=== PATIENT | male | born 1950 | race Caucasian/White ===

== ENCOUNTER 2019-10-24 09:00 | Outpatient (CLI) | payer MEDICARE, OTHER, SELFPAY ==
[2019-10-25 15:44] LABS: COVID-19 RT-PCR Result Negative (Negative)
== END 2019-10-24 09:20 ==
PROVIDERS: Visit Provider Family Medicine
DX: Z11.59 Encounter for screening for other viral diseases (principal)
CPT/HCPCS: U0003

== ENCOUNTER 2019-10-26 15:00 | Outpatient (CLI) | payer MEDICARE, OTHER, SELFPAY ==
--- NOTE | 2019-10-26 | DI.RAD_ITS ---
EXAM: XR CHEST 2V PA LATERAL CLINICAL HISTORY: COUGH, R05, NEGATIVE COVID TEST 10/24/19 TECHNIQUE: 2D digital imaging was performed. COMPARISON: CHEST 2 VIEWS PA,LAT from 01/13/2010 FINDINGS: MEDIASTINUM: Normal. HEART: Normal. PULMONARY VASCULATURE: Normal. LUNGS: Clear. PLEURAL SPACE: No pleural effusion or pneumothorax. BONE:Normal. OTHER FINDINGS:There is elevation of the right hemidiaphragm. IMPRESSION: No acute pulmonary findings. DATA REPOSITORY: RADIATION DOSE DELIVERED:
== END 2019-10-26 15:20 ==
PROVIDERS: PCP Internal Medicine Geriatric Medicine; Visit Provider Internal Medicine Geriatric Medicine
DX: R05 Cough (principal)
CPT/HCPCS: 71046

== ENCOUNTER 2020-02-07 02:11 | Outpatient (CLI) | payer MEDICARE, OTHER, SELFPAY ==
--- NOTE | 2020-02-07 | DI.CT_ITS ---
EXAM: CT CHEST WO CLINICAL HISTORY: COUGH TECHNIQUE: Imaging Protocol: Axial computed tomography images with coronal and sagittal reformatted images were created and reviewed CONTRAST MATERIAL: Noncontrast. COMPARISON: CR XR CHEST 2V PA LATERAL from 10/26/2019 FINDINGS: Tracheobronchial tree: Patent where visualized. Mediastinum and Marleny: No dominant adenopathy or fluid collection. Pulmonary parenchyma: No consolidation or dominant measurable mass. No visible emphysematous or fibro tic changes. Pleura: No effusion or pneumothorax. Heart: The heart is not dilated. Moderate coronary artery calcifications are seen. Aorta: Thoracic aorta non-dilated. Oanz-vz-diahwmuh calcification. Upper abdomen: Enlarged fatty liver. Lymph nodes: Within normal limits. Bones: Degenerative changes and mild scoliosis of the thoracic spine. Soft tissues: Unremarkable. IMPRESSION: No acute abnormality. Atherosclerotic changes and hepatic steatosis are noted.. RADIATION DOSE DELIVERED: Total DLP DATA REPOSITORY: All CT scans at this facility are submitted to the National Radiology Data Registry (NRDR) Dose Index Registry (DIR) with the [employer] ([employer]). RADIATION OPTIMIZATION: All CT scans at this facility use at least one of these dose optimization te chniques: automated exposure control; mA and/or kV adjustment per patient size (includes targeted exa ms where dose is matched to clinical indication); or iterative reconstruction.
--- NOTE | 2020-02-07 | DI.CT_ITS ---
EXAM: CT SINUS WO CLINICAL HISTORY: COUGH, CHRONIC SINUSITIS, J32.9,R05. Evaluate for sinusitis. TECHNIQUE: Imaging Protocol: Axial computed tomography images with coronal and sagittal reformatted images were created and reviewed. COMPARISON: No exams were available for comparison FINDINGS: Frontal sinuses: Normally aerated. Ethmoid air cells: Normally aerated. Maxillary sinuses: Mild mucosal thickening bilaterally. Sphenoid sinus: Normally aerated. Ostiomeatal complexes: Patent. Osseous nasal septum: There is js bullosa of the left middle turbinate. There is mild septal dev iation toward the left. No nasal polyps or nasal mucosal thickening is seen. Visualized regional soft tissues: No acute findings. Orbits: Unremarkable. Bones: Unremarkable. Mastoid Air Cells: Normally aerated. The visualized portions of the brain are grossly normal. The skull is unremarkable. IMPRESSION: Mild mucosal thickening of the maxillary sinuses, left greater than right. RADIATION DOSE DELIVERED: Total DLP DATA REPOSITORY: All CT scans at this facility are submitted to the National Radiology Data Registry (NRDR) Dose Index Registry (DIR) with the [employer] ([employer]). RADIATION OPTIMIZATION: All CT scans at this facility use at least one of these dose optimization te chniques: automated exposure control; mA and/or kV adjustment per patient size (includes targeted exa ms where dose is matched to clinical indication); or iterative reconstruction.
== END 2020-02-07 02:31 ==
PROVIDERS: PCP Internal Medicine Geriatric Medicine; Visit Provider Internal Medicine Geriatric Medicine
DX: J32.0 Chronic maxillary sinusitis (principal); R05 Cough
CPT/HCPCS: 71250; 70486

== ENCOUNTER 2023-01-20 03:01 | Outpatient (CLI) | payer MEDICARE, SELFPAY ==
[2023-01-21 19:52] LABS: Clam IgE 0.18 kU/L (<0.70); Crab IgE <0.10 kU/L (<0.70); Lobster IgE <0.10 kU/L (<0.70); Oyster IgE <0.10 kU/L (<0.70); Scallop IgE <0.10 kU/L (<0.70); Shrimp IgE <0.10 kU/L (<0.70); Wasp Venom IgE <0.10 kU/L (<0.70); White Faced Hornet Venom IgE 0.87 kU/L (<0.70)
[2023-01-25 18:12] LABS: CLASS 0; Venom Bumble Bee IgE <0.10 kU/L (<0.35)
== END 2023-01-20 03:02 | disposition home or self-care (01) ==
PROVIDERS: PCP Internal Medicine Geriatric Medicine; Visit Provider Physician Assistant
DX: Z91.038 Other insect allergy status (principal); Z91.013 Allergy to seafood; J30.89 Other allergic rhinitis
CPT/HCPCS: 36415; 86003

== ENCOUNTER 2024-03-28 19:04 | Inpatient (IN) | payer MEDICARE, SELFPAY ==
[2024-03-28] VITALS (48 sets, daily range): BP systolic 119–182; BP diastolic 58–90; PULSE 79–109; RESP 11–30; TEMP 37; O2SAT 97
--- NOTE | 2024-03-28 19:00 | RT.EKG_ITS ---
APPROVED REPORT Exam: Resting ECG Reason for Exam: chest pain/heaviness Patient Location: E HR:78 bpm ECG Measurements Heart Rate 78 AXIS IA 189 P 65 QRSd 94 QRS 53 QT 382 T 48 QTc 435 Conclusion Sinus rhythm...normal P axis, V-rate 60- 99 sinus rhythm, normal axis, normal intervals, non ischemic
--- NOTE | 2024-03-28 19:00 | DI.RAD_ITS ---
Exam(s) XR PORTABLE CHEST AP EXAM: XR PORTABLE CHEST AP CLINICAL HISTORY: Chest Pain. TECHNIQUE: 2D digital imaging was performed. COMPARISON: CR XR CHEST 2V PA LATERAL from 10/26/2019 FINDINGS: Single AP portable view. Heart size is upper normal. The mediastinum is not widened. No infiltrates nor pleural effusions. Right hemidiaphragm is again noted to be elevated. There is i nterposition of the a P[place]ock flexure of the colon between the liver and the right hemidiaphragm. No obvious free air. IMPRESSION: No acute pulmonary findings on this single AP portable view of the chest. Chronically elevated right hemidiaphragm interposition of colon between the liver and the undersurfac e of the elevated right hemidiaphragm. DATA REPOSITORY: RADIATION DOSE DELIVERED:
--- NOTE | 2024-03-28 19:08 | W.ED.GENAD ---
Discharge Plan Discharge Details Chief Complaint: Chest Pain Primary Care Provider: Asher Zambrano ED Provider: Meghan Chahal Home Meds and New Rx's Prescriptions: No Action meloxicam 15 mg tablet 15 mg PO DAILY rosuvastatin 40 mg tablet 40 mg PO DAILY ezetimibe 10 mg tablet 10 mg PO DAILY Ozempic 2 mg/dose (8 mg/3 mL) pen injector 2 mg SUBCUT .COMPLEX Rx Instructions: 2 mg subcutaneously every 2 weeks; epinephrine 0.3 mg/0.3 mL auto-injector 0.3 ml IM ONCE Rx Instructions: as a single dose; may repeat once HPI General Mode of arrival: EMS. Date/Time Provider Initiated Documentation: 03/28/24 19:07. Limitations to Documentation: no limitations. Information obtained by: patient, EMS, RN notes reviewed and old records reviewed. HPI Narrative: 73-year-old male presents to the ER via EMS with a chief complaint of chest pain which began while riding his tractor, began as midsternal radiating to his left shoulder and arm. Patient was given full dose baby aspirin prior to arrival by EMS 1 sublingual 0.4 mg nitroglycerin and started on a nitroglycerin drip at 30 mics per minute. Patient is also complaining of shortness of breath and vomited once prior to arrival. Upon arrival patient states that his pain is gone but he rates the tightness in his chest 6 out of 10. He is also stating that he is having a hard time breathing. Related Data Home Medications ?Medication ?Instructions ?Recorded ?Confirmed epinephrine 0.3 mg/0.3 mL 0.3 ml IM ONCE 03/28/24 03/28/24 injection, auto-injector ezetimibe 10 mg tablet 10 mg PO DAILY 03/28/24 03/28/24 meloxicam 15 mg tablet 15 mg PO DAILY 03/28/24 03/28/24 rosuvastatin 40 mg tablet 40 mg PO DAILY 03/28/24 03/28/24 semaglutide 2 mg/dose (8 mg/3 mL) 2 mg subcut .COMPLEX 03/28/24 03/28/24 subcutaneous pen injector (Ozempic) Allergies Allergy/AdvReac Type Severity Reaction Status Date / Time bee venom protein (honey bee) Allergy Severe Anaphylaxis Verified 03/28/24 19:19 shellfish derived Allergy Anaphylaxis Verified 03/28/24 19:19 Review of Systems All systems reviewed & are unremarkable except as noted in HPI and below Constitutional Constitutional: Reports as per HPI Cardiovascular Cardiovascular: Reports chest pain, Reports diaphoresis, Reports radiating jaw, neck or arm pain and Reports dyspnea Respiratory Respiratory: Reports dyspnea Gastrointestinal Gastrointestinal: Reports abdominal pain, Reports nausea and Reports vomiting Exam Narrative Exam Narrative: Constitutional: Alert and oriented x3. Appears stated age. Normal body habitus. Head: Normocephalic, no trauma. Eyes: Pupils PERRL, Red reflex noted, EOM's intact. Eyelids symmetrical without lesions, discharge, or swelling. ENT: Bilateral TM's WNL, External ear normal to inspection, no mastoid TTP, swelling, or erythema, Nasal turbinates WNL, no nasal discharge. Normal dentition, Posterior pharynx WNL, no exudate. Chest: Irregular rhythm, 99 102,, Normal S1, S2, distal pulses intact. Resp: Lungs clear to auscultation bilaterally, no wheezes, rales, or rhonchi. Abdomen: Nondistended, tender with palpation with guarding to the upper quadrants. Musculoskeletal: Unable to assess gait moves all 4 extremities without difficulty. Skin: No suspicious rashes or lesions. Capillary refill less than 2 sec. Neurologic: Cranial nerves II-XII intact. Alert and oriented x 3. Motor: No deficits noted. Sensory: Intact bilaterally all 4 extremities. Hematologic/Lymphatic: No ecchymosis, no lymphadenopathy. Medical Decision Making 73-year-old male presents to the ER via EMS with a chief complaint of chest pain which began while riding his tractor, began as midsternal radiating to his left shoulder and arm. Patient was given full dose baby aspirin prior to arrival by EMS 1 sublingual 0.4 mg nitroglycerin and started on a nitroglycerin drip at 30 mics per minute. Patient is also complaining of shortness of breath and vomited once prior to arrival. Upon arrival patient states that his pain is gone but he rates the tightness in his chest 6 out of 10. He is also stating that he is having a hard time breathing. EKG was reviewed by Dr. Hedy Tate ER attending, sinus rhythm, no old EKG available for review. Please see official report. Cardiac workup ordered including CBC CMP troponin chest x-ray D-dimer PT PTT. Instructed staff physical therapy assistant to decrease the nitro drip to 10 mics at this time. Informed by staff physical therapy assistant that patient also notes that yesterday he had an episode of chest pain as well which relieved on its own. Patient has a 17,000 white count, absolute neutrophils 14.02, initial troponin is 6. Patient is complaining of midepigastric pressure and shortness of breath. 0.5 mg lorazepam IV ordered. Will order CT chest abdomen pelvis. Pateint recently had steroid injections which could explain the WBC elevation, Dimer is 742 which is normal for age adjusted. CT chest ordered for R/O PE due to ongoing chest pain and to eval his aorta. 2248: Spoke with Dr. Arizmendi with [facility] who reports a possible perforated ulcer. Surgery paged. 2253: Spoke with Delfina who recommends transfer due to bed capacity, as we do not have beds here at this time, Zosyn and CT abd/pelvis. 2256[place] [facility] [place], will push images. Care is to be handed off to oncoming provider Dr. Meyers pending CT abdomen pelvis, [facility] [place] possible [place], and surgery to see in the a.m. At the time of this annotation patient is hemodynamically stable. Medical Records Medical records reviewed: Yes I reviewed the patient's medical records. Imaging Data Radiologic Study: Imaging: X-Ray Radiologist's impression: Imaging protocol: Radiologic exam of the chest. Views: 1 view. COMPARISON: CT CHEST WO 02/07/2020 9:08 AM FINDINGS: Lungs: Pulmonary vasculature grossly normal. No gross pulmonary infiltrates or edema pattern. Pleural spaces: No pleural effusion. No pneumothorax. Heart/Mediastinum: Heart size normal. No tracheal/mediastinal shift. Vasculature: The aorta demonstrates mild ectasia/tortuosity and moderate calcific atherosclerosis. Diaphragm: Mild chronic elevation of the right hemidiaphragm with incidental subdiaphragmatic interposition of aerated bowel. Bones/joints: No acute osseous abnormalities are identified. Mild-moderate left glenohumeral osteoarthritic change. IMPRESSION: No acute thoracic process. Thank you for allowing us to participate in the care of your patient. Dictated and Authenticated by: Miguel Barnes MD Radiologic Study #2: Imaging: CT Scan Radiologist's impression: IMPRESSION: 1. Moderate intraperitoneal free air in the upper abdomen concerning for bowel perforation. Suspected perforated gastric ulcer in the posterosuperior antro-pyloric distribution. Recommend GI or surgical consult, consider abdomen/pelvic CT with oral and IV contrast. 2. Mild cardiomegaly with left ventricular myocardial hypertrophy concerning for hypertrophic cardiomyopathy. Consider echocardiographic assessment as clinically indicated. Moderate coronary artery calcification. 3. No evidence of pulmonary embolism or aortic dissection. 4. THIS REPORT CONTAINS FINDINGS THAT MAY BE CRITICAL TO PATIENT CARE. The findings were verbally communicated via telephone conference with MEGHAN CHAHAL at 10:49 PM EDT on 03/28/2024. The findings were acknowledged and understood. Lab Data Lab results reviewed: Yes I reviewed the patient's lab results. Labs: Laboratory Tests Range/Units 03/28/24 03/28/24 03/28/24 19:07 20:21 20:32 WBC (4.4-10.8) 10^3/uL 17.08 H RBC (4.36-5.78) 10^6/uL 4.83 Hgb (13.5-17.5) g/dL 14.3 Hct (40.0-50.0) % 42.2 MCV (80-95) fL 87 MCH (27.0-33.0) pg 29.6 MCHC (32.0-36.0) % 33.9 RDW (11.8-14.1) % 13.8 Plt Count (130-400) 10^3/uL 255 MPV (8.0-11.0) fL 9.0 Immature Gran % % 0.5 Neutrophils % % 82.1 Lymphocytes % % 10.2 Monocytes % % 6.9 Eosinophils % % 0.1 Basophils % % 0.2 Nucleated RBC % (0.0-0.3) % 0.0 Absolute Neutrophils (1.2-6.7) 10^3/uL 14.02 H Absolute Lymphocytes (1.2-3.4) 10^3/uL 1.74 Absolute Monocytes (0.1-0.8) 10^3/uL 1.18 H Absolute Eosinophils (0.0-0.7) 10^3/uL 0.02 Absolute Basophils (0.0-0.2) 10^3/uL 0.03 PT (9.1-11.1) sec 11.0 INR (0.9-1.1) 1.1 APTT (23.6-32.8) sec 22.3 L D-Dimer (<500) ng/mlFEU 742 H Sodium (136-145) mmol/L 141 Potassium (3.5-5.1) mmol/L 3.5 Chloride (98-107) mmol/L 105 Carbon Dioxide (21.0-32.0) mmol/L 26.8 Anion Gap (3-11) mmol/L 9.2 BUN (7-18) mg/dL 33 H Creatinine (0.70-1.30) mg/dL 1.1 Est GFR (CKD-EPI 2020) (mL/min/1.73m2) 71.32 Glucose (74-106) mg/dL 87 Calcium (8.5-10.1) mg/dL 9.6 Magnesium (1.8-2.4) mg/dL 2.0 Total Bilirubin (0.2-1.0) mg/dL 0.70 AST (15-37) U/L 23 ALT (16-63) U/L 70 H Alkaline Phosphatase (46-116) U/L 91 Troponin I Cancelled 6 NT-Pro-B Natriuret Pep (<300) pg/mL 26 Total Protein (6.4-8.2) g/dL 6.7 Albumin (3.4-5.0) g/dL 3.7 Quality:[facility] Health Related Social Needs: Health related social needs risk of homeless [facility] Social History Smoking/Tobacco Use Status: Former Tobacco Use Smoking risk assessment performed?: Yes Alcohol Intake: current Alcohol Intake frequency: 0-2 drinks per day Drug use: Never Housing: house Do you feel safe at home: Yes Do you feel safe in your relationship?: Yes Sign Out Sign Out Data: Sign Out Comment: 73-year-old male presented initially with chest pain, now after CT chest with evidence of a perforated gastric ulcer with free air in the peritoneal area. P[place] CT abdomen pelvis, [facility] [place] request and if not possible for transfer, surgery to see in a.m. Dr. Mathis is aware. Zosyn ordered patient n.p.o. Last updated by Meghan Chahal NP at 03/28/24 23:33
[2024-03-28] MEDS: nitroGLYcerin in D5W 50 MG/250 ML BTL IV (19:10)
--- NOTE | 2024-03-28 20:29 | DI.[facility]_ITS ---
Addendum created by Miguel Barnes MD on 03/28/2024 10:50:15 PM EDT: Addendum: Subsequent chest CT angiogram confirms that much of the subdiaphragmatic air density was related to bowel, however there is also a moderate amount of intraperitoneal free air concerning for bowel perforation better demonstrated on CT, please see subsequent chest CT angiogram. This was discussed with the ordering provider with the CT angiogram report. Initial report created on 03/28/2024 8:28:55 PM EDT: PROCEDURE INFORMATION: Exam: XR Chest Exam date and time: 03/28/2024 7:51 PM Age: 73 years old Clinical indication: Other: Chest pain TECHNIQUE: Imaging protocol: Radiologic exam of the chest. Views: 1 view. COMPARISON: CT CHEST WO 02/07/2020 9:08 AM FINDINGS: Lungs: Pulmonary vasculature grossly normal. No gross pulmonary infiltrates or edema pattern. Pleural spaces: No pleural effusion. No pneumothorax. Heart/Mediastinum: Heart size normal. No tracheal/mediastinal shift. Vasculature: The aorta demonstrates mild ectasia/tortuosity and moderate calcific atherosclerosis. Diaphragm: Mild chronic elevation of the right hemidiaphragm with incidental subdiaphragmatic interposition of aerated bowel. Bones/joints: No acute osseous abnormalities are identified. Mild-moderate left glenohumeral osteoarthritic change. IMPRESSION: No acute thoracic process. Dictated and Authenticated by: Miguel Barnes MD. Ordering:GER Christianson MD
[2024-03-28 20:41] LABS: Abs Immature Grans 0.08 10^3/uL (0.0-0.06); Absolute Eosinophil Count 0.02 10^3/uL (0.0-0.7); Absolute Neutrophil Count 14.02 10^3/uL (1.2-6.7); Basophils % 0.2 %; Eosinophils % 0.1 %; HCT 42.2 % (40.0-50.0); HGB 14.3 g/dL (13.5-17.5); Immature Grans % 0.5 %; Lymphocytes % 10.2 %; MCH 29.6 pg (27.0-33.0); MCHC 33.9 % (32.0-36.0); MCV 87 fL (80-95); Monocytes % 6.9 %; Neutrophils % 82.1 %; Platelet Count 255 10^3/uL (130-400); RBC 4.83 10^6/uL (4.36-5.78); RDW 13.8 % (11.8-14.1); WBC 17.08 10^3/uL (4.4-10.8)
[2024-03-28 20:42] LABS: Absolute Basophil Count 0.03 10^3/uL (0.0-0.2); Absolute Lymphocyte Count 1.74 10^3/uL (1.2-3.4); Absolute Monocyte Count 1.18 10^3/uL (0.1-0.8)
[2024-03-28 20:51] LABS: Troponin I 6 ng/L (<or=76)
[2024-03-28 20:56] LABS: INR 1.1 (0.9-1.1); PTT Activated 22.3 sec (23.6-32.8)
[2024-03-28] MEDS: LORazepam 2 MG/ML VIAL 0.5 MG IVP (21:05)
[2024-03-28 21:12] LABS: D-Dimer 742 ng/mlFEU (<500)
[2024-03-28 21:14] LABS: ALT 70 U/L (16-63); AST 23 U/L (15-37); Albumin 3.7 g/dL (3.4-5.0); Alkaline Phosphatase 91 U/L (46-116); Anion Gap 9.2 mmol/L (3-11); BUN 33 mg/dL (7-18); CO2 26.8 mmol/L (21.0-32.0); CREATININE 1.1 mg/dL (0.70-1.30); Calcium 9.6 mg/dL (8.5-10.1); Chloride 105 mmol/L (98-107); Estimated GFR 71.32 (mL/min/1.73m2); Glucose 87 mg/dL (74-106); NT-proBNP 26 pg/mL (<300); Potassium 3.5 mmol/L (3.5-5.1); Sodium 141 mmol/L (136-145); Total Protein 6.7 g/dL (6.4-8.2)
--- OUTSIDE RECORDS SUMMARY | 2024-03-28 21:23 | XMS_ITS ---
Author Organization [facility] Address [address] [place] [address] Phone Care Team Providers Care Managed Services Consultant Name Role Phone Asher Zambrano D.O. Primary Care Provider [phone] Problems Includes: Active, inactive, and resolved Problems All Visits Onset Date Resolved Date Provider Condition S tatus Cervicalgia 02/24/2022 Cole Keating M.D. Activ e Last Documented On 2 1:37PM ; [facility] Peripheral Neuropathy Sensory 02/24/2022 Cole Keating M.D. Active Last Documented On 2 1:38PM ; [facility] Osteoarthritis Localized Primary Knee Right 02/24/2022 Cole Keating M.D. Active Last Documented On 2 1:45PM ; [facility] Nonorganic Sleep Apnea Obstructive 02/24/2022 G jatinder Keating M.D. Active Last Documented On 2 1:45PM ; [facility] Essential Hypertension Benign 04/08/2009 Cole Keating M.D. Active Last Documented On 2 1:45PM ; [facility] Note: DESC: Benign essential hypertensio n Plan of Treatment Education and Decision Aids were provided during visit for: Dietary counseling pertainin g to a specific condition Follow up with PCP Last Documented On 2 1:32PM ; [facility] Assessments Includes: Assessments for all patient encounters Findings Encounter Date Benign essential hypertension New Patien t - 15 Mins with Cole Keating M.D. 02/24/2022 Last Documented On 2 1:56PM ; [facility] Cervicalgia New Patient - 15 Mins with Cole Keating M.D. 02/24/2022 Last Documented On 2 1:56PM ; [facility] Localized primary osteoarthr itis of right knee New Patient - 15 Mins with Cole Keating M.D. 02/24/2022 Last Documented On 2 1:56PM ; [facility] Obstructive sleep apnea New Patient - 15 Mins wi th Cole Keating M.D. 02/24/2022 Last Documented On 2 1:56PM ; [facility] Peripheral sensory neuropathy New Patien t - 15 Mins with Cole Keating M.D. 02/24/2022 Last Documented On 2 1:56PM ; [facility] Instructions Includes: Instructions for all patient encounters Education and Decision Aids were provided during visit for: Dietary counseling pertainin g to a specific condition Follow up with PCP Last Documented On 2 1:32PM ; [facility] Medical Equipment - Implanted Devices Includes: Current and historical Devices No Medical Equipment Recorded Medications Includes: Current and historical Medications Current Medications (continue as prescribed) Clopidogrel Bisulfate 75 MG Oral Tablet 2022 P rovider: Julia Smith MD Diagnosis: 1 by mouth every morning Last Documented On 2 11:36AM By Julia Smith M.D. ; [facility] Mobic 7.5 MG Oral Tablet 02/24/2022 Provider: Chris Keating M.D. Diagnosis: tabs 1 po daily with food prn. Stop if stomach p ain Last Documented On 2 1:55PM By Cole Keating M.D. ; [facility] Diovan 160 MG OR TABS 01/21/2012 Provider: Diagnosis: Last Documented On 2 11:53AM By Amee Anthony ; [facility] [manual] Tricor 20 mg MISC 01/21/2012 Provider: Diagnosis: Last Documented On 2 11:53AM By Amee Anthony ; [facility] Vytorin 10-10 MG OR TABS 01/21/2012 Provider: Diagnosis: Last Documented On 2 11:53AM By Amee Anthony ; [facility] Past Medications on file Clopidogrel Bisulfate 75 MG Oral Tablet 2022 - 2022 Provider: Julia Smith MD Diagnosis: 1 by mouth every morning Last Documented On 2 11:36AM By Julia Smith M.D. ; [facility] Hydrocortisone 2.5% RE CREA 01/21/2012 - 02/20/2012 Pr ovider: Rylie Bishop M.D. Diagnosis: apply to affected areas on t he forehead twice daily for 2-4 weeks Last Documented On 2 12:18PM By Rylie Copeland M.D. ; [facility] Triamcinolone Acetonide 0.1% EX CREA 01/21/2012 - 02/20/2012 Provider: Rylie Bishop M.D. Diagnosis: apply twice daily to affecte d areas for 2-4 weeks on elbows and knees Last Documented On 2 12:19PM By Rylie Copeland M.D. ; [facility] Medications Administered Includes: Administered Medications in patient's chart No Administered Medications Recorded Results Includes: Results from 03/28/2023 through 03/28/2024 No Results Recorded For Specified Dates Social History Description Last Updated No tobacco use 2022 Last Documented On 2 10:32AM ; [facility] Tobacco non-user 02/24/2022 Last Documented On 2 1:56PM ; [facility] Not a current smoker 01/21/2012 Last Documented On 2 2:29PM ; [facility] 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 Last Documented On 2 2:29PM ; [facility] Alcohol once a day 01/21/2012 Last Documented On 2 2:29PM ; [facility] Not using drugs (recreational) 2 Last Documented On 2 2:29PM ; [facility] Smoking Status Unknown Procedures and Surgical History Includes: Procedures from 03/28/2023 through 03/28/2024 Procedures Code Diagnosis Performing Provider Service Location Service Date TANGENTIAL BIOPSY SKIN LESION, SINGLE 10347 Neoplasm of uncertain behavior of skin Rylie Bishop M.D. [facility] 10/26/2023 - 10/26/2023 Last Documented On 4 10:39AM ; [facility] DESTRUCTION BENIGN OR PREMALG LES 2-14 (Distinct Procedural Service) 44335 Actinic keratosis Rylie Bishop M.D. [facility] 10/26/2023 - 10/26/2023 Last Documented On 4 10:39AM ; [facility] DESTRUCTION PREMALIG LESION FIRST LESION (Multiple Procedures, Distinct Procedural Service) 36767 Actinic keratosis Rylie Bishop M.D. [facility] 10/26/2023 - 10/26/2023 Last Documented On 4 10:39AM ; [facility] REPAIR COMPLEX SCALP ARMS LEGS 2.6 TO 7.5 CM (Multiple Procedures) 47001 Squamous cell carcinoma of skin of scalp and neck Jeremy Vaughan MD [facility] 06/29/2023 - 06/29/2023 Last Documented On 3 10:22AM ; [facility] MOHS SURGERY STAGE 1 HEAD NECK HANDS FEET [id number] Squamous cell carcinoma of skin of scalp and neck Jeremy Vaughan MD [facility] 06/29/2023 - 06/29/2023 Last Documented On 3 10:22AM ; [facility] TANGENTIAL BIOPSY SKIN LESION, EACH ADDL (Distinct Procedural Service) 59768 Neoplasm of uncertain behavior of skin Rylie Bishop M.D. [facility] 05/27/2023 - 05/27/2023 Last Documented On 3 9:49AM ; [facility] TANGENTIAL BIOPSY SKIN LESION, SINGLE 42187 Neoplasm of uncertain behavior of skin Rylie Bishop M.D. [facility] 05/27/2023 - 05/27/2023 Last Documented On 3 9:49AM ; [facility] DESTRUCTION BENIGN OR PREMALG LES 2-14 (Distinct Procedural Service) 19270 Actinic keratosis Rylie Bishop M.D. [facility] 03/29/2023 - 03/29/2023 Last Documented On 3 9:09AM ; [facility] DESTRUCTION PREMALIG LESION FIRST LESION 84177 Actinic keratosis Rylie Bishop M.D. [facility] 03/29/2023 - 03/29/2023 Last Documented On 3 9:09AM ; [facility] Surgical History Last Updated No history of surgery in the last 6 ghassan hs 01/21/2012 Last Documented On 2 2:29PM ; [facility] Medical History Includes: Medical History in patient's chart Description Last Updated No history of simplex purpura (bleeds ea sily) 01/21/2012 Last Documented On 2 2:29PM ; [facility] Dental history - had dental anesthesia ( Novacaine) 01/21/2012 Last Documented On 2 2:29PM ; [facility] Exposure to a lot of bright sunlight --> patient's skin tans and joyce 01/21/2012 Last Documented On 2 2:29PM ; [facility] No history of skin cancer 01/21/2012 Last Documented On 2 2:29PM ; [facility] No history of skin disorder 01/21/2012 Last Documented On 2 2:29PM ; [facility] History of hyperlipidemia (high choleste rol) 01/21/2012 Last Documented On 2 2:29PM ; [facility] History of hypertension 01/21/2012 Last Documented On 2 2:29PM ; [facility] Physical Exam Physical Exam not supported for this document type No Physical Exam Recorded Allergies Includes: Active, inactive, and resolved Allergies No Known Allergies Encounters Includes: Encounters from 03/28/2023 through 03/28/2024 Encounter Provider Location Date Check-In Time Check-Out Time Diagnosis Estab Patient - 10 Mins [facility] 03/21/20 24 11:13AM 12:32PM Estab Patient - 10 Mins R[facility]ie [facility]re [facility] 12/10/19 24 11:34AM 12:13PM Estab Patient - 10 Mins Rylie Schneidere [place] [facility] 10/26/19 24 8:57AM 10:28AM Surgery Appt Jeremy Vaughan MD Dermatology [facility] [address] 06/29/20 23 9:21AM 11:18AM Estab Patient - 10 Mins Rylie Schneidere Rylie.[facility] 05/27/20 23 9:55AM 10:21AM Estab Patient - 10 Mins Rylie Bishop M.[facility] 03/29/20 23 8:53AM 9:30AM Clinical Notes Includes: Signed Clinical Notes starting from 08/14/2022 * Progress note Date Encounter Last Documented by 06/29/2023 Surgery Appt Last documented on 06/29/2023; 1:06 PM, Jeremy Vaughan MD; [facility] Active Problems & Conditions - Cervicalgia - Essential Hypertension Benign - DESC: Benign essential hypertension - Nonorganic Sleep Apnea Obstructive - Osteoarthritis Localized Primary Knee Right - Peripheral Neuropathy Sensory Current Medication - [manual] Tricor 20 mg Miscellaneous (not specified) 0 days, 0 refills - Clopidogrel Bisulfate 75 MG Oral Tablet 1 by mouth every morning, 90 days, 3 refills - Diovan 160 MG Tablet 0 days, 0 refills - Mobic 7.5 MG Oral Tablet tabs 1 po daily with food prn. Stop if stomach pain, 30 days, 2 refills - Vytorin 10-10 MG Tablet 0 days, 0 refills Past Medical/Surgical History Reported: Medical: Dental history - had dental anesthesia (Novacaine). Environmental Exposure: Exposure to a lot of bright sunlight --> patient's skin tans and joyce. Diagnoses: Systemic hypertension. Hyperlipidemia (high cholesterol). No diagnosis of skin disorder No diagnosis of simplex purpura (bleeds easily). No diagnosis of skin cancer Social History Tobacco use: No tobacco use and not a current smoker. Tobacco non-user. Alcohol: Alcohol once a day. Drug Use: Not using drugs (recreational). 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 Allergies - No Known Allergies Family History No diagnosis of skin cancer
--- OUTSIDE RECORDS SUMMARY | 2024-03-28 21:23 | XMS_ITS ---
Care Plan - [facility] Created on: March 29, 2024 Nirmal Puri : 1950 Sex: Male Author Organization [facility] Address [address] [place] [address] Phone Care Team Providers Care Computer Aided Design Drafter Name Role Phone Asher Zambrano D.O. Primary Care Provider [phone]
--- OUTSIDE RECORDS SUMMARY | 2024-03-28 21:23 | XMS_ITS | Clinical Summary ---
Author Organization [facility] Address [address] [place] [address] Phone Care Team Providers Care Associate [employer] Name Role Phone Asher Zambrano D.O. Primary Care Provider [phone] Problems Includes: Problems addressed during this encounter and other active Problems All Visits Onset Date Resolved Date Provider Condition S tatus Cervicalgia 02/24/2022 Cole Keating M.D. Activ e Last Documented On 2 1:37PM ; [facility] Peripheral Neuropathy Sensory 02/24/2022 Cole Keating M.D. Active Last Documented On 2 1:38PM ; [facility] Osteoarthritis Localized Primary Knee Right 02/24/2022 Cole Keating M.D. Active Last Documented On 2 1:45PM ; [facility] Nonorganic Sleep Apnea Obstructive 02/24/2022 G jatinder Keating M.D. Active Last Documented On 2 1:45PM ; [facility] Essential Hypertension Benign 04/08/2009 Cole Keating M.D. Active Last Documented On 2 1:45PM ; [facility] Note: DESC: Benign essential hypertensio n Plan of Treatment No Plan of Treatment Recorded Assessments Includes: Assessments from this encounter No Assessments Recorded Medical Equipment - Implanted Devices Includes: Current Devices No Medical Equipment Recorded Medications Includes: Medications discussed during this encounter and other current Medications Current Medications (continue as prescribed) Clopidogrel Bisulfate 75 MG Oral Tablet 2022 Es bergeron: Julia Smith MD Diagnosis: 1 by mouth every morning Last Documented On 2 11:36AM By Julia Smith M.D. ; [facility] Mobic 7.5 MG Oral Tablet 02/24/2022 Provider: Chris Keating M.D. Diagnosis: tabs 1 po daily with food prn. Stop if stomach p ain Last Documented On 2 1:55PM By Cole Keating M.D. ; [facility] Diovan 160 MG OR TABS 01/21/2012 Provider: Diagnosis: Last Documented On 2 11:53AM By Amee Anthony ; [facility] [manual] Tricor 20 mg MISC 01/21/2012 Provider: Diagnosis: Last Documented On 2 11:53AM By Amee Anthony ; [facility] Vytorin 10-10 MG OR TABS 01/21/2012 Provider: Diagnosis: Last Documented On 2 11:53AM By Amee Anthony ; [facility] Medications Administered Includes: Administered Medications from this encounter No Administered Medications Recorded Results Includes: Results discussed during this encounter No Results Recorded For Specified Dates Social History No Social History Recorded - Smoking Status Unknown Medical History Includes: Medical History addressed during this encounter No Medical History Recorded Physical Exam Includes: Physical Exam from this encounter No Physical Exam Recorded Allergies Includes: Active Allergies No Known Allergies Encounters Encounter Provider Location Date Check-In Time Check-Out Time Diagnosis Estab Patient - 10 Mins Rylie Bishop M.D. Dermatology [facility] 05/01/20 24 9:00AM 11:59PM Clinical Notes Includes: Clinical Notes from this encounter No Clinical Notes Recorded
--- OUTSIDE RECORDS SUMMARY | 2024-03-28 21:23 | XMS_ITS | Clinical Summary ---
Author Organization [facility] Address [address] [place] [address] Phone Care Team Providers Care Hide Inspector Name Role Phone Asher Zambrano D.O. Primary Care Provider [phone] Problems Includes: Problems addressed during this encounter and other active Problems All Visits Onset Date Resolved Date Provider Condition S tatus Cervicalgia 02/24/2022 Cole Keating M.D. Activ e Last Documented On 2 1:37PM ; [facility] Peripheral Neuropathy Sensory 02/24/2022 Cole Keating M.D. Active Last Documented On 2 1:38PM ; [facility] Osteoarthritis Localized Primary Knee Right 02/24/2022 Cole Keating M.D. Active Last Documented On 2 1:45PM ; [facility] Nonorganic Sleep Apnea Obstructive 02/24/2022 G jatinder Keating M.D. Active Last Documented On 2 1:45PM ; [facility] Essential Hypertension Benign 04/08/2009 Cole Keating M.D. Active Last Documented On 2 1:45PM ; [facility] Note: DESC: Benign essential [...] 2 11:36AM By Julia Smith M.D. ; [facility] Mobic 7.5 MG Oral Tablet 02/24/2022 Provider: Chris Keating M.D. Diagnosis: tabs 1 po daily with food prn. Stop if stomach p ain Last Documented On 2 1:55PM By Cole Keating M.D. ; [facility] Diovan 160 MG OR TABS 01/21/2012 Provider: Diagnosis: Last Documented On 2 11:53AM By Amee Anthony ; [facility] [manual] Tricor 20 mg MISC 01/21/2012 Provider: Diagnosis: Last Documented On 2 11:53AM By Amee Anthony ; [facility] Vytorin 10-10 MG OR TABS 01/21/2012 Provider: Diagnosis: Last Documented On 2 11:53AM By Amee Anthony ; [facility] Medications Administered Includes: Administered [...] Mins Rylie Bishop M.D. Dermatology [facility] 03/21/20 24 11:13AM 12:32PM Clinical Notes Includes: Clinical Notes from this encounter No Clinical Notes Recorded
--- OUTSIDE RECORDS SUMMARY | 2024-03-28 21:24 | XMS_ITS | Encounter Summary ---
Author Organization [facility] Address [address] [place] [address] Care Team Providers Care Chief Digital Media Officer Name Role Phone Alejo aZmbranoel Maurice KNUTSON Primary Care Provider Prior Encounters Date Type Department Care Team Description 11/12/2022 6:18 AM EDT - 11/12/2022 9:30 AM EDT Hospital Encounter [facility] - [facility] - [facility] [place] [address] Wilfrido Shine MD Discharge Disposition: Home 11/12/2022 11:00 AM EDT - 11/12/2022 11:30 AM EDT Surgery [facility] [place] [address] Wilfrido Shine MD Midline C6 7 cervical interlaminat epidural steroid inj [44601 (CPT??)] 11/12/2022 9:31 AM EDT - 11/12/2022 11:58 PM EDT Hospital Encounter [facility] Endoscopy [address] [facility] [place] [address] Wilfrido Shine MD Discharge Disposition: Home 07/20/2022 8:42 AM EST - 07/21/2022 1:43 PM EST [facility] [place] [address] Brandyn Ospina MD Discharge Disposition: Home 07/20/2022 10:15 AM EST - 07/20/2022 1:10 PM EST Surgery [facility] Operating Room [address] [place] [address] Brandyn Ospina MD Right Carotid Endarterectomy [[id number] (CPT??)] 07/17/2022 1:00 PM EST - 07/17/2022 11:59 PM EST Hospital Encounter [facility] Cardiology [address] [place] [address] Brandyn Ospina MD Encounter for screening for other viral diseases Discharge Disposition: Home 06/25/2022 12:41 PM EST - 06/25/2022 11:59 PM EST Hospital Encounter [facility] Cardiology [address] [place] [address] Brandyn Ospina MD Occlusion and stenosis of bilateral carotid arteries Discharge Disposition: Home 06/08/2022 11:00 AM EST - 06/08/2022 11:59 PM EST Hospital Encounter [place] [address] [facility] - Radiology [address] [place] [id number] Asher Zambrano DO Occlusion and stenosis of unspecified carotid artery Discharge Disposition: Home 06/08/2022 9:39 AM EST - 06/08/2022 10:59 AM EST Hospital Encounter [place] [address] [facility] - Radiology [address] [place] [id number] Julia Smith MD Spinal stenosis, lumbar region without neurogenic claudication; Spinal stenosis, thoracic region Discharge Disposition: Home 06/08/2022 9:39 AM EST - 06/08/2022 10:59 AM EST Hospital Encounter [place] [address] [facility] - Radiology [address] [place] [id number] Julia Smith MD Spinal stenosis, lumbar region without neurogenic claudication; Spinal stenosis, thoracic region Discharge Disposition: Home 05/18/2022 9:06 AM EST - 05/18/2022 1:52 PM EST Hospital Encounter [place] [address] [facility] - Radiology [address] [place] [id number] Julia Smith MD Aural vertigo, unspecified ear; Dissection of carotid artery (CMS/HCC); Cerebral aneurysm, nonruptured Discharge Disposition: Home 05/18/2022 9:02 AM EST - 05/18/2022 9:05 AM EST Hospital Encounter [place] [address] [facility] - Radiology [address] [place] [address] Julia Smith MD Aural vertigo, unspecified ear; Dissection of carotid artery (CMS/HCC); Cerebral aneurysm, nonruptured Discharge Disposition: Home 05/18/2022 9:02 AM EST - 05/18/2022 9:05 AM EST [facility] [address] [facility] [address] [place] [id number] Jluia Smith MD Aural vertigo, unspecified ear; Dissection of carotid artery (CMS/HCC); Cerebral aneurysm, nonruptured Discharge Disposition: Home 05/18/2022 1:53 PM EST - 05/18/2022 11:59 PM EST Hospital Encounter [facility] Sleep Study [address] [place] [address] Asher Zambrano DO JAGJIT (obstructive sleep apnea) Discharge Disposition: Home 05/04/2018 1:50 PM EDT - 05/04/2018 11:59 PM EDT Hospital Encounter [facility] - Radiology - MR [address] [place] [address] Asher Zambrano DO Benign paroxysmal vertigo of both ears Discharge Disposition: Home 05/28/2017 8:05 AM EST Hospital Encounter [facility] Historical Outpatient Gian Castro MD 04/14/2017 7:01 AM EDT Hospital Encounter [facility] Historical Outpatient Dante Hall MD 03/23/2017 5:53 PM EDT Hospital Encounter [facility] Historical Outpatient Dante Hall MD 08/07/2015 12:36 PM EST Hospital Encounter [facility] Historical Ouptatient Data Datne Hall MD 01/28/2015 9:43 AM EDT Hospital Encounter [facility] Historical Outpatient Asher Zambrano, DO 01/30/2014 7:09 PM EDT Hospital Encounter [facility] Historical Outpatient Asher Zambrano, DO 05/18/2013 9:27 AM EST Hospital Encounter [facility] Historical Outpatient Asher Zambrano, DO 05/18/2013 7:57 PM EST Hospital Encounter [facility] Historical Outpatient Asher Zambrano, DO 04/21/2013 6:09 AM EDT Hospital Encounter [facility] Historical Outpatient Efrain Balderas MD 04/20/2013 7:00 PM EDT Hospital Encounter [facility] Historical Outpatient Asher Zambrano, DO 04/18/2013 9:01 AM EDT Hospital Encounter [facility] Historical Outpatient Asher Zambrano, DO 04/12/2013 7:47 AM EDT Hospital Encounter [facility] Historical Ouptatient Data Asher Zambrano, DO 04/06/2013 11:24 AM EDT Hospital Encounter [facility] Historical Outpatient Asher Zambrano, DO 05/17/2012 11:32 AM EST Hospital Encounter [facility] Historical Outpatient Asher Zambrano, DO 05/16/2012 4:39 PM EST Hospital Encounter [facility] Historical Outpatient Asher Zambrano, DO 12/24/2011 3:16 PM EDT Hospital Encounter [facility] Historical Outpatient Asher Zambrano, DO 09/01/2011 9:21 AM EST Hospital Encounter [facility] Historical Outpatient Dante Hall MD 02/11/2011 10:49 AM EDT Hospital Encounter [facility] Historical Outpatient Asher Zambrano, DO 10/23/2010 9:11 AM EDT Hospital Encounter [facility] Historical Outpatient Dante Hall MD 05/01/2010 9:06 AM EDT Hospital Encounter [facility] Historical Outpatient Donavon Kelly MD 10/08/2009 7:31 AM EDT Hospital Encounter [facility] Historical Outpatient Miguel Gómez MD 10/08/2009 7:37 AM EDT Hospital Encounter [facility] Historical Outpatient Miguel Gómez MD 06/18/2009 7:49 AM EST Hospital Encounter [facility] Historical Ouptatient Data Asher Zambrano, DO 04/02/2009 7:50 AM EDT Hospital Encounter [facility] Historical Outpatient Asher Zambrano, DO 09/22/2007 11:26 AM EDT Hospital Encounter [facility] Historical Outpatient Asher Zambrano, DO 04/01/2007 12:31 PM EDT Hospital Encounter [facility] Historical Outpatient Asher Zambrano, DO 03/08/2007 7:04 AM EDT Hospital Encounter [facility] Historical Outpatient Asher Zambrano, DO 09/30/2006 5:16 PM EDT Hospital Encounter [facility] Historical Outpatient Celestine Franco MD 10/26/2005 4:00 PM EDT Hospital Encounter [facility] Historical Outpatient Celestine Franco MD 03/26/2005 7:20 AM EDT Hospital Encounter [facility] Historical Outpatient Asher Zambrano, DO 07/09/2004 12:27 PM EST Hospital Encounter [facility] Historical Outpatient Asher Zambrano, DO 01/23/2003 Hospital Encounter [facility] Historical Outpatient Asher Zambrano, DO 12/28/2002 1:23 AM EDT - 12/28/2002 5:03 PM EDT Hospital Encounter [facility] Historical Inpatient Asher Zambrano Maurice, DO Discharge Disposition: Home 09/22/2002 12:43 PM EST Hospital Encounter [facility] Historical Outpatient Asher Zambrano, DO 11/22/2001 6:18 AM EDT Hospital Encounter [facility] Historical Ouptatient Data Celestine Martin MD 11/18/2001 12:42 PM EDT Hospital Encounter [facility] Historical Ouptatient Data Celestine Martin MD 04/24/2001 11:04 AM EDT Hospital Encounter [facility] Historical ED Guilherme Souza MD Discharge Disposition: Home 04/29/2000 9:48 AM EDT Hospital Encounter [facility] Historical Outpatient Dago Nowak MD 04/24/1999 7:59 AM EDT Hospital Encounter [facility] Historical Outpatient Karl Peña MD 12/16/1998 8:16 AM EDT Hospital Encounter [facility] Historical Outpatient Karl Peña MD 06/03/1998 7:56 AM EST Hospital Encounter [facility] Historical Outpatient Karl Peña MD 12/25/1997 7:53 AM EDT Hospital Encounter [facility] Historical Outpatient Karl Peña MD 05/25/1997 7:34 AM EST Hospital Encounter [facility] Historical Outpatient Karl Peña MD 11/08/1996 7:40 AM EDT Hospital Encounter [facility] Historical Outpatient Karl Peña MD 08/23/1996 7:49 AM EST Hospital Encounter [facility] Historical Outpatient Karl Peña MD 08/09/1996 7:49 AM EST Hospital Encounter [facility] Historical Outpatient Karl Peña MD 05/10/1996 7:45 AM EST Hospital Encounter [facility] Historical Outpatient 02/09/1996 9:39 AM EDT Hospital Encounter [facility] Historical Outpatient Karl Peña MD 12/17/1995 9:00 AM EDT Hospital Encounter [facility] Historical Outpatient 12/13/1995 4:00 PM EDT Hospital Encounter [facility] Historical Outpatient Karl Peña MD Last Filed Vital Signs Vital Sign Reading Time Taken Comments Blood Pressure 159/75 11/12/2022 11:30 AM EDT Pulse 77 11/12/2022 11:30 AM EDT Temperature 36.1 ??C (97 ??F) 11/12/2022 11:21 AM EDT Respiratory Rate 16 11/12/2022 11:30 AM EDT Oxygen Saturation 99% 11/12/2022 11:30 AM EDT Inhaled Oxygen Concentration - - Weight 83 kg (183 lb) 11/12/2022 10:15 AM EDT Height 177.8 cm (5' 10) 11/12/2022 10:15 AM EDT Body Mass Index 26.26 11/12/2022 10:15 AM EDT Plan of Treatment Not on file Procedures Procedure Name Priority Date/Time Associated Diagnosis Comments COMPREHENSIVE METABOLIC PANEL Routine 04/01/2023 12:00 PM EDT Encounter for other specified special examinations CBC AND DIFF Routine 04/01/2023 12:00 PM EDT Encounter for other specified special examinations HEMOGLOBIN A1C Routine 02/25/2023 10:31 PM EDT Obesity, unspecified Hyperlipidemia, unspecified Essential (primary) hypertension TSH 3RD GENERATION Routine 02/25/2023 10 :31 PM EDT Obesity, unspecified Hyperlipidemia, unspecified Essential (primary) hypertension APOLIPOPROTEIN B Routine 02/25/2023 10:3 1 PM EDT Obesity, unspecified Hyperlipidemia, unspecified Essential (primary) hypertension CBC AND DIFF Routine 02/25/2023 10:31 PM EDT Obesity, unspecified Hyperlipidemia, unspecified Essential (primary) hypertension COMPREHENSIVE METABOLIC PANEL Routine 02/25/2023 10:31 PM EDT Obesity, unspecified Hyperlipidemia, unspecified Essential (primary) hypertension FL FLUOROSCOPY TECHNICAL ASSISTANCE Routine 11/12/2022 11:22 AM EDT AL NJX DX/THER SBST INTRLMNR CRV/THRC W/IMG GDN 11/12/2022 10:59 AM EDT Cervical spinal stenosis Spondylolisthesis of cervical region APOLIPOPROTEIN B Routine 11/11/2022 3:24 PM EDT Hyperlipidemia, unspecified Essential (primary) hypertension LIPID PROFILE Routine 11/11/2022 3:24 PM EDT Hyperlipidemia, unspecified Essential (primary) hypertension HEMOGLOBIN A1C Routine 11/11/2022 3:24 PM EDT Hyperlipidemia, unspecified Essential (primary) hypertension TSH 3RD GENERATION Routine 11/11/2022 3: 24 PM EDT Hyperlipidemia, unspecified Essential (primary) hypertension CBC AND DIFF Routine 11/11/2022 3:24 PM EDT Hyperlipidemia, unspecified Essential (primary) hypertension COMPREHENSIVE METABOLIC PANEL Routine 11/11/2022 3:24 PM EDT Hyperlipidemia, unspecified Essential (primary) hypertension BASIC METABOLIC PANEL Routine 07/21/2022 4:06 AM EST CBC Routine 07/21/2022 4:06 AM EST POCT GLUCOSE (BEAKER RESULTS) Routine 07/20/2022 5:34 PM EST AL AN ELECTIVE ENDOTRACHEAL AIRWAY Routine 07/20/2022 11:01 AM EST AL THROMBOENDARTECTMY NECK,NECK INCIS 07/20/2022 10:36 AM EST Carotid stenosis, bilateral PROTIME-INR STAT 07/17/2022 1:05 PM EST Encounter for screening for other viral diseases Occlusion and stenosis of bilateral carotid arteries Encounter for other preprocedural examination COMPREHENSIVE METABOLIC PANEL STAT 07/17/2022 1:05 PM EST Encounter for screening for other viral diseases Occlusion and stenosis of bilateral carotid arteries Encounter for other preprocedural examination CBC STAT 07/17/2022 1:05 PM EST Encounter for screening for other viral diseases Occlusion and stenosis of bilateral carotid arteries Encounter for other preprocedural examination SARS-COV-2 (COVID 19) Routine 07/17/2022 1:05 PM EST Encounter for screening for other viral diseases INACTIVE SARS-COV-2 (COVID 19), PCR Routine 07/17/2022 1:05 PM EST Encounter for screening for other viral diseases ECG 12-LEAD Routine 07/17/2022 Encounter for screening for other viral diseases US CAROTID BILATERAL Routine 06/25/2022 1:07 PM EST Occlusion and stenosis of bilateral carotid arteries CT ANGIOGRAPHY HEAD/NECK W WO IV CONTRAST Routine 06/08/2022 11:27 AM EST Occlusion and stenosis of unspecified carotid artery MRI CERVICAL SPINE WO CONTRAST Routine 06/08/2022 10:47 AM EST Spinal stenosis, lumbar region without neurogenic claudication Spinal stenosis, thoracic region MRI THORACIC SPINE WO CONTRAST Routine 06/08/2022 10:47 AM EST Spinal stenosis, lumbar region without neurogenic claudication Spinal stenosis, thoracic region HOME SLEEP APNEA TEST Routine 05/21/2022 9:04 PM EST JAGJIT (obstructive sleep apnea) MRI ANGIOGRAM NECK WO CONTRAST Routine 05/18/2022 10:21 AM EST Aural vertigo, unspecified ear Dissection of carotid artery (CMS/HCC) Cerebral aneurysm, nonruptured MRI BRAIN WO CONTRAST Routine 05/18/2022 10:01 AM EST Aural vertigo, unspecified ear Dissection of carotid artery (CMS/HCC) Cerebral aneurysm, nonruptured MRI ANGIOGRAM HEAD WO CONTRAST Routine 05/18/2022 9:54 AM EST Aural vertigo, unspecified ear Dissection of carotid artery (CMS/HCC) Cerebral aneurysm, nonruptured EXTUB URINE CUP Routine 04/30/2022 3:57 PM EDT Encounter for screening for malignant neoplasm of prostate Hyperlipidemia, unspecified Proteinuria, unspecified C-REACTIVE PROTEIN, HIGHLY SENSITIVE Routine 04/30/2022 3:57 PM EDT Encounter for screening for malignant neoplasm of prostate Hyperlipidemia, unspecified Proteinuria, unspecified MICROALBUMIN/CREATININE URINE RANDOM Routine 04/30/2022 3:57 PM EDT Encounter for screening for malignant neoplasm of prostate Hyperlipidemia, unspecified Proteinuria, unspecified URIC ACID Routine 04/30/2022 3:57 PM EDT Encounter for screening for malignant neoplasm of prostate Hyperlipidemia, unspecified Proteinuria, unspecified LIPOPROTEIN (A) Routine 04/30/2022 3:57 PM EDT Encounter for screening for malignant neoplasm of prostate Hyperlipidemia, unspecified Proteinuria, unspecified APOLIPOPROTEIN B Routine 04/30/2022 3:57 PM EDT Encounter for screening for malignant neoplasm of prostate Hyperlipidemia, unspecified Proteinuria, unspecified PSA TOTAL Routine 04/30/2022 3:57 PM EDT Encounter for screening for malignant neoplasm of prostate Hyperlipidemia, unspecified Proteinuria, unspecified EXTUB GOLD Routine 02/23/2022 9:34 PM EDT Benign prostatic hyperplasia without lower urinary tract symptoms Other abnormal glucose Hyperlipidemia, unspecified Lyme disease, unspecified Other cervical disc degeneration, unspecified cervical region Rheumatism, unspecified URIC ACID Routine 02/23/2022 9:34 PM EDT Benign prostatic hyperplasia without lower urinary tract symptoms Other abnormal glucose Hyperlipidemia, unspecified Lyme disease, unspecified Other cervical disc degeneration, unspecified cervical region Rheumatism, unspecified RHEUMATOID FACTOR Routine 02/23/2022 9:3 4 PM EDT Benign prostatic hyperplasia without lower urinary tract symptoms Other abnormal glucose Hyperlipidemia, unspecified Lyme disease, unspecified Other cervical disc degeneration, unspecified cervical region Rheumatism, unspecified KYLAH TITER Routine 02/23/2022 9:34 PM EDT Benign prostatic hyperplasia without lower urinary tract symptoms Other abnormal glucose Hyperlipidemia, unspecified Lyme disease, unspecified Other cervical disc degeneration, unspecified cervical region Rheumatism, unspecified KYLAH SCREEN (AUTOMATED) Routine 9:34 PM EDT Benign prostatic hyperplasia without lower urinary tract symptoms Other abnormal glucose Hyperlipidemia, unspecified Lyme disease, unspecified Other cervical disc degeneration, unspecified cervical region Rheumatism, unspecified SEDIMENTATION RATE Routine 02/23/2022 9: 34 PM EDT Benign prostatic hyperplasia without lower urinary tract symptoms Other abnormal glucose Hyperlipidemia, unspecified Lyme disease, unspecified Other cervical disc degeneration, unspecified cervical region Rheumatism, unspecified CK, TOTAL (NO REFLEX) Routine 02/23/2022 9:34 PM EDT Benign prostatic hyperplasia without lower urinary tract symptoms Other abnormal glucose Hyperlipidemia, unspecified Lyme disease, unspecified Other cervical disc degeneration, unspecified cervical region Rheumatism, unspecified LIPID PROFILE Routine 02/23/2022 9:34 PM EDT Benign prostatic hyperplasia without lower urinary tract symptoms Other abnormal glucose Hyperlipidemia, unspecified Lyme disease, unspecified Other cervical disc degeneration, unspecified cervical region Rheumatism, unspecified CBC AND DIFF Routine 02/23/2022 9:34 PM EDT Benign prostatic hyperplasia without lower urinary tract symptoms Other abnormal glucose Hyperlipidemia, unspecified Lyme disease, unspecified Other cervical disc degeneration, unspecified cervical region Rheumatism, unspecified TSH 3RD GENERATION Routine 02/23/2022 9: 34 PM EDT Benign prostatic hyperplasia without lower urinary tract symptoms Other abnormal glucose Hyperlipidemia, unspecified Lyme disease, unspecified Other cervical disc degeneration, unspecified cervical region Rheumatism, unspecified COMPREHENSIVE METABOLIC PANEL Routine 02/23/2022 9:34 PM EDT Benign prostatic hyperplasia without lower urinary tract symptoms Other abnormal glucose Hyperlipidemia, unspecified Lyme disease, unspecified Other cervical disc degeneration, unspecified cervical region Rheumatism, unspecified HEMOGLOBIN A1C Routine 02/23/2022 9:34 PM EDT Benign prostatic hyperplasia without lower urinary tract symptoms Other abnormal glucose Hyperlipidemia, unspecified Lyme disease, unspecified Other cervical disc degeneration, unspecified cervical region Rheumatism, unspecified PSA TOTAL Routine 02/23/2022 9:34 PM EDT Benign prostatic hyperplasia without lower urinary tract symptoms Other abnormal glucose Hyperlipidemia, unspecified Lyme disease, unspecified Other cervical disc degeneration, unspecified cervical region Rheumatism, unspecified EXTUB GOLD Routine 09/10/2021 7:13 PM EST Cramp and spasm Hyperlipidemia, unspecified Unspecified abdominal pain TSH 3RD GENERATION Routine 09/10/2021 7: 13 PM EST Cramp and spasm Hyperlipidemia, unspecified Unspecified abdominal pain CEA Routine 09/10/2021 7:13 PM EST Cramp and spasm Hyperlipidemia, unspecified Unspecified abdominal pain LIPID PROFILE Routine 09/10/2021 7:13 PM EST Cramp and spasm Hyperlipidemia, unspecified Unspecified abdominal pain COMPREHENSIVE METABOLIC PANEL Routine 09/10/2021 7:13 PM EST Cramp and spasm Hyperlipidemia, unspecified Unspecified abdominal pain CK, TOTAL (NO REFLEX) Routine 09/10/2021 7:13 PM EST Cramp and spasm Hyperlipidemia, unspecified Unspecified abdominal pain MAGNESIUM Routine 09/10/2021 7:13 PM EST Cramp and spasm Hyperlipidemia, unspecified Unspecified abdominal pain IRON AND TIBC Routine 09/10/2021 7:13 PM EST Cramp and spasm Hyperlipidemia, unspecified Unspecified abdominal pain CBC AND DIFF Routine 09/10/2021 7:13 PM EST Cramp and spasm Hyperlipidemia, unspecified Unspecified abdominal pain URINE CULTURE Routine 10/04/2020 2:37 PM EDT Benign prostatic hyperplasia without lower urinary tract symptoms EXTUB GOLD Routine 11/28/2019 5:40 PM EDT Essential (primary) hypertension Other abnormal glucose Cough Hyperlipidemia, unspecified Contact with and (suspected) exposure to unspecified communicable disease VITAMIN D 25 HYDROXY Routine 11/28/2019 5:40 PM EDT Essential (primary) hypertension Other abnormal glucose Cough Hyperlipidemia, unspecified Contact with and (suspected) exposure to unspecified communicable disease INACTIVE COVID-19 SARS-COV-2 ANTIBODY (IGG) Routine 11/28/2019 5:40 PM EDT Essential (primary) hypertension Other abnormal glucose Cough Hyperlipidemia, unspecified Contact with and (suspected) exposure to unspecified communicable disease LIPID PROFILE Routine 11/28/2019 5:40 PM EDT Essential (primary) hypertension Other abnormal glucose Cough Hyperlipidemia, unspecified Contact with and (suspected) exposure to unspecified communicable disease CCP IGG/IGA ANTIBODY Routine 11/28/2019 5:40 PM EDT Essential (primary) hypertension Other abnormal glucose Cough Hyperlipidemia, unspecified Contact with and (suspected) exposure to unspecified communicable disease RHEUMATOID FACTOR Routine 11/28/2019 5:4 0 PM EDT Essential (primary) hypertension Other abnormal glucose Cough Hyperlipidemia, unspecified Contact with and (suspected) exposure to unspecified communicable disease KYLAH SCREEN (AUTOMATED) Routine 0 5:40 PM EDT Essential (primary) hypertension Other abnormal glucose Cough Hyperlipidemia, unspecified Contact with and (suspected) exposure to unspecified communicable disease C-REACTIVE PROTEIN Routine 11/28/2019 5: 40 PM EDT Essential (primary) hypertension Other abnormal glucose Cough Hyperlipidemia, unspecified Contact with and (suspected) exposure to unspecified communicable disease HEMOGLOBIN A1C Routine 11/28/2019 5:40 PM EDT Essential (primary) hypertension Other abnormal glucose Cough Hyperlipidemia, unspecified Contact with and (suspected) exposure to unspecified communicable disease CBC AND DIFF Routine 11/28/2019 5:40 PM EDT Essential (primary) hypertension Other abnormal glucose Cough Hyperlipidemia, unspecified Contact with and (suspected) exposure to unspecified communicable disease TSH 3RD GENERATION Routine 11/28/2019 5: 40 PM EDT Essential (primary) hypertension Other abnormal glucose Cough Hyperlipidemia, unspecified Contact with and (suspected) exposure to unspecified communicable disease COMPREHENSIVE METABOLIC PANEL Routine 11/28/2019 5:40 PM EDT Essential (primary) hypertension Other abnormal glucose Cough Hyperlipidemia, unspecified Contact with and (suspected) exposure to unspecified communicable disease UPPER RESPIRATORY CULTURE Routine 2018 3:03 PM EST Acute maxillary sinusitis, unspecified DIFF COUNT Routine 06/12/2019 8:00 PM EST Essential (primary) hypertension CBC Routine 06/12/2019 8:00 PM EST Essential (primary) hypertension C-REACTIVE PROTEIN Routine 06/12/2019 8: 00 PM EST Essential (primary) hypertension CBC AND DIFF Routine 06/12/2019 8:00 PM EST Essential (primary) hypertension COMPREHENSIVE METABOLIC PANEL Routine 06/12/2019 8:00 PM EST Essential (primary) hypertension MRI BRAIN W WO CONTRAST Routine 05/04/20 18 2:39 PM EDT Benign paroxysmal vertigo of both ears EXTUB GOLD Routine 05/02/2018 5:36 PM EDT Other abnormal glucose Enlarged prostate without lower urinary tract symptoms (luts) DIFF COUNT Routine 05/02/2018 5:36 PM EDT Other abnormal glucose Enlarged prostate without lower urinary tract symptoms (luts) CBC Routine 05/02/2018 5:36 PM EDT Other abnormal glucose Enlarged prostate without lower urinary tract symptoms (luts) PSA TOTAL Routine 05/02/2018 5:36 PM EDT Other abnormal glucose Enlarged prostate without lower urinary tract symptoms (luts) TSH 3RD GENERATION Routine 05/02/2018 5: 36 PM EDT Other abnormal glucose Enlarged prostate without lower urinary tract symptoms (luts) C-REACTIVE PROTEIN, HIGHLY SENSITIVE Routine 05/02/2018 5:36 PM EDT Other abnormal glucose Enlarged prostate without lower urinary tract symptoms (luts) LIPID PROFILE Routine 05/02/2018 5:36 PM EDT Other abnormal glucose Enlarged prostate without lower urinary tract symptoms (luts) CBC AND DIFF Routine 05/02/2018 5:36 PM EDT Other abnormal glucose Enlarged prostate without lower urinary tract symptoms (luts) COMPREHENSIVE METABOLIC PANEL Routine 05/02/2018 5:36 PM EDT Other abnormal glucose Enlarged prostate without lower urinary tract symptoms (luts) HEMOGLOBIN A1C Routine 05/02/2018 5:36 PM EDT Other abnormal glucose Enlarged prostate without lower urinary tract symptoms (luts) XRAY SCAN DOCUMENT 05/28/2017 12 :00 AM EST US PELVIS LIMITED TRANSABDOMINAL ONLY Routine 05/28/2017 XRAY SCAN DOCUMENT 04/14/2017 12 :[address] ABDOMEN PELVIS WO IV CONTRAST Routine 04/14/2017 HISTORICAL LAB RESULT - CHEMISTRY Routine 03/23/2017 6:06 PM EDT LABORATORY 03/23/2017 12:00 AM EDT XRAY SCAN DOCUMENT 08/07/2015 12 :00 AM EST US KIDNEYS / BLADDER Routine 08/07/2015 XR SHOULDER 2+ VW RIGHT Routine 01/28/2015 XR SPINE THORACIC 3 VW Routine 01/28/2015 XR SHOULDER 2+ VW LEFT Routine 01/28/2015 XR SCAPULA LEFT Routine 01/28/2015 MRI BRAIN W WO CONTRAST Routine 04/21/2013 XR CHEST 2 VW Routine 04/12/2013 CYTOLOGY SCAN DOCUMENT 3 12:00 AM EDT Results * (ABNORMAL) CBC and Differential (04/01/2023 12:00 PM EDT) Only the most recent of6 resultswithin the time period is included. WBC 4.93 3.80 - 10.50 K/uL 04/01/2023 10:12 PM EDT [facility] RBC 5.07 4.50 - 5.80 M/uL 04/01/2023 10:12 PM EDT [facility] Hemoglobin 14.2 13.7 - 17.5 g/dL 04/01/2023 10:12 PM [facility] Hematocrit 43.7 40.1 - 51.0 % 04/01/2023 10:12 PM [facility] MCV 86.2 83.0 - 98.0 fL 04/01/2023 10:12 PM [facility] MCH 28.0 28.0 - 33.2 pg 04/01/2023 10:12 PM [facility] MCHC 32.5 32.2 - 36.5 g/dL 04/01/2023 10:12 PM [facility] RDW 15.7(H) 11.6 - 14.4 % 04/01/2023 10:12 PM [facility] Platelets 189 150 - 350 K/uL 04/01/2023 10:12 PM [facility] MPV 9.8 9.4 - 12.4 fL 04/01/2023 10:12 PM [facility] Differential Type Auto 023 10:12 PM [facility] nRBC 0.0 <=0.0 % 04/01/2023 10:12 PM [facility] Immature Granulocytes 0.2 % 04/01/2023 10:12 PM [facility] Neutrophils 55.2 % 04/01/2023 10:12 PM [facility] Lymphocytes 30.4 % 04/01/2023 10:12 PM [facility] Monocytes 11.4 % 04/01/2023 10:12 PM [facility] Eosinophils 1.6 % 04/01/2023 10:12 PM [facility] Basophils 1.2 % 04/01/2023 10:12 PM [facility] Immature Granulocytes, Absolute 0.01 0.00 - 0.08 K/uL 04/01/2023 10:12 PM [facility] Neutrophils, Absolute 2.72 1.70 - 7.00 K/uL 04/01/2023 10:12 PM [facility] Lymphocytes, Absolute 1.50 1.20 - 3.50 K/uL 04/01/2023 10:12 PM EDT [facility] Monocytes, Absolute 0.56 0.30 - 1.00 K/uL 04/01/2023 10:12 PM EDT [facility] Eosinophils, Absolute 0.08 0.04 - 0.54 K/uL 04/01/2023 10:12 PM EDT [facility] Basophils, Absolute 0.06 0.01 - 0.10 K/uL 04/01/2023 10:12 PM EDT [facility] Blood Venous blood specimen / Unknown 04/01/2023 12:00 PM EDT 04/01/2023 9:11 PM EDT us Asher Zambrano DO LAB BLOOD ORDERABLES Final Result [facility] [address] [place] [address] [id number] * (ABNORMAL) Comprehensive metabolic panel (04/01/2023 12:00 PM EDT) Only the most recent of9 resultswithin the time period is included. Sodium 139 136 - 145 mEQ/L 04/01/2023 10:57 PM T [facility] Potassium 3.7 3.5 - 5.1 mEQ/L 04/01/2023 10:57 PM T [facility] Chloride 103 98 - 107 mEQ/L 04/01/2023 10:57 PM T [facility] CO2 28 21 - 31 mEQ/L 04/01/2023 10:57 PM T [facility] BUN 17 7 - 25 mg/dL 04/01/2023 10:57 PM T [facility] Creatinine 0.8 0.7 - 1.3 mg/dL 04/01/2023 10:57 PM T [facility] Glucose 76 70 - 99 mg/dL 04/01/2023 10:57 PM T [facility] Calcium 9.6 8.6 - 10.3 mg/dL 04/01/2023 10:57 PM EDT [facility] AST (SGOT) 29 13 - 39 IU/L 04/01/2023 10:57 PM EDT [facility] ALT (SGPT) 53(H) 7 - 52 IU/L 04/01/2023 10:57 PM EDT [facility] Alkaline Phosphatase 61 34 - 125 IU/L 04/01/2023 10:57 PM EDT [facility] Total Protein 6.7 6.0 - 8.2 g/dL 04/01/2023 10:57 PM EDT [facility] Albumin 4.5 3.5 - 5.7 g/dL 04/01/2023 10:57 PM EDT [facility] Bilirubin, Total 0.9 0.3 - 1.2 mg/dL 04/01/2023 10:57 PM EDT [facility] eGFR >60.0 >=60.0 mL/min/1.7 3m*2 04/01/2023 10:57 PM EDT [facility] Anion Gap 8 3 - 15 mEQ/L 04/01/2023 10:57 PM T [facility] Blood Venous blood specimen / Unknown 04/01/2023 12:00 PM EDT 04/01/2023 9:11 PM EDT us Asher Zambrano DO LAB BLOOD ORDERABLES Final Result [facility] [address] [place] [address] [id number] * Apolipoprotein B (02/25/2023 10:31 PM EDT) Only the most recent of3 resultswithin the time period is included. Apolipoprotein B 44 <90 mg/dL 03/03/20 7:[address] [facility] Comment: Reference Range: <90 Risk Category: Optimal ?? < 90 Moderate ?90 - 119 High ?> or = 120 Cardiovascular event risk category cut points (optimal, moderate, high) are based on National Lipid Association recommendations-Lyon TA et al. J Clin Lipid. 2015;9:129-169 and Eamon AMEZCUA et al. Endocr Pract. 2017;23(Suppl 2):1-87. Blood Venous blood specimen / Unknown 02/25/2023 10:31 PM EDT 02/25/2023 10:31 PM EDT Narrative [facility] - 03/03/2023 7:55 PM EDT Performing Organization Information: ?Site ID: [id number] ?Name: [facility] [facility] ?Address: [address] [place] [address] ?Director: Kenton Daly M.D.,PhD Asher Zambrano DO LAB BLOOD ORDERABLES Final Result Performing Organization Address [facility]/ZIP Co de Phone Number [facility] [address] [place] [address] [address] [facility] [address] * TSH (02/25/2023 10:31 PM EDT) Only the most recent of6 resultswithin the time period is included. TSH 0.99 0.34 - 5.60 mIU/L 02/26/2023 12:34 AM EDT [facility] Blood Venous blood specimen / Unknown 02/25/2023 10:31 PM EDT 02/25/2023 10:31 PM EDT Asher Zambrano DO LAB BLOOD ORDERABLES Final Result [facility] [address] [place] [id number] * Hemoglobin A1c (02/25/2023 10:31 PM EDT) Only the most recent of5 resultswithin the time period is included. Hemoglobin A1C 5.2 <5.7 % 02/26/2023 10:21 AM EDT [facility] [address] Glucose 103 mg/dL 02/26/2023 10:21 AM EDT [facility] Comment:Estimate of average glucose concentration continuously over 24 hours for previous 2 to 3 months(Per ADA Recommendation). Blood Venous blood specimen / Unknown 02/25/2023 10:31 PM EDT 02/25/2023 10:31 PM EDT Asher Zambrano DO LAB BLOOD ORDERABLES Final Result [facility] [address] [place] [id number] * MA FLUOROSCOPY TECHNICAL ASSISTANCE (11/12/2022 11:22 AM EDT) Anatomical Region Laterality Modality Body Radio Fluoroscop y 11/12/2022 1:51 PM EDT Impressions 11/12/2022 1:52 PM EDT IMPRESSION: ??Technical assistance was provided for fluoroscopy. ??Total fluoroscopy time 1.40 minutes. ??Dose 9.03 mGy. Narrative 11/12/2022 1:52 PM EDT CLINICAL HISTORY: ??Technical assistance was provided for fluoroscopy. COMMENT: ??Technical assistance was provided for fluoroscopy. ?? Total fluoroscopy time 1.40 minutes. ??Dose 9.03 mGy. Procedure Note Seaming Machine Operator, System - 11/12/2022 CLINICAL HISTORY: Technical assistance was provided for fluoroscopy. COMMENT: Technical assistance was provided for fluoroscopy. Totalfluoroscopy time 1.40 minutes. Dose 9.03 mGy. -- IMPRESSION: Technical assistance was provided for fluoroscopy. Total fluoroscopy time 1.40 minutes. Dose 9.03 mGy. Wilfrido Shine MD IMG FLUOROSCOPY PROCEDURES Final Result * (ABNORMAL) Lipid Panel (11/11/2022 3:24 PM EDT) Only the most recent of5 resultswithin the time period is included. Triglycerides 74 30 - 149 mg/dL 11/12/2022 1:50 AM EDT [facility] Cholesterol 88 <=200 mg/dL 11/12/2022 1:50 AM EDT [facility] HDL 44(L) >=45 mg/dL 11/12/2022 1:50 AM EDT [facility] Comment: 2001 NCEP GUIDELINES <40 mg/dL Low >=60 mg/dL High LDL Calculated 29 <=100 mg/dL 11/12/2022 1:50 AM EDT [facility] Comment: ATP III GUIDELINES Optimal: <100 mg/dL Near/Above Optimal: 100-129 mg/dL Borderline High: 130-159 mg/dL High: 160-189 mg/dL Very High: >190 mg/dL Non-HDL, Calculated 44 mg/dL 11/12/2022 1:50 AM EDT [facility] RISK 2.0 <=5.0 11/12/2022 1:50 AM EDT [facility] Comment: RISK MALE ([place] [employer]UDY DATA) 1/2 Average 3.4 Average 5.0 2X Average 9.6 3X Average 24.0 Blood Venous blood specimen / Unknown 11/11/2022 3:24 PM EDT 11/11/2022 9:24 PM EDT us Asher Zambrano DO LAB BLOOD ORDERABLES Final Result [facility] [address] [place] [id number] * (ABNORMAL) CBC (07/21/2022 4:06 AM EST) Only the most recent of4 resultswithin the time period is included. WBC 7.89 3.80 - 10.50 K/uL 07/21/2022 4:30 AM [facility] RBC 3.84(L) 4.50 - 5.80 M/uL 07/21/2022 4:30 AM [facility] Hemoglobin 11.0(L) 13.7 - 17.5 g/dL 07/21/2022 4:30 AM [facility] Hematocrit 33.7(L) 40.1 - 51.0 % 07/21/2022 4:30 AM [facility] MCV 87.8 83.0 - 98.0 fL 07/21/2022 4:30 AM [facility] MCH 28.6 28.0 - 33.2 pg 07/21/2022 4:30 AM [facility] MCHC 32.6 32.2 - 36.5 g/dL 07/21/2022 4:30 AM [facility] RDW 14.8(H) 11.6 - 14.4 % 07/21/2022 4:30 AM [facility] Platelets 224 150 - 350 K/uL 07/21/2022 4:30 AM [facility] MPV 8.8(L) 9.4 - 12.4 fL 07/21/2022 4:30 AM [facility] Blood Venous blood specimen / Unknown Venipuncture / Unknown 07/21/2022 4:06 AM EST 07/21/2022 4:25 AM EST us Barbara Richards LAB BLOOD ORDERABLES Fin al Result [facility] [address] [place], [place] [address], [place] * (ABNORMAL) Basic metabolic panel (07/21/2022 4:06 AM EST) Sodium 139 136 - 144 mEQ/L 07/21/2022 4:57 AM [facility] Potassium 4.0 3.6 - 5.1 mEQ/L 07/21/2022 4:57 AM [facility] Chloride 106 98 - 109 mEQ/L 07/21/2022 4:57 AM [facility] CO2 23 22 - 32 mEQ/L 07/21/2022 4:57 AM [facility] BUN 25(H) 8 - 20 mg/dL 07/21/2022 4:57 AM [facility] Creatinine 0.9 0.8 - 1.3 mg/dL 07/21/2022 4:57 AM [facility] Glucose 93 70 - 99 mg/dL 07/21/2022 4:57 AM [facility] Calcium 8.4(L) 8.9 - 10.3 mg/dL 07/21/2022 4:57 AM EST [facility] eGFR >60.0 >=60.0 mL/min/1.73 m*2 07/21/2022 4:57 AM EST [facility] Anion Gap 10 3 - 15 mEQ/L 07/21/2022 4:57 AM EST [facility] Blood Venous blood specimen / Unknown Venipuncture / Unknown 07/21/2022 4:06 AM EST 07/21/2022 4:25 AM EST Barbara Richards LAB BLOOD ORDERABLES Fin al Result [facility] [address] [place] [address], [place] * (ABNORMAL) POCT Glucose (07/20/2022 5:34 PM EST) POCT Bedside Glucose 107(H) 70 - 99 mg/dL 07/20/2022 5:35 PM EST [facility] Comment:BRAND ENGINEER: EMILY ALCANTAR (PCT) POC Test POC 07/20/2022 5:35 PM EST [facility] Blood (Blood, Whole (POC)) 07/20/2022 5:34 PM EST 07/20/2022 5:35 PM EST Brandyn Ospina MD LAB POCT ORDERABLES - DEVICE Final Result [facility] [address] [place] [address], [place] * AL AN ELECTIVE ENDOTRACHEAL AIRWAY (07/20/2022 11:01 AM EST) Narrative Jeremy Weaver CRNA - 07/20/2022 11:01 AM EST Jeremy Weaver CRNA ? 07/20/2022 11:03 AM Airway Urgency: elective Start Time: 07/20/2022 10:44 AM Airway not difficult General Information and Staff Patient location during procedure: [place] Anesthesiologist: Erin Longoria MD Resident/BEHAVIORAL HEALTH CARE MANAGER: Jeremy Weaver CRNA Performed: resident/BEHAVIORAL HEALTH CARE MANAGER Indications and Patient Condition Indications for airway management: anesthesia Sedation level: deep Preoxygenated: yes Patient position: sniffing Mask difficulty assessment: 1 - vent by mask Final Airway Details Final airway type: endotracheal airway Successful airway: ETT Successful intubation technique: direct laryngoscopy Facilitating devices/methods: intubating stylet Endotracheal tube insertion site: oral Blade: Jovan Blade size: #4 ETT size (mm): 8.0 Cormack-Lehane Classification: grade IIa - partial view of glottis Placement verified by: chest auscultation and capnometry Measured from: lips ETT to lips (cm): 24 Number of attempts at approach: 1 Number of other approaches attempted: 0 Atraumatic airway insertion Additional Comments LTA Erin Longoria MD ANESTHESIA ORDERABLES F inal Result * SARS-CoV-2 (COVID-19), PCR (07/17/2022 1:05 PM EST) Pathologist [facility] SARS-CoV-2 (COVID-19) Negative Negative 07/17/2022 10:35 PM [facility] Nasopharyngeal Swab Nasopharyngeal structure / Unknown Non-blood Collection / Unknown 07/17/2022 1:05 PM EST 07/17/2022 1:45 PM EST [facility] - 07/17/2022 10:35 PM EST SARS-CoV-2 nucleic acid amplification diagnostic test approved under EUA. us Brandyn Ospina MD LAB MICROBIOLOGY - GENERAL OR DERABLES Final Result [facility] [address] [place] [address] [id number] * Protime-INR (07/17/2022 1:05 PM EST) PT 13.5 12.2 - 14.5 sec 07/17/2022 1:27 PM EST [facility] INR 1.0 07/17/2022 1:27 PM EST [facility] Comment:INR has no defined s ignificance when PT is within Reference Range. Blood Venous blood specimen / Unknown Venipuncture / Unknown 07/17/2022 1:05 PM EST 07/17/2022 1:16 PM EST Brandyn Ospina MD LAB BLOOD ORDERABLES Final Re sult Performing Organization Address [facility] Co de Phone Number [facility] [address] [place] [address], [place] * ECG 12 [facility] PER[facility]MED & IN CV IMAGING DEPARTMENTS (07/17/2022) Ventricular rate 75 MUSE Atrial rate 75 MUSE AL Interval 220 MUSE QRS duration 92 MUSE QT Interval 382 MUSE QTC Calculation(Baze tt) 426 MUSE P [place] 24 MUSE R [place] 27 MUSE T Wave [place] 62 MUSE 07/17/2022 Narrative MUSE - 07/17/2022 Sinus rhythm with 1st degree A-V block Confirmed by Raymundo Dodd ([id number]) on 07/18/2022 9:36:54 AM Brandyn Ospina MD ECG ORDERABLES Final Result Performing Organization Address [facility] Co de Phone Number MUSE * Ultrasound carotid bilateral (06/25/2022 1:07 PM EST) Right CCA prox sys 53.79 cm/s Right CCA prox nava 14.83 cm/s Right cca dist sys 73.27 cm/s Right CCA dist nava 16.33 cm/s Right ICA prox sys 382.79 cm/s Right ICA prox nava 94.85 cm/s Right ICA mid sys 66.61 cm/s Right ICA mid nava 27.59 cm/s Right ICA dist sys 64.85 cm/s Right ICA dist nava 23.46 cm/s Right eca sys 133.84 cm/s Right vertebral sys 41.79 cm/s Right ICA/CCA sys 5.22 Left CCA prox sys 97.93 cm/s Left CCA prox nava 27.87 cm/s Left CCA dist sys 88.59 cm/s Left CCA dist nava 20.08 cm/s Left ICA prox sys 213.11 cm/s Left ICA prox nava 54.65 cm/s Left ICA mid sys 138.73 cm/s Left ICA mid nava 35.25 cm/s Left ICA dist sys 109.62 cm/s Left ICA dist nava 41.72 cm/s Left ICA/CCA sys 2.41 LEFT COMMON CAROTID ARTERY MID S 96.38 cm/s LEFT COMMON CAROTID ARTERY MID D 27.87 cm/s RIGHT COMMON CAROTID ARTERY MID S 74.77 cm/s RIGHT COMMON CAROTID ARTERY MID D 19.33 cm/s Lt ECA prox EDV 15.85 cm/s Lt ECA prox PSV 125.79 cm/s Lt Vertebral prox EDV 22.31 cm/s Lt Vertebral prox PSV 64.35 cm/s Rt ECA prox EDV 13.6 cm/s Rt Vertebral prox EDV 11.25 cm/s Anatomical Region Laterality Modality Bilateral Ultrasound Narrative 06/25/2022 1:51 PM EST Spectral Doppler, color flow, B-mode analysis complete RIGHT By flow velocity criteria there is a greater than 70% stenosis in the proximal right internal carotid artery Antegrade vertebral artery flow LEFT By flow velocity criteria there is a 50 to 69% stenosis in the proximal internal carotid artery Antegrade vertebral artery flow Consider referral to vascular surgery for high-grade right carotid artery stenosis Right Carotid The right proximal vertebral artery demonstrates antegrade flow. Left Carotid The left proximal vertebral artery demonstrates antegrade flow. us Brandyn Ospina MD CV VASCULAR PROCEDURES Final Result * CT ANGIOGRAPHY HEAD/NECK WITH AND WITHOUT IV CONTRAST (06/08/2022 11:27 AM EST) Anatomical Region Laterality Modality Head, Neck Computed Tomogra phy 06/08/2022 4:13 PM EST Impressions 06/09/2022 9:24 AM EST IMPRESSION: 1. ??No evidence of hemorrhage, mass or new infarct. 2. ??70% right carotid bulb stenosis. 3. ??No intracranial aneurysm or stenosis. Narrative 06/09/2022 9:24 AM EST CLINICAL HISTORY: Carotid occlusion PRIOR STUDY: MRA head dated 05/18/2022 Technique: Noncontrast Head CT was performed. Thin section CT angiography of the head and neck was performed from the aortic arch to the vertex was performed using a multislice CT scanner, following the infusion of 100 cc Omnipaque 350 intravenous contrast material. ??MIP and 3D volume rendered reformats were obtained using a [email or web address] workstation. CAROTID IMAGING CRITERIA: ??Measurement of carotid stenosis is based on parameters that correlate the residual internal carotid lumen diameter with NASCET-based stenosis levels. CT DOSE: ??One or more dose reduction techniques (e.g. automated exposure control, adjustment of the mA and/or kV according to patient size, use of iterative reconstruction technique) utilized for this examination. COMMENT: Head CT: There is no intraparenchymal hemorrhage, mass effect, midline shift or extra-axial fluid collection. ??The ventricles, sulci and basilar cisterns appear appropriate for age. ??The dupont-white matter differentiation is maintained. ??The posterior fossa is unremarkable. ??The mastoid air cells and middle ear is are well-aerated. ??There is trace maxillary and ethmoid mucosal thickening. ??No air-fluid levels. Neck CTA:There is a normal branching pattern of the great vessels. ??There is mild narrowing of the origin of the left vertebral artery. ??There is atherosclerotic plaque involving the bilateral carotid bulbs. ??The right carotid bulb narrows down to 1.2 mm compared to the distal cervical segment that measures 4 mm giving a 70% stenosis. The nasopharynx, oropharynx, hypopharynx and larynx appear normal. ??The thyroid, submandibular and parotid glands are normal. ??There are bilateral cervical lymph nodes noted that are not enlarged by size criteria. ??The lung apices are clear. There is cervical spine degenerative changes. Head CTA: No intracranial aneurysm or stenosis noted. ??There is origin of the right posterior cerebral artery. Procedure Note Celestine Woodard MD - 06/09/2022 CLINICAL HISTORY: Carotid occlusion PRIOR STUDY: MRA head dated 05/18/2022 Technique: Noncontrast Head CT was performed. Thin section CT angiographyof the head and neck was performed from the aortic arch to the vertex wasperformed using a multislice CT scanner, following the infusion of 100 cc [id number] intravenous contrast material. MIP and 3D volume rendered reformatswere obtained using a [employer] workstation. CAROTID IMAGING CRITERIA: Measurement of carotid stenosis is based on parameters that correlate the residual internal carotid lumen diameterwith NASCET-based stenosis levels. CT DOSE: One or more dose reduction techniques (e.g. automated exposure control, adjustment of the mA and/or kV according to patient size, useof iterative reconstruction technique) utilized for this examination. COMMENT: Head CT: There is no intraparenchymal hemorrhage, mass effect, midlineshift or extra-axial fluid collection. The ventricles, sulci and basilar cisternsappear appropriate for age. The dupont-white matter differentiation is maintained.The posterior fossa is unremarkable. The mastoid air cells and middle ear isare well-aerated. There is trace maxillary and ethmoid mucosal thickening.No air-fluid levels. Neck CTA:There is a normal branching pattern of the great vessels. Thereis mild narrowing of the origin of the left vertebral artery. There is atherosclerotic plaque involving the bilateral carotid bulbs. The rightcarotid bulb narrows down to 1.2 mm compared to the distal cervical segment that measures 4 mm giving a 70% stenosis. The nasopharynx, oropharynx, hypopharynx and larynx appear normal. Thethyroid, submandibular and parotid glands are normal. There are bilateral cervicallymph nodes noted that are not enlarged by size criteria. The lung apices areclear. There is cervical spine degenerative changes. Head CTA: No intracranial aneurysm or stenosis noted. There is fetalorigin of the right posterior cerebral artery. -- IMPRESSION: 1. No evidence of hemorrhage, mass or new infarct. 2. 70% right carotid bulb stenosis. 3. No intracranial aneurysm or stenosis. us Asher Zambrano DO IMG CT PROCEDURES Final Res ult * MRI CERVICAL SPINE WITHOUT CONTRAST (06/08/2022 10:47 AM EST) Anatomical Region Laterality Modality Spine, C-spine Magnetic Resonan ce 06/08/2022 4:08 PM EST Impressions 06/08/2022 4:12 PM EST IMPRESSION: Multilevel spondylosis as described above in detail. ??No severe central canal narrowing. Narrative 06/08/2022 4:12 PM EST CLINICAL HISTORY: M48.061: Spinal stenosis, lumbar region without neurogenic claudication M48.04: Spinal stenosis, thoracic region ?? , pain PRIOR STUDY: None TECHNIQUE: Noncontrast MR cervical spine COMMENT: ??There is straightening the normal cervical lordosis. ??The vertebral bodies are maintained in height. ??There are mixed endplate changes noted at C3-C4. ??There is grade 1 retrolisthesis of C3 on C4. ??There is disc desiccation and narrowing noted throughout. Unless otherwise noted there is no significant disc herniation, central or foraminal narrowing. C2-C3 shows facet hypertrophy contributing to severe right and moderate left foraminal narrowing. C3-C4 shows a disc osteophyte complex contacting and mildly deforming the ventral spinal cord, uncovertebral and facet hypertrophy contributing to severe bilateral foraminal narrowing and moderate central canal narrowing. C4-C5 shows mild facet hypertrophy. C5-C6 shows a disc osteophyte complex, uncovertebral and facet hypertrophy contributing to severe right foraminal narrowing. ??There is mild central canal narrowing. C6-C7 shows a disc osteophyte complex, uncovertebral and facet hypertrophy contributing to moderate to severe bilateral foraminal narrowing and mild central canal narrowing. C7-T1 shows facet hypertrophy. Thoracic: There is a normal thoracic kyphosis. ??The vertebral bodies are maintained in height, signal and alignment. ??There is mild disc desiccation. Unless otherwise noted there is no significant disc herniation, central or foraminal narrowing. T8-T9 shows a tiny right central protrusion. Procedure Note Celestine Woodard MD - 06/08/2022 CLINICAL HISTORY: M48.061: Spinal stenosis, lumbar region withoutneurogenic claudication M48.04: Spinal stenosis, thoracic region , pain PRIOR STUDY: None TECHNIQUE: Noncontrast MR cervical spine COMMENT: There is straightening the normal cervical lordosis. Thevertebral bodies are maintained in height. There are mixed endplate changes notedat C3-C4. There is grade 1 retrolisthesis of C3 on C4. There is discdesiccation and narrowing noted throughout. Unless otherwise noted there is no significant disc herniation, centralor foraminal narrowing. C2-C3 shows facet hypertrophy contributing to severe right and moderateleft foraminal narrowing. C3-C4 shows a disc osteophyte complex contacting and mildly deformingthe ventral spinal cord, uncovertebral and facet hypertrophy contributing tosevere bilateral foraminal narrowing and moderate central canal narrowing. C4-C5 shows mild facet hypertrophy. C5-C6 shows a disc osteophyte complex, uncovertebral and facethypertrophy contributing to severe right foraminal narrowing. There is mild centralcanal narrowing. C6-C7 shows a disc osteophyte complex, uncovertebral and facethypertrophy contributing to moderate to severe bilateral foraminal narrowing andmild central canal narrowing. C7-T1 shows facet hypertrophy. Thoracic: There is a normal thoracic kyphosis. The vertebral bodies are maintained in height, signal and alignment. There is mild discdesiccation. Unless otherwise noted there is no significant disc herniation, centralor foraminal narrowing. T8-T9 shows a tiny right central protrusion. -- IMPRESSION: Multilevel spondylosis as described above in detail. Nosevere central canal narrowing. us Julia Smith MD IMG MRI PROCEDURES Final Resu lt * MRI THORACIC SPINE WITHOUT CONTRAST (06/08/2022 10:47 AM EST) Anatomical Region Laterality Modality Spine, T-spine Magnetic Resonan ce 06/08/2022 4:08 PM EST Impressions 06/08/2022 4:12 PM EST IMPRESSION: Multilevel spondylosis as described above in detail. ??No severe central canal narrowing. Narrative 06/08/2022 4:12 PM EST CLINICAL HISTORY: M48.061: Spinal stenosis, lumbar region without neurogenic claudication M48.04: Spinal stenosis, thoracic region ?? , pain PRIOR STUDY: None TECHNIQUE: Noncontrast MR cervical spine COMMENT: ??There is straightening the normal cervical lordosis. ??The vertebral bodies are maintained in height. ??There are mixed endplate changes noted at C3-C4. ??There is grade 1 retrolisthesis of C3 on C4. ??There is disc desiccation and narrowing noted throughout. Unless otherwise noted there is no significant disc herniation, central or foraminal narrowing. C2-C3 shows facet hypertrophy contributing to severe right and moderate left foraminal narrowing. C3-C4 shows a disc osteophyte complex contacting and mildly deforming the ventral spinal cord, uncovertebral and facet hypertrophy contributing to severe bilateral foraminal narrowing and moderate central canal narrowing. C4-C5 shows mild facet hypertrophy. C5-C6 shows a disc osteophyte complex, uncovertebral and facet hypertrophy contributing to severe right foraminal narrowing. ??There is mild central canal narrowing. C6-C7 shows a disc osteophyte complex, uncovertebral and facet hypertrophy contributing to moderate to severe bilateral foraminal narrowing and mild central canal narrowing. C7-T1 shows facet hypertrophy. Thoracic: There is a normal thoracic kyphosis. ??The vertebral bodies are maintained in height, signal and alignment. ??There is mild disc desiccation. Unless otherwise noted there is no significant disc herniation, central or foraminal narrowing. T8-T9 shows a tiny right central protrusion. Procedure Note Celestine Woodard MD - 06/08/2022 CLINICAL HISTORY: M48.061: Spinal stenosis, lumbar region withoutneurogenic claudication M48.04: Spinal stenosis, thoracic region , pain PRIOR STUDY: None TECHNIQUE: Noncontrast MR cervical spine COMMENT: There is straightening the normal cervical lordosis. Thevertebral bodies are maintained in height. There are mixed endplate changes notedat C3-C4. There is grade 1 retrolisthesis of C3 on C4. There is discdesiccation and narrowing noted throughout. Unless otherwise noted there is no significant disc herniation, centralor foraminal narrowing. C2-C3 shows facet hypertrophy contributing to severe right and moderateleft foraminal narrowing. C3-C4 shows a disc osteophyte complex contacting and mildly deformingthe ventral spinal cord, uncovertebral and facet hypertrophy contributing tosevere bilateral foraminal narrowing and moderate central canal narrowing. C4-C5 shows mild facet hypertrophy. C5-C6 shows a disc osteophyte complex, uncovertebral and facethypertrophy contributing to severe right foraminal narrowing. There is mild centralcanal narrowing. C6-C7 shows a disc osteophyte complex, uncovertebral and facethypertrophy contributing to moderate to severe bilateral foraminal narrowing andmild central canal narrowing. C7-T1 shows facet hypertrophy. Thoracic: There is a normal thoracic kyphosis. The vertebral bodies are maintained in height, signal and alignment. There is mild discdesiccation. Unless otherwise noted there is no significant disc herniation, centralor foraminal narrowing. T8-T9 shows a tiny right central protrusion. -- IMPRESSION: Multilevel spondylosis as described above in detail. Nosevere central canal narrowing. us Julia Smith MD IMG MRI PROCEDURES Final Resu lt * HOME SLEEP APNEA TEST (05/21/2022 9:04 PM EST) Narrative OTHER - 06/01/2022 2:01 PM EST Table formatting from the original result was not included. Images from the original result were not included. [facility] All fully accredited by [employer] Home Sleep Apnea Test ? Patient: Nirmal Puri : 1950 Gender: Male Age: 71 y.o. Height: 1.778 m (5' 10) Date of Study: 05/21/2022 Weight: 106 kg (233 lb) ??BMI: Body mass index is 33.43 kg/m??. Referring Provider: Asher Zambrano, DO [address] [facility] [address] Medical History: Asthma Obesity Obstructive Sleep Apnea Sleep-related symptoms: Fragmented sleep??, Snoring??, Witnessed Apnea?? Respiratory Parameters: The study showed severe obstructive sleep apnea with an AHI of 30. Comments: Home sleep apnea testing may underestimate the degree of sleep apnea and does not detect other non respiratory sleep disorders. Diagnosis: Diagnosis: Obstructive Sleep Apnea Syndrome - G47.33 Recommendations: Treatment options for JAGJIT include positive airway pressure, weight loss, positional therapy, oral appliances, and surgical procedures. Clinical correlation is advised. Avoidance of driving or operating heavy machinery while sleepy. Avoidance of alcohol, sedatives, and sleeping in the supine position. The patient was a Direct Referral for a sleep study and should follow-up with the ordering provider to discuss test results and treatment options in the meantime. Thank you for your referral. Electronically signed by Susan Castorena MD 06/01/2022 Montage: The patient underwent a diagnostic digital Home Sleep Apnea test with this is a limited channel study applied by the patient. ??Recording of simultaneous, respiratory effort, respiratory flow, snoring, body position, and pulse oximetry. The data was adequate for interpretation, and scoring and data interpretation followed the latest recommended standards put forth by the [employer]. The rule used for scoring hypopneas is 1B. The peak signal excursions of the hypopnea sensor drops by >= 30% of pre-event baseline for a duration of >= 10 seconds, and there is >=4% oxygen desaturation from pre-event baseline. us Asher Richards Daljitvitaly DO SLEEP CENTER ORDERABLES Fin al Result OTHER * MRI ANGIOGRAM NECK WITHOUT CONTRAST (05/18/2022 10:21 AM EST) Anatomical Region Laterality Modality Head and Neck Magnetic Resonan ce 05/18/2022 10:2 7 AM EST Impressions 05/18/2022 10:50 AM EST IMPRESSION: Unremarkable MRI of the brain. ??Unremarkable MRA of the head. ??MRA of the neck suggests atherosclerotic disease and greater than 50% narrowing of the right proximal internal carotid artery, greater than 70% narrowing of the left internal carotid artery. ??If there is continued clinical concern, CTA may be helpful to better assess. ??No evidence for vessel dissection. COMMENT: Technique: ??The brain was scanned in multiple planes with a variety of pulse sequences without contrast. Comparison: ??Brain MRI dated 05/04/2018. Findings: Single subcortical white matter T2 hyperintensity in the left gil radiata. ??Sulci, ventricles and basal cisterns are within normal limits for patient's stated age. No mass-effect, intracranial hemorrhage, acute segmental infarct or extra-axial fluid collection is seen. Cerebellar tonsils are normal in position. ??Expected signal voids are seen in the intracranial vessels at the skull base. The orbits and sella are unremarkable. ?? The paranasal sinuses are clear. ??The mastoid air cells are clear. MR angiography head and neck without contrast Technique: An MRA of the [place] was performed utilizing a 3D bvou-gr-uvoeaw technique. ??MRA of the neck was also performed utilizing 2-D and 3-D ewcx-dl-itkjad technique. ??Axial T1 fat sat images of the neck also obtained for dissection protocol. No prior studies are available for comparison. Findings: MR angiography of the head demonstrates normal anterior and posterior circulation. ?? origin right [employer]. ??No medium or large size aneurysms are seen in the [place]. ??Please note that MRA may be insensitive in the detection of aneurysms smaller than 4 mm. MRA of the neck demonstrates patency of the common carotid arteries, internal carotid arteries and vertebral arteries bilaterally. ??There is suggestion of moderate greater than 50% stenosis of the origin of the right internal carotid artery, moderate to severe greater than 70% stenosis of the left proximal internal carotid artery. ??Left vertebral artery is dominant. ??No evidence for vessel dissection, cutoff, hemodynamically significant stenoses by NASCET criteria. ??No intramural hematoma or dissection flap to suggest vessel dissection. Narrative 05/18/2022 10:50 AM EST STUDY: ??MRI of the Brain without contrast CLINICAL HISTORY: Headache and neck pain. ??Vertigo. ??Concern for carotid dissection and aneurysm. Procedure Note Nataly Stout MD - 05/18/2022 STUDY: MRI of the Brain without contrast CLINICAL HISTORY: Headache and neck pain. Vertigo. Concern for carotid dissection and aneurysm. -- IMPRESSION: Unremarkable MRI of the brain. Unremarkable MRA of the head.MRA of the neck suggests atherosclerotic disease and greater than 50%narrowing of the right proximal internal carotid artery, greater than 70% narrowing ofthe left internal carotid artery. If there is continued clinical concern, CTAmay be helpful to better assess. No evidence for vessel dissection. COMMENT: Technique: The brain was scanned in multiple planes with a variety ofpulse sequences without contrast. Comparison: Brain MRI dated 05/04/2018. Findings: Single subcortical white matter T2 hyperintensity in the leftcorona radiata. Sulci, ventricles and basal cisterns are within normal limitsfor patient's stated age. No mass-effect, intracranial hemorrhage, acutesegmental infarct or extra-axial fluid collection is seen. Cerebellar tonsils arenormal in position. Expected signal voids are seen in the intracranial vesselsat the skull base. The orbits and sella are unremarkable. The paranasal sinuses are clear.The mastoid air cells are clear. MR angiography head and neck without contrast Technique: An MRA of the [place] was performed utilizing a 3D xkux-zm-nqtkra technique. MRA of the neck was also performed utilizing2-D and 3-D wyra-si-nyluac technique. Axial T1 fat sat images of the neck alsoobtained for dissection protocol. No prior studies are available for comparison. Findings: MR angiography of the head demonstrates normal anterior andposterior circulation. origin right [employer]. No medium or large size aneurysmsare seen in the [place]. Please note that MRA may be insensitive inthe detection of aneurysms smaller than 4 mm. MRA of the neck demonstrates patency of the common carotid arteries,internal carotid arteries and vertebral arteries bilaterally. There is suggestionof moderate greater than 50% stenosis of the origin of the right internalcarotid artery, moderate to severe greater than 70% stenosis of the leftproximal internal carotid artery. Left vertebral artery is dominant. No evidencefor vessel dissection, cutoff, hemodynamically significant stenoses byNASCET criteria. No intramural hematoma or dissection flap to suggest vessel dissection. us Julia Smith MD IMG MRI PROCEDURES Final Resu lt * MRI BRAIN WITHOUT CONTRAST (05/18/2022 10:01 AM EST) Anatomical Region Laterality Modality Head and Neck Magnetic Resonan ce 05/18/2022 10:2 7 AM EST Impressions 05/18/2022 10:50 AM EST IMPRESSION: Unremarkable MRI of the brain. ??Unremarkable MRA of the head. ??MRA of the neck suggests atherosclerotic disease and greater than 50% narrowing of the right proximal internal carotid artery, greater than 70% narrowing of the left internal carotid artery. ??If there is continued clinical concern, CTA may be helpful to better assess. ??No evidence for vessel dissection. COMMENT: Technique: ??The brain was scanned in multiple planes with a variety of pulse sequences without contrast. Comparison: ??Brain MRI dated 05/04/2018. Findings: Single subcortical white matter T2 hyperintensity in the left gil radiata. ??Sulci, ventricles and basal cisterns are within normal limits for patient's stated age. No mass-effect, intracranial hemorrhage, acute segmental infarct or extra-axial fluid collection is seen. Cerebellar tonsils are normal in position. ??Expected signal voids are seen in the intracranial vessels at the skull base. The orbits and sella are unremarkable. ?? The paranasal sinuses are clear. ??The mastoid air cells are clear. MR angiography head and neck without contrast Technique: An MRA of the [place] was performed utilizing a 3D rnuc-ul-yqkbfc technique. ??MRA of the neck was also performed utilizing 2-D and 3-D akhi-yx-jbcpsu technique. ??Axial T1 fat sat images of the neck also obtained for dissection protocol. No prior studies are available for comparison. Findings: MR angiography of the head demonstrates normal anterior and posterior circulation. ?? origin right [employer]. ??No medium or large size aneurysms are seen in the [place]. ??Please note that MRA may be insensitive in the detection of aneurysms smaller than 4 mm. MRA of the neck demonstrates patency of the common carotid arteries, internal carotid arteries and vertebral arteries bilaterally. ??There is suggestion of moderate greater than 50% stenosis of the origin of the right internal carotid artery, moderate to severe greater than 70% stenosis of the left proximal internal carotid artery. ??Left vertebral artery is dominant. ??No evidence for vessel dissection, cutoff, hemodynamically significant stenoses by NASCET criteria. ??No intramural hematoma or dissection flap to suggest vessel dissection. Narrative 05/18/2022 10:50 AM EST STUDY: ??MRI of the Brain without contrast CLINICAL HISTORY: Headache and neck pain. ??Vertigo. ??Concern for carotid dissection and aneurysm. Procedure Note Nataly Stout MD - 05/18/2022 STUDY: MRI of the Brain without contrast CLINICAL HISTORY: Headache and neck pain. Vertigo. Concern for carotid dissection and aneurysm. -- IMPRESSION: Unremarkable MRI of the brain. Unremarkable MRA of the head.MRA of the neck suggests atherosclerotic disease and greater than 50%narrowing of the right proximal internal carotid artery, greater than 70% narrowing ofthe left internal carotid artery. If there is continued clinical concern, CTAmay be helpful to better assess. No evidence for vessel dissection. COMMENT: Technique: The brain was scanned in multiple planes with a variety ofpulse sequences without contrast. Comparison: Brain MRI dated 05/04/2018. Findings: Single subcortical white matter T2 hyperintensity in the leftcorona radiata. Sulci, ventricles and basal cisterns are within normal limitsfor patient's stated age. No mass-effect, intracranial hemorrhage, acutesegmental infarct or extra-axial fluid collection is seen. Cerebellar tonsils arenormal in position. Expected signal voids are seen in the intracranial vesselsat the skull base. The orbits and sella are unremarkable. The paranasal sinuses are clear.The mastoid air cells are clear. MR angiography head and neck without contrast Technique: An MRA of the [place] was performed utilizing a 3D rqgw-to-xfwzbi technique. MRA of the neck was also performed utilizing2-D and 3-D brqa-yf-sdvkeh technique. Axial T1 fat sat images of the neck alsoobtained for dissection protocol. No prior studies are available for comparison. Findings: MR angiography of the head demonstrates normal anterior andposterior circulation. origin right [employer]. No medium or large size aneurysmsare seen in the [place]. Please note that MRA may be insensitive inthe detection of aneurysms smaller than 4 mm. MRA of the neck demonstrates patency of the common carotid arteries,internal carotid arteries and vertebral arteries bilaterally. There is suggestionof moderate greater than 50% stenosis of the origin of the right internalcarotid artery, moderate to severe greater than 70% stenosis of the leftproximal internal carotid artery. Left vertebral artery is dominant. No evidencefor vessel dissection, cutoff, hemodynamically significant stenoses byNASCET criteria. No intramural hematoma or dissection flap to suggest vessel dissection. us Julia Smith MD IMG MRI PROCEDURES Final Resu lt * MRI ANGIOGRAM HEAD WITHOUT CONTRAST (05/18/2022 9:54 AM EST) Anatomical Region Laterality Modality Head and Neck Magnetic Resonan ce 05/18/2022 10:2 7 AM EST Impressions 05/18/2022 10:50 AM EST IMPRESSION: Unremarkable MRI of the brain. ??Unremarkable MRA of the head. ??MRA of the neck suggests atherosclerotic disease and greater than 50% narrowing of the right proximal internal carotid artery, greater than 70% narrowing of the left internal carotid artery. ??If there is continued clinical concern, CTA may be helpful to better assess. ??No evidence for vessel dissection. COMMENT: Technique: ??The brain was scanned in multiple planes with a variety of pulse sequences without contrast. Comparison: ??Brain MRI dated 05/04/2018. Findings: Single subcortical white matter T2 hyperintensity in the left gil radiata. ??Sulci, ventricles and basal cisterns are within normal limits for patient's stated age. No mass-effect, intracranial hemorrhage, acute segmental infarct or extra-axial fluid collection is seen. Cerebellar tonsils are normal in position. ??Expected signal voids are seen in the intracranial vessels at the skull base. The orbits and sella are unremarkable. ?? The paranasal sinuses are clear. ??The mastoid air cells are clear. MR angiography head and neck without contrast Technique: An MRA of the [place] was performed utilizing a 3D xqqx-an-cqcupk technique. ??MRA of the neck was also performed utilizing 2-D and 3-D bwxe-zt-wdvcpi technique. ??Axial T1 fat sat images of the neck also obtained for dissection protocol. No prior studies are available for comparison. Findings: MR angiography of the head demonstrates normal anterior and posterior circulation. ?? origin right [employer]. ??No medium or large size aneurysms are seen in the [place]. ??Please note that MRA may be insensitive in the detection of aneurysms smaller than 4 mm. MRA of the neck demonstrates patency of the common carotid arteries, internal carotid arteries and vertebral arteries bilaterally. ??There is suggestion of moderate greater than 50% stenosis of the origin of the right internal carotid artery, moderate to severe greater than 70% stenosis of the left proximal internal carotid artery. ??Left vertebral artery is dominant. ??No evidence for vessel dissection, cutoff, hemodynamically significant stenoses by NASCET criteria. ??No intramural hematoma or dissection flap to suggest vessel dissection. Narrative 05/18/2022 10:50 AM EST STUDY: ??MRI of the Brain without contrast CLINICAL HISTORY: Headache and neck pain. ??Vertigo. ??Concern for carotid dissection and aneurysm. Procedure Note Nataly Stout MD - 05/18/2022 STUDY: MRI of the Brain without contrast CLINICAL HISTORY: Headache and neck pain. Vertigo. Concern for carotid dissection and aneurysm. -- IMPRESSION: Unremarkable MRI of the brain. Unremarkable MRA of the head.MRA of the neck suggests atherosclerotic disease and greater than 50%narrowing of the right proximal internal carotid artery, greater than 70% narrowing ofthe left internal carotid artery. If there is continued clinical concern, CTAmay be helpful to better assess. No evidence for vessel dissection. COMMENT: Technique: The brain was scanned in multiple planes with a variety ofpulse sequences without contrast. Comparison: Brain MRI dated 05/04/2018. Findings: Single subcortical white matter T2 hyperintensity in the leftcorona radiata. Sulci, ventricles and basal cisterns are within normal limitsfor patient's stated age. No mass-effect, intracranial hemorrhage, acutesegmental infarct or extra-axial fluid collection is seen. Cerebellar tonsils arenormal in position. Expected signal voids are seen in the intracranial vesselsat the skull base. The orbits and sella are unremarkable. The paranasal sinuses are clear.The mastoid air cells are clear. MR angiography head and neck without contrast Technique: An MRA of the [place] was performed utilizing a 3D mygf-ap-dsfryt technique. MRA of the neck was also performed utilizing2-D and 3-D mkqv-bg-yrcjad technique. Axial T1 fat sat images of the neck alsoobtained for dissection protocol. No prior studies are available for comparison. Findings: MR angiography of the head demonstrates normal anterior andposterior circulation. origin right [employer]. No medium or large size aneurysmsare seen in the [place]. Please note that MRA may be insensitive inthe detection of aneurysms smaller than 4 mm. MRA of the neck demonstrates patency of the common carotid arteries,internal carotid arteries and vertebral arteries bilaterally. There is suggestionof moderate greater than 50% stenosis of the origin of the right internalcarotid artery, moderate to severe greater than 70% stenosis of the leftproximal internal carotid artery. Left vertebral artery is dominant. No evidencefor vessel dissection, cutoff, hemodynamically significant stenoses byNASCET criteria. No intramural hematoma or dissection flap to suggest vessel dissection. Julia Smith MD IMG MRI PROCEDURES Final Resu lt * Extra Tube Urine Cup (04/30/2022 3:57 PM EDT) Urine Urine specimen obtained by clean catch procedure / Unknown 04/30/2022 3:57 PM EDT 04/30/2022 9:58 PM EDT Asher Zambrano DO LAB URINE ORDERABLES Final Result [facility] [address] [place] [id number] * Microalbumin / creatinine urine ratio (04/30/2022 3:57 PM EDT) Pathologist [facility] Microalbumin, Ur 6.0 <20.0 mg/L 05/01/2022 12:21 AM EDT [facility] Creatinine, Urine 88.7 mg/dL 05/01/2022 12:21 AM EDT [facility] Microalb/Creat Ratio 6.8 <30.0 ug/mg 05/01/2022 12:21 AM EDT [facility] Urine Urine specimen obtained by clean catch procedure / Unknown 04/30/2022 3:57 PM EDT 04/30/2022 9:58 PM EDT Asher Zambrano DO LAB URINE ORDERABLES Final Result [facility] [address] [facility] [address] [place] [address] * Lipoprotein A (LPA) (04/30/2022 3:57 PM EDT) [facility] Lipoprotein (a) <10 <75 nmol/L 5:[address] [facility]JONG CONNELLY Comment: Assay was repeated and verified. ? Risk Category ??Optimal ?< 75 nmol/L ??Moderate ?? 75 - 125 nmol/L ??High ?> 125 nmol/L Cardiovascular event risk category cut points (optimal, moderate, high) are based on Edna Arcos JACC 2017;69:692-711. ? Blood Venous blood specimen / Unknown 04/30/2022 3:57 PM EDT 04/30/2022 9:57 PM EDT Narrative [facility] - 05/07/2022 5:56 AM EDT Performing Organization Information: ?Site ID: AMD ?Name: [facility]/Suzette HEADLEY ?Address: [address] [place] [address] [address] [place] ?Director: Kenton Daly M.D.,PhD [facility] LAB BLOOD ORDERABLES Final Result [facility] [address] [place] [id number] [facility] [address] [place], [place] * High sensitivity CRP (04/30/2022 3:57 PM EDT) Only the most recent of2 resultswithin the time period is included. CRP, High Sensitivity 0.48 <=7.48 mg/L 04/30/2022 10:37 PM EDT [facility] Comment: Low risk: <1.0 mg/L Average Risk: 1.0 to 3.0 mg/L High risk: >3.0 mg/L (Bessy Schuster, et al, Circulation [id number] Blood Venous blood specimen / Unknown 04/30/2022 3:57 PM EDT 04/30/2022 9:57 PM EDT [facility] BLOOD ORDERABLES Final Result Performing Organization Address City/[facility]/ZIP Co de Phone Number [facility] [address] [facility] [address] [place] [id number] * Uric acid (04/30/2022 3:57 PM EDT) Only the most recent of2 resultswithin the time period is included. Uric Acid 8.1 4.8 - 8.2 mg/dL 04/30/2022 10:37 PM EDT [facility] Blood Venous blood specimen / Unknown 04/30/2022 3:57 PM EDT 04/30/2022 9:57 PM EDT [facility] BLOOD ORDERABLES Final Result [facility] [address] [place] [address] * PSA (04/30/2022 3:57 PM EDT) Only the most recent of3 resultswithin the time period is included. PSA 1.84 <=3.99 ng/mL 04/30/2022 11:06 PM EDT [facility] Comment:Guilherme Jose Hybr itech method. Serum levels of PSA should not be interpreted as absolute evidence for the presence of malignancy. The PSA value should be used in conjunction with other pertinent clinical diagnostic procedures. Blood Venous blood specimen / Unknown 04/30/2022 3:57 PM EDT 04/30/2022 9:57 PM EDT Asher Zambrano LAB BLOOD ORDERABLES Final Result Performing Organization Address City/[facility]/ZIP Co de Phone Number [facility] [address] [facility] [address] [place] [address] * CK, Total (02/23/2022 9:34 PM EDT) Only the most recent of2 resultswithin the time period is included. Total CK 118 16 - 300 U/L 02/23/2022 11:23 PM EDT [facility] Blood Venous blood specimen / Unknown 02/23/2022 9:34 PM EDT 02/23/2022 9:34 PM EDT us Asher Zambrano LAB BLOOD ORDERABLES Final Result [facility] [address] [facility] [place] [address] * Extra Tube Gold (02/23/2022 9:34 PM EDT) Only the most recent of4 resultswithin the time period is included. Blood Venous blood specimen / Unknown 02/23/2022 9:34 PM EDT 02/23/2022 9:34 PM EDT Asher Zambrano LAB BLOOD ORDERABLES Final Result [facility] [address] [place] [address] * KYLAH Titer (02/23/2022 9:34 PM EDT) KYLAH Titer 1 Negative Negative 02/24/2022 1:49 PM EDT [facility] Comment:Negative at screenin g titer of 1:40 KYLAH Pattern 1 Not Applicable 022 1:49 PM EDT [facility] Blood Venous blood specimen / Unknown 02/23/2022 9:34 PM EDT 02/23/2022 9:34 PM EDT us Asher Zambrano DO LAB BLOOD ORDERABLES Final Result [facility] [address] [facility] [address] [place] [address] * Sedimentation rate (02/23/2022 9:34 PM EDT) Sed Rate 6 0 - 20 mm/hr 02/23/2022 10:47 PM EDT [facility] Blood Venous blood specimen / Unknown 02/23/2022 9:34 PM EDT 02/23/2022 9:34 PM EDT us Asher Zambrano DO LAB BLOOD ORDERABLES Final Result [facility] [address] [place] [address] * Rheumatoid factor (02/23/2022 9:34 PM EDT) Only the most recent of2 resultswithin the time period is included. Rheumatoid Factor <=7.0 <15.0 IU/mL 02/24/2022 12:08 PM EDT [facility] Blood Venous blood specimen / Unknown 02/23/2022 9:34 PM EDT 02/23/2022 9:34 PM EDT us Asher BocanegraGigturn DO LAB BLOOD ORDERABLES Final Result [facility] [address] [place] [address] * KYLAH Screen (Automated) (02/23/2022 9:34 PM EDT) Only the most recent of2 resultswithin the time period is included. KYLAH Screen (Automated) Negative Negative 02/25/2022 2:24 PM EDT [facility] Blood Venous blood specimen / Unknown 02/23/2022 9:34 PM EDT 02/23/2022 9:34 PM EDT Asher Zambrano LAB BLOOD ORDERABLES Final Result [facility] [address] * (ABNORMAL) Iron and TIBC (09/10/2021 7:13 PM EST) Iron 98 35 - 150 ug/dL 09/10/2021 10:07 PM [facility] TIBC 504(H) 270 - 460 ug/dL 09/10/2021 10:07 PM [facility] UIBC 406(H) 180 - 360 ug/dL 09/10/2021 10:07 PM [facility] Iron Saturation 19 15 - 45 % 10:07 PM [facility] Blood Venous blood specimen / Unknown 09/10/2021 7:13 PM EST 09/10/2021 7:44 PM EST Asher Zambrano DO LAB BLOOD ORDERABLES Final Result [facility] [address] [place] [address] * Magnesium (09/10/2021 7:13 PM EST) Magnesium 2.0 1.8 - 2.5 mg/dL 09/10/2021 10:04 PM [facility] Blood Venous blood specimen / Unknown 09/10/2021 7:13 PM EST 09/10/2021 7:44 PM EST Asher Zambrano LAB BLOOD ORDERABLES Final Result Performing Organization Address [facility] Co de Phone Number [facility] [address] [facility] [address]. [place] [id number] * CEA (09/10/2021 7:13 PM EST) Pathologist [facility] CEA 1.4 ng/mL 09/10/2021 10:00 PM EST [facility] Comment: ADULT REFERENCE RANGE Non-smokers: <3.0 ng/mL Smokers: <5.0 ng/mL Serum CEA levels, regardless of value, should not be interpreted as absolute evidence of the presence or absence of disease. The CEA value should be used in conjunction with information available from the clinical evaluation and other diagnostic procedures. Blood Venous blood specimen / Unknown 09/10/2021 7:13 PM EST 09/10/2021 7:44 PM EST Asher Zambrano LAB BLOOD ORDERABLES Final Result Performing Organization Address [facility] Co de Phone Number [facility] [address] [place] [address]. [place] [address] * Urine culture (10/04/2020 2:37 PM EDT) [facility] Urine Culture <10,000 cfu/mL 10/06/2020 10:23 AM EDT [facility] Urine Urine specimen obtained by clean catch procedure / Unknown 10/04/2020 2:37 PM EDT 10/04/2020 9:20 PM EDT Celestine Franco MD LAB MICROBIOLOGY - GENERAL ORD ERABLES Final Result Performing Organization Address City/[facility] Co de Phone Number [facility] [address] [facility] [address] [place] [address] * Covid-19 SARS CoV-2 Antibody (IgG) (11/28/2019 5:40 PM EDT) SARS CoV-2 IgG Negative Negative 11/29/2019 8:21 AM EDT [facility] Blood Venous blood specimen / Unknown 11/28/2019 5:40 PM EDT 11/28/2019 5:40 PM EDT Asher Zambrano DO LAB BLOOD ORDERABLES Final Result Performing Organization Address [facility] Co de Phone Number [facility] [address] [facility] [address] [place] [address] * CCP IgG/IgA Antibodies (11/28/2019 5:40 PM EDT) Pathologist [facility] Cyclic Citrullin Peptide Ab <8 <20 Units 12/05/2019 12:41 PM EDT [facility] Comment: Interpretation: <20 Units ?Negative 20-39 Units ?Weak Positive 40-59 Units ?Moderate to Strong Positive >=60 Units ? Strong Positive Blood Venous blood specimen / Unknown 11/28/2019 5:40 PM EDT 11/28/2019 5:40 PM EDT Asher Zambrano DO LAB BLOOD ORDERABLES Final Result Performing Organization Address [facility] de Phone Number [facility] [address] [facility] [address] [place] [address] * (ABNORMAL) Vitamin D 25 hydroxy (11/28/2019 5:40 PM EDT) Vit D, 25-Hydroxy 20(L) 30 - 100 ng/mL 11/29/2019 10:40 AM EDT [facility] Comment: INTERPRETATION VITAMIN D STATUS ?? 25 OH VITAMIN D ??Deficiency ?<20 ng/mL ??Insufficiency ? 20-29 ng/mL ??Sufficiency ?30-100 ng/mL ??Toxicity ? >100 ng/mL This test measures a total of both 25 OH D2 and 25 OH D3. Blood Venous blood specimen / Unknown 11/28/2019 5:40 PM EDT 11/28/2019 5:41 PM EDT Asher Zambrano DO LAB BLOOD ORDERABLES Final Result Performing Organization Address [facility] Co de Phone Number [facility] [address] [facility] [address] [place] [address] * (ABNORMAL) C-reactive protein (11/28/2019 5:40 PM EDT) Only the most recent of2 resultswithin the time period is included. CRP 18.17(H) <=7.48 mg/L 11/28/2019 6:29 PM EDT [facility] Blood Venous blood specimen / Unknown 11/28/2019 5:40 PM EDT 11/28/2019 5:40 PM EDT Asher Zambrano DO LAB BLOOD ORDERABLES Final Result Performing Organization Address [facility] Co de Phone Number [facility] [address] [facility] [address] [place] [phone] * (ABNORMAL) Upper respiratory culture (06/16/2019 3:03 PM EST) Pathologist [facility] Culture Positive Culture(A) 06/17/2019 8:26 PM [facility] Culture 3+ Haemophilus influenzae AUTOMATED ELOISE SUSCEPTIBILITY 06/17/2019 8:26 PM [facility] Comment:Beta-Lactamase Negat valente Culture Normal Madiha Also Recovered 06/17/2019 8:26 PM [facility] Throat Swab Throat swab / Unknown 06/16/2019 3:03 PM EST 06/16/2019 11:48 PM EST Efrain Balderas MD LAB MICROBIOLOGY - GENERAL OR DERABLES Final Result Performing Organization Address [facility] Co de Phone Number [facility] [address] [facility] [address] [place] [address] * Diff Count (06/12/2019 8:00 PM EST) Only the most recent of2 resultswithin the time period is included. Differential Type Auto 019 8:37 PM [facility] nRBC 0.0 <=0.0 % 06/12/2019 8:37 PM [facility] Immature Granulocytes 0.2 % 06/12/2019 8:37 PM [facility] Neutrophils 43.8 % 06/12/2019 8:37 PM [facility] Lymphocytes 42.2 % 06/12/2019 8:37 PM [facility] Monocytes 10.4 % 06/12/2019 8:37 PM [facility] Eosinophils 1.9 % 06/12/2019 8:37 PM [facility] Basophils 1.5 % 06/12/2019 8:37 PM [facility] Immature Granulocytes, Absolute 0.01 0.00 - 0.08 K/uL 06/12/2019 8:37 PM [facility] Neutrophils, Absolute 2.11 1.70 - 7.00 K/uL 06/12/2019 8:37 PM [facility] Lymphocytes, Absolute 2.03 1.20 - 3.50 K/uL 06/12/2019 8:37 PM [facility] Monocytes, Absolute 0.50 0.30 - 1.00 K/uL 06/12/2019 8:37 PM [facility] Eosinophils, Absolute 0.09 0.04 - 0.54 K/uL 06/12/2019 8:37 PM [facility] Basophils, Absolute 0.07 0.01 - 0.10 K/uL 06/12/2019 8:37 PM [facility] Blood Venous blood specimen / Unknown 06/12/2019 8:00 PM EST 06/12/2019 8:01 PM EST us Ashre Zambrano DO LAB BLOOD ORDERABLES Final Result [facility] [address] [place] [address] * MRI BRAIN WITH AND WITHOUT CONTRAST (05/04/2018 2:39 PM EDT) Only the most recent of2 resultswithin the time period is included. Anatomical Region Laterality Modality Head and Neck Magnetic Resonan ce 05/04/2018 3:28 PM EDT Impressions 05/04/2018 4:39 PM EDT IMPRESSION: Unremarkable MRI of the brain and internal auditory canals. COMMENT: Temporal bones: Cerebellopontine angle cisterns: Normal. Internal auditory canals: Symmetric. Seventh/eighth nerve complexes: Normal. Inner ears: Normal in configuration and signal. Middle ear cavities and mastoid air cells: Clear bilaterally. Visualized brain: Parenchyma: Normal MR appearance without abnormal enhancement. Ventricles, cisterns, and sulci: Normal in size and configuration. Sella and cerebellar tonsils: Normal in appearance. Vascular flow voids: Intact at the skull base. Visualized paranasal sinuses: ??Maxillary sinus mucosal thickening. Narrative 05/04/2018 4:39 PM EDT STUDY: MRI examination of the brain and internal auditory canals performed without and with IV contrast. 10 cc of Gadavist IV contrast were given. CLINICAL HISTORY: Bilateral benign paroxysmal positional vertigo for two weeks COMPARISON: 04/21/2013. Procedure Note Luz Hebert MD - 05/04/2018 STUDY: MRI examination of the brain and internal auditory canalsperformed without and with IV contrast. 10 cc of Gadavist IV contrast were given. CLINICAL HISTORY: Bilateral benign paroxysmal positional vertigo for twoweeks COMPARISON: 04/21/2013. -- IMPRESSION: Unremarkable MRI of the brain and internal auditory canals. COMMENT: Temporal bones: Cerebellopontine angle cisterns: Normal. Internal auditory canals: Symmetric. Seventh/eighth nerve complexes: Normal. Inner ears: Normal in configuration and signal. Middle ear cavities and mastoid air cells: Clear bilaterally. Visualized brain: Parenchyma: Normal MR appearance without abnormal enhancement. Ventricles, cisterns, and sulci: Normal in size and configuration. Sella and cerebellar tonsils: Normal in appearance. Vascular flow voids: Intact at the skull base. Visualized paranasal sinuses: Maxillary sinus mucosal thickening. us Asher Zambrano DO IMG MRI PROCEDURES Final Re sult * XRAY SCAN DOCUMENT (05/28/2017 12:00 AM EST) Only the most recent of3 resultswithin the time period is included. Anatomical Region Laterality Modality Spine, L-spine Other Narrative 05/28/2017 12:00 AM EST Ordered by an unspecified provider. us Provider Scan MD KANG SCANNED ORDERS Final Result * ULTRASOUND PELVIS LIMITED TRANSABDOMINAL ONLY (05/28/2017) Anatomical Region Laterality Modality Pelvis Ultrasound 05/28/2017 Narrative 05/28/2017 12:00 AM EST ULTRASOUND - May 28 2017 ??8:42AM ??- ??US PELVIS LIMITED OR FOLLOW UP CLINICAL HISTORY: Left lower quadrant pain. ??Evaluate for hernia. IMPRESSION: The excess fat seen in the left inguinal canal on the recent CT either representing lipomatous hypertrophy of the left spermatic cord or small fat-containing hernia is unable to be demonstrated on this study. No hernia could be demonstrated in this region at rest or with Valsalva. COMMENT: Comparison: CT dated 04/14/2017.. Limited pelvic ultrasound dedicated to the left lower abdominal wall was performed in the inguinal region. ??The excess fat seen on the CT in the left inguinal canal is not visualized on today's study. ??No hernia was demonstrated at rest or with Valsalva. Transcribed by: n/a :May 28 2017 ??9:39A Dictated by: CELESTINE MALDONADO M.D.:May 28 2017 ??9:28A Dictation signed by:CELESTINE MALDONADO M.D.:May 28 2017 ??9:42A CPT Code: 41481 Procedure Note Provider, MD Ghislaine - 07/29/2017 ULTRASOUND - May 28 2017 8:42AM - US PELVIS LIMITED OR FOLLOW UP CLINICAL HISTORY: Left lower quadrant pain. Evaluate for hernia. IMPRESSION: The excess fat seen in the left inguinal canal on the recent CT either representing lipomatous hypertrophy of the left spermatic cord or small fat-containing hernia is unable to be demonstrated on this study. No hernia could be demonstrated in this region at rest or with Valsalva. COMMENT: Comparison: CT dated 04/14/2017.. Limited pelvic ultrasound dedicated to the left lower abdominal wall was performed in the inguinal region. The excess fat seen on the CT in the left inguinal canal is not visualized on today's study. No hernia was demonstrated at rest or with Valsalva. Transcribed by: n/a :May 28 2017 9:39A Dictated by: CELESTINE MALDONADO M.D.:May 28 2017 9:28A Dictation signed by:CELESTINE MALDONADO M.D.:May 28 2017 9:42A CPT Code: 60376 us Gian Castro MD IMG US PROCEDURES Final Resul t * CT ABDOMEN PELVIS WITHOUT IV CONTRAST (04/14/2017) Anatomical Region Laterality Modality Body Computed Tomogra phy 04/14/2017 Narrative 04/14/2017 12:00 AM EDT CAT SCAN - Apr ??2016 ??8:27AM ??- ??CT ABD AND PELVIS W/O CONTRAST CLINICAL HISTORY: 66-year-old male with lower quadrant pain and left inguinal hernia. PROCEDURE: ??CT of the abdomen and pelvis without intravenous contrast dated 04/14/2017 8:27 AM COMMENT: TECHNIQUE: CT of the abdomen and pelvis was performed using oral contrast material. ??Intravenous contrast was not used as per request. Axial, sagittal and coronal images were produced and reviewed. CT DOSE: ??One or more dose reduction techniques (e.g., Automated exposure control, adjustment of the mA and/or kV according to the patient size, use of iterative reconstruction technique) utilized for this examination. PRIOR STUDIES: None. FINDINGS: Images of the lower chest demonstrate severe coronary artery calcifications. Evaluation of the visceral organs is limited intravenous contrast. ??There is diffuse low-density of the liver consistent with fatty infiltration. No focal liver lesions are seen. No radiopaque gallstones are seen. ??The pancreas is normal in appearance. No splenic abnormalities are seen. No adrenal abnormalities are seen. ?? The kidneys are normal in appearance bilaterally. ??No renal stones are seen. ??No hydronephrosis is evident. No abdominal aortic aneurysm is seen. No retroperitoneal lymphadenopathy is seen. There is colonic diverticulosis without evidence of diverticulitis. Patient is status post appendectomy. ??No bowel obstruction. ??No free intraperitoneal air. No ascites is evident. Images of the pelvis demonstrate the prostate and seminal vesicles to be normal in appearance. No filling defects are seen in the urinary bladder. No pelvic lymphadenopathy is seen. ??There is a small fat-containing indirect inguinal hernia. ??There is no significant right inguinal hernia. Evaluation of the osseous structures demonstrates degenerative disc disease at L2-L3. IMPRESSION: 1. ??Small fat-containing indirect left inguinal hernia. 2. ??Colonic diverticulosis. 3. ??Hepatic steatosis. Transcribed by: n/a :Apr?2016 ??9:10A Dictated by: SHELLY MCKENZIE MD:Apr?2016 ??9:10A Dictation signed by:SHELLY MCKENZIE MD:Apr?2016 ??9:19A CPT Code: 58884 Procedure Note Provider, MD Ghislaine - 07/29/2017 CAT SCAN - Apr 14 2017 8:27AM - CT ABD AND PELVIS W/O CONTRAST CLINICAL HISTORY: 66-year-old male with lower quadrant pain and left inguinal hernia. PROCEDURE: CT of the abdomen and pelvis without intravenous contrast dated 04/14/2017 8:27 AM COMMENT: TECHNIQUE: CT of the abdomen and pelvis was performed using oralcontrast material. Intravenous contrast was not used as per request. Axial, sagittal and coronal images were produced and reviewed. CT DOSE: One or more dose reduction techniques (e.g., Automatedexposure control, adjustment of the mA and/or kV according to the patient size, use of iterative reconstruction technique) utilized for thisexamination. PRIOR STUDIES: None. FINDINGS: Images of the lower chest demonstrate severe coronary artery calcifications. Evaluation of the visceral organs is limited intravenous contrast.There is diffuse low-density of the liver consistent with fatty infiltration. No focal liver lesions are seen. No radiopaque gallstones are seen. The pancreas is normal in appearance. No splenic abnormalities are seen. No adrenal abnormalities are seen. The kidneys are normal inappearance bilaterally. No renal stones are seen. No hydronephrosis is evident. No abdominal aortic aneurysm is seen. No retroperitoneal lymphadenopathy is seen. There is colonic diverticulosis without evidence of diverticulitis. Patient is status post appendectomy. No bowel obstruction. No free intraperitoneal air. No ascites is evident. Images of the pelvis demonstrate the prostate and seminal vesicles to be normal in appearance. No filling defects are seen in the urinarybladder. No pelvic lymphadenopathy is seen. There is a small fat-containing indirect inguinal hernia. There is no significant right inguinalhernia. Evaluation of the osseous structures demonstrates degenerative disc disease at L2-L3. IMPRESSION: 1. Small fat-containing indirect left inguinal hernia. 2. Colonic diverticulosis. 3. Hepatic steatosis. Transcribed by: n/a :Apr 14 2017 9:10A Dictated by: SHELLY MCKENZIE MD:Apr 14 2017 9:10A Dictation signed by:SHELLY MCKENZIE MD:Apr 14 2017 9:19A CPT Code: 35814 Dante Hall MD IMG CT PROCEDURES Final Result * HISTORICAL LAB RESULT - CHEMISTRY (03/23/2017 6:06 PM EDT) PSA 0.85 <4.00 NG/ML [facility] Comment:[email or web address] Hybr itech method. Serum levels of PSA should not be interpreted as absolute evidence for the presence of malignancy. The PSA value should be used in conjunction with other pertinent clinical diagnostic procedures. 03/23/2017 6:06 PM EDT Dante Hall MD LAB BLOOD ORDERABLES Final Resul t [facility] * LABORATORY (03/23/2017 12:00 AM EDT) Narrative 03/23/2017 12:00 AM EDT Ordered by an unspecified provider. us Provider Scan [facility] SCANNED ORDERS Final Result * ULTRASOUND KIDNEYS / BLADDER (08/07/2015) Anatomical Region Laterality Modality Body Ultrasound 08/07/2015 Narrative 08/07/2015 12:00 AM EST ULTRASOUND - ??Aug 07 2015 ??13:34 ?? - ??US RETROPERITONEAL COMPLETE CLINICAL HISTORY: N 40.1, M 52.8, R 35.0 COMMENT: Technique: Ultrasound of the kidneys and urinary bladder was performed. Comparison: Correlation is made with the prior abdominal ultrasound performed 05/17/2012 The right kidney measures 12.8 x 5.3 x 5.6 cm and the left kidney measures 12.6 x 6.1 x 5.6 cm. The kidneys are unremarkable in echogenicity. There is no hydronephrosis, perinephric collection, gross solid renal mass lesion or evidence of a shadowing renal calculus. Incidental note is made of increased hepatic echogenicity which can be seen with fibrous or fatty infiltration. The urinary bladder is distended to a volume of 389 cc and is without focal or diffuse wall thickening, mass or calculus. Both ureteral jets are visualized The post void residual is 147 cc. The prostate gland is poorly visualized. IMPRESSION: 1. Top normal to mildly prominent renal size. No hydronephrosis, gross solid mass lesion or evidence of a shadowing renal calculus. 2. Significant post void residual of 147 cc. 3. Poor visualization of the prostate gland. 4. Incidental note of increased hepatic echogenicity which can be seen with fibrous or fatty infiltration. Transcribed by: ?n/a : Aug 07 2015 ??1:41P Dictated by: ?ZEKE MOYA : ?? Aug 07 2015 ??1:41P Dictation signed by: ?ZEKE MOYA : ?? Aug 07 2015 ??1:44P CPT Code: 70356 Procedure Note Provider, MD Ghislaine - 07/29/2017 ULTRASOUND - Aug 07 2015 13:34 - US RETROPERITONEAL COMPLETE CLINICAL HISTORY: N 40.1, M 52.8, R 35.0 COMMENT: Technique: Ultrasound of the kidneys and urinary bladder was performed. Comparison: Correlation is made with the prior abdominal ultrasound performed 05/17/2012 The right kidney measures 12.8 x 5.3 x 5.6 cm and the left kidney measures 12.6 x 6.1 x 5.6 cm. The kidneys are unremarkable in echogenicity. There is no hydronephrosis, perinephric collection, gross solid renal mass lesion or evidence of a shadowing renal calculus. Incidental note is made of increased hepatic echogenicity which can be seen with fibrous or fatty infiltration. The urinary bladder is distended to a volume of 389 cc and is without focal or diffuse wall thickening, mass or calculus. Both ureteral jets are visualized The post void residual is 147 cc. The prostate gland is poorly visualized. IMPRESSION: 1. Top normal to mildly prominent renal size. No hydronephrosis, gross solid mass lesion or evidence of a shadowing renal calculus. 2. Significant post void residual of 147 cc. 3. Poor visualization of the prostate gland. 4. Incidental note of increased hepatic echogenicity which can be seen with fibrous or fatty infiltration. Transcribed by: n/a : Aug 07 2015 1:41P Dictated by: ZEKE MOYA : Aug 07 2015 1:41P Dictation signed by: ZEKE MOYA : Aug 07 2015 1:44P CPT Code: 92637 us Dante Hall MD IM US PROCEDURES Final Result * X-RAY SHOULDER RIGHT 2+ VIEWS (01/28/2015) Anatomical Region Laterality Modality Upper Extremities, Shoulder Right Radi ographic Imaging 01/28/2015 Narrative 01/28/2015 12:00 AM EDT DIAGNOSTIC RADIOLOGY - Jan 28 2015 10:31AM ??- R SHOULDER COMPLETE CLINICAL HISTORY: Pain. COMMENT: 4 views of the right shoulder demonstrate the visualized bones and soft tissues to be intact without fracture. There is degenerative change predominately about the acromioclavicular joint. No abnormal soft tissue calcifications are seen. IMPRESSION: There is degenerative change predominately about the acromioclavicular joint. Transcribed by: ?n/a : Jan 28 2015 11:56A Dictated by: ?JAVIER JETT MD: ?? Jan 28 2015 11:56A Dictation signed by: ?JAVIER JETT MD: ?? Jan 28 2015 11:56A CPT Code: 80112 Procedure Note Provider, MD Ghislaine - 07/29/2017 DIAGNOSTIC RADIOLOGY - Jan 28 2015 10:31AM - R SHOULDER COMPLETE CLINICAL HISTORY: Pain. COMMENT: 4 views of the right shoulder demonstrate the visualized bones and soft tissues to be intact without fracture. There is degenerative change predominately about the acromioclavicular joint. No abnormal soft tissue calcifications are seen. IMPRESSION: There is degenerative change predominately about the acromioclavicular joint. Transcribed by: n/a : Jan 28 2015 11:56A Dictated by: JAVIER JETT MD: Jan 28 2015 11:56A Dictation signed by: JAVIER JETT MD: Jan 28 2015 11:56A CPT Code: 07544 Asher Zambrano DO IMG XR PROCEDURES Final Res ult * X-RAY SHOULDER LEFT 2+ VIEWS (01/28/2015) Anatomical Region Laterality Modality Upper Extremities, Shoulder Left Radi ographic Imaging 01/28/2015 Narrative 01/28/2015 12:00 AM EDT DIAGNOSTIC RADIOLOGY - Jan 28 2015 10:31AM ??- L SHOULDER COMPLETE CLINICAL HISTORY: Pain. COMMENT: 4 views of the left shoulder demonstrate the visualized bones and soft tissues to be intact without fracture. There is degenerative change predominately about the acromioclavicular joint. No abnormal soft tissue calcifications are seen. IMPRESSION: There is degenerative change predominately about the acromioclavicular joint. Transcribed by: ?n/a : Jan 28 2015 11:56A Dictated by: ?JAVIER JETT MD: ?? Jan 28 2015 11:56A Dictation signed by: ?JAVIER JETT MD: ?? Jan 28 2015 11:57A CPT Code: 67823 Procedure Note Provider, MD Ghislaine - 07/29/2017 DIAGNOSTIC RADIOLOGY - Jan 28 2015 10:31AM - L SHOULDER COMPLETE CLINICAL HISTORY: Pain. COMMENT: 4 views of the left shoulder demonstrate the visualized bones and soft tissues to be intact without fracture. There is degenerative change predominately about the acromioclavicular joint. No abnormal soft tissue calcifications are seen. IMPRESSION: There is degenerative change predominately about the acromioclavicular joint. Transcribed by: n/a : Jan 28 2015 11:56A Dictated by: JAVIER JETT MD: Jan 28 2015 11:56A Dictation signed by: JAVIER JETT MD: Jan 28 2015 11:57A CPT Code: 35321 Asher Zambrano DO IMG XR PROCEDURES Final Res ult * X-RAY SCAPULA LEFT (01/28/2015) Anatomical Region Laterality Modality Body, Scapula Left Radiographic Marylin ging 01/28/2015 Narrative 01/28/2015 12:00 AM EDT DIAGNOSTIC RADIOLOGY - Jan 28 2015 10:31AM ??- L SCAPULA CLINICAL HISTORY: ?? discomfort COMMENT: Examination , three views, of the left scapula demonstrates the visualized bones and soft tissues to be normal in appearance. No fracture or bone destruction is seen. Again seen degenerative change of the AC joint. IMPRESSION: Again seen degenerative change of the AC joint. Transcribed by: ?n/a : Jan 28 2015 11:57A Dictated by: ?JAVIER JETT MD: ?? Jan 28 2015 11:57A Dictation signed by: ?JAVIER JETT MD: ?? Jan 28 2015 11:58A CPT Code: 41183 Procedure Note Provider, MD Ghislaine - 07/29/2017 DIAGNOSTIC RADIOLOGY - Jan 28 2015 10:31AM - L SCAPULA CLINICAL HISTORY: discomfort COMMENT: Examination , three views, of the left scapula demonstrates the visualized bones and soft tissues to be normal in appearance. Nofracture or bone destruction is seen. Again seen degenerative change of the AC joint. IMPRESSION: Again seen degenerative change of the AC joint. Transcribed by: n/a : Jan 28 2015 11:57A Dictated by: JAVIER JETT MD: Jan 28 2015 11:57A Dictation signed by: JAVIER JETT MD: Jan 28 2015 11:58A CPT Code: 09255 us Asher Maurice Bocanegravitaly DO IMG XR PROCEDURES Final Res ult * X-RAY THORACIC SPINE 3 VIEWS (01/28/2015) Anatomical Region Laterality Modality Spine, T-spine Radiographic Marylin ging 01/28/2015 Narrative 01/28/2015 12:00 AM EDT DIAGNOSTIC RADIOLOGY - Jan 28 2015 10:31AM ??- ??THORACIC SPINE CLINICAL HISTORY: Pain. COMMENT: AP, lateral, and swimmers view of the thoracic spine demonstrate the vertebral bodies be well aligned. No fracture is seen. There is mild diffuse degenerative change. There is no evidence for bone destruction. IMPRESSION: Mild degenerative change. Transcribed by: ?n/a : Jan 28 2015 11:55A Dictated by: ?JAVIER JETT MD: ?? Jan 28 2015 11:55A Dictation signed by: ?JAVIER JETT MD: ?? Jan 28 2015 11:55A CPT Code: 06328 Procedure Note Provider, Ghislaine, MD - 07/29/2017 DIAGNOSTIC RADIOLOGY - Jan 28 2015 10:31AM - THORACIC SPINE CLINICAL HISTORY: Pain. COMMENT: AP, lateral, and swimmers view of the thoracic spinedemonstrate the vertebral bodies be well aligned. No fracture is seen. There is mild diffuse degenerative change. There is no evidence for bone destruction. IMPRESSION: Mild degenerative change. Transcribed by: n/a : Jan 28 2015 11:55A Dictated by: JAVIER JETT MD: Jan 28 2015 11:55A Dictation signed by: JAVIER JETT MD: Jan 28 2015 11:55A CPT Code: 23330 us Asher Zambrano DO IMG XR PROCEDURES Final Res ult * X-RAY CHEST 2 VIEWS (04/12/2013) Anatomical Region Laterality Modality Body Radiographic Marylin ging 04/12/2013 Narrative 04/12/2013 12:00 AM EDT DIAGNOSTIC RADIOLOGY - Oct ??2 2013 ??7:53AM ??- ??CHEST TWO VIEWS PA AND LATERAL CLINICAL HISTORY: Shortness of breath. COMMENT: Frontal and lateral views of the chest were obtained with no prior study for comparison. The heart size is normal. ??The hilar and mediastinal contours are normal. The lungs are clear without consolidation, effusion or pneumothorax. The regional skeletal structures are unremarkable. IMPRESSION: No acute disease in the chest. Transcribed by: ?n/a: Apr ??2 2012 ??8:13A Dictated by: ?CELESTINE DIXON MD: ?? Oct ??2 2012 ??8:13A Dictation signed by: ?CELESTINE DIXON MD: ?? Oct ??2 2012 ??8:14A CPT Code: 48615 Procedure Note Provider, MD Ghislaine - 07/29/2017 DIAGNOSTIC RADIOLOGY - Apr 12 2013 7:53AM - CHEST TWO VIEWS PA AND LATERAL CLINICAL HISTORY: Shortness of breath. COMMENT: Frontal and lateral views of the chest were obtained with no prior study for comparison. The heart size is normal. The hilar and mediastinal contours are normal. The lungs are clear without consolidation, effusion or pneumothorax. The regional skeletalstructures are unremarkable. IMPRESSION: No acute disease in the chest. Transcribed by: n/a: Apr 12 2013 8:13A Dictated by: CELESTINE DIXON MD: Apr 12 20138:13A Dictation signed by: CELESTINE DIXON MD: Apr 12 2013 8:14A CPT Code: 74970 us Asher Zambrano DO IMG XR PROCEDURES Final Res ult * CYTOLOGY SCAN DOCUMENT (04/06/2013 12:00 AM EDT) Narrative 04/06/2013 12:00 AM EDT Ordered by an unspecified provider. 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 05/18/2022 Cerebral aneurysm, nonruptured 05/18/2022 JAGJIT (obstructive sleep apnea) Obstructive sleep apnea (adult) (pediatric) 05/18/2022 Occlusion and stenosis of unspecified carotid artery 06/08/2022 Spinal stenosis, lumbar region without neurogenic claudication 06/08/2022 Spinal stenosis, thoracic region 06/08/2022 Spinal stenosis, lumbar region without neurogenic claudication 06/08/2022 Spinal stenosis, thoracic region 06/08/2022 Occlusion and stenosis of bilateral carotid arteries 06/25/2022 Encounter for screening for other viral diseases 07/17/2022 Carotid stenosis, bilateral Occlusion and stenosis of carotid artery without mention of cerebral infarction 07/20/2022 Cervical spinal stenosis Spinal stenosis in cervical region 11/12/2022 Spondylolisthesis of cervical region 11/12/2022 Carotid stenosis, asymptomatic, right 07/20/2022 Cervical spinal stenosis Spinal stenosis in cervical region 11/12/2022
--- OUTSIDE RECORDS SUMMARY | 2024-03-28 21:24 | XMS_ITS | Encounter Summary ---
Author Organization [facility] Address [address] [facility] [place] [address] Care Team Providers Care Mental Health Therapist Name Role Phone Asher Zambrano DO Primary Care Provider [phone]- [phone] Reason for Visit * Auth/Cert (Routine) Specialty Diagnoses / Procedures Referred By Contac t Referred To Contact Diagnoses Carotid stenosis, bilateral Carotid stenosis, bilateral [I65.23] Procedures [place] THROMBOENDARTECTMY NECK,NECK INCIS Right Carotid Endarterectomy Brandyn Ospina MD [address] [place] [address] [address] [place] [address] Phone: tel: fax: Referral ID Status Reason Start Date Expiration Date Visits Re quested Visits Authorized [id number] 1 1 Encounter Details Date Type Department Care Team (Late st Contact Info) Description 07/20/2022 10:15 AM EST - 07/20/2022 1:10 PM EST Surgery [facility] [place] [address] Brandyn Ospina MD [address] [place] [address] [address] [place] [id number] Right Carotid Endarterectomy [55529 (CPT??)] Surgery Details Date/Time Status Location OR Service Patient Class Case Class Case Type Trauma Case? 07/20/2022 10:15 AM Posted BM OR PAV OR 07 Vascular Surgery Admit Panel 1 Procedure LRB Anes Op Region Wound Class Comments Right Carotid Endarterectomy Right General C lean Surgeon Surgeon Role Service Panel Brandyn Ospina MD Primary Vascular 1 documented in this encounter Social History Tobacco Use Types Packs/Day Years Used Date Smoking Tobacco: Former Cigarettes Q uit: 1989 Smokeless Tobacco: Never Alcohol Use Standard Drinks/Week Comments Yes 0 (1 standard drink = 0.6 oz pur e alcohol) 3 drinks/week Sex and Gender Information Value Date Recorded Sex Assigned at Male 11/12/2022 10:35 AM EDT Legal Sex Male 11:11 AM EST Gender Identity Male 11/12/2022 10:35 AM EDT Sexual Orientation Not on file COVID-19 Exposure Response Date Recorded In the last 10 days, have yo u been in contact with someone who was confirmed or suspected to have Coronavirus/COVID-19? No / Unsure 07/20/2022 8:41 AM EST documented as of this encounter Last Filed Vital Signs Vital Sign Reading Time Taken Comments Blood Pressure 96/52 07/20/2022 1:00 PM EST Pulse 85 07/20/2022 1:00 PM EST Temperature 35.9 ??C (96.7 ??F) 07/20/2022 12:[address] Respiratory Rate 19 07/20/2022 1:00 PM EST Oxygen Saturation 97% 07/20/2022 1:00 PM EST Inhaled Oxygen Concentration - - Weight 88.5 kg (195 lb) 07/20/2022 9:18 AM EST Height 177.8 cm (5' 10) 07/20/2022 9:18 AM EST Body Mass Index 27.98 07/20/2022 9:18 AM EST documented in this encounter Discharge Summaries * Nelida Casarez PA C - 07/21/2022 9:28 AM EST Inpatient Discharge Summary BRIEF OVERVIEW Admitting Provider: Brandyn Ospina MD Discharge Provider: Brandyn Ospina MD Primary Care Physician at Discharge: Asher Zambrano DO [phone] Admission Date: 07/20/2022 Discharge Date: 07/21/2022 Primary Discharge Diagnosis Carotid stenosis, asymptomatic, right Secondary Discharge Diagnosis Discharge Disposition Code Status at Discharge: Full Code Discharge Medications Medication List START taking these medications acetaminophen 325 mg tablet Commonly known as: TYLENOL Take 3 tablets (975 mg total) by mouth every 6 (six) hours as needed for moderate pain or mild painfor up to 5 days. Dose: 975 mg CONTINUE taking these medications aspirin 81 mg enteric coated tablet Take 81 mg by mouth daily. Dose: 81 mg EPINEPHrine 0.15 mg/0.3 mL injection syringe Commonly known as: EPIPEN-JR Inject 1 Syringe into the thigh once. Dose: 1 Syringe ezetimibe 10 mg tablet Commonly known as: ZETIA Take 10 mg by mouth daily. Dose: 10 mg ezetimibe-simvastatin 10-40 mg per tablet Commonly known as: VYTORIN Take 1 tablet by mouth nightly. Pt states this med was changed to ezetimibe 10 mg Dose: 1 tablet icosapent ethyL 1 gram capsule Commonly known as: VASCEPA 2 g 2 (two) times a day. Dose: 2 g meloxicam 15 mg tablet Commonly known as: MOBIC Take 15 mg by mouth daily. Dose: 15 mg OZEMPIC 2 mg. wednesday Dose: 2 mg Generic drug: semaglutide rosuvastatin 40 mg tablet Commonly known as: CRESTOR Take 40 mg by mouth daily. Dose: 40 mg STOP taking these medications valsartan 80 mg tablet 80 mg, hydrochlorothiazide 12.5 mg tablet 12.5 mg Active Issues Requiring Follow-up Outpatient Follow-Up Encounter Information This patient does not currently have any appointments scheduled. Test Results Pending at Discharge Unresulted Labs (From admission, onward) None DETAILS OF HOSPITAL STAY Presenting Problem/History of Present Illness Carotid stenosis, bilateral [I65.23] Carotid stenosis, asymptomatic, right [I65.21] Operative Procedures Performed Procedure(s): Right Carotid Endarterectomy Hospital Course The patient was taken to the OR on 07/20/2022 for R CEA by Dr Ospina for carotid stenosis. Please seethe dictated op note for further details. He tolerated the procedure well and was transferred to the PACU postoperatively for a short time. He was then transferred to the and the diet was advancedin a stepwise fashion which he tolerated. He was on scd for dvt ppx during their hospitalization. He was voiding independently. Incisions were c/d/i without any erythema or drainage. At the time of discharge, the patient was tolerating a diet and ambulating without difficulty. He was considered stable for discharge. Wound care instructions and restrictions were reviewed with patient and the verbalized understanding. The patient should f/u in the office in approximately 1-2 weeks or sooner with any questions, concerns or signs of infection. Hold valsartan for 48 hours. Discharge Disposition Disposition: Destination: Cosigned by Brandyn Ospina MD at 07/30/2022 1:27 PM EST documented in this encounter Discharge Instructions * Discharge Instructions* Nelida Casarez PA C - 07/20/2022 9:41 AM EST You have had a Carotid Endarterectomy by Dr. Ospina at the [facility]. It is not unusual to experience discomfort for the next 5 - 7 days. To control your discomfort the following is recommended: Extra Strength Tylenol, 1 -2 every 4 hours as needed for mild to moderate pain RESTART VALSARTAN ON 07/23/2022. You may resume all of your normal medications. Please follow the following activity guidelines: You may have small white strips covering your incision. Leave these in place. Keep the incision clean and dry. Keep your head elevated on two pillows as much as possible for the next 1-3 days to decrease swelling. You may shower at any time. Bathing or swimming is allowed after one week. Activity otherwise is as tolerated. Please call the office [phone] for a follow-up appointment with Dr. Ospina in 1 week. If problems arise after discharge, including but not limited to fever, vomiting or increasing redness and/or discharge from the incision, call Dr. Ospina???s office immediately. * Attachments The following attachments cannot be sent through Care Everywhere. * Acetaminophen Capsules or Tablets (Palauan) documented in this encounter Medications at Time of Discharge aspirin 81 mg enteric coated tablet Take 81 mg by mouth daily. EPINEPHrine (EPIPEN-JR) 0.15 mg/0.3 mL injection syringe Inject 1 Syringe into the thigh once. ezetimibe (ZETIA) 10 mg tablet Take 10 mg by mouth daily. icosapent ethyL (VASCEPA) 1 gram capsule 2 g 2 (two) times a day. 03/31/2022 meloxicam (MOBIC) 15 mg tablet Take 15 mg by mouth daily. OZEMPIC 2 mg. wednesday05/20/2022 rosuvastatin (CRESTOR) 40 mg tablet Take 40 mg by mouth daily. 05/21/2022 acetaminophen (TYLENOL) 325 mg tablet Take 3 tablets (975 mg total) by mouth every 6 (six) hours as needed for moderate pain or mild pain for up to 5 days. 07/21/2022 3 ezetimibe-simvas tatin (VYTORIN) 10-40 mg per tablet Take 1 tablet by mouth nightly. Pt states this med was changed to ezetimibe 10 mg 3 documented as of this encounter Progress Notes * Yasmine Casey MD - 07/21/2022 5:35 AM EST Images from the original note were not included. General Surgery Daily Progress Note Subjective POD#1 R CEA, SBPs in 90s throughout the day rising to low 100s ovenright, asymptomatic Objective Vital signs in last 24 hours: Temp: [35.9 ??C (96.7 ??F)-36.7 ??C (98 ??F)] 36.6 ??C (97.8 ??F) Heart Rate: [74-95] 74 Resp: [14-20] 16 BP: (85-149)/(41-63) 109/52 Intake/Output Summary (Last 24 hours) at 07/21/2022 0535 Last data filed at 07/21/2022 0357 Gross per 24 hour Intake 2140 ml Output 1025 ml Net 1115 ml Intake/Output this shift: I/O this shift: In: 640 [P.O.:240; I.V.:400] Out: 1000 [Urine:1000] Physical Exam General appearance: Alert and orientated x3, non distressed Head: normocephalic, without obvious abnormality, atraumatic Neck: no adenopathy and supple, symmetrical, trachea midline, R neck incision with demabond Lungs: Normal respiratory effort Heart: Regular rate and rhythm Abdomen: Soft, non tender, non distended Extremities: extremities normal, warm and well-perfused; no cyanosis, clubbing, or edema Neurologic: Grossly normal Labs CBC Results 07/17/22 02/23/22 09/10/21 1305 2134 1913 WBC 5.89 5.64 7.11 RBC 4.56 4.79 5.20 HGB 13.0 14.6 15.5 HCT 39.2 42.9 48.5 MCV 86.0 89.6 93.3 MCH 28.5 30.5 29.8 MCHC 33.2 34.0 32.0 PLT 271 265 285 CMP Results 07/17/22 02/23/22 09/10/21 1305 2134 1913 NA 138 136 139 K 4.5 4.1 5.0 Cl 103 99 99 CO2 30 25 26 Glucose 107 213 108 BUN 24 17 18 Creatinine 1.0 0.7 1.0 Calcium 9.6 9.5 10.2 Anion Gap 5 12 14 AST 28 30 37 ALT 40 31 51 Albumin 4.3 4.3 4.5 EGFR >60.0 >60.0 >60.0 Assessment/Plan 72M with R carotid stenosis sp R CEA - dc fluids - ancef x24hrs - diet as tolerated - home meds - likely dc today Yasmine Casey MD Cosigned by Brandyn Ospina MD at 07/30/2022 1:27 PM EST documented in this encounter H&P Notes * Brandyn Ospina MD - 07/20/2022 10:03 AM EST Vascular Surgery H&P Admitting Diagnosis: Carotid stenosis, bilateral [I65.23] Carotid stenosis, asymptomatic, right [I65.21] HPI This is an update H&P done solely for the purposes of documentation of the day of planned surgery. There are no changes from my formal and comprehensive H&P scanned in from the office. Patient is a 72 y.o. male who presents with high-grade right carotid stenosis. Medical History: Past Medical History: Diagnosis Date ??? Arthritis ??? Carotid stenosis ??? COVID-19 vaccine series completed plus 3 boosters ??? Hypertension ??? Lipid disorder ??? SARS-CoV-2 positive 12/2021 ??? 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 APPENDECTOMY ??? COLONOSCOPY ??? KNEE ARTHROSCOPY ??? TONSILLECTOMY Social History: Social History Socioeconomic History ??? Marital status: Tobacco Use ??? Smoking status: Former Types: Cigarettes Quit date: 1989 Years since quittin.0 ??? Smokeless tobacco: Never Vaping Use ??? Vaping Use: Never used Substance and Sexual Activity ??? Alcohol use: Yes Comment: 3 drinks/week ??? Drug use: Never Family History: No family history on file. Allergies: Bee venom protein (honey bee), Shellfish derived, and Neosporin (hyt-cvu-dqthi) [lobokfqr-muucdasitpl-[id number]] Medication List ASK your doctor about these medications aspirin 81 mg enteric coated tablet Take 81 mg by mouth daily. Dose: 81 mg EPINEPHrine 0.15 mg/0.3 mL injection syringe Commonly known as: EPIPEN-JR Inject 1 Syringe into the thigh once. Dose: 1 Syringe ezetimibe 10 mg tablet Commonly known as: ZETIA Take 10 mg by mouth daily. Dose: 10 mg ezetimibe-simvastatin 10-40 mg per tablet Commonly known as: VYTORIN Take 1 tablet by mouth nightly. Pt states this med was changed to ezetimibe 10 mg Dose: 1 tablet icosapent ethyL 1 gram capsule Commonly known as: VASCEPA 2 g 2 (two) times a day. Dose: 2 g meloxicam 15 mg tablet Commonly known as: MOBIC Take 15 mg by mouth daily. Dose: 15 mg OZEMPIC 2 mg. wednesday Dose: 2 mg Generic drug: semaglutide rosuvastatin 40 mg tablet Commonly known as: CRESTOR Take 40 mg by mouth daily. Dose: 40 mg valsartan 80 mg tablet 80 mg, hydrochlorothiazide 12.5 mg tablet 12.5 mg Take by mouth daily. Objective Vital Signs for the last 24 hours: Temp: [36.3 ??C (97.4 ??F)] 36.3 ??C (97.4 ??F) Heart Rate: [86] 86 Resp: [16] 16 BP: (149)/(63) 149/63 Physical Exam Vitals: Visit Vitals BP (!) 149/63 Pulse 86 Temp 36.3 ??C (97.4 ??F) (Temporal) Resp 16 Ht 1.778 m (5' 10) Wt 88.5 kg (195 lb) SpO2 99% BMI 27.98 kg/m?? General Appearance: Well developed, well nourished, in no acute distress. Skin: Dry and warm, no jaundice and mucous membranes were normal. Head: Appearance: Posture of the head was normal. Neck: Appearance: Of the neck was normal. Trachea: Showed no abnormalities. Cardiovascular: Jugular Venous Distention: JVD no increased. Heart Rate and Rhythm is normal. Abdomen: Visual inspection of the abdomen was not distended. Extremities: Both lower legs showed no localized swelling. No swelling of the ankles, and mobility was not limited. Feet are warm,pink,normal capillary refill. Normal hair and nail growth. Neurological: No confusion was observed. Oriented to time,place and person. No disorientation was observed. Normal speech. Psychiatric: Mood was euthymic and affect was Normal. Labs Reviewed Imaging Multiple imaging studies reviewed VTE Assessment: Low to intermediate risk for this procedure Assessment/Plan High-grade right carotid stenosis, here today for elective right carotid endarterectomy. Code Status: Full code documented in this encounter Nursing Notes * Mira Craig RN - 07/21/2022 9:59 AM EST Patient with complaints of needing to move lips due to strange feeling of upper lip. No swelling of lip evident. [place] notified and aware. Neuro check otherwise normal. Patient denies pain. Will continue to monitor. * Phuc Garcia RN - 07/20/2022 11:19 PM EST B/P: 98/45 manual, HR: 80, B/P; auto: 91/55 L, 93/51 R, pt awake, alert, oriented. Spoke with Dr. Casey, aware of B/P . Will come be by to see pt. * Phuc Garcia RN - 07/20/2022 10:15 PM EST Patient to floor from PACU in Bed. Awake, alert, B/P: 94/50, HR: 89. Subsequently pt C/O headache, B/P: 85/46, 90/46. Awake, anxious, Surgery PAMahendra, to floor to assess patient, to floor to assess patient. Reclined HOB, B/P: 105/57. Patient remained concious, alert.IVF:> 100mlL/HR. Tylenol given H/A improved. Patient awake, alert, . Oriented. B/P: 96/54, Will monitor. documented in this encounter OR Notes * OR Surgeon - Brandyn Ospina MD - 07/20/2022 10:05 AM EST Pre-Procedure patient identification: I am the primary operating surgeon/proceduralist and I have identified the patient and confirmed laterality is right on 07/20/22 at 10:05 AM Brandyn Ospina MD documented in this encounter Miscellaneous Notes * Plan of Care - Sheree Julien RN - 07/21/2022 12:38 PM EST Spoke with pt who confirmed demographics, PCP and pref pharm. He lives with his , dtr and her family in a [address], [address], [place] on the 1st fl, 2nd fl with walk in shower. He is ind at baseline, amb w/o dme. When dc'd his will drive him home. Dispo: home Trans: * Patient Care Conference - Sheree Julien RN - 07/21/2022 10:29 AM EST Care Progression Rounds Note Date: 07/21/2022 Time: 10:29 AM Patient Name: Nirmal Puri Date of : 1950 Sex: Male Room/Bed: 4416 Admitting Diagnosis: Carotid stenosis, bilateral [I65.23] Carotid stenosis, asymptomatic, right [I65.21] Admit Date/Time: 07/20/2022 8:42 AM Primary Diagnosis: Carotid stenosis, asymptomatic, right Principal Problem: Carotid stenosis, asymptomatic, right GMLOS: pending Anticipated Discharge Date: 07/21/2022 AM-PAC: Mobility Score: Discharge Planning: Anticipated Discharge Disposition: home without assistance or services Barriers to Discharge: None Comments: Participants: advanced practice provider, comp field case manager, physical therapy, dietitian/nutrition services, nursing * Perioperative Nursing Note - Magnolia Jett RN - 07/20/2022 1:24 PM EST secretary to the vice president pager [phone] aware of patients blood pressure and 8/10 headache. * Perioperative Nursing Note - Magnolia Jett RN - 07/20/2022 1:02 PM EST Anesthesia Antanavicus at bedside and aware of patients lower blood pressure. Pt awake/alert, following commands, denies lightheadedness or dizziness. * Op Note - Brandyn Ospina MD - 07/20/2022 10:56 AM EST Immediate Operative Note Patient: Nirmal Puri [[id number]] Surgery Date: 07/20/2022 Pre-Op Diagnosis Codes: * Carotid stenosis, bilateral [I65.23], high grade right carotid stenosis Post-op Diagnosis * Carotid stenosis, bilateral [I65.23], high-grade right carotid stenosis Procedure(s): Right carotid endarterectomy, patch angioplasty Surgeon(s) and Role: * Brandyn Ospina MD - Primary Supervisor [employer]: Ambreen Junior RN; Nichol Garcia RN Scrub Person: Alyssa Montanez; Silvia Delvalle RN; Muriel Orozco RNFA Primer Assembler: Yasmine Casey MD Findings: High grade approximately 75% calcified right carotid bifurcation stenosis. Operative indications: 72-year-old with advancing right carotid stenosis now to the high-grade category. After counseling the patient, family and consulting physicians it was decided proceed with prophylactic right carotid endarterectomy. Procedure: Patient brought the operating, after adequate endotracheal anesthesia was induced and antibiotics administered his entire right neck was prepped and draped in sterile fashion using ChloraPrep. A collar line incision was made, platysmal flaps were created, the sternocleidomastoid and internaljugular vein reflected laterally until the common carotid was identified. Is dissected up to the bifurcation with the internal and external control distally. Care was taken to observe and avoid injury to the hypoglossal nerve, ansa cervicalis and vagus nerves. After adequate exposure control systemic heparin was administered. The vascular system was clamped, with the internal clamp first. An arteriotomy was carried from thecommon carotid up to the diseased segment of the proximal ICA and up to the mid internal beyond thelevel of disease. A Adolfo shunt was served in standard fashion. Endarterectomy in the distal medialplane was performed. It was feathered distally so no intimal flaps remain. The external carotid wasendarterectomized using invagination technique. Loupe magnification and vigorous heparin irrigationwas used to verify an appropriate endpoint and lack of debris on the luminal surface. After completion a pericardial patch was brought to the field incised into elliptical fashion and sewn into place using running 6-0 Prolene. Prior to closure the shunt was removed. Backbleeding was brisk from both internal and external carotid. Forward bleeding was demonstrated brisk as well and air was evacuated. Lastly stitches placed, tied down and flow reestablished to the carotid circulationinitially by the external carotid followed by the internal carotid Emesis verified. Heparin was reversed. Normal Doppler interrogation of all segments of the internal, external and common carotid was identified. After verification hemostasis the wound was irrigated and closed with layers of 3-0 Vicryl followed by subcuticular stitching with 4-0 Monocryl and Dermabond and a sterile dressing applied Sponge, needle and instrument counts were correct. Patient tolerated procedure well, extubated taken recovery area in satisfactory condition and moving all 4 extremities well. Anesthesia Type: General Estimated Blood Loss: Negligible Specimens: None Wound Classification: Clean Complications: None Disposition: PACU Brandyn Ospina MD 07/20/2022 12:22 PM documented in this encounter Plan of Treatment Not on file documented as of this encounter Procedures Procedure Name Priority Date/Time Associated Diagnosis Comments CBC Routine 07/21/2022 4:06 AM EST BASIC METABOLIC PANEL Routine 07/21/2022 4:06 AM EST POCT GLUCOSE (BEAKER RESULTS) Routine 07/20/2022 5:34 PM EST [place] THROMBOENDARTECTMY NECK,NECK INCIS 07/20/2022 10:36 AM EST Carotid stenosis, bilateral documented in this encounter Results * (ABNORMAL) Basic metabolic panel (07/21/2022 4:06 AM EST) Sodium 139 136 - 144 mEQ/L 07/21/2022 4:57 AM EST [facility] Potassium 4.0 3.6 - 5.1 mEQ/L 07/21/2022 4:57 AM EST [facility] Chloride 106 98 - 109 mEQ/L 07/21/2022 4:57 AM [facility] CO2 23 22 - 32 mEQ/L 07/21/2022 4:57 AM [facility] BUN 25(H) 8 - 20 mg/dL 07/21/2022 4:57 AM [facility] Creatinine 0.9 0.8 - 1.3 mg/dL 07/21/2022 4:57 AM [facility] Glucose 93 70 - 99 mg/dL 07/21/2022 4:57 AM [facility] Calcium 8.4(L) 8.9 - 10.3 mg/dL 07/21/2022 4:57 AM [facility] eGFR >60.0 >=60.0 mL/min/1.73 m*2 07/21/2022 4:57 AM [facility] Anion Gap 10 3 - 15 mEQ/L 07/21/2022 4:57 AM [facility] Blood Venous blood specimen / Unknown Venipuncture / Unknown 07/21/2022 4:06 AM EST 07/21/2022 4:25 AM EST us Barbara Richards LAB BLOOD ORDERABLES Fin al Result [facility] [address] [place] [address], [place] * (ABNORMAL) CBC (07/21/2022 4:06 AM EST) WBC 7.89 3.80 - 10.50 K/uL 07/21/2022 4:30 AM [facility] RBC 3.84(L) 4.50 - 5.80 M/uL 07/21/2022 4:30 AM [facility] Hemoglobin 11.0(L) 13.7 - 17.5 g/dL 07/21/2022 4:30 AM [facility] Hematocrit 33.7(L) 40.1 - 51.0 % 07/21/2022 4:30 AM [facility] MCV 87.8 83.0 - 98.0 fL 07/21/2022 4:30 AM [facility] MCH 28.6 28.0 - 33.2 pg 07/21/2022 4:30 AM [facility] MCHC 32.6 32.2 - 36.5 g/dL 07/21/2022 4:30 AM EST [facility] RDW 14.8(H) 11.6 - 14.4 % 07/21/2022 4:30 AM EST [facility] Platelets 224 150 - 350 K/uL 07/21/2022 4:30 AM EST [facility] MPV 8.8(L) 9.4 - 12.4 fL 07/21/2022 4:30 AM EST [facility] Blood Venous blood specimen / Unknown Venipuncture / Unknown 07/21/2022 4:06 AM EST 07/21/2022 4:25 AM EST Barbara Richards LAB BLOOD ORDERABLES Fin al Result Performing Organization Address City/[facility]/ZIP Co de Phone Number [facility] [address] [place] [address], [place] * (ABNORMAL) POCT Glucose (07/20/2022 5:34 PM EST) POCT Bedside Glucose 107(H) 70 - 99 mg/dL 07/20/2022 5:35 PM EST [facility] Comment:NETWORK ADMIN: EMILY ALCANTAR (PCT) POC Test POC 07/20/2022 5:35 PM EST [facility] Blood (Blood, Whole (POC)) 07/20/2022 5:34 PM EST 07/20/2022 5:35 PM EST Brandyn Ospina MD LAB POCT ORDERABLES - DEVICE Final Result [facility] [address] [place] [address], [place] documented in this encounter Visit Diagnoses Diagnosis Carotid stenosis, asymptomatic, right- Primary Carotid stenosis, bilateral Occlusion and stenosis of carotid artery without mention of cerebral infarction documented in this encounter Admitting Diagnoses Diagnosis Carotid stenosis, asymptomatic, right documented in this encounter Administered Medications Inactive Administered Medications - up to 3 most recent administrations Medication Order MAR Action Action Date Dose Rate Site acetaminophen (TYLENOL) tablet 975 mg 975 mg, oral, Every 6 hours, First dose on Wed07/20/22 at 1215, Max acetaminophen 4000 mg/day Given 07/21/2022 12:17 PM EST 975 mg Given 07/21/2022 6:20 AM EST 975 mg Given 07/21/2022 12:12 AM EST 975 mg aspirin enteric coated tablet 81 mg 81 mg, oral, Daily, First dose on Wed07/21/22 at 0900, Do not crush, chew, or hammond Given 07/21/2022 9:39 AM EST 81 mg benzocaine-menthol (CEPACOL) lozenge 1 lozenge 1 lozenge, Mouth/Throat, Every 2 hour PRN, sore throat, Starting on Wed07/20/22 at 2201 Given 07/21/2022 12:13 AM EST 1 lozenge Given 07/20/2022 10:08 PM EST 1 lozenge dextrose 40 % oral gel 15-30 g of dextrose 15-30 g of dextrose, oral, As needed, low blood sugar, Blood Glucose less than or equal to 70, Starting on Wed07/20/22 at 1209, * If unable to chew but able to take PO * Hypoglycemia (Adult) Blood Glucose 51 mg/dL - 70 mg/dL -- Administer 15 grams of simple carbohydrates (1 tube of glucose gel) Blood Glucose less than or equal to 50 mg/dL -- Administer 30 grams of simple carbohydrates (2 tubes of glucose gel) Repeat POC blood glucose 15 minutes after treatment. ?? Fifteen (15) minutes after any hypoglycemia treatments, repeat blood glucose with the unit meter. If the repeat blood glucose level is above 70mg/dL, repeat the blood glucose level in one hour if the patient has not had a meal. If the patient has eaten, follow the standard protocol to perform POC testing as ordered. ?? If the repeat blood glucose level is less than 70mg/dL, repeat the hypoglycemia treatment. Perform blood glucose again in 15 minutes after retreating. Repeat treatment for a third time as needed and notify physician immediately. ?? Notify the physician of the clinical situation and document all interventions. dextrose 50 % in water (D50) injection 12.5 g 12.5 g (25 mL), intravenous, As needed, low blood sugar, Blood Glucose less than or equal to 70, Starting on Wed07/20/22 at 1209, * If NPO or unable to swallow and has IV access * Repeat POC blood glucose 15 minutes after treatment. ?? Fifteen (15) minutes after any hypoglycemia treatments, repeat blood glucose with the unit meter. If the repeat blood glucose level is above 70mg/dL, repeat the blood glucose level in one hour if the patient has not had a meal. If the patient has eaten, follow the standard protocol to perform POC testing as ordered. ?? If the repeat blood glucose level is less than 70mg/dL, repeat the hypoglycemia treatment. Perform blood glucose again in 15 minutes after retreating. Repeat treatment for a third time as needed and notify physician immediately. ?? Notify the physician of the clinical situation and document all interventions. ezetimibe (ZETIA) tablet 10 mg 10 mg, oral, Nightly, First dose on Wed07/20/22 at 2200 Given 07/20/2022 10:03 PM EST 10 mg glucagon (GLUCAGEN) injection 1 mg 1 mg, intramuscular, As needed, low blood sugar, Blood Glucose less than or equal to 70, Starting on Wed07/20/22 at 1209, * If NPO or unable to swallow and does not have IV access * Repeat POC blood glucose 15 minutes after treatment. ?? Fifteen (15) minutes after any hypoglycemia treatments, repeat blood glucose with the unit meter. If the repeat blood glucose level is above 70mg/dL, repeat the blood glucose level in one hour if the patient has not had a meal. If the patient has eaten, follow the standard protocol to perform POC testing as ordered. ?? If the repeat blood glucose level is less than 70mg/dL, repeat the hypoglycemia treatment. Perform blood glucose again in 15 minutes after retreating. Repeat treatment for a third time as needed and notify physician immediately. ?? Notify the physician of the clinical situation and document all interventions. glucose chewable tablet 16-32 g of dextrose 16-32 g of dextrose, oral, As needed, low blood sugar, Blood Glucose less than or equal to 70, Starting on Wed07/20/22 at 1209, * If able to take PO * Hypoglycemia (Adult) Blood Glucose 51 mg/dL - 70 mg/dL -- Administer 16 grams of dextrose (4 tablets) Blood Glucose less than or equal to 50 mg/dL -- Administer 32 grams glucose (8 tablets) Repeat POC blood glucose 15 minutes after treatment. ?? Fifteen (15) minutes after any hypoglycemia treatments, repeat blood glucose with the unit meter. If the repeat blood glucose level is above 70mg/dL, repeat the blood glucose level in one hour if the patient has not had a meal. If the patient has eaten, follow the standard protocol to perform POC testing as ordered. ?? If the repeat blood glucose level is less than 70mg/dL, repeat the hypoglycemia treatment. Perform blood glucose again in 15 minutes after retreating. Repeat treatment for a third time as needed and notify physician immediately. ?? Notify the physician of the clinical situation and document all interventions. melatonin ODT 3 mg 3 mg, oral, Nightly, First dose on Wed07/21/22 at 0100 Given 07/21/2022 12:12 AM EST 3 mg oxyCODONE (ROXICODONE) immediate release tablet 5 mg 5 mg, oral, Every 4 hours PRN, pain, or anticipated pain (i.e. during dressing changes, PT/OT/ambulation, ADL's, turning, suctioning)., Starting on Wed07/20/22 at 1210, Start with 5 mg - reassess in 45-60 min, if pain persists after INITIAL dose may give additional 5 mg within 90 minutes of INITIAL dose. Subsequent dose timing based off of INITIAL dose. Hold if POSS is 3 or 4. documented in this encounter Active and Recently Administered Medications Times are shown in EST. Scheduled Medication Order 07/19/2022 07/20/2022 07/21/2022 acetaminophen (TYLENOL) tablet 975 mg 975 mg, oral, Every 6 hours, First dose on Wed07/20/22 at 1215, Max acetaminophen 4000 mg/day 1540 (SEP Hold - Provider: [facility] - Reason: Unreviewed Transfer Orders)1632 (MAR Unhold - Provider: ALISON Nino)1755 (Given - Provider: Phuc Garcia RN) 0012 (Given - Provider: Donta Garber RN)0620 (Given - Provider: Donta Garber RN)1200 (Due)1217 (Given - Provider: Mira Craig RN) aspirin enteric coated tablet 81 mg 81 mg, oral, Daily, First dose on Wed07/21/22 at 0900, Do not crush, chew, or hammond 1540 (SEP Hold - Provider: [facility] - Reason: Unreviewed Transfer Orders)1632 (SEP Unhold - Provider: ALISON Nino) 0939 (Given - Provider: Mira Craig RN) ceFAZolin (ANCEF) 1 g/50 mL D5W (COMPLETED) 1 g, intravenous, at 100 mL/hr, Administer over 30 Minutes, Every 8 hours interval, First dose on Wed07/20/22 at 1800, For 2 doses, Indications: prevention of perioperative infection 1540 (SEP Hold - Provider: [facility] - Reason: Unreviewed Transfer Orders)1632 (SEP Unhold - Provider: ALISON Nino)1828 (New Bag - Provider: Phuc Garcia RN)1911 (Stopped - Provider: Phcu Garcia RN) 0204 (New Bag - Provider: Donta Garber RN)0234 (Stopped - Provider: Donta Garber RN) ceFAZolin (ANCEF) 2 g/100 mL NSS (COMPLETED) 2 g, intravenous, at 200 mL/hr, Administer over 30 Minutes, Pre-op, Starting on Wed07/20/22 at 0912, For 1 dose, Pre-op, Indications: prevention of perioperative infection 1048 (Given - Provider: Jeremy Weaver CRNA) ezetimibe (ZETIA) tablet 10 mg 10 mg, oral, Nightly, First dose on Wed07/20/22 at 2200 1540 (SEP Hold - Provider: [facility] - Reason: Unreviewed Transfer Orders)1632 (SEP Unhold - Provider: ALISON Nino)2203 (Given - Provider: Phuc Garcia RN) melatonin ODT 3 mg 3 mg, oral, Nightly, First dose on Wed07/21/22 at 0100 0012 (Given - Provid er: Donta Garber RN) remifentaniL (ULTIVA) 2 mg in sodium chloride 0.9 % 100 mL (0.02 mg/mL) infusion (COMPLETED) 0.1 mcg/kg/min ? 88.5 kg (26.55 mL/hr, rounded to 26.6 mL/hr), intravenous, Once, On Wed07/20/22 at 1015, For 1 dose, Intra-op, FOR ANESTHESIA USE, Select indication for use: Other (specify), Explanatory Comment: carotid 1052 (New Bag - Provider: Jeremy Weaver CRNA)1158 (Rate/Dose Change - Provider: Jeremy Weaver CRNA)1205 (Stopped - Provider: Jeremy Weaver CRNA) rosuvastatin (CRESTOR) tablet 40 mg 40 mg, oral, Nightly, First dose on Wed07/21/22 at 2200 1540 (SEP Hold - Provider: [facility] - Reason: Unreviewed Transfer Orders)1632 (SEP Unhold - Provider: ALISON Nino) sodium chloride 0.9 % bolus 500 mL (COMPLETED) 500 mL, intravenous, at 250 mL/hr, Administer over 2 Hours, Once, On Wed07/20/22 at 1315, For 1 dose, PACU (only) 1315 (New Bag - Provider: Magnolia Jett RN)1515 (Due: Stopped - Provider: Magnolia Jett RN) Continuous Medication Order 07/19/2022 07/20/2022 07/21/2022 sodium chloride 0.9 % infusion (CANCELED) intravenous, at 100 mL/hr, Continuous, Starting on Wed07/20/22 at 0915, For 7 days 0920 (New Bag - Provider: Basia Crowley RN)1036 (Continued from Preop - Provider: Jeremy Weaver CRNA)1059 (Paused - Provider: Jeremy Weaver CRNA - Comment: Switch to gravity)1100 (Restarted - Provider: Jeremy Weaver CRNA)1212 (Anesthesia Volume Adjustment - Provider: Jeremy Weaver CRNA)1912 (Rate/Dose Change - Provider: Phuc Garcia RN)2207 (New Bag - Provider: Phuc Garcia RN) PRN Medication Order 07/19/2022 07/20/2022 07/21/2022 benzocaine-menthol (CEPACOL) lozenge 1 lozenge 1 lozenge, Mouth/Throat, Every 2 hour PRN, sore throat, Starting on Wed07/20/22 at 2201 2208 (Given - Provider: Phuc Garcia RN) 0013 (Given - Provider: Donta Garber, JUAN R) dextrose 40 % oral gel 15-30 g of dextrose(Linked Group 1) 15-30 g of dextrose, oral, As needed, low blood sugar, Blood Glucose less than or equal to 70, Starting on Wed07/20/22 at 1209, * If unable to chew but able to take PO * Hypoglycemia (Adult) Blood Glucose 51 mg/dL - 70 mg/dL -- Administer 15 grams of simple carbohydrates (1 tube of glucose gel) Blood Glucose less than or equal to 50 mg/dL -- Administer 30 grams of simple carbohydrates (2 tubes of glucose gel) Repeat POC blood glucose 15 minutes after treatment. ?? Fifteen (15) minutes after any hypoglycemia treatments, repeat blood glucose with the unit meter. If the repeat blood glucose level is above 70mg/dL, repeat the blood glucose level in one hour if the patient has not had a meal. If the patient has eaten, follow the standard protocol to perform POC testing as ordered. ?? If the repeat blood glucose level is less than 70mg/dL, repeat the hypoglycemia treatment. Perform blood glucose again in 15 minutes after retreating. Repeat treatment for a third time as needed and notify physician immediately. ?? Notify the physician of the clinical situation and document all interventions. 1540 (SEP Hold - Provider: [facility] - Reason: Unreviewed Transfer Orders)1632 (SEP Unhold - Provider: ALISON Nino) dextrose 50 % in water (D50) injection 12.5 g(Linked Group 1) 12.5 g (25 mL), intravenous, As needed, low blood sugar, Blood Glucose less than or equal to 70, Starting on Wed07/20/22 at 1209, * If NPO or unable to swallow and has IV access * Repeat POC blood glucose 15 minutes after treatment. ?? Fifteen (15) minutes after any hypoglycemia treatments, repeat blood glucose with the unit meter. If the repeat blood glucose level is above 70mg/dL, repeat the blood glucose level in one hour if the patient has not had a meal. If the patient has eaten, follow the standard protocol to perform POC testing as ordered. ?? If the repeat blood glucose level is less than 70mg/dL, repeat the hypoglycemia treatment. Perform blood glucose again in 15 minutes after retreating. Repeat treatment for a third time as needed and notify physician immediately. ?? Notify the physician of the clinical situation and document all interventions. 1540 (SEP Hold - Provider: [facility] - Reason: Unreviewed Transfer Orders)1632 (SEP Unhold - Provider: ALISON Nino) fentaNYL citrate (PF) injection 50 mcg (COMPLETED) 50 mcg, intravenous, Every 5 min PRN, pain, Starting on Wed07/20/22 at 1229, For 2 doses, PACU (only), If pain not relieved and patient not sedated ([place] Opioid Induced Sedation Scale (POSS) less than 3), while respiratory rate is > 8, may repeat every 5 minutes to max of 100 mcg. 1344 (Given - Provider: Tamar Barney RN)1439 (Given - Provider: Tamar Barney RN) glucagon (GLUCAGEN) injection 1 mg(Linked Group 1) 1 mg, intramuscular, As needed, low blood sugar, Blood Glucose less than or equal to 70, Starting on Wed07/20/22 at 1209, * If NPO or unable to swallow and does not have IV access * Repeat POC blood glucose 15 minutes after treatment. ?? Fifteen (15) minutes after any hypoglycemia treatments, repeat blood glucose with the unit meter. If the repeat blood glucose level is above 70mg/dL, repeat the blood glucose level in one hour if the patient has not had a meal. If the patient has eaten, follow the standard protocol to perform POC testing as ordered. ?? If the repeat blood glucose level is less than 70mg/dL, repeat the hypoglycemia treatment. Perform blood glucose again in 15 minutes after retreating. Repeat treatment for a third time as needed and notify physician immediately. ?? Notify the physician of the clinical situation and document all interventions. 1540 (SEP Hold - Provider: [facility] - Reason: Unreviewed Transfer Orders)1632 (SEP Unhold - Provider: ALISON Nino) glucose chewable tablet 16-32 g of dextrose(Linked Group 1) 16-32 g of dextrose, oral, As needed, low blood sugar, Blood Glucose less than or equal to 70, Starting on Wed07/20/22 at 1209, * If able to take PO * Hypoglycemia (Adult) Blood Glucose 51 mg/dL - 70 mg/dL -- Administer 16 grams of dextrose (4 tablets) Blood Glucose less than or equal to 50 mg/dL -- Administer 32 grams glucose (8 tablets) Repeat POC blood glucose 15 minutes after treatment. ?? Fifteen (15) minutes after any hypoglycemia treatments, repeat blood glucose with the unit meter. If the repeat blood glucose level is above 70mg/dL, repeat the blood glucose level in one hour if the patient has not had a meal. If the patient has eaten, follow the standard protocol to perform POC testing as ordered. ?? If the repeat blood glucose level is less than 70mg/dL, repeat the hypoglycemia treatment. Perform blood glucose again in 15 minutes after retreating. Repeat treatment for a third time as needed and notify physician immediately. ?? Notify the physician of the clinical situation and document all interventions. 1540 ([facility] Hold - Provider: Z[facility] Inpatient - Reason: Unreviewed Transfer Orders)1632 ([facility] Unhold - Provider: ALISON Nino) oxyCODONE (ROXICODONE) immediate release tablet 5 mg 5 mg, oral, Every 4 hours PRN, pain, or anticipated pain (i.e. during dressing changes, PT/OT/ambulation, ADL's, turning, suctioning)., Starting on Wed07/20/22 at 1210, Start with 5 mg - reassess in 45-60 min, if pain persists after INITIAL dose may give additional 5 mg within 90 minutes of INITIAL dose. Subsequent dose timing based off of INITIAL dose. Hold if POSS is 3 or 4. 1540 ([facility] Hold - Provider: [facility] - Reason: Unreviewed Transfer Orders)1632 ([facility] Unhold - Provider: ALISON Nino) Linked Groups Order Group 1: glucose chewable tablet 16-32 g of dextroseJump to med 16-32 g of dextrose, oral, As needed, low blood sugar, Blood Glucose less than or equal to 70, Starting on Wed07/20/22 at 1209, * If able to take PO * Hypoglycemia (Adult) Blood Glucose 51 mg/dL - 70 mg/dL -- Administer 16 grams of dextrose (4 tablets) Blood Glucose less than or equal to 50 mg/dL -- Administer 32 grams glucose (8 tablets) Repeat POC blood glucose 15 minutes after treatment. ?? Fifteen (15) minutes after any hypoglycemia treatments, repeat blood glucose with the unit meter. If the repeat blood glucose level is above 70mg/dL, repeat the blood glucose level in one hour if the patient has not had a meal. If the patient has eaten, follow the standard protocol to perform POC testing as ordered. ?? If the repeat blood glucose level is less than 70mg/dL, repeat the hypoglycemia treatment. Perform blood glucose again in 15 minutes after retreating. Repeat treatment for a third time as needed and notify physician immediately. ?? Notify the physician of the clinical situation and document all interventions. Or dextrose 40 % oral gel 15-30 g of dextroseJump to med 15-30 g of dextrose, oral, As needed, low blood sugar, Blood Glucose less than or equal to 70, Starting on Wed07/20/22 at 1209, * If unable to chew but able to take PO * Hypoglycemia (Adult) Blood Glucose 51 mg/dL - 70 mg/dL -- Administer 15 grams of simple carbohydrates (1 tube of glucose gel) Blood Glucose less than or equal to 50 mg/dL -- Administer 30 grams of simple carbohydrates (2 tubes of glucose gel) Repeat POC blood glucose 15 minutes after treatment. ?? Fifteen (15) minutes after any hypoglycemia treatments, repeat blood glucose with the unit meter. If the repeat blood glucose level is above 70mg/dL, repeat the blood glucose level in one hour if the patient has not had a meal. If the patient has eaten, follow the standard protocol to perform POC testing as ordered. ?? If the repeat blood glucose level is less than 70mg/dL, repeat the hypoglycemia treatment. Perform blood glucose again in 15 minutes after retreating. Repeat treatment for a third time as needed and notify physician immediately. ?? Notify the physician of the clinical situation and document all interventions. Or glucagon (GLUCAGEN) injection 1 mgJump to med 1 mg, intramuscular, As needed, low blood sugar, Blood Glucose less than or equal to 70, Starting on Wed07/20/22 at 1209, * If NPO or unable to swallow and does not have IV access * Repeat POC blood glucose 15 minutes after treatment. ?? Fifteen (15) minutes after any hypoglycemia treatments, repeat blood glucose with the unit meter. If the repeat blood glucose level is above 70mg/dL, repeat the blood glucose level in one hour if the patient has not had a meal. If the patient has eaten, follow the standard protocol to perform POC testing as ordered. ?? If the repeat blood glucose level is less than 70mg/dL, repeat the hypoglycemia treatment. Perform blood glucose again in 15 minutes after retreating. Repeat treatment for a third time as needed and notify physician immediately. ?? Notify the physician of the clinical situation and document all interventions. Or dextrose 50 % in water (D50) injection 12.5 gJump to med 12.5 g (25 mL), intravenous, As needed, low blood sugar, Blood Glucose less than or equal to 70, Starting on Wed07/20/22 at 1209, * If NPO or unable to swallow and has IV access * Repeat POC blood glucose 15 minutes after treatment. ?? Fifteen (15) minutes after any hypoglycemia treatments, repeat blood glucose with the unit meter. If the repeat blood glucose level is above 70mg/dL, repeat the blood glucose level in one hour if the patient has not had a meal. If the patient has eaten, follow the standard protocol to perform POC testing as ordered. ?? If the repeat blood glucose level is less than 70mg/dL, repeat the hypoglycemia treatment. Perform blood glucose again in 15 minutes after retreating. Repeat treatment for a third time as needed and notify physician immediately. ?? Notify the physician of the clinical situation and document all interventions. documented in this encounter Care Teams Mental Health Therapist Relationship Specialty Start Date End Date Asher Zambrano DO [address], [facility] [address] [place] [id number] PCP - General 07/10/17 documented as of this encounter
--- OUTSIDE RECORDS SUMMARY | 2024-03-28 21:24 | XMS_ITS | Encounter Summary ---
Author Organization [facility] Address [address] [place] [address] Care Team Providers Care Price Clerk Name Role Phone Asher Zambrano DO Primary Care Provider +- [phone] Reason for Visit * Auth/Cert (Routine) Specialty Diagnoses / Procedures Referred By Contac t Referred To Contact Diagnoses Carotid stenosis, bilateral Carotid stenosis, bilateral [I65.23] Procedures GA THROMBOENDARTECTMY NECK,NECK INCIS Right Carotid Endarterectomy Brandyn Ospina MD [address] [facility] [address] [place] [address] Phone: tel: fax: Referral ID Status Reason Start Date Expiration Date Visits Re quested Visits Authorized [id number] 1 1 Encounter Details Date Type Department Care Team (Late st Contact Info) Description 07/20/2022 8:42 AM EST - 07/21/2022 1:43 PM [facility] Hospital Encounter [facility] 4PAV [address] [place] [address] Brandyn Ospina MD [address] [place] [address] [address] [place] [address] Discharge Disposition: Home Social History Tobacco Use Types Packs/Day Years [...] Recorded In the last 10 days, have sahil u been in contact with someone who was confirmed or suspected to have Coronavirus/COVID-19? No / Unsure 07/20/2022 8:41 AM EST documented as of this encounter Last Filed Vital Signs Vital Sign Reading Time Taken Comments Blood Pressure 105/57 07/21/2022 11:22 AM EST Pulse 71 07/21/2022 11:22 AM EST Temperature 36.5 ??C (97.7 ??F) 07/21/2022 11:[address] Respiratory Rate 18 07/21/2022 11:22 AM EST Oxygen Saturation 97% 07/21/2022 11:22 AM EST Inhaled Oxygen Concentration - - Weight [...] Care Physician at Discharge: Asher Zambrano DO [phone] Admission Date: 07/20/2022 Discharge Date: 07/21/2022 Primary [...] Carotid Endarterectomy by Dr. Ospina at the [facility]. It is not unusual to experience discomfort [...] is as tolerated. Please call the office [phone] for a follow-up appointment with Dr. Ospina in 1 week. If problems arise after discharge, including but not limited to fever, vomiting or increasing redness and/or discharge from the incision, call Dr. Ospina???s office immediately. * Attachments The following attachments cannot be sent through Care Everywhere. * Acetaminophen Capsules or Tablets (Angolan) documented in this encounter Medications at Time [...] protein (honey bee), Shellfish derived, and Neosporin (uym-aux-tpudc) [enbulpar-hjgaahqmxzp-qwvubvxiw] Medication List ASK your doctor about these [...] be by to see pt. * Phuc Gacria RN - 07/20/2022 10:15 PM EST Patient to floor from PACU in Bed. Awake, alert, B/P: 94/50, HR: 89. Subsequently pt C/O headache, B/P: 85/46, 90/46. Awake, anxious, Surgery Mahendra ROSAS, to floor to assess patient, to floor [...] in a [address] home, 2 [place], [place] on the 1st fl, 2nd fl with [...] Discharge: None Comments: Participants: advanced practice provider, case management social worker, physical therapy, dietitian/nutrition services, nursing * Perioperative Nursing Note - Magnolia Jett RN - 07/20/2022 1:24 PM EST medical resident pager [phone] aware of patients blood pressure and 8/10 headache. * Perioperative Nursing Note - Magnolia Jett RN - 07/20/2022 1:02 PM EST Anesthesia Antanavicus at bedside and aware of patients lower blood pressure. Pt awake/alert, following commands, denies lightheadedness or dizziness. * Op Note - Brandyn Ospina MD - 07/20/2022 10:56 AM EST Immediate Operative Note Patient: Nirmal Puri [[id number]] Surgery Date: 07/20/2022 Pre-Op Diagnosis Codes: * Carotid stenosis, bilateral [I65.23], high grade right carotid stenosis Post-op Diagnosis * Carotid stenosis, bilateral [I65.23], high-grade right carotid stenosis Procedure(s): Right carotid endarterectomy, patch angioplasty Surgeon(s) and Role: * Brandyn Ospina MD - Primary Perinatal Instructor: Ambreen Junior, JUAN R; Nichol Garcia RN Scrub Person: Alyssa Montanez; Silvia Delvalle RN; Muriel Orozco, INSTALLER [employer] FLOORING Director Of Institutional Research: Yasmine Casey MD Findings: High grade approximately [...] Routine 07/21/2022 4:06 AM EST POCT GLUCOSE (FEDERICAAKER RESULTS) Routine 07/20/2022 5:34 PM EST GA THROMBOENDARTECTMY NECK,NECK INCIS 07/20/2022 10:36 AM EST Carotid stenosis, bilateral documented in this encounter Results * (ABNORMAL) Basic metabolic panel (07/21/2022 4:06 AM EST) Sodium 139 136 - 144 mEQ/L 07/21/2022 4:57 AM [facility] Potassium 4.0 3.6 - 5.1 mEQ/L 07/21/2022 4:57 AM [facility] Chloride 106 98 - 109 mEQ/L 07/21/2022 4:57 AM [facility] CO2 23 22 - 32 mEQ/L 07/21/2022 4:57 AM [facility] BUN 25(H) 8 - 20 mg/dL 07/21/2022 4:57 AM [facility] Creatinine 0.9 0.8 - 1.3 mg/dL 07/21/2022 4:57 AM [facility] Glucose 93 70 - 99 mg/dL 07/21/2022 4:57 AM [facility] Calcium 8.4(L) 8.9 - 10.3 mg/dL 07/21/2022 4:57 AM [facility] eGFR >60.0 >=60.0 mL/min/1.73 m*2 07/21/2022 4:57 AM [facility] Anion Gap 10 3 - 15 mEQ/L 07/21/2022 4:57 AM [facility] Blood Venous blood specimen / Unknown Venipuncture / Unknown 07/21/2022 4:06 AM EST 07/21/2022 4:25 AM EST us Barbara Richards LAB BLOOD ORDERABLES Fin al Result [facility] [address] [place], [place] [address], [place] * (ABNORMAL) CBC (07/21/2022 4:06 AM EST) WBC 7.89 3.80 - 10.50 K/uL 07/21/2022 4:30 AM [facility] RBC 3.84(L) 4.50 - 5.80 M/uL 07/21/2022 4:30 AM [facility] Hemoglobin 11.0(L) 13.7 - 17.5 g/dL 07/21/2022 4:30 AM [facility] Hematocrit 33.7(L) 40.1 - 51.0 % 07/21/2022 4:30 AM [facility] MCV 87.8 83.0 - 98.0 fL 07/21/2022 4:30 AM [facility] MCH 28.6 28.0 - 33.2 pg 07/21/2022 4:30 AM [facility] MCHC 32.6 32.2 - 36.5 g/dL 07/21/2022 4:30 AM [facility] RDW 14.8(H) 11.6 - 14.4 % 07/21/2022 4:30 AM [facility] Platelets 224 150 - 350 K/uL 07/21/2022 4:30 AM [facility] MPV 8.8(L) 9.4 - 12.4 fL 07/21/2022 4:30 AM EST [facility] Blood Venous blood specimen / Unknown Venipuncture / Unknown 07/21/2022 4:06 AM EST 07/21/2022 4:25 AM EST Barbara Richards LAB BLOOD ORDERABLES Fin al Result [facility] [address] [place] [address], [place] * (ABNORMAL) POCT Glucose (07/20/2022 5:34 PM EST) POCT Bedside Glucose 107(H) 70 - 99 mg/dL 07/20/2022 5:35 PM EST [facility] Comment:NETWORK INTERNSHIP: EMILY ALCANTAR (PCT) POC Test POC 07/20/2022 5:35 PM EST [facility] Blood (Blood, Whole (POC)) 07/20/2022 5:34 PM EST 07/20/2022 5:35 PM EST Brandyn Ospina MD LAB POCT ORDERABLES - DEVICE Final Result [facility] [address] [place] [address], [place] documented in this encounter Visit Diagnoses Diagnosis Carotid stenosis, asymptomatic, right- Primary documented in this encounter Admitting Diagnoses Diagnosis [...] Given 07/20/2022 10:08 PM EST 1 lozenge ceFAZolin (ANCEF) 1 g/50 mL D5W 1 g, intravenous, at 100 mL/hr, Administer over 30 Minutes, Every 8 hours interval, First dose on Wed07/20/22 at 1800, For 2 doses, Indications: prevention of perioperative infectionIndications:prevention of perioperative infection New Bag 07/21/2022 2:04 AM EST 1 g 100 mL/ hr New Bag 07/20/2022 6:28 PM EST 1 g 100 mL/hr dextrose 40 % oral gel 15-30 g [...] Given 07/20/2022 10:03 PM EST 10 mg fentaNYL citrate (PF) injection 50 mcg 50 mcg, intravenous, Every 5 min PRN, pain, Starting on Wed07/20/22 at 1229, For 2 doses, PACU (only), If pain not relieved and patient not sedated (Pasero Opioid Induced Sedation Scale (POSS) less than 3), while respiratory rate is > 8, may repeat every 5 minutes to max of 100 mcg. Given 07/20/2022 2:39 PM EST 25 mcg Given 07/20/2022 1:44 PM EST 25 mcg glucagon (GLUCAGEN) injection 1 mg 1 mg, [...] Hold if POSS is 3 or 4. sodium chloride 0.9 % bolus 500 mL 500 mL, intravenous, at 250 mL/hr, Administer over 2 Hours, Once, On Wed07/20/22 at 1315, For 1 dose, PACU (only) New Bag 07/20/2022 1:15 PM EST 500 mL 250 mL/hr sodium chloride 0.9 % infusion intravenous, at 100 mL/hr, Continuous, Starting on Wed07/20/22 at 0915, For 7 days New Bag 07/20/2022 10:07 PM EST 100 mL/hr Rate/Dose Change 07/20/2022 7:12 PM EST 100 mL/ hr Restarted 07/20/2022 11:00 AM EST documented in this encounter Active and Recently Administered Medications Times are shown in EST. Scheduled Medication Order 07/19/2022 07/20/2022 07/21/2022 acetaminophen (TYLENOL) tablet 975 mg 975 mg, oral, Every 6 hours, First dose on Wed07/20/22 at 1215, Max acetaminophen 4000 mg/day 1540 (SEP Hold - Provider: Admin Agnes Inpatient - Reason: Unreviewed Transfer Orders)1632 (MAR [...] or hammond 1540 (SEP Hold - Provider: Zuly Alarcon Inpatient - Reason: Unreviewed Transfer Orders)1632 (SEP Unhold - Provider: [place] Nino) 0939 (Given - Provider: Mira Craig RN) ceFAZolin (ANCEF) 1 g/50 mL D5W (COMPLETED) 1 g, intravenous, at 100 mL/hr, Administer over 30 Minutes, Every 8 hours interval, First dose on Wed07/20/22 at 1800, For 2 doses, Indications: prevention of perioperative infection 1540 (SEP Hold - Provider: Admin Agnes Inpatient - Reason: Unreviewed Transfer Orders)1632 (SEP Unhold - Provider: [place] Nino)1828 (New Bag - Provider: Phuc Garcia RN)1911 (Stopped - Provider: Phuc Garcia RN) 0204 (New Bag - Provider: [...] 2200 1540 (SEP Hold - Provider: Admin [place] Inpatient - Reason: Unreviewed Transfer Orders)1632 (SEP [...] 2200 1540 (SEP Hold - Provider: Admin [place] Inpatient - Reason: Unreviewed Transfer Orders)1632 (SEP [...] Garcia RN) 0013 (Given - Provider: Donta Garber RN) dextrose 40 % oral gel 15-30 g [...] clinical situation and document all interventions. 1540 ([facility] Hold - Provider: Admin Agnes Inpatient - Reason: Unreviewed Transfer Orders)1632 ([facility] Unhold - Provider: [place] Nino) dextrose 50 [...] clinical situation and document all interventions. 1540 ([facility] Hold - Provider: Zuly Alarcon Inpatient - Reason: Unreviewed Transfer Orders)1632 ([facility] Unhold - Provider: [place] Nino) fentaNYL citrate [...] clinical situation and document all interventions. 1540 ([facility] Hold - Provider: Admin [place] Inpatient - Reason: Unreviewed Transfer Orders)1632 ([facility] Unhold - Provider: [place] Nino) glucose chewable [...] clinical situation and document all interventions. 1540 ([facility] Hold - Provider: Admin [place] Inpatient - Reason: Unreviewed Transfer Orders)1632 ([facility] Unhold - Provider: [place] Nino) oxyCODONE [...] if POSS is 3 or 4. 1540 ([facility] Hold - Provider: Admin [place] Inpatient - Reason: Unreviewed Transfer Orders)1632 ([facility] Unhold - Provider: [place] Nino) Linked Groups [...] interventions. documented in this encounter Care Teams Price Clerk Relationship Specialty Start Date End Date Asher Zambrano DO [address] [facility], [facility] [address] [place] [address] PCP - General 07/10/17 documented as of this encounter
--- OUTSIDE RECORDS SUMMARY | 2024-03-28 21:24 | XMS_ITS | Clinical Summary ---
Author Organization [facility] Address [address] [place] [address] Phone Care Team Providers Care Plate Cleaner Name Role Phone Asher Zambrano D.O. Primary Care Provider [phone] Problems Includes: Problems addressed during this encounter and other active Problems All Visits Onset Date Resolved Date Provider Condition S tatus Cervicalgia 02/24/2022 Cole Keating M.D. Activ e Last Documented On 2 1:37PM ; [facility] Peripheral Neuropathy Sensory 02/24/2022 Cole Keating M.D. Active Last Documented On 2 1:38PM ; [facility] Osteoarthritis Localized Primary Knee Right 02/24/2022 Cole Keating M.D. Active Last Documented On 2 1:45PM ; [facility] Nonorganic Sleep Apnea Obstructive 02/24/2022 G jatinder Keating M.D. Active Last Documented On 2 1:45PM ; [facility] Essential Hypertension Benign 04/08/2009 Cole Keating M.D. Active Last Documented On 2 1:45PM ; [facility] Note: DESC: Benign essential [...] 2 11:36AM By Julia Smith M.D. ; [facility] Mobic 7.5 MG Oral Tablet 02/24/2022 Provider: Chris Keating M.D. Diagnosis: tabs 1 po daily with food prn. Stop if stomach p ain Last Documented On 2 1:55PM By Cole Keating M.D. ; [facility] Diovan 160 MG OR TABS 01/21/2012 Provider: Diagnosis: Last Documented On 2 11:53AM By Amee Anthony ; [facility] [manual] Tricor 20 mg MISC 01/21/2012 Provider: Diagnosis: Last Documented On 2 11:53AM By Amee Anthony ; [facility] Vytorin 10-10 MG OR TABS 01/21/2012 Provider: Diagnosis: Last Documented On 2 11:53AM By Amee Anthony ; [facility] Medications Administered Includes: Administered [...] Mins Rylie Bishop M.D. Dermatology [facility] [id number] 12/10/19 24 11:34AM 12:13PM Clinical Notes Includes: Clinical Notes from this encounter No Clinical Notes Recorded
--- OUTSIDE RECORDS SUMMARY | 2024-03-28 21:24 | XMS_ITS | Encounter Summary ---
Author Organization [facility] Address [address] [place] [address] Care Team Providers Care Home Economics Teacher Name Role Phone Asher Zambrano DO Primary Care Provider [phone]- [phone] Reason for Visit * Auth/Cert (Routine) Specialty Diagnoses / Procedures Referred By Contac t Referred To Contact Diagnoses Cervical spinal stenosis Spondylolisthesis of cervical region cervical spinal stenosis m48.02 cervical spondylolisthesis m43.12 Procedures OK NJX DX/THER SBST INTRLMNR CRV/THRC W/IMG GDN CHG FLUOR NEEDLE/CATH SPINE/PARASPINAL DX/THER ADDON Midline C6 7 cervical interlaminat epidural steroid inj Deon Shine MD [address] [place] [address] [place] [address] Phone: tel: fax: Referral ID Status Reason Start Date Expiration Date Visits Re quested Visits Authorized [id number] 1 1 Encounter Details Date Type Department Care Team (Late st Contact Info) Description 11/12/2022 9:31 AM EDT - 11/12/2022 11:58 PM EDT Hospital Encounter [facility] [address] [facility] [place] [address] Deon Shine MD [address] [place] [address] [place] [id number] Discharge Disposition: Home Social History Tobacco Use [...] suspected to have Coronavirus/COVID-19? No / Unsure 11/12/2022 10:03 AM EDT documented as of this encounter Last Filed [...] Mass Index 26.26 11/12/2022 10:15 AM EDT documented in this encounter Discharge Instructions * Discharge Instructions* Deon Shine MD - 11/12/2022 11:25 AM EDT DEON SHINE MD PhD Specializing in Pain Management & Disorders of the Spine [address], Medical Office [facility] [phone] Post-Procedure Instructions After your procedure: Rest today. You may drive and return to work tomorrow. Regular activities, including exercise, can resume after 1-2 days You may remove the bandage tomorrow. Please wait 24 hours before taking a shower or bath When you should get pain relief: If you had a procedure to decrease your pain, you can expect relief between 0 - 14 days after the procedure. Amount of pain relief is different for everyone. An increase in your usual pain is common. This may last a few days. What you can do to help your pain: Use an ice pack for the first 24 hours. Use a heating pad for the next few days if needed 3-4 times per day. Take over the counter pain relievers like Ibuprofen (Motrin), Tylenol or Aspirin if you can tolerate them When to seek medical attention: Call the office for: Drainage or redness at the injection site. Severe increase in pain. (Mild to moderate increase in pain is normal). Weakness or numbness. Fever above 100.5 degrees. Loss of bowel or bladder control. What to do if you have a medical emergency: Call 911 or go to the nearest Emergency Room Follow-up Instructions: [facility]. Patient Signature Date/Time Staff Signature Date/Time documented in this encounter Medications at Time [...] Take 40 mg by mouth daily. 05/21/2022 ezetimibe-simvas tatin (VYTORIN) 10-40 mg per tablet Take 1 tablet by mouth nightly. Pt states this med was changed to ezetimibe 10 mg documented as of this encounter H&P Notes * Deon Shine MD - 11/12/2022 10:24 AM EDT H & P hardcopy at bedside. Updated. No changes. To be scanned. documented in this encounter OR Notes * OR Surgeon - Deon Shine MD - 11/12/2022 10:24 AM EDT Pre-Procedure patient identification: I am the primary operating surgeon/proceduralist and I have reviewed the applicable pathology reports and radiology studies for this procedure. I have identified the patient on 11/12/22 at 10:24 AM Deon Shine MD documented in this encounter Miscellaneous Notes * Op Note - Deon Shine MD - 11/12/2022 11:06 AM EDT [facility] OPERATIVE REPORT Date of Procedure: 11/12/22 : 1950 Patient Name: Nirmal Puri Pre-op Diagnosis: Cervical Spinal Stenosis Cervical Radiculopathy Post-op Diagnosis: Same Procedure: Midline C6-7 Cervical Interlaminar Epidural Injection with Selective Epidurogram and Fluoroscopic Guidance Surgeon: Deon Shine MD Anesthesia: Local Interval History: for treatment of chronic intractable neck pain not responsive to conservative therapy. Pre-op pain score is 6. Details of Procedure: The entire procedure was performed by me. The anrdthesilologst would not provide sedation because patient had taken ozempic. The patient was brought into the procedure room and placed in the prone position. The patient???s back was prepped and draped in the usual sterile fashion. All skin injectionsites were anesthetized with 1% Lidocaine using a 27 g needle. The procedure needle was a 18 gauge,3.5 inch Touhy needle. The cervical spine was visualized, utilizing Fluoroscopy in the AP and lateral views, to identify the appropriate interlaminar space. An oblique, paramedian approach was taken. A target point was chosen over the superior aspect of the inferior lamina. The procedure needle was directed towards the chosen target point until the needle was in contact with lamina. The needle was then directed superiorly into the ligamentum flavum. Epidural space was identified using a continuous loss of resistance technique using normal saline. There was a onesimo loss of resistance. Final needle position was negative for heme or CSF aspiration. All injections were done under real time imaging through extension set. EPIDUROGRAM: 3-5 cc of Isovue 300 was injected slowly through the needle with real time imaging. There was some anterior spread of dye which was atypical in appearance. I was not confident that the needle was epidural and therefore I with estella the needle without further injection. There was no intrathecal or intravascular spread. Patient denied any paresthesias or increased neck pain. THERAPEUTIC INJECTION: Steroid solution was not injected because of atypical dye spread. Needle was removed intact. At the conclusion of the procedure, the patient was taken to the recovery room in stable condition. I explained to patient this out come and he appeared to understand. Plan is to repeat attempt at the C7/T1 level in 2 weeks. The patient was comfortable in the recovery room without increased neck orarm pain. EBL: None SPECIMENS: none Deon Shine MD documented in this encounter Plan of Treatment Not on file documented as of this encounter Procedures Procedure Name Priority Date/Time Associated Diagnosis Comments FL FLUOROSCOPY TECHNICAL ASSISTANCE Routine 11/12/2022 11:22 AM EDT OK NJX DX/THER SBST INTRLMNR CRV/THRC W/IMG GDN 11/12/2022 10:59 AM EDT Cervical spinal stenosis Spondylolisthesis of cervical region documented in this encounter Results * FL FLUOROSCOPY TECHNICAL ASSISTANCE (11/12/2022 11:22 AM EDT) [...] 1.40 minutes. ??Dose 9.03 mGy. Procedure Note [employer] Process Technician, System - 11/12/2022 CLINICAL HISTORY: Technical assistance was provided for fluoroscopy. COMMENT: Technical assistance was provided for fluoroscopy. Totalfluoroscopy time 1.40 minutes. Dose 9.03 mGy. -- IMPRESSION: Technical assistance was provided for fluoroscopy. Total fluoroscopy time 1.40 minutes. Dose 9.03 mGy. Deon Shine MD IMG FLUOROSCOPY PROCEDURES Final Result documented in this encounter Visit Diagnoses Diagnosis Cervical spinal stenosis- Primary Spinal stenosis in cervical region documented in this encounter Admitting Diagnoses Diagnosis Cervical spinal stenosis Spinal stenosis in cervical region documented in this encounter Administered Medications Inactive Administered Medications - up to 3 most recent administrations Medication Order MAR Action Action Date Dose Rate Site sodium chloride 0.9 % infusion intravenous, at 40 mL/hr, Continuous, Starting on Yeny 11/12/22 at 1130, For 7 days, Pre-op New Bag 11/12/2022 10:44 AM EDT 40 mL/hr documented in this encounter Active and Recently Administered Medications Times are shown in EDT. Continuous Medication Order 11/10/2022 11/11/2022 11/12/2022 sodium chloride 0.9 % infusion intravenous, at 40 mL/hr, Continuous, Starting on Yeny 11/12/22 at 1130, For 7 days, Pre-op 1044 (New Bag - Prov ider: Tamar Hansen RN) PRN Medication Order 11/10/2022 11/11/2022 11/12/2022 iohexoL (OMNIPAQUE 240) 240 mg iodine/mL solution (CANCELED) Once via One Step medication administration, Starting on Yeny 11/12/22 at 1105, Intra-op 1105 (Given - Provid er: Deon Shine MD) lidocaine (XYLOCAINE) 10 mg/mL (1 %) injection (CANCELED) Once via One Step medication administration, Starting on Yeny 11/12/22 at 1105, Intra-op 1105 (Given - Provid er: Deon Shine MD) sodium chloride flush (CANCELED) Once via One Step medication administration, Starting on Yeny 11/12/22 at 1105, Intra-op 1105 (Given - Provid er: Deon Shine MD) documented in this encounter Care Teams Home Economics Teacher Relationship Specialty Start Date End Date Asher Zambrano DO [address], [facility] [address] [place] [address] PCP - General 07/10/17 documented as of this encounter
--- OUTSIDE RECORDS SUMMARY | 2024-03-28 21:24 | XMS_ITS | Encounter Summary ---
Author Organization [facility] Address [address] [place] [address] Care Team Providers Care Corporate Strategy Intern Name Role Phone Asher Zambrano DO Primary Care Provider +- [phone] Reason for Visit * Auth/Cert (Routine) Specialty Diagnoses / Procedures Referred By Contac t Referred To Contact Diagnoses Carotid stenosis, bilateral Carotid stenosis, bilateral [I65.23] Procedures MT THROMBOENDARTECTMY NECK,NECK INCIS Right Carotid Endarterectomy Brandyn Ospina MD [address] [place] [address] [address] [place] [address] Phone: tel: fax: Referral ID Status Reason Start Date Expiration Date Visits Re quested Visits Authorized [id number] 1 1 Encounter Details Date Type Department Care Team (Late st Contact Info) Description 07/17/2022 1:00 PM EST - 07/17/2022 11:59 PM [facility] Hospital Encounter [facility] Cardiology [address] [place] [address] Brandyn Ospina MD [address] [place] [address] [address] [place] [address] Encounter for screening for other viral diseases Discharge Disposition: Home Social History Tobacco Use [...] suspected to have Coronavirus/COVID-19? No / Unsure 07/16/2022 3:46 PM EST documented as of this encounter Medications at Time of Discharge aspirin 81 mg enteric coated tablet Take 81 mg by mouth daily. EPINEPHrine (EPIPEN-JR) 0.15 mg/0.3 mL injection syringe Inject 1 Syringe into the thigh once. ezetimibe (ZETIA) 10 mg tablet Take 10 mg by mouth daily. icosapent ethyL (VASCEPA) 1 gram capsule 2 g 2 (two) times a day. 2 meloxicam (MOBIC) 15 mg tablet Take 15 mg by mouth daily. OZEMPIC 2 mg. wednesday 2 rosuvastatin (CRESTOR) 40 mg tablet Take 40 mg by mouth daily. 2 acetaminophen (TYLENOL) 325 mg tablet Take 3 tablets (975 mg total) by mouth every 6 (six) hours as needed for moderate pain or mild pain for up to 5 days. 3 07/26/19 23 ezetimibe-simvastatin (VYTORIN) 10-40 mg per tablet Take 1 tablet by mouth nightly. Pt states this med was changed to ezetimibe 10 mg 11/14/19 23 valsartan 80 mg tablet 80 mg, hydrochlorothiazide 12.5 mg tablet 12.5 mg Take by mouth daily. 07/21/19 23 documented as of this encounter Plan of Treatment Not on file documented as of this encounter Procedures Procedure Name Priority Date/Time Associated Diagnosis Comments ECG 12-LEAD Routine 07/17/2022 Encounter for screening for other viral diseases documented in this encounter Results * ECG 12 LEAD-HOSPITAL PERFORMED & IN CV IMAGING DEPARTMENTS (07/17/2022) Ventricular rate 75 MUSE Atrial rate 75 MUSE MT Interval 220 MUSE QRS duration 92 MUSE QT Interval 382 MUSE QTC Calculation(Baze tt) 426 MUSE P Brothers 24 MUSE R Brothers 27 MUSE T Wave Brothers 62 MUSE 07/17/2022 Narrative MUSE - 07/17/2022 Sinus rhythm with 1st degree A-V block Confirmed by Raymundo Dodd ([id number]) on 07/18/2022 9:36:54 AM us Brandyn Ospina MD ECG ORDERABLES Final Result MUSE documented in this encounter Visit Diagnoses Diagnosis Encounter for screening for other viral diseases documented in this encounter Care Teams Corporate Strategy Intern Relationship Specialty Start Date End Date Asher Zambrano DO [address] [facility] [address] [place] [address] PCP - General 07/10/17 documented as of this encounter
--- OUTSIDE RECORDS SUMMARY | 2024-03-28 21:24 | XMS_ITS | Clinical Summary ---
Author Organization [facility] Address [address] [place] [address] Phone Care Team Providers Care Lockstitch Collar Setter Name Role Phone Asher Zambrano D.O. Primary Care Provider [phone] Problems Includes: Problems addressed during this encounter and other active Problems All Visits Onset Date Resolved Date Provider Condition S tatus Cervicalgia 02/24/2022 Cole Keating M.D. Activ e Last Documented On 2 1:37PM ; [facility] Peripheral Neuropathy Sensory 02/24/2022 Cole Keating M.D. Active Last Documented On 2 1:38PM ; [facility] Osteoarthritis Localized Primary Knee Right 02/24/2022 Cole Keating M.D. Active Last Documented On 2 1:45PM ; [facility] Nonorganic Sleep Apnea Obstructive 02/24/2022 G jatinder Keating M.D. Active Last Documented On 2 1:45PM ; [facility] Essential Hypertension Benign 04/08/2009 Cole Keating M.D. Active Last Documented On 2 1:45PM ; [facility] Note: DESC: Benign essential hypertensio n Plan of Treatment No Plan of Treatment Recorded Assessments Includes: Assessments from this encounter No Assessments Recorded Medical Equipment - Implanted Devices Includes: Current Devices No Medical Equipment Recorded Medications Includes: Medications discussed during this encounter and other current Medications Current Medications (continue as prescribed) Clopidogrel Bisulfate 75 MG Oral Tablet 2022 P roemder: Julia Smith MD Diagnosis: 1 by mouth every morning Last Documented On 2 11:36AM By uJlia Smith M.D. ; [facility] Mobic 7.5 MG Oral Tablet 02/24/2022 Provider: Chris Keating M.D. Diagnosis: tabs 1 po daily with food prn. Stop if stomach p ain Last Documented On 2 1:55PM By Cole Keating M.D. ; [facility] Diovan 160 MG OR TABS 01/21/2012 Provider: Diagnosis: Last Documented On 2 11:53AM By Amee Anthony ; [facility] [manual] Tricor 20 mg MISC 01/21/2012 Provider: Diagnosis: Last Documented On 2 11:53AM By Amee Anthony ; [facility] Vytorin 10-10 MG OR TABS 01/21/2012 Provider: Diagnosis: Last Documented On 2 11:53AM By Amee Anthony ; [facility] Medications Administered Includes: Administered Medications from this encounter No Administered Medications Recorded Results Includes: Results discussed during this encounter No Results Recorded For Specified Dates Social History No Social History Recorded - Smoking Status Unknown Procedures and Surgical History Includes: Procedures from this encounter Procedures Code Diagnosis Performing Provider Service Location Service Date TANGENTIAL BIOPSY SKIN LESION, SINGLE 34149 Neoplasm of uncertain behavior of skin [facility] 10/26/2023 - 10/26/2023 Last Documented On 4 10:39AM ; [facility] DESTRUCTION PREMALIG LESION FIRST LESION (Multiple Procedures, Distinct Procedural Service) 33001 Actinic keratosis [facility] 10/26/2023 - 10/26/2023 Last Documented On 4 10:39AM ; [facility] DESTRUCTION BENIGN OR PREMALG LES 2-14 (Distinct Procedural Service) 97258 Actinic keratosis [facility] 10/26/2023 - 10/26/2023 Last Documented On 4 10:39AM ; [facility] Medical History Includes: Medical History addressed during this encounter No Medical History Recorded Physical Exam Includes: Physical Exam from this encounter No Physical Exam Recorded Allergies Includes: Active Allergies No Known Allergies Encounters Encounter Provider Location Date Check-In Time Check-Out Time Diagnosis Estab Patient - 10 Mins Rylie Bishop M.D. Dermatology [facility] 259 10/26/19 24 8:57AM 10:28AM Clinical Notes Includes: Clinical Notes from this encounter No Clinical Notes Recorded
--- OUTSIDE RECORDS SUMMARY | 2024-03-28 21:24 | XMS_ITS | Encounter Summary ---
Author Organization [facility] Address [address] [place] [address] Care Team Providers Care Membership Secretary Name Role Phone Asher Zambrano DO Primary Care Provider [phone] Reason for Referral * MRI/CAT/PET Scan (Routine) - Closed Specialty Diagnoses / Procedures Referred By Chelle villaseñor Referred To Contact Radiology Diagnoses Occlusion and stenosis of unspecified carotid artery Procedures CT ANGIOGRAPHY HEAD/NECK WITH AND WITHOUT IV CONTRAST Asher Zambrano DO [address] [place] [address] Phone: tel: fax: Referral ID Status Reason Start Date Expiration Date Visits Re quested Visits Authorized [id number] Closed 05/20/2022 05/20/2023 1 1 Reason for Visit * MRI/CAT/PET Scan (Routine) - Closed Specialty Diagnoses / Procedures Referred By Chelle villaseñor Referred To Contact Radiology Diagnoses Occlusion and stenosis of unspecified carotid artery Procedures CT ANGIOGRAPHY HEAD/NECK WITH AND WITHOUT IV CONTRAST Ashre Zambrano DO [address] [place] [address] Phone: tel: fax: Referral ID Status Reason Start Date Expiration Date Visits Re quested Visits Authorized [id number] Closed 05/20/2022 05/20/2023 1 1 Encounter Details Date Type Department Care Team (Late st Contact Info) Description 06/08/2022 11:00 AM EST - 06/08/2022 11:59 PM EST [facility] [address] [address] [facility] [place] [address] Asher Zambrano, DO [address], [facility] [address] [place] [address] Occlusion and stenosis of unspecified carotid artery Discharge Disposition: Home Social History Tobacco Use Types Packs/Day Years Used Date Smoking Tobacco: Never Assessed Sex and Gender Information Value Date Recorded Sex Assigned at Male 11/12/2022 10:35 AM EDT Legal Sex Male 11:11 AM EST Gender Identity Male 11/12/2022 10:35 AM EDT Sexual Orientation Not on file COVID-19 Exposure Response Date Recorded In the last 10 days, have yo u been in contact with someone who was confirmed or suspected to have Coronavirus/COVID-19? No / Unsure 05/20/2022 4:48 PM EST documented as of this encounter Medications at Time of Discharge EPINEPHrine (EPIPEN-JR) 0.15 mg/0.3 mL injection syringe Inject 1 Syringe into the thigh once. icosapent ethyL (VASCEPA) 1 gram capsule 2 g 2 (two) times a day. 2 OZEMPIC 2 mg. wednesday 2 rosuvastatin (CRESTOR) 40 mg tablet Take 40 mg by mouth daily. 2 ezetimibe-simvastatin (VYTORIN) 10-40 mg per tablet Take 1 tablet by mouth nightly. Pt states this med was changed to ezetimibe 10 mg 11/14/19 23 valsartan 80 mg tablet 80 mg, hydrochlorothiazide 12.5 mg tablet 12.5 mg Take by mouth daily. 07/21/19 23 valsartan-hydrochlorothi azide (DIOVAN-HCT) 160-25 mg per tablet Take 1 tablet by mouth daily. 07/16/19 23 documented as of this encounter Plan of Treatment Not on file documented as of this encounter Procedures Procedure Name Priority Date/Time Associated Diagnosis Comments CT ANGIOGRAPHY HEAD/NECK W WO IV CONTRAST Routine 06/08/2022 11:27 AM EST Occlusion and stenosis of unspecified carotid artery documented in this encounter Results * CT ANGIOGRAPHY HEAD/NECK WITH AND WITHOUT [...] volume rendered reformats were obtained using a [employer] workstation. CAROTID IMAGING CRITERIA: ??Measurement of carotid [...] the right posterior cerebral artery. Procedure Note Bjorn Woodard MD - 06/09/2022 CLINICAL HISTORY: Carotid occlusion PRIOR STUDY: MRA head dated 05/18/2022 Technique: Noncontrast Head CT was performed. Thin section CT angiographyof the head and neck was performed from the aortic arch to the vertex wasperformed using a multislice CT scanner, following the infusion of 100 cc [id number] intravenous contrast material. MIP and 3D volume rendered reformatswere obtained using a [employer] workstation. CAROTID IMAGING CRITERIA: Measurement of carotid [...] stenosis. 3. No intracranial aneurysm or stenosis. Asher Zambrano DO IMG CT PROCEDURES Final Res ult documented in this encounter Visit Diagnoses Diagnosis Occlusion and stenosis of unspecified carotid artery documented in this encounter Administered Medications Inactive Administered Medications - up to 3 most recent administrations Medication Order MAR Action Action Date Dose Rate Site iohexoL (OMNIPAQUE 350) 350 mg iodine/mL solution 100 mL 100 mL, intravenous, Once, On 06/08/22 at 1215, For 1 dose Given 06/08/2022 11:27 AM EST 100 mL documented in this encounter Care Teams Membership Secretary Relationship Specialty Start Date End Date Asher Zambrano DO [address], [facility] [address] [place] [address] PCP - General 07/10/17 documented as of this encounter
--- OUTSIDE RECORDS SUMMARY | 2024-03-28 21:24 | XMS_ITS | Encounter Summary ---
Author Organization [facility] Address [address] [place] [address] Care Team Providers Care Sand Cutting Machine Operator Name Role Phone Asher Zambrano DO Primary Care Provider +- [phone] Reason for Visit * Auth/Cert (Routine) Specialty Diagnoses / Procedures Referred By Contac t Referred To Contact Diagnoses Cervical spinal stenosis Spondylolisthesis of cervical region cervical spinal stenosis m48.02 cervical spondylolisthesis m43.12 Procedures [place] NJX DX/THER SBST INTRLMNR CRV/THRC W/IMG GDN CHG FLUOR NEEDLE/CATH SPINE/PARASPINAL DX/THER ADDON Midline C6 7 cervical interlaminat epidural steroid inj Deon Shine MD [address] [place] [address] Phone: tel: fax: Referral ID Status Reason Start Date Expiration Date Visits Re quested Visits Authorized [id number] 1 1 Encounter Details Date Type Department Care Team (Late st Contact Info) Description 11/12/2022 11:00 AM EDT - 11/12/2022 11:30 AM EDT Surgery [facility] Endoscopy [address] [facility] [place] [address] Deon Shine MD [address] [place] [address] Midline C6 7 cervical interlaminat epidural steroid inj [90034 (CPT??)] Surgery Details Date/Time Status Location OR Service Patient Class Case Class Case Type Trauma Case? 11/12/2022 11:00 AM Posted [facility] 2 (B) Pain Management Outpatient Panel 1 Procedure [facility] Anes Op Region Wound Class Comments Midline C6 7 cervical interl aminat epidural steroid inj N/A Local Neck Clean Surgeon Surgeon Role Service Panel Deon Shine MD Primary Pain Management 1 documented in this encounter Social History [...] of the Spine [address], Medical Office [facility] [phone] Post-Procedure Instructions After your procedure: Rest today. [...] Room Follow-up Instructions: Call the office to shcedule a follow-up visit as necessary. Patient Signature [...] Shine MD - 11/12/2022 11:06 AM EDT Main [facility] OPERATIVE REPORT Date of Procedure: 11/12/22 : [...] TECHNICAL ASSISTANCE Routine 11/12/2022 11:22 AM EDT [place] NJX DX/THER SBST INTRLMNR CRV/THRC W/IMG GDN [...] 1.40 minutes. ??Dose 9.03 mGy. Procedure Note Gift Basket Packer, System - 11/12/2022 CLINICAL HISTORY: Technical assistance [...] stenosis- Primary Spinal stenosis in cervical region Cervical spinal stenosis Spinal stenosis in cervical region Spondylolisthesis of cervical region documented in this encounter Admitting Diagnoses Diagnosis Cervical spinal stenosis Spinal stenosis in cervical region documented in this encounter Administered Medications Inactive Administered Medications - up to 3 most recent administrations Medication Order MAR Action Action Date Dose Rate Site iohexoL (OMNIPAQUE 240) 240 mg iodine/mL solution Once via One Step medication administration, Starting on Yeny 11/12/22 at 1105, Intra-op Given 11/12/2022 11:05 AM EDT 0.5 mL lidocaine (XYLOCAINE) 10 mg/mL (1 %) injection Once via One Step medication administration, Starting on Yeny 11/12/22 at 1105, Intra-op Given 11/12/2022 11:05 AM EDT 6 mL sodium chloride 0.9 % infusion intravenous, at 40 mL/hr, Continuous, Starting on Yeny 11/12/22 at 1130, For 7 days, Pre-op New Bag 11/12/2022 10:44 AM EDT 40 mL/hr sodium chloride flush Once via One Step medication administration, Starting on Yeny 11/12/22 at 1105, Intra-op Given 11/12/2022 11:05 AM EDT 10 mL documented in this encounter Active and Recently [...] MD) documented in this encounter Care Teams Sand Cutting Machine Operator Relationship Specialty Start Date End Date Asher Zambrano DO [address], [facility] [address] [place] [address] PCP - General 07/10/17 documented as of this encounter
--- OUTSIDE RECORDS SUMMARY | 2024-03-28 21:24 | XMS_ITS | Encounter Summary ---
Author Organization [facility] Address [address] [place] [address] Care Team Providers Care Tow Mate Name Role Phone Asher Zambrano DO Primary Care Provider [phone] Reason for Visit * Auth/Cert (Routine) Specialty Diagnoses / Procedures Referred By Contac t Referred To Contact Diagnoses Cervical spinal stenosis Spondylolisthesis of cervical region cervical spinal stenosis m48.02 cervical spondylolisthesis m43.12 Procedures [place] NJX DX/THER SBST INTRLMNR CRV/THRC W/IMG GDN CHG FLUOR NEEDLE/CATH SPINE/PARASPINAL DX/THER ADDON Midline C6 7 cervical interlaminat epidural steroid inj Wilfrido Shine MD [address] [place] [address] [place] [address] Phone: tel: fax: Referral ID Status Reason Start Date Expiration Date Visits Re quested Visits Authorized [id number] 1 1 Encounter Details Date Type Department Care Team (Late st Contact Info) Description 11/12/2022 6:18 AM EDT - 11/12/2022 9:30 AM EDT Hospital Encounter [facility] - Radiology - Diagnostic [address] [facility] [place] [address] Wilfrido Shine MD [address] [place] [address] [place] [address] Discharge Disposition: Home Social History Tobacco Use [...] to have Coronavirus/COVID-19? No / Unsure 11/12/2022 9:29 AM EDT documented as of this encounter Medications at [...] mg 3 documented as of this encounter Plan of Treatment Not on file documented as of this encounter Procedures Procedure Name Priority Date/Time Associated Diagnosis Comments FL FLUOROSCOPY TECHNICAL ASSISTANCE Routine 11/12/2022 11:22 AM EDT documented in this encounter Results * FL [...] 1.40 minutes. ??Dose 9.03 mGy. Procedure Note Cut And Cover Line Worker, System - 11/12/2022 CLINICAL HISTORY: Technical assistance was provided for fluoroscopy. COMMENT: Technical assistance was provided for fluoroscopy. Totalfluoroscopy time 1.40 minutes. Dose 9.03 mGy. -- IMPRESSION: Technical assistance was provided for fluoroscopy. Total fluoroscopy time 1.40 minutes. Dose 9.03 mGy. Wilfrido Shine MD IMG FLUOROSCOPY PROCEDURES Final Result documented in this encounter Visit Diagnoses Not on filedocumented in this encounter Care Teams Tow Mate Relationship Specialty Start Date End Date Asher Zambrano DO [address], [address] [address] [place] [address] PCP - General 07/10/17 documented as of this encounter
--- OUTSIDE RECORDS SUMMARY | 2024-03-28 21:24 | XMS_ITS | Clinical Summary ---
Author Organization [facility] Address [address] [place] [address] Phone Care Team Providers Care Purchaser Name Role Phone Asher Zambrano D.O. Primary Care Provider [phone] Problems Includes: Problems addressed during this encounter and other active Problems All Visits Onset Date Resolved Date Provider Condition S tatus Cervicalgia 02/24/2022 Cole Keating M.D. Activ e Last Documented On 2 1:37PM ; [facility] Peripheral Neuropathy Sensory 02/24/2022 Cole Keating M.D. Active Last Documented On 2 1:38PM ; [facility] Osteoarthritis Localized Primary Knee Right 02/24/2022 Cole Keating M.D. Active Last Documented On 2 1:45PM ; [facility] Nonorganic Sleep Apnea Obstructive 02/24/2022 G jatinder Keating M.D. Active Last Documented On 2 1:45PM ; [facility] Essential Hypertension Benign 04/08/2009 Cole Keating M.D. Active Last Documented On 2 1:45PM ; [facility] Note: DESC: Benign essential hypertensio n Plan of Treatment No Plan of Treatment Recorded Assessments Includes: Assessments from this encounter No Assessments Recorded Medical Equipment - Implanted Devices Includes: Current Devices No Medical Equipment Recorded Medications Includes: Medications discussed during this encounter and other current Medications Current Medications (continue as prescribed) Clopidogrel Bisulfate 75 MG Oral Tablet 2022 P malenader: Julia Smith MD Diagnosis: 1 by mouth every morning Last Documented On 2 11:36AM By Julia Smith M.D. ; [facility] Mobic 7.5 MG Oral Tablet 02/24/2022 Provider: Chris Keating M.D. Diagnosis: tabs 1 po daily with food prn. Stop if stomach p ain Last Documented On 2 1:55PM By Cole Keating M.D. ; [facility] Diovan 160 MG OR TABS 01/21/2012 Provider: Diagnosis: Last Documented On 2 11:53AM By Amee Anthony ; [facility] [manual] Tricor 20 mg MISC 01/21/2012 Provider: Diagnosis: Last Documented On 2 11:53AM By Amee Anthony ; [facility] Vytorin 10-10 MG OR TABS 01/21/2012 Provider: Diagnosis: Last Documented On 2 11:53AM By Amee Anthony ; [facility] Past Medications on file Hydrocortisone 2.5% RE CREA 01/21/2012 - 02/20/2012 Pr ovider: Rylie Bishop M.D. Diagnosis: apply to affected areas on t he forehead twice daily for 2-4 weeks Last Documented On 2 12:18PM By Rylie Copeland M.D. ; [facility] Triamcinolone Acetonide 0.1% EX CREA 01/21/2012 - 02/20/2012 Provider: Rylie Bishop M.D. Diagnosis: apply twice daily to affecte d areas for 2-4 weeks on elbows and knees Last Documented On 2 12:19PM By Rylie Copeland M.D. ; [facility] Medications Administered Includes: Administered Medications from this encounter No Administered Medications Recorded Results Includes: Results discussed during this encounter No Results Recorded For Specified Dates Social History Description Last Updated No tobacco use 2022 Last Documented On 3 1:05PM ; [facility] Tobacco non-user 02/24/2022 Last Documented On 3 1:05PM ; [facility] Not a current smoker 01/21/2012 Last Documented On 3 1:05PM ; [facility] 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 Last Documented On 3 1:05PM ; [facility] Alcohol once a day 01/21/2012 Last Documented On 3 1:05PM ; [facility] Not using drugs (recreational) 2 Last Documented On 3 1:05PM ; [facility] Smoking Status Unknown Procedures and Surgical History Includes: Procedures from this encounter Procedures Code Diagnosis Performing Provider Service Location Service Date MOHS SURGERY STAGE 1 HEAD NECK HANDS FEET [id number] Squamous cell carcinoma of skin of scalp and neck Jeremy Vaughan MD [facility] 06/29/2023 - 06/29/2023 Last Documented On 3 10:22AM ; [facility] REPAIR COMPLEX SCALP ARMS LEGS 2.6 TO 7.5 CM (Multiple Procedures) [id number] Squamous cell carcinoma of skin of scalp and neck Jeremy Vaughan MD [facility] 06/29/2023 - 06/29/2023 Last Documented On 3 10:22AM ; [facility] Medical History Includes: Medical History addressed during this encounter Description Last Updated No history of simplex purpura (bleeds ea sily) 01/21/2012 Last Documented On 3 1:05PM ; [facility] Dental history - had dental anesthesia ( Novacaine) 01/21/2012 Last Documented On 3 1:05PM ; [facility] Exposure to a lot of bright sunlight --> patient's skin tans and joyce 01/21/2012 Last Documented On 3 1:05PM ; [facility] No history of skin cancer 01/21/2012 Last Documented On 3 1:05PM ; [facility] No history of skin disorder 01/21/2012 Last Documented On 3 1:05PM ; [facility] History of hyperlipidemia (high choleste rol) 01/21/2012 Last Documented On 3 1:05PM ; [facility] History of hypertension 01/21/2012 Last Documented On 3 1:05PM ; [facility] Physical Exam Includes: Physical Exam from this encounter No Physical Exam Recorded Allergies Includes: Active Allergies No Known Allergies Encounters Encounter Provider Location Date Check-In Time Check-Out Time Diagnosis Surgery Appt Jeremy Vaughan MD Dermatology [id number] 06/29/20 23 9:21AM 11:18AM Clinical Notes Includes: Clinical Notes from this encounter * Progress note Date Encounter Last Documented by 06/29/2023 Surgery Appt Last documented on 06/29/2023; 1:06 PM, Jeremy Vaughan MD; [facility] Active Problems & Conditions [...]
--- OUTSIDE RECORDS SUMMARY | 2024-03-28 21:24 | XMS_ITS | CCD ---
Author Organization [facility] Address [address] [place], [place] [address] Care Team Providers Care Tile Classifier Name Role Phone Asher Zambrano Primary Care Provider [phone] Allergies Active Allergy Reactions Criticality Noted Date Comments Bee Venom Protein (Honey Bee) 06/01/2022 HIVES Yewzivii-Jawvyqymvrz-Vmxiu yxnb Rash Low 07/16/2022 Shellfish Derived 06/01/2022 HIVES & THROAT TIGHTENING NO ER TREATMENT Medications rosuvastatin (CRESTOR) 40 mg tablet Take 40 mg by mouth daily. 05/21/2022 Active icosapent ethyL (VASCEPA) 1 gram capsule 2 g 2 (two) times a day. 03/31/2022 Active EPINEPHrine (EPIPEN-JR) 0.15 mg/0.3 mL injection syringe Inject 1 Syringe into the thigh once. Active OZEMPIC 2 mg. wednesday05/20/2022 Active aspirin 81 mg enteric coated tablet Take 81 mg by mouth daily. Active meloxicam (MOBIC) 15 mg tablet Take 15 mg by mouth daily. Active ezetimibe (ZETIA) 10 mg tablet Take 10 mg by mouth daily. Active Active Problems Problem Noted Date Diagnosed Date Cervical spinal stenosis 11/12/2022 Carotid stenosis, asymptomatic, right 07/20/2022 Social History Tobacco Use Types Packs/Day Years Used Date Smoking Tobacco: Former Cigarettes Q uit: 1989 Smokeless Tobacco: Never Tobacco Cessation:Counseling Given: Not Answered Alcohol Use Standard Drinks/Week Yes 0 (1 standard drink = 0.6 oz pure alcohol) Sex and Gender Information Value Date Recorded Sex Assigned at Male 11/12/2022 10:35 AM EDT Legal Sex Male 11:11 AM EST Gender Identity Male 11/12/2022 10:35 AM EDT Sexual Orientation Not on file Last Filed Vital Signs Vital Sign Reading [...] EDT Plan of Treatment Not on file Medical Devices Implanted Type Area Cloud Software Engineer Device Identifier Shelf Expiration Date Model / Serial / Lot Patch Percardium - [id number] Implanted:Qty: 1 on 07/20/2022 by Brandyn Ospina MD at [facility] Vascular graft Right: Carotid LEMAITRE VASCULAR 02/06/2028 [id number] / / [id number] Care Teams Tile Classifier Relationship Specialty Start Date End Date Asher Zambrano DO [address], [facility] [address] [place] [address] PCP - General 07/10/17
--- OUTSIDE RECORDS SUMMARY | 2024-03-28 21:24 | XMS_ITS ---
Author Organization [facility] Address [address] [place] [address] Care Team Providers Care Charge Accounts Audit Clerk Name Role Phone Unavailable Unavailable Unavailable Surgery Details Not on file Complications Check Surgery Details section. Procedure Estimated Blood Loss Check Surgery Details section. Procedure Findings Check Surgery Details section. Procedure Specimens Taken Check Surgery Details section.
--- OUTSIDE RECORDS SUMMARY | 2024-03-28 21:24 | XMS_ITS | Encounter Summary ---
Author Organization [facility] Address [address] [place] [address] Care Team Providers Care Auto Mechanics Instructor Name Role Phone Asher Zambrano DO Primary Care Provider [phone] Reason for Referral * (Routine) - Closed Specialty Diagnoses / Procedures Referred By Chelle t Referred To Contact Diagnoses Occlusion and stenosis of bilateral carotid arteries Procedures Ultrasound carotid bilateral Brandyn Ospina MD Phone: tel: fax: Referral ID Status Reason Start Date Expiration Date Visits Re quested Visits Authorized [id number] Closed 06/24/2022 06/24/2023 1 1 Reason for Visit * (Routine) - Closed Specialty Diagnoses / Procedures Referred By Chelle t Referred To Contact Diagnoses Occlusion and stenosis of bilateral carotid arteries Procedures Ultrasound carotid bilateral Brandyn Ospina MD Phone: tel: fax: Referral ID Status Reason Start Date Expiration Date Visits Re quested Visits Authorized [id number] Closed 06/24/2022 06/24/2023 1 1 Encounter Details Date Type Department Care Team (Late st Contact Info) Description 06/25/2022 12:41 PM EST - 06/25/2022 11:59 PM EST Hospital Encounter [place] [facility] Cardiology [address] [place] [address] Brandyn Ospina MD [address] [place] [address] [place] [address] (work) Occlusion and stenosis of bilateral carotid arteries Discharge Disposition: Home Social History Tobacco Use Types Packs/Day Years Used Date Smoking Tobacco: Never Assessed Sex and Gender Information Value Date Recorded Sex Assigned at Male 11/12/2022 10:35 AM EDT Legal Sex Male 11:11 AM EST Gender Identity Male 11/12/2022 10:35 AM EDT Sexual Orientation Not on file documented as of this encounter Medications at [...] Procedure Name Priority Date/Time Associated Diagnosis Comments US CAROTID BILATERAL Routine 06/25/2022 1:07 PM EST Occlusion and stenosis of bilateral carotid arteries documented in this encounter Results * Ultrasound carotid bilateral (06/25/2022 1:07 PM [...] left proximal vertebral artery demonstrates antegrade flow. Brandyn Ospina MD CV VASCULAR PROCEDURES Final Result documented in this encounter Visit Diagnoses Diagnosis Occlusion and stenosis of bilateral carotid arteries documented in this encounter Care Teams Auto Mechanics Instructor Relationship Specialty Start Date End Date Asher Zambrano DO [address] [place] [address] PCP - General 07/10/17 documented as of this encounter
--- OUTSIDE RECORDS SUMMARY | 2024-03-28 21:24 | XMS_ITS | Clinical Summary ---
Author Organization [facility] Address [address] [place] [address] Care Team Providers Care Equities Trader Name Role Phone Asher Zambrano DO Primary Care Provider [phone] Allergies Active Allergy Reactions Criticality Noted Date Comments Bee Venom Protein (Honey Bee) 06/01/2022 HIVES Vvwbsmjm-Yhochwqcycs-Nxfee yxnb Rash Low 07/16/2022 Shellfish Derived 06/01/2022 [...] Given: Not Answered Alcohol Use Standard Drinks/Week Comments Yes 0 [...] 11/12/2022 10:15 AM EDT Plan of Treatment Health Maintenance Due Date Last Done Comments CT Colonography 1951 Cologuard (FIT-DNA) 1950 Colon Cancer Screening Annual FOBT 1950 Colon Cancer Screening Flexible Sigmoidoscopy 1950 Colon Cancer Screening: Annual FIT 1950 Colonoscopy 1950 Colorectal Cancer Screening 1951 Depression Screening 1963 Hepatitis C Screening 1969 RSV(60+ yo [shared decision] or 32-36 wks ) (1 - 1-dose 60+ series) 2011 Falls Risk Screening 2016 Influenza Vaccine (#1) 2024 , 05/02/2018, 03/23/2017, Additional history exists COVID-19 Vaccine ( - season) 2024 DTaP, Tdap, and Td Vaccines (2 - Td or Tdap) 04/25/2027 04/25/2017 Pneumococcal (65 years and older) Completed 05/04/2018, 04/25/2017 Zoster Vaccine Completed 04/25/2019, 08/0 12/2018, 05/16/2012 HIB Vaccines Aged Out No longer eligi ble based on patient's age to complete this topic HPV Vaccines Aged Out No longer eligi ble based on patient's age to complete this topic Hepatitis B Vaccines Aged Out No long er eligible based on patient's age to complete this topic IPV Vaccines Aged Out No longer eligi ble based on patient's age to complete this topic Meningococcal ACWY Aged Out No longer eligible based on patient's age to complete this topic RSV <20 months Aged Out No longer rebel gible based on patient's age to complete this topic Medical Devices Implanted Type Area Oracle Fusion Middleware Architect Device Identifier Shelf Expiration Date Model / Serial / Lot Patch Percardium - [id number] Implanted:Qty: 1 on 07/20/2022 by Brandyn Ospina MD at [facility] Vascular graft Right: Carotid LEMAITRE VASCULAR 02/06/2028 E0.8P8 / / [id number] Advance Directives * Full Code (Latest Code Status on File) Date Activated Date Inactivated Comments 11/12/2022 11:38 AM 11/13/2022 4:03 AM * Full Code Date Activated Date Inactivated Comments 07/20/2022 12:11 PM 07/21/2022 3:43 PM Care Teams Equities Trader Relationship Specialty Start Date End Date Asher Zambrano DO [address], [facility] [address] [place] [address] PCP - General 07/10/17
--- OUTSIDE RECORDS SUMMARY | 2024-03-28 21:24 | XMS_ITS | Referral Summary ---
Author Organization [facility] Address [address] [place] [address] Care Team Providers Care Drawing Kiln Supervisor Name Role Phone Asher Zambrano DO Primary Care Provider [phone] Allergies Active Allergy Reactions Criticality Noted Date Comments Bee Venom Protein (Honey Bee) 06/01/2022 HIVES Azafytpp-Tehfaaesvfo-Kjkkd yxnb Rash Low 07/16/2022 Shellfish Derived 06/01/2022 [...] on file Medical Devices Implanted Type Area Copper Plate Printer Device Identifier Shelf Expiration Date Model / Serial / Lot Patch Percardium - [id number] Implanted:Qty: 1 on 07/20/2022 by Brandyn Ospina MD at [facility] Vascular graft Right: Carotid LEMAITRE VASCULAR 02/06/2028 E0.8P8 / / [id number] Advance Directives * Full Code (Latest Code Status on File) Date Activated Date Inactivated Comments 11/12/2022 11:38 AM 11/13/2022 4:03 AM * Full Code Date Activated Date Inactivated Comments 07/20/2022 12:11 PM 07/21/2022 3:43 PM Care Teams Drawing Kiln Supervisor Relationship Specialty Start Date End Date Asher Zambrano DO [address], [place] [address] [place] [address] PCP - General 07/10/17
--- OUTSIDE RECORDS SUMMARY | 2024-03-28 21:25 | XMS_ITS | Encounter Summary ---
Author Organization [facility] Address [address] [place] [address] Care Team Providers Care Rehabilitation Therapy Technician Name Role Phone Unavailable Primary Care Provider Unavailabl e Encounter Details Date Type Department Care Team (Late st Contact Info) Description 02/11/2011 10:49 AM EDT Hospital Encounter [facility] Historical Outpatient Asher Zambrano, DO [address], [place] [address] [place] [address] Social History Tobacco Use Types Packs/Day Years Used Date Smoking Tobacco: Never Assessed Sex and Gender Information Value Date Recorded Sex Assigned at Male 11/12/2022 10:35 AM EDT Legal Sex Male 11:11 AM EST Gender Identity Male 11/12/2022 10:35 AM EDT Sexual Orientation Not on file documented as of this encounter Plan of Treatment Not on file documented as of this encounter Visit Diagnoses Not on filedocumented in this encounter
--- OUTSIDE RECORDS SUMMARY | 2024-03-28 21:25 | XMS_ITS | Encounter Summary ---
Author Organization [facility] Address [address] [place] [address] Care Team Providers Care Powder Worker Tnt Name Role Phone Unavailable Primary Care Provider Unavailabl e Encounter Details Date Type Department Care Team (Late st Contact Info) Description 04/12/2013 7:47 AM EDT Hospital Encounter [facility] Historical Ouptatient Data Asher Zambrano, DO [address], [place] [address] [place] [address] Social History Tobacco Use Types Packs/Day Years [...] Procedure Name Priority Date/Time Associated Diagnosis Comments XR CHEST 2 VW Routine 04/12/2013 documented in this encounter Results * X-RAY CHEST 2 VIEWS (04/12/2013) Anatomical Region Laterality Modality Body Radiographic Marylin ging 04/12/2013 Narrative 04/12/2013 12:00 AM EDT DIAGNOSTIC RADIOLOGY - Oct ??2 2012 ??7:53AM ??- ??CHEST TWO VIEWS PA AND [...] by: ?CELESTINE DIXON MD: ?? Oct ??2 2013 ??8:13A Dictation signed by: ?CELESTINE DIXON MD: ?? Oct ??2 2012 ??8:14A CPT Code: 95875 Procedure Note Provider, Ghislaine, - 07/29/2017 DIAGNOSTIC RADIOLOGY - Apr 12 [...] MD: Apr 12 2013 8:14A CPT Code: 61055 us Asher Zambrano DO IMG XR PROCEDURES Final Res ult documented in this encounter Visit Diagnoses Not on filedocumented in this encounter
--- OUTSIDE RECORDS SUMMARY | 2024-03-28 21:25 | XMS_ITS | Encounter Summary ---
Author Organization [facility] Address [address] [place] [address] Care Team Providers Care Scientific Director Name Role Phone Unavailable Primary Care Provider Unavailabl e Encounter Details Date Type Department Care Team (Late st Contact Info) Description 04/24/2001 11:04 AM EDT Hospital Encounter [facility] Historical ED Guilherme Souza MD [address] [facility] [address] Discharge Disposition: Home Social History Tobacco Use [...]
--- OUTSIDE RECORDS SUMMARY | 2024-03-28 21:25 | XMS_ITS | Encounter Summary ---
Author Organization [facility] Address [address] [place] [address] Care Team Providers Care V Belt Finisher Name Role Phone Unavailable Primary Care Provider Unavailabl e Encounter Details Date Type Department Care Team (Late st Contact Info) Description 12/17/1995 9:00 AM EDT Hospital Encounter [facility] Historical Outpatient Social History Tobacco Use Types Packs/Day Years [...]
--- OUTSIDE RECORDS SUMMARY | 2024-03-28 21:25 | XMS_ITS | Encounter Summary ---
Author Organization [facility] Address [address] [place] [address] Care Team Providers Care Pharmaceutical Sales Representative Name Role Phone Unavailable Primary Care Provider Unavailabl e Encounter Details Date Type Department Care Team (Late st Contact Info) Description 09/22/2007 11:26 AM EDT Hospital Encounter [facility] Historical Outpatient Asher Zambrano, DO [address], [place] [address] [place] [address] Social History Tobacco Use Types Packs/Day Years [...]
--- OUTSIDE RECORDS SUMMARY | 2024-03-28 21:25 | XMS_ITS | Encounter Summary ---
Author Organization [facility] Address [address] [place] [address] Care Team Providers Care Melter Clerk Name Role Phone Unavailable Primary Care Provider Unavailabl e Encounter Details Date Type Department Care Team (Late st Contact Info) Description 04/20/2013 7:00 PM EDT Hospital Encounter [facility] Historical Outpatient Asher Zambarno, DO [address], [place] [address] [place] [address] Social History Tobacco Use Types Packs/Day Years [...]
--- OUTSIDE RECORDS SUMMARY | 2024-03-28 21:25 | XMS_ITS | Encounter Summary ---
Author Organization [facility] Address [address] [place] [address] Care Team Providers Care Tube Winder Hand Name Role Phone Unavailable Primary Care Provider Unavailabl e Encounter Details Date Type Department Care Team (Late st Contact Info) Description 03/23/2017 5:53 PM EDT Hospital Encounter [facility] Historical Outpatient Dante Hall MD [address] [facility] [address] [place] [address] Social History Tobacco Use Types Packs/Day Years [...] Procedure Name Priority Date/Time Associated Diagnosis Comments HISTORICAL LAB RESULT - CHEMISTRY Routine 03/23/2017 6:06 PM EDT LABORATORY 03/23/2017 12:00 AM EDT documented in this encounter Results * HISTORICAL LAB RESULT - CHEMISTRY (03/23/2017 6:06 PM EDT) PSA 0.85 <4.00 NG/ML [facility] HISTORICAL CONVERSION Comment:Guilherme Jose Hybr itech method. Serum levels of PSA should not be interpreted as absolute evidence for the presence of malignancy. The PSA value should be used in conjunction with other pertinent clinical diagnostic procedures. 03/23/2017 6:06 PM EDT us Dante Hall MD LAB BLOOD ORDERABLES Final Resul t [facility] HISTORICAL CONVERSION * LABORATORY (03/23/2017 12:00 AM EDT) Narrative 03/23/2017 12:00 AM EDT Ordered by an unspecified provider. us Provider Scan [facility] SCANNED ORDERS Final Result documented in this encounter Visit Diagnoses Not on filedocumented in this encounter
--- OUTSIDE RECORDS SUMMARY | 2024-03-28 21:25 | XMS_ITS | Encounter Summary ---
Author Organization [facility] Address [address] [place] [address] Care Team Providers Care Door Manager Name Role Phone Unavailable Primary Care Provider Unavailabl e Encounter Details Date Type Department Care Team (Late st Contact Info) Description 10/08/2009 7:31 AM EDT Hospital Encounter [facility] Historical Outpatient Miguel Gómez MD [address] [facility] [address] [place] [address] Social History Tobacco Use Types Packs/Day Years [...]
--- OUTSIDE RECORDS SUMMARY | 2024-03-28 21:25 | XMS_ITS | Encounter Summary ---
Author Organization [facility] Address [address] [place] [address] Care Team Providers Care Wire Rope Sling Maker Name Role Phone Asher Zambrano Primary Care Provider Encounter Details Date Type Department Care Team (Late st Contact Info) Description 10/24/2019 Lab Requisition [facility] Pathology & Laboratory Medicine - [facility] [address] [place] [address] Bjorn Streeter MD [address] [place], [place] [id number] Encounter for other general examination Social History Tobacco Use Types Packs/Day Years Used Date Smoking Tobacco: Former Cigarettes 1 10 0 07/12/1974 - 07/12/1984 Smokeless Tobacco: Never Alcohol Use Standard Drinks/Week Comments Yes 2 (1 standard drink = 0.6 oz pur e alcohol) Sex and Gender Information Value Date Recorded Sex Assigned at Not on file Gender Identity Not on file Sexual Orientation Not on file documented as of this encounter Plan of Treatment Not on file documented as of this encounter Procedures Procedure Name Priority Date/Time Associated Diagnosis Comments COVID-19 TESTING Today 10/24/2019 9:23 EDT Encounter for other general examination documented in this encounter Results * COVID-19 TESTING (10/24/2019 9:23 EDT) COVID-19 Result Negative 0 11:33 EDT [facility] Comment:Assayed at [place], [place] Swab ENTIRE NASOPHARYNX / Unknown Not Given / Unknown 10/24/2019 9:23 EDT 10/24/2019 15:22 EDT Bjorn Streeter MD MICROBIOLOGY - GENER AL ORDERABLES [facility] [place], [place] documented in this encounter Visit Diagnoses Diagnosis Encounter for other general examination documented in this encounter Care Teams Wire Rope Sling Maker Relationship Specialty Start Date End Date Asher Zambrano DO PCP - General 12/08/16 documented as of this encounter
--- OUTSIDE RECORDS SUMMARY | 2024-03-28 21:25 | XMS_ITS | Encounter Summary ---
Author Organization [facility] Address [address] [place] [address] Care Team Providers Care Post Acute Care Registered Nurse Name Role Phone Unavailable Primary Care Provider Unavailabl e Encounter Details Date Type Department Care Team (Late st Contact Info) Description 06/18/2009 7:49 AM EST Hospital Encounter [facility] Historical Ouptatient Data Asher Zambrano, DO [address], [place] [address] [place] [address] Social History Tobacco Use Types Packs/Day Years [...]
--- OUTSIDE RECORDS SUMMARY | 2024-03-28 21:25 | XMS_ITS | Encounter Summary ---
Author Organization [facility] Address [address] [place] [address] Care Team Providers Care Junior Qa Analyst Name Role Phone Unavailable Primary Care Provider Unavailabl e Encounter Details Date Type Department Care Team (Late st Contact Info) Description 01/30/2014 7:09 PM EDT Hospital Encounter [facility] Historical Outpatient Asher Zambrano, DO [address], [place] [address] [place] [address] Social History Tobacco Use Types Packs/Day Years [...]
--- OUTSIDE RECORDS SUMMARY | 2024-03-28 21:25 | XMS_ITS | Encounter Summary ---
Author Organization [facility] Address [address] [place] [address] Care Team Providers Care Glove Parts Inspector Name Role Phone Unavailable Primary Care Provider Unavailabl e Encounter Details Date Type Department Care Team (Late st Contact Info) Description 03/26/2005 7:20 AM EDT Hospital Encounter [facility] Historical Outpatient Asher Zambrano, DO [address], [place] [address] [place] [address] Social History Tobacco Use Types Packs/Day Years [...]
--- OUTSIDE RECORDS SUMMARY | 2024-03-28 21:25 | XMS_ITS | Encounter Summary ---
Author Organization [facility] Address [address] [place] [address] Care Team Providers Care Equipment Operation Instructor Name Role Phone Unavailable Primary Care Provider Unavailabl e Encounter Details Date Type Department Care Team (Late st Contact Info) Description 09/22/2002 12:43 PM EST Hospital Encounter [facility] Historical Outpatient Asher Zambrano, DO [address], [place] [address] [place] [address] Social History Tobacco Use Types Packs/Day Years [...]
--- OUTSIDE RECORDS SUMMARY | 2024-03-28 21:25 | XMS_ITS | Encounter Summary ---
Author Organization [facility] Address [address] [place] [address] Care Team Providers Care Chinese Herbalist Name Role Phone Unavailable Primary Care Provider Unavailabl e Encounter Details Date Type Department Care Team (Late st Contact Info) Description 04/24/1999 7:59 AM EDT Hospital Encounter [facility] Historical Outpatient Karl Peña MD [address] [place] [address] [place] [address] Social History Tobacco Use Types Packs/Day Years [...]
--- OUTSIDE RECORDS SUMMARY | 2024-03-28 21:25 | XMS_ITS | Encounter Summary ---
Author Organization [facility] Address [address] [place] [address] Care Team Providers Care Facilities Supervisor Name Role Phone Unavailable Primary Care Provider Unavailabl e Encounter Details Date Type Department Care Team (Late st Contact Info) Description 08/09/1996 7:49 AM EST Hospital Encounter [facility] Historical Outpatient Karl Peña MD [address] [place] [address] [place] [address] Social History Tobacco Use Types Packs/Day Years [...]
--- OUTSIDE RECORDS SUMMARY | 2024-03-28 21:25 | XMS_ITS | Encounter Summary ---
Author Organization [facility] Address [address] [place] [address] Care Team Providers Care Route Carrier Name Role Phone Unavailable Primary Care Provider Unavailabl e Encounter Details Date Type Department Care Team (Late st Contact Info) Description 04/06/2013 11:24 AM EDT Hospital Encounter [facility] Historical Outpatient Asher Zambrano, DO [address], [place] [address] [place] [address] Social History Tobacco Use Types Packs/Day Years [...] Procedure Name Priority Date/Time Associated Diagnosis Comments CYTOLOGY SCAN DOCUMENT 04/06/2013 12:00 AM EDT documented in this encounter Results * CYTOLOGY SCAN DOCUMENT (04/06/2013 12:00 AM EDT) Narrative 04/06/2013 12:00 AM EDT Ordered by an unspecified provider. us Provider Scan MD KANG SCANNED ORDERS Final Result documented in this encounter Visit Diagnoses Not on filedocumented in this encounter
--- OUTSIDE RECORDS SUMMARY | 2024-03-28 21:25 | XMS_ITS | Encounter Summary ---
Author Organization [facility] Address [address] [place] [address] Care Team Providers Care Grand Jury Deputy Sheriff Name Role Phone Unavailable Primary Care Provider Unavailabl e Encounter Details Date Type Department Care Team (Late st Contact Info) Description 11/08/1996 7:40 AM EDT Hospital Encounter [facility] Historical Outpatient Karl Peña MD [address] [place] [address] [place] [address] Social History Tobacco Use Types Packs/Day Years [...]
--- OUTSIDE RECORDS SUMMARY | 2024-03-28 21:25 | XMS_ITS | Encounter Summary ---
Author Organization [facility] Address [address] [place] [address] Care Team Providers Care Bodybuilder Name Role Phone Unavailable Primary Care Provider Unavailabl e Encounter Details Date Type Department Care Team (Late st Contact Info) Description 10/23/2010 9:11 AM EDT Hospital Encounter [facility] Historical Outpatient HallDante MD [address], [place] [address] Social History Tobacco Use Types Packs/Day Years [...]
--- OUTSIDE RECORDS SUMMARY | 2024-03-28 21:25 | XMS_ITS | Encounter Summary ---
Author Organization [facility] Address [address] [place] [address] Care Team Providers Care Rubber Curer Name Role Phone Unavailable Primary Care Provider Unavailabl e Encounter Details Date Type Department Care Team (Late st Contact Info) Description 04/29/2000 9:48 AM EDT Hospital Encounter [facility] Historical Outpatient Dago Nowak MD [address] [place] [address] [place] [address] Social History Tobacco Use Types Packs/Day Years [...]
--- OUTSIDE RECORDS SUMMARY | 2024-03-28 21:25 | XMS_ITS | Encounter Summary ---
Author Organization [facility] Address [address] [place] [address] Care Team Providers Care Social Worker Delinquency Prevention Name Role Phone Unavailable Primary Care Provider Unavailabl e Encounter Details Date Type Department Care Team (Late st Contact Info) Description 11/18/2001 12:42 PM EDT Hospital Encounter [facility] Historical Ouptatient Data Bjorn Martin MD [address] [place], [place] [id number] Social History Tobacco Use Types Packs/Day Years [...]
--- OUTSIDE RECORDS SUMMARY | 2024-03-28 21:25 | XMS_ITS | Encounter Summary ---
Author Organization [facility] Address [address] [place] [address] Care Team Providers Care Glaze Mixer Name Role Phone Unavailable Primary Care Provider Unavailabl e Encounter Details Date Type Department Care Team (Late st Contact Info) Description 10/26/2005 4:00 PM EDT Hospital Encounter [facility] Historical Outpatient Bjorn Franco MD [address] [place] [address] [place] [address] Social History Tobacco Use Types Packs/Day Years [...]
--- OUTSIDE RECORDS SUMMARY | 2024-03-28 21:25 | XMS_ITS | Encounter Summary ---
Author Organization [facility] Address [address] [place] [address] Care Team Providers Care Aws Consultant Name Role Phone Unavailable Primary Care Provider Unavailabl e Encounter Details Date Type Department Care Team (Late st Contact Info) Description 01/28/2015 9:43 AM EDT Hospital Encounter [facility] Historical Outpatient Asher Zambrano, DO [address], [place] [address] [place] [address] Social History Tobacco Use Types Packs/Day Years [...] Name Priority Date/Time Associated Diagnosis Comments XR SHOULDER 2+ VW RIGHT Routine 01/28/2015 XR SHOULDER 2+ VW LEFT Routine 01/28/2015 XR SCAPULA LEFT Routine 01/28/2015 XR SPINE THORACIC 3 VW Routine 01/28/2015 documented in this encounter Results * X-RAY SHOULDER RIGHT 2+ VIEWS (01/28/2015) [...] ?? Jan 28 2015 11:56A CPT Code: 07279 Procedure Note Provider, MD Ghislaine - 07/29/2017 [...] MD: Jan 28 2015 11:56A CPT Code: 17155 Asher Zambrano DO IMG XR PROCEDURES Final [...] ?? Jan 28 2015 11:55A CPT Code: 64437 Procedure Note Provider, MD Ghislaine - 07/29/2017 [...] MD: Jan 28 2015 11:55A CPT Code: 01876 us Asher Zambrano DO IMG XR PROCEDURES [...] ?? Jan 28 2015 11:57A CPT Code: 23253 Procedure Note Provider, MD Ghislaine - 07/29/2017 [...] MD: Jan 28 2015 11:57A CPT Code: 44593 us Asher Zambrano DO IMG XR PROCEDURES [...] ?? Jan 28 2015 11:58A CPT Code: 59991 Procedure Note Provider, MD Ghislaine - 07/29/2017 [...] MD: Jan 28 2015 11:58A CPT Code: 35307 us Asher Zambrano DO IMG XR PROCEDURES Final Res ult documented in this encounter Visit Diagnoses Not on filedocumented in this encounter
--- OUTSIDE RECORDS SUMMARY | 2024-03-28 21:25 | XMS_ITS | Encounter Summary ---
Author Organization [facility] Address [address] [place] [address] Care Team Providers Care Commercial Counsel Name Role Phone Unavailable Primary Care Provider Unavailabl e Encounter Details Date Type Department Care Team (Late st Contact Info) Description 05/25/1997 7:34 AM EST Hospital Encounter [facility] Historical Outpatient Karl Peña MD [address] [place] [address] [place] [address] Social History Tobacco Use Types Packs/Day Years [...]
--- OUTSIDE RECORDS SUMMARY | 2024-03-28 21:25 | XMS_ITS | Encounter Summary ---
Author Organization [facility] Address [address] [place] [address] Care Team Providers Care Site Medical Director Name Role Phone Unavailable Primary Care Provider Unavailabl e Encounter Details Date Type Department Care Team (Late st Contact Info) Description 04/02/2009 7:50 AM EDT Hospital Encounter [facility] Historical Outpatient Asher Zambrano, DO [address], [place] [address] [place] [address] Social History Tobacco Use Types Packs/Day Years [...]
--- OUTSIDE RECORDS SUMMARY | 2024-03-28 21:25 | XMS_ITS | Encounter Summary ---
Author Organization [facility] Address [address] [place] [address] Care Team Providers Care Colorist Photography Name Role Phone Unavailable Primary Care Provider Unavailabl e Encounter Details Date Type Department Care Team (Late st Contact Info) Description 12/28/2002 1:23 AM EDT - 12/28/2002 5:03 PM EDT Hospital Encounter [facility] Historical Inpatient Asher Zambrano, DO [address], [place] [address] [place] [address] Discharge Disposition: Home Social History Tobacco Use [...]
--- OUTSIDE RECORDS SUMMARY | 2024-03-28 21:25 | XMS_ITS | Encounter Summary ---
Author Organization [facility] Address [address] [place] [address] Care Team Providers Care Test Engineering Intern Name Role Phone Unavailable Primary Care Provider Unavailabl e Encounter Details Date Type Department Care Team (Late st Contact Info) Description 04/21/2013 6:09 AM EDT Hospital Encounter [facility] Historical Outpatient Efrain Balderas MD [address] [place], [place] [address] [place] [address] Social History Tobacco Use Types Packs/Day Years [...] Procedure Name Priority Date/Time Associated Diagnosis Comments MRI BRAIN W WO CONTRAST Routine 04/21/2013 documented in this encounter Results * MRI BRAIN WITH AND WITHOUT CONTRAST (04/21/2013) Anatomical Region Laterality Modality Head and Neck Magnetic Resonan ce 04/21/2013 Narrative 04/21/2013 12:00 AM EDT MRI - Apr 21 2013 ??7:24AM ??- ??MRI BRAIN WITH/WITHOUT CONTRAST STUDY: MRI examination of the brain and temporal bones performed with contrast. 10 ??cc of Gadavist IV contrast were given. CLINICAL HISTORY: Sensorineural hearing loss. COMPARISON: head CT dated 07/09/2004. COMMENT: Temporal bones: Cerebellopontine angle cisterns: Normal. [...] at the skull base. Visualized paranasal sinuses: Clear. IMPRESSION: Unremarkable MRI of the brain and internal auditory canals. Transcribed by: ?n/a: Apr 21 2013 11:33A Dictated by: ?SINDY SARMIENTO M.D.: ?? Apr 21 2013 11:33A Dictation signed by: ?SINDY SARMIENTO M.D.: ?? Apr 21 2013 11:40A CPT Code: 60437 Procedure Note Provider, MD Ghislaine - 07/29/2017 MRI - Apr 21 2013 7:24AM - MRI BRAIN WITH/WITHOUT CONTRAST STUDY: MRI examination of the brain and temporal bones performed with contrast. 10 cc of Gadavist IV contrast were given. CLINICAL HISTORY: Sensorineural hearing loss. COMPARISON: head CT dated 07/09/2004. COMMENT: Temporal bones: Cerebellopontine angle cisterns: Normal. [...] at the skull base. Visualized paranasal sinuses: Clear. IMPRESSION: Unremarkable MRI of the brain and internal auditory canals. Transcribed by: n/a: Apr 21 2013 11:33A Dictated by: SINDY SARMIENTO M.D.: Apr 21 2013 11:33A Dictation signed by: SINDY SARMIENTO M.D.: Apr 21 2013 11:40A CPT Code: 07185 Efrain Balderas MD IMG MRI PROCEDURES Final Resu lt documented in this encounter Visit Diagnoses Not on filedocumented in this encounter
--- OUTSIDE RECORDS SUMMARY | 2024-03-28 21:25 | XMS_ITS | Referral Summary ---
Author Organization [facility] Address [address] [place] [address] Care Team Providers Care Supervisor Public Health Nursing Name Role Phone Asher Zambrano DO Primary Care Provider Allergies Active Allergy Reactions Criticality Noted Date Comments Shellfish Containing Products Anaphylaxis High 08/23 Carries epipen Medications Medication Sig Dispensed Refills Start Date End Date Status EZETIMIBE/SIMVASTAT IN (VYTORIN 10-40 ORAL) Take by mouth. Active valsartan (DIOVAN) 160 mg tablet Take 160 mg by mouth daily. Active albuterol (VENTOLIN HFA) 90 mcg/actuation inhaler Inhale 2 Puffs as directed every 6 hours as needed for Wheezing. 1 Inhaler 0 08/23/2012 Active Additional Information Patient not taking.Reported on 12/08/2016 AZELASTINE/FLUTICAS ONE (DYMISTA NASAL) by nasal route. Active predniSONE (DELTASONE) 20 mg tablet Take 1 Tab by mouth daily. Take 2 tabs daily for 3 days then 1 tab daily for 3 days then half tab daily for 3 days 11 Tab 12/08/2016 Active Social History Tobacco Use Types Packs/Day Years Used Date Smoking Tobacco: Former Cigarettes 1 10 0 07/12/1974 - 07/12/1984 Smokeless Tobacco: Never Alcohol Use Standard Drinks/Week Comments Yes 2 (1 standard drink = 0.6 oz pur e alcohol) Sex and Gender Information Value Date Recorded Sex Assigned at Not on file Gender Identity Not on file Sexual Orientation Not on file Last Filed Vital Signs Vital Sign Reading Time Taken Comments Blood Pressure 125/69 12/08/2016 1119 EDT Pulse 87 12/08/2016 1119 EDT Temperature 36.7 ??C (98 ??F) 12/08/2016 1119 EDT Respiratory Rate 16 12/08/2016 1119 EDT Oxygen Saturation 97% 08/23/2012 1231 EST Inhaled Oxygen Concentration - - Weight - - Height - - Body Mass Index - - Plan of Treatment Not on file Care Teams Supervisor Public Health Nursing Relationship Specialty Start Date End Date Asher Zambrano DO PCP - General 12/08/16
--- OUTSIDE RECORDS SUMMARY | 2024-03-28 21:25 | XMS_ITS | Encounter Summary ---
Author Organization [facility] Address [address] [place] [address] Care Team Providers Care Natural Gas Technician Name Role Phone Asher Zambrano DO Primary Care Provider [phone] Reason for Referral * MRI/CAT/PET Scan (Routine) - Closed Specialty Diagnoses / Procedures Referred By Contac t Referred To Contact Radiology Diagnoses Spinal stenosis, lumbar region without neurogenic claudication Spinal stenosis, thoracic region Procedures MRI CERVICAL SPINE WITHOUT CONTRAST Julia Smith MD [address] [facility] [address] [place] [address] Phone: tel: fax: Referral ID Status Reason Start Date Expiration Date Visits Re quested Visits Authorized [id number] Closed 05/22/2022 05/22/2023 1 1 Reason for Visit * MRI/CAT/PET Scan (Routine) - Closed Specialty Diagnoses / Procedures Referred By Contac t Referred To Contact Radiology Diagnoses Spinal stenosis, lumbar region without neurogenic claudication Spinal stenosis, thoracic region Procedures MRI CERVICAL SPINE WITHOUT CONTRAST Julia Smith MD [address] [place] [address] [place] [address] Phone: tel: fax: Referral ID Status Reason Start Date Expiration Date Visits Re quested Visits Authorized [id number] Closed 05/22/2022 05/22/2023 1 1 Encounter Details Date Type Department Care Team (Late st Contact Info) Description 06/08/2022 9:39 AM EST - 06/08/2022 10:59 AM EST Hospital Encounter [facility] [address] - Radiology [address] [facility] [place] [address] Julia Smith MD [address] [place] [address] [place] [address] Spinal stenosis, lumbar region without neurogenic claudication; Spinal stenosis, thoracic region Discharge Disposition: Home Social History Tobacco Use [...] Name Priority Date/Time Associated Diagnosis Comments MRI CERVICAL SPINE WO CONTRAST Routine 06/08/2022 10:47 AM EST Spinal stenosis, lumbar region without neurogenic claudication Spinal stenosis, thoracic region documented in this encounter Results * MRI CERVICAL SPINE WITHOUT CONTRAST (06/08/2022 [...] a tiny right central protrusion. Procedure Note Bjorn Woodard MD - 06/08/2022 CLINICAL HISTORY: [id number]: [...] lt documented in this encounter Visit Diagnoses Diagnosis Spinal stenosis, lumbar region without neurogenic claudication Spinal stenosis, thoracic region documented in this encounter Care Teams Natural Gas Technician Relationship Specialty Start Date End Date Asher Zambrano DO [address] [facility] [address] [place] [address] PCP - General 07/10/17 documented as of this encounter
--- OUTSIDE RECORDS SUMMARY | 2024-03-28 21:25 | XMS_ITS | Patient Health Record ---
Author Organization [facility], Gayla BARBOSA Address [address] [place] [address] Care Team Providers Care Fashion Supervisor Name Role Phone Asher Zambrano DO Primary Care Provider CADEN Burton Unavailable [phone] GERRI DONIS Unavailable [phone] Allergies Allergen (clinical drug ingredient) Drug/Non Drug Allergy documented on EMR Reaction Allergy Type Onset Date Status bee stings (uncoded) hives , wheezing Allergy Active Shellfish (FN) shellfish (uncoded) hives Allergy Active Reason For Referral No Information Medications Medication SIG (Take, Route, Frequency, Duration) Notes Start Date End Date Status Meloxicam 15 MG 1 tablet Orally Once a day for 30 day(s) Active Tricor 145 MG 1 tablet Orally Once a day Active Rosuvastatin Calcium 40 MG 1 tablet Orally Once a day Active Veramyst 27.5 MCG/SPRAY 1 puff in each n ostril Nasally Once a day Active Diovan HCT 160-12.5 MG 1 tablet Orally O nce a day for 30 day(s) Active Vascepa 2 Tablets Active Ezetimibe-Simvastatin 10-40 MG 1 tablet Orally Once a day Active Problems Problem Type SNOMED Code ICD Code Onset Dates Problem Status W/U Status Risk Notes Problem Mild persistent asthma (379145632) Mild persistent asthma (493.90) Active confirmed Post infecti ous airways hyperreactivity into the asthma range. I suggest more regular use of symbicort 2 p BID 80/4.5 strength. for at least 2 months until his airway symptoms resolve. Continual bombardment of his airways to sinus sections after a apnea arousal may also be contributing Problem Chronic sinusitis (55407169) Rhinosinusitis (473.9) Active confirmed continued decongestant therapy advised Problem Obstructive sleep apnea syndrome (99590315) Obstructive sleep apnea syndrome in adult (327.23) Active confirmed AHI is 24 and worse supine and when in REM sleep . I reviewed JAGJIT with him and suggest we get started with a CPAP program. I will arrande a auto titration system for him Problem [id number] JAGJIT (obstructive sleep apnea) (G47.33) Active confirmed Moderate JAGJIT, with findings somewhat improved due to weight loss since the 05/2022 Home Sleep Test. However he still has significant obstructive sleep apnea with falls in oxygen saturation, and I am concerned that his actual AHI is more likely in the 20s, given that he was most likely awake during the last 3 hours of his home sleep test in November, something that would have lessen the apparent severity of sleep apnea. In any case, I am convinced that he should be treated, and I believe he is convinced of this as well. Problem Obstructive sleep apnea (04061427) Obstructive sleep apnea (G47.33) Active confirmed Vital Signs Heart Rate 80 /min 03/31/2023 Oximetry 95 % 03/31/2023 Height 70 in 03/31/2023 Weight 181 lbs 03/31/2023 BMI 25.97 kg/m2 03/31/2023 Encounters Encounter Location Date Provider Diagnosis [facility] [address] [place] [address] [id number] 03/31/2023 GERRI DONIS JAGJIT (obstructive sleep apnea) G47.33 Assessments Encounter Date Diagnosis (ICD Code) Assessment Notes Treatment Notes Treatment Clinical Notes 03/31/2023 JAGJIT (obstructive sleep apnea) (ICD-10 - G47.33) Moderate JAGJIT, with findings somewhat improved due to weight loss since the 05/2022 Home Sleep Test. However he still has significant obstructive sleep apnea with falls in oxygen saturation, and I am concerned that his actual AHI is more likely in the 20s, given that he was most likely awake during the last 3 hours of his home sleep test in November, something that would have lessen the apparent severity of sleep apnea. In any case, I am convinced that he should be treated, and I believe he is convinced of this as well. Despite his difficulties with CPAP (as above, he says I hate it and he says that he feels much more rested after some additional sleep without CPAP in the mornings), I suspect that he is sleeping with that at least part of the night and is deriving some benefit. Downloaded data shows that he easily meets standard adherence criteria and that auto CPAP is effective for him. However he does insist that he is awake much of the night, thus accounting for much of the time recorded has been treated effectively. H I certainly respect his strong feeling that this cannot be a long-term treatment for him. Given his tendency to sleep on his back and quite significant falls and oxygen saturation during part of the night when he is likely in REM sleep, I do not think that he is a good candidate for use of an oral appliance. He agrees with this assessment. I have encouraged him to continue with assessment of possible use of the Inspire approach, for which I think he is a good candidate. Assuming that he pursues this direction, I encouraged him to use CPAP as much as he can tolerate in the interim. 03/31/2023 [facility] strongly recommends that you visit your Primary Care Physician (PCP) annually. Your PCP will not only make sure you are up to date with wellness exams, immunizations and preventive screenings but will also help you implement the recommendations we provide while assisting with coordinating care between other healthcare specialists. Your PCP can also help when you are feeling sick, potentially, avoiding the need for urgent care or emergency department visits. For these reasons it is important you follow up with your PCP based upon your medical conditions. If you do not have a PCP, please call or go to [email or web address] for a list of Primary Care Physicians. A total of 45 minutes was spent performing this encounter on this date of service. My evaluation of this patient, including a review of the chart notes, consultative discussions, history, laboratory and imaging finding, discussion with the patient, planning/placing orders, and documentation as detailed above. Plan Of Treatment No Information Insurance Providers Payer Name Payer Address Payer Phone Subscriber Number Group Number Insured Name Patient Relationship to Insured Coverage Start Date Coverage End Date MEDICARE [address] [place] [address] [id number] AUT[employer] Self - patient is the insured [facility] [employer] INSURANCE [facility] [place] [address] [address] [place] [phone] [id number] AUTUM[employer] Self - patient is the insured Medical (General) History Medical History History ICD Code HYRERTENSION ARTHRITIS CERVICAL SPINAL STENOSIS HIGH CHOLESTEROL ALLERGIES Surgical History Surgery Date(Month/Year) tonsillectomy and adenoidectomy 1959 arthroscopic knee surgery (right) 1989 biopsy of colon 2010
--- OUTSIDE RECORDS SUMMARY | 2024-03-28 21:25 | XMS_ITS | Encounter Summary ---
Author Organization [facility] Address [address] [place] [address] Care Team Providers Care Health Professor Name Role Phone Unavailable Primary Care Provider Unavailabl e Encounter Details Date Type Department Care Team (Late st Contact Info) Description 12/16/1998 8:16 AM EDT Hospital Encounter [facility] Historical Outpatient Karl Peña MD [address] [facility] [place] [address] Social History Tobacco Use Types Packs/Day Years [...]
--- OUTSIDE RECORDS SUMMARY | 2024-03-28 21:25 | XMS_ITS | Encounter Summary ---
Author Organization [facility] Address [address] [place] [address] Care Team Providers Care Retail Cashier Name Role Phone Unavailable Primary Care Provider Unavailabl e Encounter Details Date Type Department Care Team (Late st Contact Info) Description 01/23/2003 Hospital Encounter [facility] Historical Outpatient Asher Zambrano, DO [address], [address] [place] [address] Social History Tobacco Use Types Packs/Day Years [...]
--- OUTSIDE RECORDS SUMMARY | 2024-03-28 21:25 | XMS_ITS | Encounter Summary ---
Author Organization [facility] Address [address] [place] [address] Care Team Providers Care Consultant Education Name Role Phone Unavailable Primary Care Provider Unavailabl e Encounter Details Date Type Department Care Team (Late st Contact Info) Description 04/18/2013 9:01 AM EDT Hospital Encounter [facility] Historical Outpatient Asher Zambrano, DO [address], [address] [place] [address] Social History Tobacco Use Types Packs/Day Years [...]
--- OUTSIDE RECORDS SUMMARY | 2024-03-28 21:25 | XMS_ITS | Encounter Summary ---
Author Organization [facility] Address [address] [place] [address] Care Team Providers Care Dictaphone Transcriber Name Role Phone Unavailable Primary Care Provider Unavailabl e Encounter Details Date Type Department Care Team (Late st Contact Info) Description 08/23/1996 7:49 AM EST Hospital Encounter [facility] Historical Outpatient Karl Peña MD [address] [place] [address] [place] [address] Social History Tobacco Use Types Packs/Day Years [...]
--- OUTSIDE RECORDS SUMMARY | 2024-03-28 21:25 | XMS_ITS | Encounter Summary ---
Author Organization [facility] Address [address] [place] [address] Care Team Providers Care Axle Polisher Name Role Phone Unavailable Primary Care Provider Unavailabl e Encounter Details Date Type Department Care Team (Late st Contact Info) Description 07/09/2004 12:27 PM EST Hospital Encounter [facility] Historical Outpatient Asher Zambrano, DO [address], [address] [place] [address] Social History Tobacco Use Types Packs/Day Years [...]
--- OUTSIDE RECORDS SUMMARY | 2024-03-28 21:25 | XMS_ITS | Encounter Summary ---
Author Organization [facility] Address [address] [place] [address] Care Team Providers Care Home Health Care Worker Name Role Phone Unavailable Primary Care Provider Unavailabl e Encounter Details Date Type Department Care Team (Late st Contact Info) Description 05/18/2013 7:57 PM EST Hospital Encounter [facility] [address] Historical Outpatient Asher Zambrano, DO [address], [address] [place] [address] Social History Tobacco Use Types Packs/Day Years [...]
--- OUTSIDE RECORDS SUMMARY | 2024-03-28 21:25 | XMS_ITS | Encounter Summary ---
Author Organization [facility] Address [address] [place] [address] Care Team Providers Care College Athletic Director Name Role Phone Unavailable Primary Care Provider Unavailabl e Encounter Details Date Type Department Care Team (Late st Contact Info) Description 05/10/1996 7:45 AM EST Hospital Encounter [facility] Historical Outpatient Social History Tobacco Use Types [...]
--- OUTSIDE RECORDS SUMMARY | 2024-03-28 21:25 | XMS_ITS | Encounter Summary ---
Author Organization [facility] Address [address] [place] [address] Care Team Providers Care Correctional Case Records Supervisor Name Role Phone Unavailable Primary Care Provider Unavailabl e Encounter Details Date Type Department Care Team (Late st Contact Info) Description 05/18/2013 9:27 AM EST Hospital Encounter [facility] Historical Outpatient Asher Zambrano, DO [address], [address] [place] [address] Social History Tobacco Use Types Packs/Day Years [...]
--- OUTSIDE RECORDS SUMMARY | 2024-03-28 21:25 | XMS_ITS | Encounter Summary ---
Author Organization [facility] Address [address] [place] [address] Care Team Providers Care Dairy Department Manager Name Role Phone Asher Zambrano DO Primary Care Provider [phone] Reason for Referral * MRI/CAT/PET Scan (Routine) - Closed Specialty Diagnoses / Procedures Referred By Mario Albertoac t Referred To Contact Radiology Diagnoses Aural vertigo, unspecified ear Dissection of carotid artery (CMS/HCC) Cerebral aneurysm, nonruptured Procedures MRI ANGIOGRAM NECK WITHOUT CONTRAST Julia Smith MD [address] [place] [address] Phone: tel: fax: Referral ID Status Reason Start Date Expiration Date Visits Re quested Visits Authorized [id number] Closed 04/30/2022 04/30/2023 1 1 Reason for Visit * MRI/CAT/PET Scan (Routine) - Closed Specialty Diagnoses / Procedures Referred By Contac t Referred To Contact Radiology Diagnoses Aural vertigo, unspecified ear Dissection of carotid artery (CMS/HCC) Cerebral aneurysm, nonruptured Procedures MRI ANGIOGRAM NECK WITHOUT CONTRAST Julia Smith MD [address] [place] [address] Phone: tel: fax: Referral ID Status Reason Start Date Expiration Date Visits Re quested Visits Authorized [id number] Closed 04/30/2022 04/30/2023 1 1 Encounter Details Date Type Department Care Team (Late st Contact Info) Description 05/18/2022 9:02 AM EST - 05/18/2022 9:05 AM EST Hospital Encounter [facility] [address] - Radiology [address] [place] [address] Julia Smith MD [address] [place] [address] Aural vertigo, unspecified ear; Dissection of carotid artery (CMS/HCC); Cerebral aneurysm, nonruptured Discharge Disposition: Home Social History Tobacco Use Types Packs/Day Years Used Date Smoking Tobacco: Never Assessed Sex and Gender Information Value Date Recorded Sex Assigned at Male 11/12/2022 10:35 AM EDT Legal Sex Male 11:11 AM EST Gender Identity Male 11/12/2022 10:35 AM EDT Sexual Orientation Not on file documented as of this encounter Medications at Time of Discharge icosapent ethyL (VASCEPA) 1 gram capsule 2 g 2 (two) times a day. ezetimibe-simvastatin (VYTORIN) 10-40 mg per tablet Take 1 tablet by mouth nightly. Pt states this med was changed to ezetimibe 10 mg 11/14/19 23 valsartan 80 mg tablet 80 mg, hydrochlorothiazide 12.5 mg tablet 12.5 mg Take by mouth daily. 07/21/19 23 valsartan-hydrochlorothi azide (DIOVAN-HCT) 320-25 mg per tablet 02 2 06/01/20 22 documented as of this encounter Plan of Treatment Not on file documented as of this encounter Procedures Procedure Name Priority Date/Time Associated Diagnosis Comments MRI ANGIOGRAM NECK WO CONTRAST Routine 05/18/2022 10:21 AM EST Aural vertigo, unspecified ear Dissection of carotid artery (CMS/HCC) Cerebral aneurysm, nonruptured documented in this encounter Results * MRI ANGIOGRAM NECK WITHOUT CONTRAST (05/18/2022 [...] without contrast Technique: An MRA of the [place] was performed utilizing a 3D dpso-oa-aihaje technique. ??MRA of the neck was also performed utilizing 2-D and 3-D ujbs-mu-ryitag technique. ??Axial T1 fat sat images of the neck also obtained for dissection protocol. No prior studies are available for comparison. Findings: MR angiography of the head demonstrates normal anterior and posterior circulation. ?? 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 ??No medium or large size aneurysms are seen in the [place]. ??Please note that MRA may [...] without contrast Technique: An MRA of the [place] was performed utilizing a 3D hbzi-df-uuvjez technique. MRA of the neck was also performed utilizing2-D and 3-D asan-lp-rcwarw technique. Axial T1 fat sat images of the neck alsoobtained for dissection protocol. No prior studies are available for comparison. Findings: MR angiography of the head demonstrates normal anterior andposterior circulation. 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 No medium or large size aneurysmsare seen in the [place]. Please note that MRA may [...] documented in this encounter Visit Diagnoses Diagnosis Aural vertigo, unspecified ear Dissection of carotid artery ([facility]) Dissection of carotid artery Cerebral aneurysm, nonruptured documented in this encounter Care Teams Dairy Department Manager Relationship Specialty Start Date End Date Asher Zambrano DO [address], [facility] [address] [place] [address] PCP - General 07/10/17 documented as of this encounter
--- OUTSIDE RECORDS SUMMARY | 2024-03-28 21:25 | XMS_ITS | Encounter Summary ---
Author Organization [facility] Address [address] [place] [address] Care Team Providers Care Borderer Name Role Phone Unavailable Primary Care Provider Unavailabl e Encounter Details Date Type Department Care Team (Late st Contact Info) Description 12/24/2011 3:16 PM EDT Hospital Encounter [facility] Historical Outpatient Asher Zambrano, DO [address], [address] [place] [address] Social History Tobacco Use Types Packs/Day Years [...]
--- OUTSIDE RECORDS SUMMARY | 2024-03-28 21:25 | XMS_ITS | Encounter Summary ---
Author Organization [facility] Address [address] [place] [address] Care Team Providers Care Electrical Products Sales Engineer Name Role Phone Unavailable Primary Care Provider Unavailabl e Encounter Details Date Type Department Care Team (Late st Contact Info) Description 09/30/2006 5:16 PM EDT Hospital Encounter [facility] Historical Outpatient Bjorn Franco MD [address] [place] [address] Social History Tobacco Use Types Packs/Day Years [...]
--- OUTSIDE RECORDS SUMMARY | 2024-03-28 21:25 | XMS_ITS ---
Author Organization [facility] Address [address] [place] [address] Care Team Providers Care Media Relations Manager Name Role Phone Asher Zambrano DO Primary Care Provider CADEN Burton Unavailable [phone] REASON FOR VISIT CPAP Encounters Encounter Location Date Provider Diagnosis [facility] [address] [place] [address] 12/31/2022 CADEN MOHAMUD Plan Of Treatment No Information Progress Notes * KALEB ENGOB:[birth year] (72 yo M)Acc No.[id number]:12/31/2022 Patient:?CASEY ENGENCE :1950???Age:72 Y???Sex:Male [address] [place], [address] * true * Date:? Generated for Otonieli keyona/Rusty/eTransmitting on:?03/28/2024 09:22 PM EDT
--- OUTSIDE RECORDS SUMMARY | 2024-03-28 21:25 | XMS_ITS | Encounter Summary ---
Author Organization [facility] Address [address] [place] [address] Care Team Providers Care Putty Remover Name Role Phone Unavailable Primary Care Provider Unavailabl e Encounter Details Date Type Department Care Team (Late st Contact Info) Description 02/09/1996 9:39 AM EDT Hospital Encounter [facility] Historical Outpatient Karl Peña MD [address] [place] [address] [place] [address] Social History Tobacco Use Types Packs/Day Years [...]
--- OUTSIDE RECORDS SUMMARY | 2024-03-28 21:25 | XMS_ITS | Encounter Summary ---
Author Organization [facility] Address [address] [place] [address] Care Team Providers Care Land Agent Name Role Phone Asher Zambrano DO Primary Care Provider [phone] Reason for Referral * MRI/CAT/PET Scan (Routine) - Closed Specialty Diagnoses / Procedures Referred By Chelle t Referred To Contact Radiology Diagnoses Aural vertigo, unspecified ear Dissection of carotid artery (CMS/HCC) Cerebral aneurysm, nonruptured Procedures MRI ANGIOGRAM HEAD WITHOUT CONTRAST Julia Smith MD [address] [place] [address] Phone: tel: fax: Referral ID Status Reason Start Date Expiration Date Visits Re quested Visits Authorized [id number] Closed 04/30/2022 04/30/2023 1 1 Reason for Visit * MRI/CAT/PET Scan (Routine) - Closed Specialty Diagnoses / Procedures Referred By Contac t Referred To Contact Radiology Diagnoses Aural vertigo, unspecified ear Dissection of carotid artery (CMS/HCC) Cerebral aneurysm, nonruptured Procedures MRI ANGIOGRAM HEAD WITHOUT CONTRAST Julia Smith MD [address] [place] [address] Phone: tel: fax: Referral ID Status Reason Start Date Expiration Date Visits Re quested Visits Authorized [id number] Closed 04/30/2022 04/30/2023 1 1 Encounter Details Date Type Department Care Team (Late st Contact Info) Description 05/18/2022 9:02 AM EST - 05/18/2022 9:05 AM EST Hospital Encounter [facility] [address] - Radiology [address] [place] [address] Julia Smith MD [address] [place] [address] Aural vertigo, unspecified ear; Dissection of carotid [...] Priority Date/Time Associated Diagnosis Comments MRI ANGIOGRAM HEAD WO CONTRAST Routine 05/18/2022 9:54 AM EST Aural vertigo, unspecified ear Dissection of carotid artery (CMS/HCC) Cerebral aneurysm, nonruptured documented in this encounter Results * MRI ANGIOGRAM HEAD WITHOUT CONTRAST (05/18/2022 [...] without contrast Technique: An MRA of the [place] was performed utilizing a 3D kwvl-bm-vzzvmk technique. ??MRA of the neck was also performed utilizing 2-D and 3-D nnbk-gm-wnpltu technique. ??Axial T1 fat sat images of the neck also obtained for dissection protocol. No prior studies are available for comparison. Findings: MR angiography of the head demonstrates normal anterior and posterior circulation. ?? 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 ??No medium or large size aneurysms are seen in the [place]. ??Please note that MRA may [...] without contrast Technique: An MRA of the [place] was performed utilizing a 3D obde-qo-ysiiqx technique. MRA of the neck was also performed utilizing2-D and 3-D bzbx-ba-mnzbab technique. Axial T1 fat sat images of the neck alsoobtained for dissection protocol. No prior studies are available for comparison. Findings: MR angiography of the head demonstrates normal anterior andposterior circulation. 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 No medium or large size aneurysmsare seen in the [place]. Please note that MRA may [...] vertigo, unspecified ear Dissection of carotid artery ([facility]) Dissection of carotid artery Cerebral aneurysm, nonruptured documented in this encounter Care Teams Land Agent Relationship Specialty Start Date End Date Asher Zambrano DO [address] [facility] [address] [place] [address] PCP - General 07/10/17 documented as of this encounter
--- OUTSIDE RECORDS SUMMARY | 2024-03-28 21:25 | XMS_ITS | Encounter Summary ---
Author Organization [facility] Address [address] [place] [address] Care Team Providers Care Correctional Officer Chief Name Role Phone Unavailable Primary Care Provider Unavailabl e Encounter Details Date Type Department Care Team (Late st Contact Info) Description 12/13/1995 4:00 PM EDT Hospital Encounter [facility] Historical Outpatient Karl Peña MD [address] [place] [address] [place] [address] Social History Tobacco Use Types Packs/Day Years [...]
--- OUTSIDE RECORDS SUMMARY | 2024-03-28 21:25 | XMS_ITS | Encounter Summary ---
Author Organization [facility] Address [address] [place] [address] Care Team Providers Care Information Systems Security Developer Name Role Phone Asher Zambrano DO Primary Care Provider [phone]- [phone] Reason for Referral * MRI/CAT/PET Scan (Routine) - Closed Specialty Diagnoses / Procedures Referred By Mario Albertoac t Referred To Contact Radiology Diagnoses Aural vertigo, unspecified ear Dissection of carotid artery (CMS/HCC) Cerebral aneurysm, nonruptured Procedures MRI BRAIN WITHOUT CONTRAST Julia Smith MD [address] [facility] [address] [place] [address] Phone: tel: fax: Referral ID Status Reason Start Date Expiration Date Visits Re quested Visits Authorized [id number] Closed 04/30/2022 04/30/2023 1 1 Reason for Visit * MRI/CAT/PET Scan (Routine) - Closed Specialty Diagnoses / Procedures Referred By Contac t Referred To Contact Radiology Diagnoses Aural vertigo, unspecified ear Dissection of carotid artery (CMS/HCC) Cerebral aneurysm, nonruptured Procedures MRI BRAIN WITHOUT CONTRAST Julia Smith MD [address] [facility] [address] [place] [address] Phone: tel: fax: Referral ID Status Reason Start Date Expiration Date Visits Re quested Visits Authorized [id number] Closed 04/30/2022 04/30/2023 1 1 Encounter Details Date Type Department Care Team (Late st Contact Info) Description 05/18/2022 9:06 AM EST - 05/18/2022 1:52 PM EST Hospital Encounter [facility] 101 Bld[address]. - Radiology [address] [place] [address] Julia Smith MD [address] [place] [address] [place] [address] Aural vertigo, unspecified ear; Dissection of carotid [...] g 2 (two) times a day. 2 ezetimibe-simvastatin (VYTORIN) 10-40 mg per tablet [...] Priority Date/Time Associated Diagnosis Comments MRI BRAIN WO CONTRAST Routine 05/18/2022 10:01 AM EST Aural vertigo, unspecified ear Dissection of carotid artery (CMS/HCC) Cerebral aneurysm, nonruptured documented in this encounter Results * MRI BRAIN WITHOUT CONTRAST (05/18/2022 10:01 [...] without contrast Technique: An MRA of the [place] was performed utilizing a 3D kwcs-wj-rbvwdk technique. ??MRA of the neck was also performed utilizing 2-D and 3-D rnvi-ea-tfuedj technique. ??Axial T1 fat sat images of the neck also obtained for dissection protocol. No prior studies are available for comparison. Findings: MR angiography of the head demonstrates normal anterior and posterior circulation. ?? 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 ??No medium or large size aneurysms are seen in the [place]. ??Please note that MRA may [...] without contrast Technique: An MRA of the [place] was performed utilizing a 3D rgeh-ld-occbzv technique. MRA of the neck was also performed utilizing2-D and 3-D rouq-ys-qljfux technique. Axial T1 fat sat images of the neck alsoobtained for dissection protocol. No prior studies are available for comparison. Findings: MR angiography of the head demonstrates normal anterior andposterior circulation. 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 No medium or large size aneurysmsare seen in the [place]. Please note that MRA may [...] vertigo, unspecified ear Dissection of carotid artery ([facility]) Dissection of carotid artery Cerebral aneurysm, nonruptured documented in this encounter Care Teams Information Systems Security Developer Relationship Specialty Start Date End Date Asher Zambrano DO [address], [facility] [address] [place] [address] PCP - General 07/10/17 documented as of this encounter
--- OUTSIDE RECORDS SUMMARY | 2024-03-28 21:25 | XMS_ITS | Clinical Summary ---
Author Organization [facility] Address [address] [place] [address] Care Team Providers Care Medical Records Receptionist Name Role Phone Asher Zambrano DO Primary [...] for 3 days 11 Tab 12/08/2016 Active Surgical History Surgery Date Site/Laterality Comments FRACTURE SURGERY Medical History Medical History Date Comments Hypertension Social History Tobacco Use Types Packs/Day Years Used Date Smoking Tobacco: Former Cigarettes 1 10 0 07/12/1974 - 07/12/1984 Smokeless Tobacco: Never Alcohol Use Standard Drinks/Week Comments Yes 2 (1 standard drink = 0.6 oz pur e alcohol) Sex and Gender Information Value Date Recorded Sex Assigned at Not on file Gender Identity Not on file Sexual Orientation Not on file Obstetrics History Last Filed Vital Signs Vital Sign Reading Time Taken Comments Blood Pressure 125/69 12/08/2016 1119 EDT Pulse 87 12/08/2016 1119 EDT Temperature 36.7 ??C (98 ??F) 12/08/2016 1119 EDT Respiratory Rate 16 12/08/2016 1119 EDT Oxygen Saturation 97% 08/23/2012 1231 EST Inhaled Oxygen Concentration - - Weight - - Height - - Body Mass Index - - Plan of Treatment Health Maintenance Due Date Last Done Comments Hepatitis C Screen 1950 RSV Immunization ( o r 60+ Years) (1 - 1-dose 60+ series) 2011 Fall Risk Screening 2016 COVID-19 Vaccine (2022-24 season) 2023 Care Teams Medical Records Receptionist Relationship Specialty Start Date End Date Asher Zambrano DO PCP - General 12/08/16
--- OUTSIDE RECORDS SUMMARY | 2024-03-28 21:25 | XMS_ITS | Encounter Summary ---
Author Organization [facility] Address [address] [place] [address] Care Team Providers Care Tentmaker Name Role Phone Unavailable Primary Care Provider Unavailabl e Encounter Details Date Type Department Care Team (Late st Contact Info) Description 03/08/2007 7:04 AM EDT Hospital Encounter [facility] Historical Outpatient Asher Zambrano, DO [address], [place] [address] [place] [address] Social History Tobacco Use Types Packs/Day Years [...]
--- OUTSIDE RECORDS SUMMARY | 2024-03-28 21:25 | XMS_ITS | Encounter Summary ---
Author Organization [facility] Address [address] [place] [address] Care Team Providers Care Solution Mixer Name Role Phone Unavailable Primary Care Provider Unavailabl e Encounter Details Date Type Department Care Team (Late st Contact Info) Description 05/17/2012 11:32 AM EST Hospital Encounter [facility] Historical Outpatient Asher Zambrano, DO [address], [place] [address] [place] [address] Social History Tobacco Use Types Packs/Day Years [...]
--- OUTSIDE RECORDS SUMMARY | 2024-03-28 21:25 | XMS_ITS | Encounter Summary ---
Author Organization [facility] Address [address] [place] [address] Care Team Providers Care Record Pressman Name Role Phone Unavailable Primary Care Provider Unavailabl e Encounter Details Date Type Department Care Team (Late st Contact Info) Description 05/28/2017 8:05 AM EST Hospital Encounter [facility] Historical Outpatient Gian Castro MD [address] [facility]th [place] [address] Social History Tobacco Use Types Packs/Day Years [...] Procedure Name Priority Date/Time Associated Diagnosis Comments XRAY SCAN DOCUMENT 05/28/2017 12 :00 AM EST US PELVIS LIMITED TRANSABDOMINAL ONLY Routine 05/28/2017 documented in this encounter Results * XRAY SCAN DOCUMENT (05/28/2017 12:00 AM EST) Anatomical Region Laterality Modality Spine, L-spine Other [...] MALDONADO M.D.:May 28 2017 ??9:42A CPT Code: 13997 Procedure Note Provider, MD Ghislaine - 07/29/2017 [...] MALDONADO M.D.:May 28 2017 9:42A CPT Code: 48122 us Gian Castro MD IMG US PROCEDURES Final Resul t documented in this encounter Visit Diagnoses Not on filedocumented in this encounter
--- OUTSIDE RECORDS SUMMARY | 2024-03-28 21:25 | XMS_ITS | Encounter Summary ---
Author Organization [facility] Address [address] [place] [address] Care Team Providers Care Preparer Samples And Repairs Name Role Phone Unavailable Primary Care Provider Unavailabl e Encounter Details Date Type Department Care Team (Late st Contact Info) Description 12/25/1997 7:53 AM EDT Hospital Encounter [facility] Historical Outpatient Karl Peña MD [address] [place] [address] [place] [address] Social History Tobacco Use Types Packs/Day Years [...]
--- OUTSIDE RECORDS SUMMARY | 2024-03-28 21:25 | XMS_ITS | Encounter Summary ---
Author Organization [facility] Address [address] [place] [address] Care Team Providers Care Telegraphic Typewriter Repairer Name Role Phone Unavailable Primary Care Provider Unavailabl e Encounter Details Date Type Department Care Team (Late st Contact Info) Description 05/16/2012 4:39 PM EST Hospital Encounter [facility] Historical Outpatient Asher Zambrano, DO [address], [place] [address] [place] [address] Social History Tobacco Use Types Packs/Day Years [...]
--- OUTSIDE RECORDS SUMMARY | 2024-03-28 21:25 | XMS_ITS | Encounter Summary ---
Author Organization [facility] Address [address] [place] [address] Care Team Providers Care Steel Checker Name Role Phone Asher Zambrano DO Primary Care Provider +1- [phone] Reason for Referral * Sleep Studies (Routine) - Closed Specialty Diagnoses / Procedures Referred By Chelle villaseñor Referred To Contact Sleep Medicine Diagnoses JAGJIT (obstructive sleep apnea) Procedures Home sleep test Asher Zambarno DO [address] [place] [address] [place] [address] Phone: tel: fax: Referral ID Status Reason Start Date Expiration Date Visits Re quested Visits Authorized [id number] Closed 03/30/2022 03/30/2023 1 1 Reason for Visit * Sleep Studies (Routine) - Closed Specialty Diagnoses / Procedures Referred By Chelle villaseñor Referred To Contact Sleep Medicine Diagnoses JAGJIT (obstructive sleep apnea) Procedures Home sleep test Asher Zambrano DO [address] [place] [address] [place] [address] Phone: tel: fax: Referral ID Status Reason Start Date Expiration Date Visits Re quested Visits Authorized [id number] Closed 03/30/2022 03/30/2023 1 1 Encounter Details Date Type Department Care Team (Late st Contact Info) Description 05/18/2022 1:53 PM EST - 05/18/2022 11:59 PM EST Hospital Encounter [facility] [address] [place] [address] Asher Zambrano, DO [address] [place] [address] [place] [address] JAGJIT (obstructive sleep apnea) Discharge Disposition: Home Social History Tobacco Use [...] Procedure Name Priority Date/Time Associated Diagnosis Comments HOME SLEEP APNEA TEST Routine 05/21/2022 9:04 PM EST JAGJIT (obstructive sleep apnea) documented in this encounter Results * HOME SLEEP APNEA TEST (05/21/2022 9:04 PM EST) Narrative OTHER - 06/01/2022 2:01 PM EST Table formatting from the original result was not included. Images from the original result were not included. [facility] All fully accredited by [employer] Home Sleep Apnea Test ? Patient: Nirmal Puri : 1950 Gender: Male Age: 71 y.o. Height: 1.778 m (5' 10) Date of Study: 05/21/2022 Weight: 106 kg (233 lb) ??BMI: Body mass index is 33.43 kg/m??. Referring Provider: Asher Zambrano DO [address] [place] [address] [place], ??[place] [address] Medical History: Asthma Obesity Obstructive Sleep Apnea [...] latest recommended standards put forth by the [employer]. The rule used for scoring hypopneas is 1B. The peak signal excursions of the hypopnea sensor drops by >= 30% of pre-event baseline for a duration of >= 10 seconds, and there is >=4% oxygen desaturation from pre-event baseline. Asher Zambrano DO SLEEP CENTER ORDERABLES Fin al Result OTHER documented in this encounter Visit Diagnoses Diagnosis JAGJIT (obstructive sleep apnea) Obstructive sleep apnea (adult) (pediatric) documented in this encounter Care Teams Steel Checker Relationship Specialty Start Date End Date Asher Zambrano DO [address], [facility] [address] [place] [address] PCP - General 07/10/17 documented as of this encounter
--- OUTSIDE RECORDS SUMMARY | 2024-03-28 21:25 | XMS_ITS | Encounter Summary ---
Author Organization [facility] Address [address] [place] [address] Care Team Providers Care Kettle Fry Cook Operator Name Role Phone Unavailable Primary Care Provider Unavailabl e Encounter Details Date Type Department Care Team (Late st Contact Info) Description 05/01/2010 9:06 AM EDT Hospital Encounter [facility] Historical Outpatient Donavon Kelly MD [address] [place] [address] Social History Tobacco Use Types Packs/Day Years [...]
--- OUTSIDE RECORDS SUMMARY | 2024-03-28 21:25 | XMS_ITS | Encounter Summary ---
Author Organization [facility] Address [address] [place] [address] Care Team Providers Care Ground Crewman Name Role Phone Unavailable Primary Care Provider Unavailabl e Encounter Details Date Type Department Care Team (Late st Contact Info) Description 04/14/2017 7:01 AM EDT Hospital Encounter [facility] Historical Outpatient Dante Hall MD [address] [facility] [address] [place] [address] Social History Tobacco Use Types Packs/Day Years [...] Date/Time Associated Diagnosis Comments XRAY SCAN DOCUMENT 04/14/2017 12 :[address] ABDOMEN PELVIS WO IV CONTRAST Routine 04/14/2017 documented in this encounter Results * XRAY SCAN DOCUMENT (04/14/2017 12:00 AM EDT) Anatomical Region Laterality Modality Spine, L-spine Other Narrative 04/14/2017 12:00 AM EDT Ordered by an unspecified provider. us Provider Scan MD KANG SCANNED ORDERS Final Result * CT ABDOMEN PELVIS WITHOUT IV CONTRAST (04/14/2017) Anatomical Region Laterality Modality Body Computed Tomogra phy 04/14/2017 Narrative 04/14/2017 12:00 AM EDT CAT SCAN - Apr?2016 ??8:27AM ??- ??CT ABD AND PELVIS W/O [...] diverticulosis. 3. ??Hepatic steatosis. Transcribed by: n/a :Apr ??2016 ??9:10A Dictated by: SHELLY MCKENZIE MD:Apr?2016 ??9:10A Dictation signed by:SHELLY MCKENZIE MD:Apr ??2016 ??9:19A CPT Code: 54469 Procedure Note Provider, MD Ghislaine - 07/29/2017 [...] MCKENZIE MD:Apr 14 2017 9:19A CPT Code: 26039 Dante Hall MD IM CT PROCEDURES Final Result documented in this encounter Visit Diagnoses Not on filedocumented in this encounter
--- OUTSIDE RECORDS SUMMARY | 2024-03-28 21:25 | XMS_ITS | Encounter Summary ---
Author Organization [facility] Address [address] [place] [address] Care Team Providers Care Greenhouse Worker Name Role Phone Asher Zambrano DO Primary Care Provider [phone]- [phone] Reason for Referral * MRI/CAT/PET Scan (Routine) - Closed Specialty Diagnoses / Procedures Referred By Contac t Referred To Contact Radiology Diagnoses Spinal stenosis, lumbar region without neurogenic claudication Spinal stenosis, thoracic region Procedures MRI THORACIC SPINE WITHOUT CONTRAST Julia Smith MD [address] [facility] [address] [place] [address] Phone: tel: fax: Referral ID Status Reason Start Date Expiration Date Visits Re quested Visits Authorized [id number] Closed 05/22/2022 05/22/2023 1 1 Reason for Visit * MRI/CAT/PET Scan (Routine) - Closed Specialty Diagnoses / Procedures Referred By Contac t Referred To Contact Radiology Diagnoses Spinal stenosis, lumbar region without neurogenic claudication Spinal stenosis, thoracic region Procedures MRI THORACIC SPINE WITHOUT CONTRAST Julia Smith MD [address] [place] [address] [place] [address] Phone: tel: fax: Referral ID Status Reason Start Date Expiration Date Visits Re quested Visits Authorized [id number] Closed 05/22/2022 05/22/2023 1 1 Encounter Details Date Type Department Care Team (Late st Contact Info) Description 06/08/2022 9:39 AM EST - 06/08/2022 10:59 AM EST Hospital Encounter [facility] [address] - [facility] [address] [facility] [place] [address] Julia Smith MD [address] [place] [address] [place] [address] Spinal stenosis, lumbar region without neurogenic claudication; [...] Name Priority Date/Time Associated Diagnosis Comments MRI THORACIC SPINE WO CONTRAST Routine 06/08/2022 10:47 AM EST Spinal stenosis, lumbar region without neurogenic claudication Spinal stenosis, thoracic region documented in this encounter Results * MRI THORACIC SPINE WITHOUT CONTRAST (06/08/2022 [...] region documented in this encounter Care Teams Greenhouse Worker Relationship Specialty Start Date End Date Asher Zambrano DO [address], [facility] [address] [place] [address] PCP - General 07/10/17 documented as of this encounter
--- OUTSIDE RECORDS SUMMARY | 2024-03-28 21:25 | XMS_ITS ---
Author Organization [facility] Address [address] [facility] [address] [place] [address] Care Team Providers Care Moisture Machine Tender Name Role Phone Asher Zambrano DO Primary Care Provider CADEN Burton Unavailable [phone] GERRI JAMIL Unavailable [phone] Allergies Allergen (clinical drug ingredient) Drug/Non Drug Allergy documented on EMR Reaction Allergy Type Onset Date Status bee stings (uncoded) hives , wheezing Allergy Active Shellfish (FN) shellfish (uncoded) hives Allergy Active REASON FOR VISIT 1YR F/U JAGJIT KM Medications Medication SIG (Take, Route, Frequency, Duration) Notes Start Date End Date Status Meloxicam 15 MG 1 tablet Orally Once a day for 30 day(s) Active Tricor 145 MG 1 tablet Orally Once a day Active Diovan HCT 160-12.5 MG 1 tablet Orally O nce a day for 30 day(s) Active Vascepa 2 Tablets Active Ezetimibe-Simvastatin 10-40 MG 1 tablet Orally Once a day Active Rosuvastatin Calcium 40 MG 1 tablet Orally Once a day Active Veramyst 27.5 MCG/SPRAY 1 puff in each n ostril Nasally Once a day Active Vital Signs Heart Rate 80 /min 03/31/2023 Height 70 in 03/31/2023 Weight 181 lbs 03/31/2023 BMI 25.97 kg/m2 03/31/2023 Oximetry 95 % 03/31/2023 Encounters Encounter Location Date Provider Diagnosis [facility] SLEEP [facility] [address] [id number] 03/31/2023 GERRI JAMIL JAGJIT (obstructive sleep apnea) G47.33 Assessments Encounter [...] a PCP, please call or go to [email or web address] for a list of Primary Care Physicians. A total of 45 minutes was spent performing this encounter on this date of service. My evaluation of this patient, including a review of the chart notes, consultative discussions, history, laboratory and imaging finding, discussion with the patient, planning/placing orders, and documentation as detailed above. Plan Of Treatment Treatment Notes Assessment Notes JAGJIT (obstructive sleep apnea) Despite his difficulties with CPAP (as above, [...] as he can tolerate in the interim. Other [facility] strongly recommends that you [...] a PCP, please call or go to [email or web address] for a list of Primary Care Physicians. A total of 45 minutes was spent performing this encounter on this date of service. My evaluation of this patient, including a review of the chart notes, consultative discussions, history, laboratory and imaging finding, discussion with the patient, planning/placing orders, and documentation as detailed above. Next Appt Details Follow Up: To be determined, with consideration as to whether or not he is to proceed with the Inspire approach., Reason: Progress Notes * KALEB ENGOB:[birth year] (72 yo M)Acc No.[id number]:03/31/2023 Progress Note Patient:?AUTUMN ENG Provider:?Gerri Jamil MD :1950???Age:72 Y???Sex:Male Carlos Enrique e:03/31/2023 Address:[address] [place] [address] Pcp:Asher Zambrano, DO Subjective: * Chief Complaints: * ???1YR F/U JAGJIT KM * HPI: ???Today's visit:? I saw Autumn Eng again on March 31, 2023 for assessment of treatment for sleep apnea. He has lost about 40 pounds since May 2022, while taking Ozempic. He is feeling quite well at this lower weight, now having stabilized. He says there was much improvement in his snoring, according to his , and he continues to deny daytime sleepiness, with [place] Sleepiness Scale score of 4/24. ?His home sleep study on November 23, 2022 demonstrated moderate sleep apnea, with AHI of 18.3/hr, significant improvement from the AHI of approximately 30/h on prior home sleep tests when he was heavier), however he did have significant falls and oxygen saturation with a clustered appearance that again suggested quite significant sleep apnea during REM sleep, even though sleep staging is not part of the home sleep testing procedure. During the last part of the night, he had essentially no sleep disordered breathing, and I suspect that he was awake, something that would have lowered his actual apnea-hypopnea index. ?He agreed to a trial of auto titrating CPAP. Initial results were read by an air leak when using his nasal mask, so he switched to a full facemask with much improvement in this factor. In fact downloaded data appears to show very good results as regards adherence and effectiveness, with low airleak. However, he insists that he is awake much of the time throughout the night, unable to return to sleep with CPAP in place. He says I hate it, and he certainly has had only minimal improvement clinically since he began using CPAP. His blood pressure has improved and he is now off medications, but he attributes this to his significant weight loss. ?06/09/2022 visit: ?It was my pleasure to see Autumn Eng on June 09, 2022 for assessment of treatment options for severe sleep apnea, particularly the possibility of treatment with the Inspire technique for hypoglossal stimulation. ? He was diagnosed with moderate sleep apnea (AHI 24/h) in 2013 and was started on CPAP, with a wide pressure range, that was then revised to a pressure range of 10-18 cm of water pressure, since he spent very little time with pressures less than 10 cm and topped out for brief periods at 16 cm of water pressure, as had been originally prescribed. The change did not prove helpful, and he often felt that he was having difficulty falling asleep because of high CPAP pressures. He now uses CBD to help fall asleep at night. In addition his complained about noisiness of the machine, and he traveled frequently, and was unwilling to pack it along with him. ?He does admit to a modest degree of benefit when able to use CPAP, but he abandoned efforts after approximately 6 months. He continues to have loud snoring and frequent awakenings at night, sometimes with coughing episodes that typically occur about 1 one half hours after falling asleep. On the other hand, he feels rested in the mornings and only has mild daytime sleepiness at times, with an overall rating of 4/24 on the [place] Sleepiness Scale. ?Overall health has been good, while taking medications for hypertension and hypercholesterolemia. He says he has hayfever type allergies to dust mites, which is somewhat bothersome at times for him. He also has arthritis that causes him to typically sleep in the supine position. ?11/26/2013 visit to Pulmonology: ?The cough is 50% better and overall he feels better. He has been compliant with his CPAP but he doesn't feel improvement like he would like. On reviewing the compliance record : he gets 4-6 Hrs sleep but still has snore vibrations and recurrent events. The pressure starts at 5 and eventually gets to 15 cm in the last 2 hrs of sleep. * ROS:?General/Constitutional:?Patient denies?fever, chills, night sweats.?Sleep:?excessive daytime sleepiness?denies; 11/02 on the [place] Sleepiness Scale.?Allergy/Immunology:?Patient denies?rash, itching.?Ophthalmologic:?Patient denies?diminished visual acuity.?ENT:?Patient denies?sore throat, sinus pain.?Cardiovascular:?Patient denies?chest pain at rest or with exertion, palpitations, orthopnea, PND.?Gastrointestinal:?Patient denies?abdominal pain, nausea, vomiting.?Musculoskeletal:?Patient denies?muscle aches, swollen joints.?Neurologic:?Patient denies?headache, dizziness.?Psychiatric:?Patient denies?depressed mood.? * Medical History:? * Surgical History:?tonsillect jacob and adenoidectomy 1960arthroscopic knee surgery (right) 1989 biopsy of colon 2009 * Hospitalization/Major Diagno stic Procedure:? * Family History:?Father: 63 y rs, lung cancer.?Mother: 87 yrs, brain aneurysm.?4 sister(s) - healthy. 1 son(s) , 1 daughter(s) - healthy. .? * Social History:?Tobacco Use:?Tobacco Use/Smoking?Are you a: former smoker , How long has it been since you last smoked?: > 10 years.?Packs per Day: /. * Medications:?TakingRosuvasta tin Calcium 40 MG Tablet 1 tablet Orally Once a dayTricor 145 MG Tablet 1 tablet Orally Once a dayMeloxicam 15 MG Tablet 1 tablet Orally Once a dayEzetimibe-Simvastatin 10-40 MG Tablet 1 tablet Orally Once a dayVascepa , Notes: 2 TabletsDiovan HCT 160-12.5 MG Tablet 1 tablet Orally Once a dayVeramyst 27.5 MCG/SPRAY Suspension 1 puff in each nostril Nasally Once a dayMedication List reviewed and reconciled with the patientTaking Rosuvastatin Calcium 40 MG Tablet 1 tablet Orally Once a dayTaking Tricor 145 MG Tablet 1 tablet Orally Once a dayTaking Meloxicam 15 MG Tablet 1 tablet Orally Once a dayTaking Ezetimibe-Simvastatin 10-40 MG Tablet 1 tablet Orally Once a dayTaking Vascepa , Notes: 2 TabletsTaking Diovan HCT 160-12.5 MG Tablet 1 tablet Orally Once a dayTaking Veramyst 27.5 MCG/SPRAY Suspension 1 puff in each nostril Nasally Once a dayMedication List reviewed and reconciled with the patient * Allergies:?shellfish: hivesb ee stings: hives , wheezingno[Allergies Verified] Objective: * Vitals:?Ht:70 in, Wt:181, BM I:25.97, Oxygen sat %:95, HR:80. * Examination: ???General Examination: ?GENERAL:?alert-in no acute distress.?EARS:?tympanic membrane intact, clear.?NOSE:?turbinates pale and swollen.?THROAT:?Normal size tongue, normal palatal width.. Mallanpatti Score III.?LYMPH NODES:?no palpable cervical or supraclavicular adenopathy.?HEART:?regular rate and rhythm-S1, S2 normal.?LUNGS:?clear to auscultation bilaterally.?CHEST:?normal shape and expansion.?ABDOMEN:?soft, nontender, nondistended.?EXTREMITIES:?no clubbing, cyanosis, or edema.?NEUROLOGIC:?nonfocal.?Sleep Studies: ?Type of Study?HSAT; Accusom.?Study Date?11/22/2022; 11/23/2022.?Interpretation?moderate sleep apnea; mild sleep apnea (4% desaturation rule).?AHI was?18.9; 13.4.?Oxyhemoglobin Desaturation Cisco was?78%; 83%.?observations?05/18/2022 Home Sleep Test and 05/18/2013 Home Sleep Tests had AHI's of 30 and 26, respectively.?supine AHI/ nonsupine AHI? Entire recording in the supine position.?Unit Download: ?Date Range? 75?nights.?Percentage Used Days was? 96.?Percentage days used greater than 4 hours? 96.?AHI? 0.9.?Leak level was? Low.?Nightly usage in hours? 6 hr, 52 min.?95th percentile pressure? 10.9 cm H20.?pressure setting? 5-18 cm H2O.? Assessment: * Assessment: 1.?JAGJIT (obstructive sleep ap valdez) - G47.33 (Primary), Moderate JAGJIT, with findings somewhat improved due [...] have lessen the apparent severity of sleep apnea.In any case, I am convinced that he should be treated, and I believe he is convinced of this as well.? Plan: * Treatment: 2.?Others? Notes: [facility] strongly recommends that you visit [...] a PCP, please call or go to [email or web address] for a list of Primary Care Physicians. A total of 45 minutes was spent performing this encounter on this date of service. My evaluation of this patient, including a review of the chart notes, consultative discussions, history, laboratory and imaging finding, discussion with the patient, planning/placing orders, and documentation as detailed above.?? * Procedure Codes:? * Follow Up:?To be determined, with consideration as to whether or not he is to proceed with the Inspire approach. * * Sign off status: Completed true * Provider:?Gerri Jamil MD Date:? Generated for Boogie rand/Rusty/eTransmitting on:?03/28/2024 09:21 PM EDT History and Physical Notes * Examination Category Sub-Category Detail Notes General Examination GENERAL: alert-in no acute distress EARS: tympanic membrane in tact, clear NOSE: turbinates pale and swollen THROAT: Normal size tongue, normal palatal width.. Mallanpatti Score III HEART: regular rate and rhy thm-S1, S2 normal CHEST: normal shape and exp ansion LUNGS: clear to auscultatio n bilaterally ABDOMEN: soft, nontender, non distended NEUROLOGIC: nonfocal EXTREMITIES: no clubbing, cyanosi s, or edema LYMPH NODES: no palpable cervical or supraclavicular adenopathy Sleep Studies Interpretation moderate sleep a pnea; mild sleep apnea (4% desaturation rule) AHI was 18.9; 13.4 REM AHI was Oxyhemoglobin Desaturation Cisco was 78% ; 83% Periodic Limb Movement Index was observations 05/18/2022 Home Sleep Test and 05/18/2013 Home Sleep Tests had AHI's of 30 and 26, respectively Study Date 11/22/2022; 11/23/2022 Type of Study HSAT; Accusom supine AHI/ nonsupine AHI Entire recordi ng in the supine position Unit Download Percentage Used Days was 96 Percentage days used greater than 4 hour s 96 AHI 0.9 Leak level was Low Date Range 75 nights Nightly usage in hours 6 hr, 52 min 95th percentile pressure 10.9 cm H20 pressure setting 5-18 cm H2O
--- OUTSIDE RECORDS SUMMARY | 2024-03-28 21:25 | XMS_ITS | Encounter Summary ---
Author Organization [facility] Address [address] [place] [address] Care Team Providers Care Mill Attendant Name Role Phone Unavailable Primary Care Provider Unavailabl e Encounter Details Date Type Department Care Team (Late st Contact Info) Description 10/08/2009 7:37 AM EDT Hospital Encounter [facility] Historical Outpatient Miguel Gómez MD [address] [facility] [address] [place] [address] Social History Tobacco Use Types [...]
--- OUTSIDE RECORDS SUMMARY | 2024-03-28 21:25 | XMS_ITS | Encounter Summary ---
Author Organization [facility] Address [address] [place] [address] Care Team Providers Care Supervisor Toy Assembly Name Role Phone Unavailable Primary Care Provider Unavailabl e Encounter Details Date Type Department Care Team (Late st Contact Info) Description 08/07/2015 12:36 PM EST Hospital Encounter [facility] Historical Ouptatient Data Dante Hall MD [address] [place] [address] Social History Tobacco Use Types Packs/Day Years [...] Date/Time Associated Diagnosis Comments XRAY SCAN DOCUMENT 08/07/2015 12 :00 AM EST US KIDNEYS / BLADDER Routine 08/07/2015 documented in this encounter Results * XRAY SCAN DOCUMENT (08/07/2015 12:00 AM EST) Anatomical Region Laterality Modality Spine, L-spine Other Narrative 08/07/2015 12:00 AM EST Ordered by an unspecified provider. us Provider Scan MD AKNG SCANNED ORDERS Final Result * ULTRASOUND KIDNEYS [...] ?? Aug 07 2015 ??1:44P CPT Code: 29420 Procedure Note Provider, MD Ghislaine - 07/29/2017 [...] : Aug 07 2015 1:44P CPT Code: 54508 us Dante Hall MD IMG US PROCEDURES Final Result documented in this encounter Visit Diagnoses Not on filedocumented in this encounter
--- OUTSIDE RECORDS SUMMARY | 2024-03-28 21:25 | XMS_ITS | Encounter Summary ---
Author Organization [facility] Address [address] [place] [address] Care Team Providers Care Berry Picker Name Role Phone Unavailable Primary Care Provider Unavailabl e Encounter Details Date Type Department Care Team (Late st Contact Info) Description 04/01/2007 12:31 PM EDT Hospital Encounter [facility] Historical Outpatient Asher Zambrano, DO [address], [address] [place] [address] Social History Tobacco Use Types Packs/Day Years [...]
--- OUTSIDE RECORDS SUMMARY | 2024-03-28 21:25 | XMS_ITS ---
Author Organization [facility] Address [address] [facility] [address] [place] [address] Care Team Providers Care X Ray Physician Name Role Phone Asher Zambrano DO Primary Care Provider CADEN Burton Unavailable [phone] GERRI DONIS Unavailable [phone] REASON FOR VISIT Travel Encounters Encounter Location Date Provider [facility] [address] [place] [phone] 02/23/2023 GERRI DONIS Plan Of Treatment No Information Progress Notes * CASEY ENGBEBETOOB:[birth year] (72 yo M)Acc No.[id number]:02/23/2023 Patient:?CASEY ENGENCE :1950???Age:72 Y???Sex:Male Address:[address] [place] [address], [place], [address] * true * Date:? Generated for Printi keyona/Rusty/eTransmitting on:?03/28/2024 09:21 PM EDT
--- OUTSIDE RECORDS SUMMARY | 2024-03-28 21:25 | XMS_ITS | Encounter Summary ---
Author Organization [facility] Address [address] [place] [address] Care Team Providers Care Trial Management Associate Name Role Phone Asher Zambrano DO Primary Care Provider [phone] Reason for Referral * MRI/CAT/PET Scan (Routine) - Closed Specialty Diagnoses / Procedures Referred By Chelle villaseñor Referred To Contact Radiology Diagnoses Benign paroxysmal vertigo of both ears Procedures MRI BRAIN WITH AND WITHOUT CONTRAST Asher Zambrano DO [address] [place] [address] [place] [address] Phone: tel: fax: Referral ID Status Reason Start Date Expiration Date Visits Re quested Visits Authorized [id number] Closed 05/02/2018 10/29/2018 1 1 Reason for Visit * MRI/CAT/PET Scan (Routine) - Closed Specialty Diagnoses / Procedures Referred By Chelle villaseñor Referred To Contact Radiology Diagnoses Benign paroxysmal vertigo of both ears Procedures MRI BRAIN WITH AND WITHOUT CONTRAST Asher Zambrano, [address], [facility] [address] [place] [address] Phone: tel: fax: Referral ID Status Reason Start Date Expiration Date Visits Re quested Visits Authorized [id number] Closed 05/02/2018 10/29/2018 1 1 Encounter Details Date Type Department Care Team (Late st Contact Info) Description 05/04/2018 1:50 PM EDT - 05/04/2018 11:59 PM EDT Hospital [facility] - MR [address] [facility] [place] [address] Asher Zambrano, DO [address] [place] [address] Benign paroxysmal vertigo of both ears Discharge Disposition: Home Social History Tobacco Use Types Packs/Day Years Used Date Smoking Tobacco: Never Assessed Sex and Gender Information Value Date Recorded Sex Assigned at Male 11/12/2022 10:35 AM EDT Legal Sex Male 11:11 AM EST Gender Identity Male 11/12/2022 10:35 AM EDT Sexual Orientation Not on file documented as of this encounter Medications at Time of Discharge ezetimibe-simvastatin (VYTORIN) 10-40 mg per tablet Take [...] Comments MRI BRAIN W WO CONTRAST Routine 05/04/2018 2:39 PM EDT Benign paroxysmal vertigo of both ears documented in this encounter Results * MRI BRAIN WITH AND WITHOUT CONTRAST (05/04/2018 2:39 PM EDT) Anatomical Region Laterality Modality Head and Neck [...] Visualized paranasal sinuses: Maxillary sinus mucosal thickening. Asher Zambrano DO IMG MRI PROCEDURES Final Re sult documented in this encounter Visit Diagnoses Diagnosis Benign paroxysmal vertigo of both ears documented in this encounter Administered Medications Inactive Administered Medications - up to 3 most recent administrations Medication Order MAR Action Action Date Dose Rate Site gadobutrol (GADAVIST) solution 0.1 mL/kg 0.1 mL/kg, intravenous, Once in imaging, contrast, Starting on Wed05/04/18 at 1433, For 1 dose Given 05/04/2018 2:33 PM EDT 10 mL documented in this encounter Care Teams Trial Management Associate Relationship Specialty Start Date End Date Asher Zambrano DO [address], [address] [place] [address] PCP - General 07/10/17 documented as of this encounter
--- OUTSIDE RECORDS SUMMARY | 2024-03-28 21:25 | XMS_ITS | Encounter Summary ---
Author Organization [facility] Address [address] [place] [address] Care Team Providers Care Production Wood Craftsman Name Role Phone Unavailable Primary Care Provider Unavailabl e Encounter Details Date Type Department Care Team (Late st Contact Info) Description 11/22/2001 6:18 AM EDT Hospital Encounter [facility] Historical Ouptatient Data Bjorn Martin MD [address] [place], [place] [id number] Social History Tobacco Use Types Packs/Day Years [...]
--- OUTSIDE RECORDS SUMMARY | 2024-03-28 21:25 | XMS_ITS | Encounter Summary ---
Author Organization [facility] Address [address] [place] [address] Care Team Providers Care Director Utilization Management Name Role Phone Unavailable Primary Care Provider Unavailabl e Encounter Details Date Type Department Care Team (Late st Contact Info) Description 09/01/2011 9:21 AM EST Hospital Encounter [facility] Historical Outpatient HallDante MD [address] [place] [address] Social History Tobacco Use Types Packs/Day Years [...]
--- OUTSIDE RECORDS SUMMARY | 2024-03-28 21:25 | XMS_ITS | Encounter Summary ---
Author Organization [facility] Address [address] [place] [address] Care Team Providers Care Ritual Circumciser Name Role Phone Unavailable Primary Care Provider Unavailabl e Encounter Details Date Type Department Care Team (Late st Contact Info) Description 06/03/1998 7:56 AM EST Hospital Encounter [facility] Historical Outpatient Karl Peña MD [address] [place] [address] [place] [address] Social History Tobacco Use Types Packs/Day Years [...]
--- OUTSIDE RECORDS SUMMARY | 2024-03-28 21:26 | XMS_ITS | Encounter Summary ---
Author Organization [facility] Address [address] [place] [address] Care Team Providers Care Lounge Car Attendant Name Role Phone Unavailable Primary Care Provider Unavailabl e Encounter Details Date Type Department Care Team (Late st Contact Info) Description 04/06/2014 Medication CONVERSION LOCATION Social History Tobacco Use Types Packs/Day Years Used Date Smoking Tobacco: Never Assessed Sex and Gender Information Value Date Recorded Sex Assigned at Not on file Legal Sex Male 1:04 AM EDT Gender Identity Not on file Sexual Orientation Not on file documented as of this encounter Progress Notes * CONVERSION PROVIDER - 04/06/2014 3:08 PM EDT Recorded as Task Date: 04/06/2014 10:29 AM, Created By: TERESITA CASILLAS Task Name: Call Back Assigned To: Team 8 Regarding Patient: KADE ENG R, Status: Active Comment: TERESITA CASILLAS - 06 Apr 2014 10:29 AM TASK CREATED Caller: Self; Pharmacy Request; Wants RX for STAXYN 10mg.,called into [phone] Giovana Marc - 06 Apr 2014 3:08 PM TASK EDITED Per Dr. Hall a verbal order for Staxyn 10 mg take as directed #10 with 5 refills called into pt EMR pharmacy. Pt was made aware. Electronically signed by:Giovana Marc Apr 06 2014 3:08PM EST documented in this encounter Plan of Treatment Not on file documented as of this encounter Visit Diagnoses Not on filedocumented in this encounter
--- OUTSIDE RECORDS SUMMARY | 2024-03-28 21:26 | XMS_ITS | Encounter Summary ---
Author Organization [facility] Address [address] [place] [address] Care Team Providers Care Electric Shovel Operator Name Role Phone Asher Zambrano DO Primary Care Provider Reason for Visit * Reason Comments Rash bilateral arms Encounter Details Date Type Department Care Team (Latest Contact Info) Description 12/08/2016 11:06 EDT - 12/08/2016 12:58 EDT Hospital Encounter [facility] - [address] [address] Gina Stephens MD 0 [place] [address] Unknown, ProviderMD Allergic reaction, initial encounter (Primary Dx) Discharge Disposition: Home or Self Care Social History Tobacco Use Types Packs/Day Years [...] on file documented as of this encounter Last Filed Vital Signs Vital Sign Reading Time Taken Comments Blood Pressure 125/69 12/08/2016 1119 EDT Pulse 87 12/08/2016 1119 EDT Temperature 36.7 ??C (98 ??F) 12/08/2016 1119 EDT Respiratory Rate 16 12/08/2016 1119 EDT Oxygen Saturation - - Inhaled Oxygen Concentration - - Weight - - Height - - Body Mass Index - - documented in this encounter Discharge Diagnoses Diagnosis T78.40XA Allergy, unspecified, initial encounter-T78.40XA[ICD-10-CM] documented in this encounter Discharge Instructions * Discharge Instructions* Gina Stephens MD - 12/08/2016 12:54 EDT Due to concern for allergic reaction to your bites please try the below measures: For itching and symptoms, you may start with cetirizine (Zyrtec) or loratadine (Claritin)- one tablet TWICE daily for the next few days to 1 week. ITake ranitidine (Zantac) up to 150 mg twice per day. Take the prednisone taper. If you find your symptoms are not improving on the above treatment, you should follow up with your PCP or return to the Urgent Care. Certainly if you have worsening symptoms including difficulty breathing, chest pain, abdominal pain, swelling of the lips or tongue mouth or other new symptoms you should be reevaluated acutely. Otherwise, follow up with your PCP- you may need further testing if the symptoms are recurrent. * Attachments The following attachments cannot be sent through Care Everywhere. * ALLERGIC REACTION ([place] ISLANDER) documented in this encounter Medications at Time of Discharge Medication Sig Dispensed Refills Start Date End Date albuterol (VENTOLIN HFA) 90 mcg/actuation inhaler Inhale 2 Puffs as directed every 6 hours as needed for Wheezing. 1 Inhaler 0 08/23/2012 AZELASTINE/FLUTICASONE (DYMISTA NASAL) by nasal route. EZETIMIBE/SIMVASTATIN (VYTORIN 10-40 ORAL) Take by mouth. predniSONE (DELTASONE) 20 mg tablet Take 1 Tab by mouth daily. Take 2 tabs daily for 3 days then 1 tab daily for 3 days then half tab daily for 3 days 11 Tab 12/08/2016 valsartan (DIOVAN) 160 mg tablet Take 160 mg by mouth daily. documented as of this encounter Ordered Prescriptions Prescription Sig Dispensed Refills Start Date End Da te predniSONE (DELTASONE) 20 mg tablet Take 1 Tab by mouth daily. Take 2 tabs daily for 3 days then 1 tab daily for 3 days then half tab daily for 3 days 11 Tab 12/08/2016 documented in this encounter Discharge Disposition Disposition Code Departure Means Destination Home or Self Care documented in this encounter ED Notes * Gina Stephens MD - 12/08/2016 1251 EDT DOS: 12/08/2016 Chief Complaint Patient presents with ??? Rash bilateral arms The patient is a 66 y.o. male who presents today with Rash (bilateral arms) Rash 66 yo with bilateral arm itching, swelling and rash after multiple insect bites. He is staying in the [place] area for the next 4 weeks but resides in [place]. 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 He states his bilateral forearms are itchy and red around the sites of the bites and his hands feel swollen and stiff. He also notes some right-sided neck stiffness near a black fly bite. He denieswheezing or shortness of breath he's had no nausea vomiting or diarrhea no lip swelling. He did take some Benadryl which helped temporarily. He is had no fever or chills. There've been no known tick bites. Review of Systems Skin: Positive for rash. All other systems reviewed and are negative. No current facility-administered medications for this encounter. Current Outpatient Prescriptions Medication Sig Dispense Refill ??? albuterol (VENTOLIN HFA) 90 mcg/actuation inhaler Inhale 2 Puffs as directed every 6 hours as needed for Wheezing. (Patient not taking: Reported on 12/08/2016) 1 Inhaler 0 ??? AZELASTINE/FLUTICASONE (DYMISTA NASAL) by nasal route. ??? EZETIMIBE/SIMVASTATIN (VYTORIN 10-40 ORAL) Take by mouth. ??? predniSONE (DELTASONE) 20 mg tablet Take 1 Tab by mouth daily. Take 2 tabs daily for 3 days then 1 tab daily for 3 days then half tab daily for 3 days 11 Tab 0 ??? valsartan (DIOVAN) 160 mg tablet Take 160 mg by mouth daily. Allergies Allergen Reactions ??? Shellfish Containing Products Anaphylaxis Carries epipen There are no active problems to display for this patient. Past Medical History: Diagnosis Date ??? Hypertension Social History Substance Use Topics ??? Smoking status: Former Smoker Packs/day: 1.00 Years: 10.00 Quit date: 07/12/1984 ??? Smokeless tobacco: Never Used ??? Alcohol use 1.2 oz/week 2 Cans of beer per week History reviewed. No pertinent family history. BP 125/69 Pulse 87 Temp 98 ??F (36.7 ??C) (Temporal) Resp 16 Physical Exam Constitutional: He is oriented to person, place, and time. He appears well- developed and well-nourished. No distress. HENT: Head: Normocephalic and atraumatic. Eyes: EOM are normal. Neck: Normal range of motion. Cardiovascular: Normal rate and regular rhythm. Exam reveals no gallop and no friction rub. No murmur heard. Pulmonary/Chest: Effort normal. He has no wheezes. He has no rales. Musculoskeletal: He exhibits no edema. Right paracervical muscles ttp, excoriated lesion on right lateral neck, no surrounding erythema mild tenderness Neurological: He is alert and oriented to person, place, and time. Skin: Skin is warm and dry. Bilateral forearms scattered excoriations with areas of pale erythema and swelling, bilateral hand swelling and stiffness. Joints mildly tender in fingers and hands. Psychiatric: He has a normal mood and affect. Consult orders: None PCP: Asher Zambrano No results found for this visit on 12/08/16. Radiology orders: None Imaging Results None No orders to display Relevant Data Procedures URGENT CARE COURSE A medical screening exam was performed. ASSESSMENT AND PLAN Final diagnoses: Allergic reaction, initial encounter 66-year-old male with bilateral arm insect bites with associated itching arm and hand swelling suspicious for allergic reaction, There is no evidence of cellulitis. We did discuss that his myalgias and neck discomfort potentially indicate Lyme especially as he's been working outside frequently the patient denies any known tick bites and declined any testing or treatment at this point. -will treat with prednisone taper antihistamines and topical hydrocortisone. -He will follow-up with [facility] primary care in this area if his symptoms do not improve or worsen. No supervision required. DISPOSITION: Discharged The patient's pain was managed to an adequate level weighing risk vs. benefit of further medications. Upon departure from [facility], the patient's pain was 8 on a zero to ten scale. Condition at departure from the [facility] : Stable MDM 12/08/2016 14:26 * Merlyn Cesar, RN - 12/08/2016 1157 EDT Pt presents with c/o rash to bilateral forearms. Appears to be non-raised, red patches with small scabs. Pt first noticed X2 days ago. He reports he is having stiffness in fingers and wrist and in neck. Able to touch chin to chest without difficulty; pain with turning neck. Reports he had cold sweats last night. Denies SOB or dysphagia. No known exposure to irritant. documented in this encounter Plan of Treatment Not on file documented as of this encounter Visit Diagnoses Diagnosis Allergic reaction, initial encounter- Primary documented in this encounter Discontinued Medications Medication Sig Discontinue Reason Start Date End Da te Fenofibrate Nanocrystallized (TRICOR) 145 mg Tab Take 145 mg by mouth daily. Therapy completed 12/08/2016 documented as of this encounter Historical Medications * This list may reflect changes made after this encounter. Medication Sig Dispensed Refills Start Date End Date AZELASTINE/FLUTICASONE (DYMISTA NASAL) by nasal route. added in this encounter Care Teams Electric Shovel Operator Relationship Specialty Start Date End Date Asher Zambrano DO PCP - General 12/08/16 documented as of this encounter
--- OUTSIDE RECORDS SUMMARY | 2024-03-28 21:26 | XMS_ITS | Data Portability ---
Author Organization [facility] Rudy castellanos Address [address] [place] [address] Assessment No assessment recorded. Plan of Treatment Reminders Order Date Submit Date Provider Last Modified By Organization Details Last Modified Time Details Appointments None recorded. Lab rapid SARS CoV 2 Ag, QL [place], respiratory specimen 2019 [id number] [place], [address], 0 13:36:25 Referral None recorded. Procedures None recorded. Surgeries None recorded. Imaging None recorded. Medication Orders None recorded. Patient TargetsNo targets recorded. Patient Instructions Encounter Date Encounter Id Patient Instructions Last Modified By Organization Details Last Modified Time 05/24/2020 [id number] You have tested NEGATIVE for COVID-19 infection via the [facility] Rapid Point of Care Test. However, you should wear a mask and remain in quarantine for 14 days from when your symptoms first started or (date of last exposure) if you are either of the following scenarios: 1. If you have had a household, work environment or other prolonged indoor exposure to a person with COVID- 19 infection or who is currently suspected of having COVID-19 infection. 2. Symptoms of COVID- 19 infection. The negative rapid test may mean that you do not have COVID-19 infection, however it is possible that the result is a false negative. Therefore, if you are having symptoms of COVID-19 infection we recommend a clinician evaluation and the second test, the COVID-19 PCR send out test. To arrange for this, you should visit [facility] [place] and select Video Visit to schedule your appointment to speak with the clinician the following day. If you develop any severe symptoms such as difficulty breathing or chest pain go directly to the Emergency Room. [email or web address] Not available 05/24/2020 09:24:13 Reason for Referral None Reported. Results Created Date Observation Date Name Description Value Unit Range Abnormal Flag Note LastModifiedBy Organization Detail LastModifiedTime 05/24/2020 rapid SARS CoV 2 Ag, QL [place], respi rator y speci men Result negati ve Not Available [place] [address] [place], [address], 05/24/2020 08:52:25 Result Notes None recorded. Medical Equipment None Reported. Vitals None Recorded Social History None recorded. Functional Status None recorded. Mental Status None recorded. Family History Nothing Reported. Medical History No medical history recorded. Past Encounters Encounter ID Performer Location Encounter Start Date Encounter Closed Date Diagnosis/Indication Diagnosis SNOMED-CT Code Diagnosis ICD10 Code [id number] Tash Mendez [address] [place] [phone] 05/24/2020 08:50:04 05/24/2020 09:24:23 Viral screening [id number] Z11.59 Health Concerns Section Related Observation LastModified by Organization Detai ls LastModified Time None Recorded Concern Status LastModified by Organization Details LastModified Time None Recorded Advance Directives Directive None Recorded Payers Encounter Date Sequence Insurance Name Policy Number Policy Ceja Covered Member ID Ceja Member ID Guarantor Name 05/24/2020 1 *SELF PAY* Yosvany Puri Notes Date Note Type Note Provider Name and Address Organization Details Recorded Time 05/24/2020 text/html HPI Notes: Patient requests RAPID COVID testing. [facility] 05/24/2020 09:24:20
--- OUTSIDE RECORDS SUMMARY | 2024-03-28 21:26 | XMS_ITS | Encounter Summary ---
Author Organization [facility] Address [address] [place] [address] Care Team Providers Care Learning And Development Assistant Name Role Phone KurtisAsher villalta Maurice KNUTSON Primary Care Provider Reason for Referral * (Routine) - Closed Specialty Diagnoses / Procedures Referred By Chelle t Referred To Contact Procedures Uroflowmetry Dante Hall MD Phone: tel: fax: Referral ID Status Reason Start Date Expiration Date Visits Re quested Visits Authorized [id number] Closed 03/23/2017 09/19/2017 1 1 Encounter Details Date Type Department Care Team (Late st Contact Info) Description 03/23/2017 9:00 AM EDT Office Visit [facility] [address] [facility], [address] [address] Dante Hall MD [address] [place] [id number] BPH associated with nocturia (Primary Dx); Elevated prostate specific antigen (PSA); Renal colic; Inguinal hernia of left side without obstruction or gangrene Social History Tobacco Use Types Packs/Day Years Used Date Smoking Tobacco: Never Assessed Sex and Gender Information Value Date Recorded Sex Assigned at Not on file Legal Sex Male 1:04 AM EDT Gender Identity Not on file Sexual Orientation Not on file documented as of this encounter Progress Notes * Dante Hall MD - 03/23/2017 9:00 AM EDT Subjective History of Present Illness Michael Puri is a 66 y.o. male presenting today for left inguinal pain and some decrease in his urinary stream. This left inguinal pain is happening for the past few months and seems to be getting worse. He has no history of kidney stones and no evidence of any gross hematuria recently. He may havesome flank pain associated with this discomfort in his inguinal area which could suggest that he has some renal colic. He has had no evidence of any gross hematuria. As far as his lower urinary tractsymptoms, he complains of a decreased stream and somewhat increase in nighttime urination. He has had is laser prostate procedure several years back and has wonder if some of the tissue has gone backordered or he has developed scar tissue. He also has not had a PSA done this year. Past Medical History: Diagnosis Date ??? Actinic keratosis ??? Diverticulosis of colon (without mention of hemorrhage) ??? Hypertrophy of prostate with urinary obstruction and other lower urinary tract symptoms (LUTS) ??? Impotence of organic origin ??? Routine general medical examination at a health care facility ??? Unspecified disease of sebaceous glands ??? Urinary frequency History reviewed. No pertinent surgical history. History reviewed. No pertinent family history. Current Outpatient Prescriptions Medication Sig Dispense Refill ??? vardenafil (STAXYN) 10 mg tablet,disintegrating Take by mouth. ??? budesonide-formoterol (SYMBICORT) 160-4.5 mcg/actuation inhaler ??? EPINEPHrine (EPIPEN 2-DALIA) 0.3 mg/0.3 mL injection syringe ??? ezetimibe-simvastatin (VYTORIN 10-40) 10-40 mg per tablet No current facility-administered medications for this visit. Allergies Allergen Reactions ??? Shellfish / Shellfish Derived Products Hives/Urticaria Social History Social History ??? Marital status: Spouse name: N/A ??? Number of children: N/A ??? Years of education: N/A Occupational History ??? Not on file. Social History Main Topics ??? Smoking status: Not on file ??? Smokeless tobacco: Not on file ??? Alcohol use Not on file ??? Drug use: Not on file ??? Sexual activity: Not on file Other Topics Concern ??? Not on file Social History Narrative History Reviewed I have reviewed the following sections of the medical record: Problem List Allergies Medications Review of Systems Objective There were no vitals taken for this visit. Physical Exam Results Review: No results found for: PSA No results found for: UA No results found for: [id number] Peak Flow POCT Date Value Ref Range Status 03/23/2017 44 mL Final Mean Flow POCT Date Value Ref Range Status 03/23/2017 12 mL Final Voiding Time, POCT Date Value Ref Range Status 03/23/2017 22 Final FLow Time, POC Date Value Ref Range Status 03/23/2017 22 Final Time to Peak Flow POCT Date Value Ref Range Status 03/23/2017 4 Seconds Final Voided Volume POCT Date Value Ref Range Status 03/23/2017 280 mL Final Assessment/Plan 1. BPH associated with nocturia (Primary) Assessment & Plan: I think he would benefit from a cystoscopy just to evaluate his urinary tract. This cystoscopy can be performed during his inguinal hernia repair. But will probably have to be ready in case he has a do something more pea-sized cyst as a diagnostic cystoscopy. 2. Elevated prostate specific antigen (PSA) Assessment & Plan: Have ordered a PSA for this year just to ensure there were no missing anything as well as for a screening for screening for prostate cancer. Orders: - Prostate-Specific Antigen (PSA); Future 3. Renal colic - CT abdomen pelvis without contrast; Future 4. Inguinal hernia of left side without obstruction or gangrene Assessment & Plan: I have referred him to to evaluate his left inguinal canal which seems to have a left inguinal hernia. I have also ordered a CT to confirm this finding as well as potentially make sure he does not have any evidence of any kidney stone disease that would mimic the symptoms. Orders: - CT abdomen pelvis without contrast; Future I spent a minimum of 25 minutes with the patient and over 50% of the time was used for counseling. Options regarding the patient urologic condition was discussed and risks, benefits and alternatives were discussed. Patient questions were answered and addressed. New Orders Orders Placed This Encounter Procedures ??? CT abdomen pelvis without contrast ??? Prostate-Specific Antigen (PSA) ??? POCT urinalysis Non-automated with Microscopy) ??? Uroflowmetry No Follow-up on file. documented in this encounter Miscellaneous Notes * Assessment & Plan Note - Dante Hall MD - 03/23/2017 12:49 PM EDTAssociated Problem(s): Elevated prostate specific antigen (PSA) Have ordered a PSA for this year just to ensure there were no missing anything as well as for a screening for screening for prostate cancer. * Assessment & Plan Note - Dante Hall MD - 03/23/2017 12:48 PM EDTAssociated Problem(s): BPH associated with nocturia I think he would benefit from a cystoscopy just to evaluate his urinary tract. This cystoscopy can be performed during his inguinal hernia repair. But will probably have to be ready in case he has a do something more pea-sized cyst as a diagnostic cystoscopy. * Assessment & Plan Note - Dante Hall MD - 03/23/2017 12:47 PM EDTAssociated Problem(s): Inguinal hernia of left side without obstruction or gangrene I have referred him to to evaluate his left inguinal canal which seems to have a left inguinal hernia. I have also ordered a CT to confirm this finding as well as potentially make sure he does not have any evidence of any kidney stone disease that would mimic the symptoms. documented in this encounter Plan of Treatment Not on file documented as of this encounter Procedures Procedure Name Priority Date/Time Associated Diagnosis Comments UROFLOWMETRY Routine 03/23/2017 9:44 AM EDT POCT URINALYSIS DIPSTICK(NON-AUTOMATE D WITH MICROSCOPY) Routine 03/23/2017 9:44 AM EDT documented in this encounter Results * Uroflowmetry (03/23/2017 9:44 AM EDT) Peak Flow POCT 44 mL Mean Flow POCT 12 mL Time to Peak Flow POCT 4 Seconds Voided Volume POCT 280 mL Voiding Time, POCT 22 FLow Time, POC 22 Dante Hall MD PROCEDURE ORDERABLES Final Re sult * POCT urinalysis Non-automated with Microscopy) (03/23/2017 9:44 AM EDT) Protein, UA POCT Negative Negative Nitrite, UA POCT Negative Negative COLOR UA POC Yellow Yellow CLARITY UA POC Clear Clear pH, UA 5.0 5.0 - 8.0 Glucose, UA POCT (-) Negative Negative Ketones, UA POCT (-) Negative Negative Blood, UA POCT (-) Negative Negative Leukocytes, UA POCT (-) Negative Negative Urine specimen (specimen) Dante Hall MD POINT OF CARE TEST ORDERABLES Fi nal Result documented in this encounter Visit Diagnoses Diagnosis BPH associated with nocturia- Primary Elevated prostate specific antigen (PSA) Renal colic Inguinal hernia of left side without obstruction or gangrene documented in this encounter Care Teams Learning And Development Assistant Relationship Specialty Start Date End Date Asher Zambrano DO [address] [place] [address] PCP - General Internal Medicine 03/23/17 documented as of this encounter
--- OUTSIDE RECORDS SUMMARY | 2024-03-28 21:26 | XMS_ITS | Encounter Summary ---
Author Organization [facility] Address [address] [place] [address] Care Team Providers Care Nuclear Design Engineer Name Role Phone Unavailable Primary Care Provider Unavailabl e Encounter Details Date Type Department Care Team (Latest Contact Info) Description 08/26/2010 Message CONVERSION LOCATION Social History Tobacco Use Types Packs/Day Years Used Date Smoking Tobacco: Never Assessed Sex and Gender Information Value Date Recorded Sex Assigned at Not on file Legal Sex Male 1:04 AM EDT Gender Identity Not on file Sexual Orientation Not on file documented as of this encounter Miscellaneous Notes * Telephone Encounter - CONVERSION PROVIDER - 08/26/2010 2:58 PM EST pt called with some concerns regarding his surgery on 08-22-10, gave him hotling number, didnt leavemessage, called back on er line, i passed message on personally to javy. Electronically signed by:Maria Del Carmen Alexis Aug 26 2010 3:04PM EST documented in this encounter Plan of Treatment Not on file documented as of this encounter Visit Diagnoses Not on filedocumented in this encounter
--- OUTSIDE RECORDS SUMMARY | 2024-03-28 21:26 | XMS_ITS | Encounter Summary ---
Author Organization [facility] Address [address] [place] [address] Care Team Providers Care Marshmallow Maker Name Role Phone Unavailable Primary Care Provider Unavailabl e Encounter Details Date Type Department Care Team (Late st Contact Info) Description 03/05/2008 Office Visit [facility] [address] [facility] [address] [place] [address] Donavon Kelly MD [address] [place] [address] Social History Tobacco Use Types Packs/Day Years [...]
--- OUTSIDE RECORDS SUMMARY | 2024-03-28 21:26 | XMS_ITS | Encounter Summary ---
Author Organization [facility] Address [address] [place] [address] Care Team Providers Care Ecommerce Merchandising Manager Name Role Phone Asher Zambrano Primary Care Provider [phone] Dante Hall MD Unavailable Reason for Visit * Reason Comments Consult Hernia * Consultation (Routine) - Closed Specialty Diagnoses / Procedures Referred By Chelle villaseñor Referred To Contact General Surgery Diagnoses HERNIA Procedures NEW PATIENT Dante Hall MD [address] [facility] [address] [place] [address] Phone: tel: fax: Gian Castro MD [address] [place] [address] Phone: tel: Referral ID Status Reason Start Date Expiration Date Visits Re quested Visits Authorized [id number] Closed 05/11/2017 11/07/2017 1 1 Encounter Details Date Type Department Care Team (Late st Contact Info) Description 05/11/2017 9:00 AM EDT Office Visit [facility] Surgery [address] [address] Gian Castro MD [address] [place] [id number] Left groin pain (Primary Dx) Social History Tobacco Use Types Packs/Day Years Used Date Smoking Tobacco: Former Cigarettes Q uit: 05/11/1982 Cigars Smokeless Tobacco: Never Alcohol Use Standard Drinks/Week Comments Yes 0 (1 standard drink = 0.6 oz pur e alcohol) Sex and Gender Information Value Date Recorded Sex Assigned at Not on file Legal Sex Male 1:04 AM EDT Gender Identity Not on file Sexual Orientation Not on file Occupation Industry Job Start Date Job End Date Retired Not on file Not on file Not on file documented as of this encounter Last Filed Vital Signs Vital Sign Reading Time Taken Comments Blood Pressure 142/76 05/11/2017 9:02 AM EDT Pulse 77 05/11/2017 9:02 AM EDT Temperature 36.6 ??C (97.8 ??F) 05/11/2017 9:02 AM ED T Respiratory Rate - - Oxygen Saturation 95% 05/11/2017 9:02 AM EDT Inhaled Oxygen Concentration - - Weight 110 kg (243 lb 3.2 oz) 05/11/2017 9:02 AM EDT Height 177.8 cm (5' 10) 05/11/2017 9:02 AM EDT Body Mass Index 34.9 05/11/2017 9:02 AM EDT documented in this encounter Progress Notes * Gian Castro MD - 05/11/2017 9:00 AM EDT Brijesh Puri is a 66 y.o. male presenting today for: Consult (Hernia ) History of Present Illness 66 yo male presents with left groin pain but no lump or bulge. Not worsened by exercise. Constant but not radiating.CT scan shows fat containing left ing hernia. History Reviewed I have reviewed the following sections of the medical record: Problem List Allergies Medications Review of Systems CONST: Positive for activity change. HENT: Negative. EYES: Negative. RESP: Negative. CV: Negative. GI: Negative. ENDO: Negative. : Negative. MUSC/SKEL: Negative. SKIN: Negative. ALL/IMM: Negative. NEURO: Negative. HEME: Negative. PSYCH: Negative. Objective Visit Vitals ??? BP (!) 142/76 ??? Pulse 77 ??? Temp 97.8 ??F (36.6 ??C) ??? Ht 5' 10 (1.778 m) ??? Wt 243 lb 3.2 oz (110 kg) ??? SpO2 95% ??? BMI 34.9 kg/m2 Physical Exam GENERAL: He is oriented to person, place, and time. He appears well-developed and well-nourished. He does not appear distressed. HENT: Exam performed. ?? Head: Normocephalic and atraumatic. ?? Nose: Nose normal. EYES: EOM are normal. Pupils are equal, round, and reactive to light. NECK: Normal range of motion. Neck supple. No thyromegaly present. CV: Normal rate. PULM/CHEST: Effort normal. No respiratory distress. ABD: The abdomen is soft. He has no distension. No mass is present. There is no tenderness. There is no rebound and no guarding. No hernias are noted. NEURO: He is alert and oriented to person, place, and time. SKIN: Skin is warm and dry. No rash noted. There is no erythema. PSYCH: He has a normal mood and affect. His behavior is normal. Judgment and thought content normal. Assessment / Plan 1. Left groin pain (Primary) Check U/S with valsalva. Groin exploration for worsened pain or hernia findings by U/S. This may be a small cord lipoma. documented in this encounter Plan of Treatment Not on file documented as of this encounter Visit Diagnoses Diagnosis Left groin pain- Primary Abdominal pain, left lower quadrant documented in this encounter Care Teams Ecommerce Merchandising Manager Relationship Specialty Start Date End Date Asher Zambrano DO [address] [place] [address] [place] [address] PCP - General Internal Medicine 03/23/17 Dante Hall MD [address] [place] [address] [place] [address] Consulting Physician Urology 05/11/17 documented as of this encounter
--- OUTSIDE RECORDS SUMMARY | 2024-03-28 21:26 | XMS_ITS | Encounter Summary ---
Author Organization [facility] Address [address] [place] [address] Care Team Providers Care Single Fold Machine Operator Name Role Phone Unavailable Primary Care Provider Unavailabl e Encounter Details Date Type Department Care Team (Late st Contact Info) Description 12/20/2013 Medication CONVERSION LOCATION Social History Tobacco Use Types Packs/Day Years Used Date Smoking Tobacco: Never Assessed Sex and Gender Information Value Date Recorded Sex Assigned at Not on file Legal Sex Male 1:04 AM EDT Gender Identity Not on file Sexual Orientation Not on file documented as of this encounter Miscellaneous Notes * Telephone Encounter - CONVERSION PROVIDER - 12/20/2013 2:01 PM EDT Recorded as Task Date: 12/19/2013 09:34 AM, Created By: Miguel Stone Jr Task Name: Med Renewal Request Assigned To: Team 8 Regarding Patient: KADE ENG, Status: In Progress Miguel Stone Jr - 19 Dec 2013 9:34 AM TASK CREATED Caller: Self; Renew Medication; (Mobile Phone) PLEASE CALL PT IN REGARDS TO HIS CURRENT MEDICATION, HE NEEDS A REFILL, PT DOES NOT KNOW THE NAME OF THE MEDICATION OR MG. Giovana Marc - 19 Dec 2013 4:19 PM TASK EDITED A v/m was left for Mr. Eng to give our office a callback. Giovana Marc - 19 Dec 2013 4:19 PM TASK IN PROGRESS Giovana Marc - 20 Dec 2013 2:04 PM TASK EDITED Per pt request a script for Staxyn 10mg was electronically prescribe and sent to pt EMR pharmacy. Pt was satisfied. Electronically signed by:Giovana Marc Dec 20 2013 2:06PM EST documented in this encounter Plan of Treatment Not on file documented as of this encounter Visit Diagnoses Not on filedocumented in this encounter
--- OUTSIDE RECORDS SUMMARY | 2024-03-28 21:26 | XMS_ITS | Data Portability ---
Author Organization [facility] am, Dr. Waldrop Main Office Address [address] [place] [address] Assessment Encounter Date Assessment Date Assessment LastModified by Organization Details LastModified Time 05/07/2017 05/07/2017 Patient presente d with symptoms of upper respiratory infection. Advised to drink plenty of fluids, run a cool-mist humidifier in room at night, gargle salt water for sore throat, and get plenty of rest. Patient should avoid over-exertion and reduce exposure to irritants such as smoke, cold, dry air, and dust. Treatment currently involves symptomatic relief. Patient may take acetaminophen or ibuprofen as directed to reduce fever and body aches. Antihistamine and decongestant usage was discussed and recommendations made. Patient understood these instructions and will follow up in the office in 10 days to 2 weeks if symptoms not improving. [place] ddiition will Rx a brief course of medrol for sx relief of sinus congestion/pressur e Discussed means by which he can lessen risk to G son too [email or web address] Not available 05/09/2017 15:14:55 Plan of Treatment Reminders Order Date Submit Date Provider Last Modified By Organization Details Last Modified Time Details Appointments None record ed. Lab None record ed. Referral None record ed. Procedures None record ed. Surgeries None record ed. Imaging None record ed. Medication Orders None record ed. Patient TargetsNo targets recorded. Patient InstructionsNo instructions recorded. Reason for Referral None Reported. Problems Name Problem SNOMED Code Status Onset Date Resolution Date Notes Provider Name and Address Organization Details Recorded Time Disorder of sacrum 37876401 Active 2012 Not Available [facility] 6 08:35:32 Cough 21076815 Completed 201201/01/2013 Not Available [facility] 6 08:35:32 Acute bronchitis 07028497 Completed 201201/01/2013 Not Available [facility] 6 08:35:32 Respirator y finding 591842904 Completed 201206/06/2013 Not Available [facility] 6 08:35:32 Acute sinusitis 89515907 Completed 201206/06/2013 Not Available [facility] 6 08:35:33 Generalize d abdominal pain 630641752 Completed 201206/06/2013 Not Available [facility] 6 08:35:33 Malaise and fatigue 744249490 Completed 201201/30/2014 Not Available [facility] 6 08:35:33 Abnormal weight gain 101436713 Completed 201206/06/2013 Not Available [facility] 6 08:35:33 Chronic nonalcohol ic liver disease 01307789 Active 2012 Not Available [facility] 6 08:35:33 Hyperhidro sis 276325720 Completed 201201/30/2014 Not Available [facility] 6 08:35:33 Dyspnea 297130267 Completed 201206/05/2013 Not Available [facility] 6 08:35:33 General examinatio n of patient Completed 201307/14/2014 Not Available [facility] 6 08:35:33 Migraine 99584046 Active 2013 Not Available [facility] 6 08:35:33 Degenerati ve joint disease involving multiple joints 052707640 Active 2013 Not Available [facility] 6 08:35:33 Obstructiv e sleep apnea syndrome 90885625 Active 2013 Not Available [facility] 6 08:35:33 Testicular hypofuncti on 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 Active 2012 Not Available [facility] 6 08:35:33 Urinary tract obstructio n 9730206 Active 2012 Not Available [facility] 6 08:35:33 Benign prostatic hyperplasi a 407434328 Active 2012 Not Available [facility] 6 08:35:33 Lower urinary tract symptoms 519466201 Active 2012 Not Available [facility] 6 08:35:33 Hyperlipid emia 44424104 Active 2012 Not Available [facility] 6 08:35:33 Obesity 305257643 Active 2012 Not Available [facility] 6 08:35:34 Pain in thoracic spine 861819133 Completed 201403/29/2015 Not Available [facility] 6 08:35:34 Shoulder joint pain 125210231 Completed 201403/29/2015 Not Available [facility] 6 08:35:34 Benign essential hypertensi on 2275282 Active 2012 Not Available [facility] 6 08:35:34 Problem Notes None recorded. Medical Equipment None Reported. Allergies No known drug allergies Medications Name Sig Start Date Stop Date Status Note LastModified by Organization Details LastModified Time Augmentin 875 mg-125 mg tablet take 1 lablet by ORAL route every 12 hours 02/23 completed Not Available Not Available Not Available Diovan HCT 80 mg-12.5 mg tablet Take 1 tablet(s) by mouth daily 2014 active Not Available Not Available Not Avai lable Medrol (John) 4 mg tablets in a dose pack Take 1 dose pk by oral route. 2016 active Not Available Not Available Not Avai lable prednisone 5 mg tablet taper pack; 8-7-6-5-4 -3-2-1 stop 11/25 completed Not Available Not Available Not Available phentermine 30 mg capsule Take 1 capsule(s ) by mouth daily 08/31 completed Not Available Not Available Not Available Motrin 800 mg tablet take 1 tablet (800MG) by ORAL route 3 times every day with food 2012 active Not Available Not Available Not Avai lable Diovan HCT 160 mg-12.5 mg tablet Take 1 tablet(s) by mouth daily 01/30 completed Not Available Not Available Not Available Levaquin 500 mg tablet take 1 tablet (500MG) by oral route every 24 hours 11/25 completed Not Available Not Available Not Available Cialis 20 mg tablet take 1 tablet (20 mg) by oral route 11/04 completed Not Available Not Available Not Available Vytorin 10 mg-40 mg tablet take 1 tablet by oral route everyday 08/01 completed Not Available Not Available Not Available Tricor 145 mg tablet take 1 tablet (145MG) by oral route every day 05/15 completed Not Available Not Available Not Available Symbicort 160 mcg-4.5 mcg/actuati on HFA aerosol inhaler Inhale 2 inhalatio n(s) by mouth bid 11/25 completed Not Available Not Available Not Available Astepro 205.5 mcg (0.15 %) nasal spray (205.5 mcg) Nasal Morganza, spray 1 spray (205.5MCG ) by intranasa l route 2 times every day in each nostril 04/20 completed Not Available Not Available Not Available AndroGel 20.25 mg/1.25 gram per pump act. (1.62 %) transdermal gel Transderm al Gel Pump apply (20.25MG) by topical route every day in the morning to each upper arm and shoulder for a total dose of 40.5 mg 03/15 completed Not Available Not Available Not Available Dymista 137 mcg-50 mcg/spray nasal spray Use 1 spray(s) in each nostril bid 2015 active Not Available Not Available Not Avai lable EpiPen 2-John 0.3 mg/0.3 mL injection, auto-inject or 0.3 mg/0.3 mL (1:1,000) IM inject (0.3MG) by intramusc ular route once as needed for anaphylax is 07/02 completed Not Available Not Available Not Available Vitals Date Recorded Heart rate Respiratory rate Systolic blood pressure Diastolic blood pressure Provider Name and Address Organization Details Last Updated DateTime 05/07/2017 68 /min 16 /min 132 mm[Hg] 68 mm[Hg] Cisco Waldrop MD [address] [place], [address], [facility] 15:07:08 Social History None recorded. Functional Status None recorded. Mental Status None recorded. Family History Nothing Reported. Medical History No medical history recorded. Immunizations Vaccine Type Date Status Provider Name and Address Organization Details Recorded Time Influenza, split virus, trivalent, PF 04/06/2013 completed Not Available [facility] 08/12/2019 02:14:15 Influenza, split virus, trivalent, PF 04/24/2014 completed Not Available [facility] 08/12/2019 02:14:15 Past Encounters Encounter ID Performer Location Encounter Start Date Encounter Closed Date Diagnosis/Indication Diagnosis SNOMED-CT Code Diagnosis ICD10 Code [id number] [facility] [address] [place] [id number] 11/25/2012 00:00:00 [id number] [facility] [address] [place] [id number] 11/27/2012 00:00:00 [id number] [facility] [address] [place] [id number] 04/11/2013 00:00:00 [id number] [facility] [address] [place] [id number] 04/20/2013 00:00:00 [id number] [facility] [address] [place] [id number] 01/30/2014 00:00:00 [id number] [facility] [address] [place] [id number] 02/01/2014 00:00:00 [id number] [facility] [address] [place] [id number] 05/16/2014 00:00:00 [id number] [facility] [address] [place] [address] [id number] 01/28/2015 00:00:[id number] Benjie Rosenberg Main Office [address] [place] [id number] 06/15/2016 11:45:55 07/03/2016 13:29:57 Lower respiratory tract infection 78499952 J22 Benign ess ential hypertension 3779380 I10 [id number] Benjie Rosenberg Main Office [address] [place] [id number] 05/07/2017 09:58:19 05/17/2017 11:36:43 Acute upper respiratory infection 39331429 J06.9 Health Concerns Section Related Observation LastModified by Organization Detai ls LastModified Time None Recorded Concern Status LastModified by Organization Details LastModified Time None Recorded Advance Directives Directive None Recorded Payers Encounter Date Sequence Insurance Name Policy Number Policy Ceja Covered Member ID Ceja Member ID Guarantor Name 06/15/2016 1 [place] [employer] [id number] [employer] 06/15/2016 2 [employer] (MEDICARE SUPPLEMENT) DaWanda [id number] [employer] 05/07/2017 1 [place] [employer] [id number] [employer] 05/07/2017 2 [email or web address] (MEDICARE SUPPLEMENT) DaWanda [id number] [employer] Notes Date Note Type Note Provider Name and Address Organization Details Recorded Time 06/15/2016 text/html HPI Notes: Pt of Dr Acuna. Pt with several days of respiratory infection sxs-cough ( productive) as well as moderate malaise and some degree of upper [place] congestion too. Had a subj. fever initially. Today actually with some degree of improvement- less congested/ no fever, though still with maxillary sinus area pressure. has recently started using an OTC cold/decongestant agent which appears to have been helpful. No sob/no orthopnea No hx pulmonary disease other than JAGJIT Cisco Waldrop MD [address] [place], [address], [facility] 06/15/2016 12:29:49 05/07/2017 text/html HPI Notes: prese nts with 1-2 days of URI sxs. primarily a mild degree of scratchy throat, hoarse voice. _ sinus congestion/ pressure, but mild. No f/c/s. Concerned due to fact he as a 1-2 week old G son he would otherwise be around. Mild cough but only scant mucoid production. No pulmonary hx/ no immunocompromise hx. Cisco Waldrop MD [address], [place], [address], [facility] 05/09/2017 15:15:18
--- OUTSIDE RECORDS SUMMARY | 2024-03-28 21:26 | XMS_ITS | Encounter Summary ---
Author Organization [facility] Address [address] [place] [address] Care Team Providers Care Merchandise Complaint Adjuster Name Role Phone None, Provider Primary Care Provider Unavailabl e Reason for Visit * Reason Comments Nasal Congestion Ear Fullness Encounter Details Date Type Department Care Team (Latest Contact Info) Description 08/23/2012 11:53 EST - 08/23/2012 13:37 EST Hospital Encounter [facility] [address] [place] [id number] Vicki Biswas, CHELLE [address] [place] [address] Unknown, Provider, Pneumonia (Primary Dx) Discharge Disposition: Home or Self [...] Sign Reading Time Taken Comments Blood Pressure 126/58 08/23/2012 1206 EST Pulse 100 08/23/2012 1206 EST Temperature 35 ??C (95 ??F) 08/23/2012 1206 EST Respiratory Rate 14 08/23/2012 1206 EST Oxygen Saturation 97% 08/23/2012 1231 EST Inhaled Oxygen Concentration - - Weight - - Height - - Body Mass Index - - documented in this encounter Discharge Instructions * Attachments The following attachments cannot be sent through Care Everywhere. * PNEUMONIA: AFTER YOUR VISIT (FIJIAN) documented in this encounter Medications at Time of Discharge Medication Sig Dispensed Refills Start Date End Date albuterol (VENTOLIN HFA) 90 mcg/actuation inhaler Inhale 2 Puffs as directed every 6 hours as needed for Wheezing. 1 Inhaler 0 08/23/2012 EZETIMIBE/SIMVASTATIN (VYTORIN 10-40 ORAL) Take by mouth. valsartan (DIOVAN) 160 mg tablet Take 160 mg by mouth daily. azithromycin (ZITHROMAX Z-DALIA) 250 mg tablet Take 2 tabs today and 1 tab on days 2 through 5 6 Tab 0 08/23/2012 08/27/2012 Fenofibrate Nanocrystallized (TRICOR) 145 mg Tab Take 145 mg by mouth daily. 12/08/2016 documented as of this encounter Ordered Prescriptions Prescription Sig Dispensed Refills Start Date End Da te albuterol (VENTOLIN HFA) 90 mcg/actuation inhaler Inhale 2 Puffs as directed every 6 hours as needed for Wheezing. 1 Inhaler 0 08/23/2012 azithromycin (ZITHROMAX Z-DALIA) 250 mg tablet Take 2 tabs today and 1 tab on days 2 through 5 6 Tab 0 08/23/2012 08/27/2012 documented in this encounter Discharge Disposition Disposition Code Departure Means Destination Home or Self Care documented in this encounter ED Notes * Amy Biswas NP - 08/23/2012 1319 EST DOS: 08/23/2012 Chief Complaint Patient presents with ??? Nasal Congestion ??? Ear Fullness The patient is a 62 y.o. male who presents today with Nasal Congestion and Ear Fullness HPI Comments: Patient presents with a 3 week history of waxing and waning fever, cough and nasal congestion. He has been taking OTC medication with some relief. He quits smoking > 20 years ago. There has been no recent travel. He has no history of asthma/lung problems. The history is provided by the patient. Nasal Congestion This is a new problem. The current episode started more than 1 week ago. The problem has been gradually worsening. Maximum temperature: subjective. Associated symptoms include congestion, headaches, plugged ear sensation, rhinorrhea and cough. Pertinent negatives include no chest pain, no abdominal pain, no diarrhea, no nausea, no ear pain, no sinus pain, no sneezing, no sore throat, no neck painand no wheezing. Ear Fullness Associated symptoms include headaches, rhinorrhea and cough. Pertinent negatives include no sore throat, no abdominal pain, no diarrhea and no neck pain. Review of Systems Constitutional: Positive for fever, chills, diaphoresis, activity change, appetite change and fatigue. Negative for unexpected weight change. HENT: Positive for congestion, rhinorrhea and sinus pressure. Negative for ear pain, sore throat, sneezing, neck pain and neck stiffness. Respiratory: Positive for cough. Negative for shortness of breath and wheezing. Cardiovascular: Negative for chest pain and leg swelling. Gastrointestinal: Negative for nausea, abdominal pain and diarrhea. Neurological: Positive for headaches. Negative for dizziness and light-headedness. No current facility-administered medications for this encounter. Current Outpatient Prescriptions Medication Sig Dispense Refill ??? EZETIMIBE/SIMVASTATIN (VYTORIN 10-40 ORAL) Take by mouth. ??? valsartan (DIOVAN) 160 mg tablet Take 160 mg by mouth daily. ??? Fenofibrate Nanocrystallized (TRICOR) 145 mg Tab Take 145 mg by mouth daily. Allergies Allergen Reactions ??? Shellfish Containing Products Anaphylaxis Carries epipen Past Medical History Diagnosis Date ??? Hypertension History Substance Use Topics ??? Smoking status: Former Smoker -- 1.0 packs/day for 10 years Quit date: 07/12/1984 ??? Smokeless tobacco: Never Used ??? Alcohol Use: 24.0 oz/week 2 Cans of beer per week No family history on file. BP 126/58 Pulse 100 Temp(Src) 95 ??F (35 ??C) (Temporal) Resp 14 SpO2 97% PF 750 L/min Physical Exam Nursing note and vitals reviewed. Constitutional: He is oriented to person, place, and time. He appears well- developed and well-nourished. No distress. HENT: Right Ear: External ear normal. Left Ear: External ear normal. Nose: Nose normal. Right sinus exhibits no maxillary sinus tenderness and no frontal sinus tenderness. Left sinus exhibits no maxillary sinus tenderness and no frontal sinus tenderness. Mouth/Throat: Oropharynx is clear and moist. No oropharyngeal exudate, posterior oropharyngeal edema, posterior oropharyngeal erythema or tonsillar abscesses. Eyes: Conjunctivae are normal. Right eye exhibits no discharge. Left eye exhibits no discharge. Neck: Normal range of motion. Neck supple. Cardiovascular: Normal rate, regular rhythm and normal heart sounds. Exam reveals no gallop and no friction rub. No murmur heard. Pulmonary/Chest: Effort normal. No respiratory distress. He has no wheezes. He has rales (RLL). He exhibits no tenderness. Neurological: He is alert and oriented to person, place, and time. Skin: Skin is warm and dry. Psychiatric: He has a normal mood and affect. Consult orders: None PCP: MD Sanders PCP No results found for this visit on 08/23/12. Radiology orders: None Procedures Course: A medical screening exam was performed. Given rales on exam, with persistent cough, will treat for possible pneumonia. Patient in NAD, and is breathing easily on RA. Disposition: No disposition on file The patient's pain was managed to an adequate level weighing risk vs. benefit of further medications. Upon departure from the [facility], the patient's pain was 6 on a zero to ten scale. Condition at departure from the [facility]: Stable No diagnosis found. Dr. Amos Villanueva was available for consultation during my care of this patient. MDM Number of Diagnoses or Management Options Pneumonia: Risk of Complications, Morbidity, and/or Mortality Presenting problems: moderate Diagnostic procedures: low Management options: moderate 08/23/2012 13:19 * Tammy Hancock RN - 08/23/2012 1210 EST Patient with c/o of occasional sharp pain - left ear, clear nasal congestion, productive cough, CRUZ,hoarse voice, diaphoresis, fatigue, facial/eye pressure with onset 08/17. Denies sob, N/V/D, dizziness OTC meds with minimal success. documented in this encounter Miscellaneous Notes * Scanned Note-Null - TEACHER VOCATIONAL TRAINING, SCAN 2 - 08/25/2012 1218 EST documented in this encounter Plan of Treatment Not on file documented as of this encounter Procedures Procedure Name Priority Date/Time Associated Diagnosis Comments PEAK FLOW Routine 08/23/2012 12:42 EST documented in this encounter Visit Diagnoses Diagnosis Pneumonia- Primary Pneumonia, organism unspecified documented in this encounter Historical Medications * This list may reflect changes made after this encounter. Medication Sig Dispensed Refills Start Date End Date valsartan (DIOVAN) 160 mg tablet Take 160 mg by mouth daily. EZETIMIBE/SIMVASTATIN (VYTORIN 10-40 ORAL) Take by mouth. Fenofibrate Nanocrystallized (TRICOR) 145 mg Tab Take 145 mg by mouth daily. 12/08/2016 added in this encounter Orders Nursing Count Last Ordered Date First Orde red Date PULSE OXIMETRY 1 08/23/2012 Respiratory Care Count Last Ordered Date First Ordered Date PEAK FLOW 1 08/23/2012 documented in this encounter Care Teams Merchandise Complaint Adjuster Relationship Specialty Start Date End Date None, Provider PCP - General 08/23/12 12/07/16 documented as of this encounter
--- OUTSIDE RECORDS SUMMARY | 2024-03-28 21:26 | XMS_ITS | Clinical Summary ---
Author Organization [facility] Address [address] [place] [address] Care Team Providers Care Oil Sprayer Name Role Phone KurtisAsher villalta Maurice KNUTSON Primary Care Provider Dante Hall MD Unavailable Allergies Active Allergy Reactions Criticality Noted Date Comments Shellfish / Shellfish Derive d Products Hives/Urticaria Medications vardenafil (STAXYN) 10 mg tablet,disintegr ating Take by mouth. 08/18/2013 Active EPINEPHrine (EPIPEN 2-DALIA) 0.3 mg/0.3 mL injection syringe Active budesonide-formo terol (SYMBICORT) 160-4.5 mcg/actuation inhaler Active ezetimibe-simvas tatin (VYTORIN 10-40) 10-40 mg per tablet Active Active Problems Problem Noted Date Diagnosed Date Inguinal hernia of left side without obstruction or gangrene 03/23/2017 Assessment & Plan (03/23/2017 12:47 PM EDT): I have referred him to to evaluate his left inguinal canal which seems to have a left inguinal hernia. I have also ordered a CT to confirm this finding as well as potentially make sure he does not have any evidence of any kidney stone disease that would mimic the symptoms. BPH associated with nocturia 03/23/2017 Assessment & Plan (03/23/2017 12:49 PM EDT): I think he would benefit from a cystoscopy just to evaluate his urinary tract. This cystoscopy can be performed during his inguinal hernia repair. But will probably have to be ready in case he has a do something more pea-sized cyst as a diagnostic cystoscopy. Elevated prostate specific antigen (PSA) 017 Assessment & Plan (03/23/2017 12:49 PM EDT): Have ordered a PSA for this year just to ensure there were no missing anything as well as for a screening for screening for prostate cancer. Family History Medical History Relation Name Comments Cancer (Lung) Father Aneurysm Mother Relation Name Status Comments Father (Age 63) Mother (Age 80) Social History Tobacco Use Types Packs/Day Years [...] file Not on file Not on file Last Filed Vital Signs [...] Mass Index 34.9 05/11/2017 9:02 AM EDT Plan of Treatment Not on file [facility] [id number] MEDICARE PART A AND B [employer] COMMERCIAL [place] [id number] Care Teams Oil Sprayer Relationship Specialty Start Date End Date Asher Zambrano DO [address] [place] [address] [place] [address] PCP - General Internal Medicine 03/23/17 Dante Hall MD [address] [place] [address] [place] [address] Consulting Physician Urology 05/11/17
--- OUTSIDE RECORDS SUMMARY | 2024-03-28 21:26 | XMS_ITS | Encounter Summary ---
Author Organization [facility] Address [address] [place] [address] Care Team Providers Care Immunopathologist Name Role Phone Unavailable Primary Care Provider Unavailabl e Encounter Details Date Type Department Care Team (Late st Contact Info) Description 04/28/2010 Office Visit [facility] [address] [facility] [address] [place] [address] Huyen Cooper MD [address] [place], [place] [id number] Urinary frequency Social History Tobacco Use Types Packs/Day Years Used Date Smoking Tobacco: Never Assessed Sex and Gender Information Value Date Recorded Sex Assigned at Not on file Legal Sex Male 1:04 AM EDT Gender Identity Not on file Sexual Orientation Not on file documented as of this encounter Progress Notes * Huyen Cooper MD - 04/28/2010 9:30 AM EDT April 28, 2010 Dr. Asher Zambrano [facility] [place] [address] RE: Nirmal Puri (: 52) Dear Dr. Zambrano: I saw Mr. Puri in the office today. He will need some type of bladder outlet procedure as he is not responding to medical therapy and has 400 ml residual in his bladder. Before the procedure, he will need UDS and prostate biopsy in order to optimize his care. If you have any questions, please do not hesitate to contact me. Sincerely, Huyen Cooper M.D., FACS LGG:[id number] Electronically signed by:HUYEN COOPER MD May 13 2010 7:44AM EST documented in this encounter Plan of Treatment Not on file documented as of this encounter Visit Diagnoses Diagnosis Urinary frequency documented in this encounter
--- OUTSIDE RECORDS SUMMARY | 2024-03-28 21:26 | XMS_ITS | Data Portability ---
Author Organization [facility], [facility] Address [address] [place] [address] Care Team Providers Care Business Solutions Director Name Role Phone HAZEL ALANIZ Primary Care Provider [phone] Assessment Encounter Date Assessment Date Assessment LastModified by Organization Details LastModified Time 02/07/2019 02/07/2019 Michael is presenting with a photo-distribu alice rash and blister formation on his forearms, hands, and shins, following a 14-day course of doxycycline with obvious sun exposure to these areas. I believe his symptoms are due to a doxycycline-re lated phototoxicity. I advised him to continue with sun-protection and use emollients as necessary. I anticipate his skin will improve over the next couple of weeks. [email or web address] Not available 02/07/2019 13:46:49 Plan of Treatment Reminders Order Date Submit [...] Name and Address Organization Details Recorded Time Benign paroxysmal positional vertigo [id number] [place] Megan 9 12:17:13 Migraine [id number] Active [place] Megan 9 12:17:31 Essential hypertension [id number] [place] 9 12:17:47 Nonalcoholic steatohepatiti s 678163621 Active [place] Megan 9 12:19:01 Gastroesophage al reflux disease 328785665 Active [place] Megan 9 12:19:13 Hyperlipidemia 65990419 [place] 9 12:19:25 Benign prostatic hyperplasia 705421740 Active [place] Megan 9 12:19:55 Obstructive sleep apnea syndrome [id number] [place] 9 12:20:06 Problem Notes None recorded. Procedures Surgical History Date Name Laterality Status Provider Name and Address Organization Details Recorded Time Appendectomy completed Barbara Espinosa 02/07/2019 12:21:31 transurethral prostatectomy completed Barbara Espinosa 02/07/2019 12:21:43 Knee arthroscopy/surger y completed Barbara Espinosa 02/07/2019 12:21:55 Imaging Results None recorded. Procedure Notes None recorded. Medical Equipment None Reported. Allergies No known drug allergies Medications Name Sig Start Date Stop Date Status Note LastModified by Organization Details LastModified Time valsartan 80 mg-hydrochl orothiazide 12.5 mg tablet Take 1 tablet every day by oral route. active Not Available Not Available No t Available ezetimibe 10 mg-simvasta tin 40 mg tablet Take 1 tablet every day by oral route. active Not Available Not Available No t Available Vitals Date Recorded Body weight Oxygen saturation Oxygen saturation in Arterial blood by Pulse oximetry Body temperature Heart rate Systolic blood pressure Diastolic blood pressure Provider Name and Address Organization Details Last Updated DateTime 9 855788. 8 g 96 % 96 % 98.4 [degF] 87 /min 148 mm[Hg] 72 mm[Hg] Barbara Espinosa 9 13:33:20 Social History Question Answer Notes LastModified by Organizat ion Details LastModified Time Tobacco Smoking Status Former Smoker Not Available [employer] 05/14/2020 03:54:31 What Is Your Level Of Alcohol Consumption? Moderate [id number] Information not available 05/14/2020 What Was The Date Of Your Most Recent Tobacco Screening? 02/07/2019 [id number] Information not available 05/14/2020 How Much Tobacco Do You Smoke? 1.5 PPD [id number] Information not available 05/14/2020 How Many Years Have You Smoked Tobacco? 10 [id number] Information not available 05/14/2020 Sex: Unknown Functional Status None recorded. Mental Status None recorded. Family History Relationship Description Onset Age of this Age Resolved Age Notes LastModified by Organization Details LastModified Time Father Malignant tumor of lung [email or web address] Not available 2018 12:20:26 Mother Cerebral arterial aneurysm [email or web address] Not available 2018 12:20:45 Medical History No medical history recorded. Past Encounters Encounter ID Performer Location Encounter Start Date Encounter Closed Date Diagnosis/Indication Diagnosis SNOMED-CT Code Diagnosis ICD10 Code [id number] [place] [address] 02/07/2019 12:57:13 02/08/2019 08:09:28 Phototoxic dermatitis 40882990 L56.2 Health Concerns Section Related Observation LastModified by Organization Detai ls LastModified Time None Recorded Concern Status LastModified by Organization Details LastModified Time None Recorded Advance Directives Directive None Recorded Payers Encounter Date Sequence Insurance Name Policy Number Policy Ceja Covered Member ID Ceja Member ID Guarantor Name 02/07/2019 1 [place] Nirmal Puri [id number] Nirmal Puri Notes Date Note Type Note Provider Name and Address Organization Details Recorded Time 02/07/2019 text/html HPI Notes: Michael is a patient of Dr. Alaniz here for an acute evaluation of skin rash and blisters. He was in his usual state of health until over 2 weeks ago when he sustained a tick bite with an associated rash. He was prescribed a 14-day course of doxycycline for Lyme disease. He completed the course of doxycycline 4 days ago, which is the same day that he began to develop a reddish rash and blisters on the skin of his forearms, hands, and shins (blisters were confined to the hands). Fortunately he does not have pain or pruritus with the changes. He had tried to protect his skin from the sun while on doxycycline but he was outside frequently. Aside from the skin changes he feels completely well. [place] Megan 02/07/2019 13:47:26
--- OUTSIDE RECORDS SUMMARY | 2024-03-28 21:26 | XMS_ITS | Encounter Summary ---
Author Organization [facility] Address [address] [place] [address] Care Team Providers Care Upholstery Cleaner Name Role Phone Unavailable Primary Care Provider Unavailabl e Encounter Details Date Type Department Care Team (Late st Contact Info) Description 10/07/2011 [facility] [address] [facility], [address] [place] [address] Dante Hall MD [address] [place], [place] [id number] Routine general medical examination at a health care facility Social History Tobacco Use Types Packs/Day Years Used Date Smoking Tobacco: Never Assessed Sex and Gender Information Value Date Recorded Sex Assigned at Not on file Legal Sex Male 1:04 AM EDT Gender Identity Not on file Sexual Orientation Not on file documented as of this encounter Last Filed Vital Signs Vital Sign Reading Time Taken Comments Blood Pressure 129/80 10/07/2011 2:37 PM EDT Pulse 92 10/07/2011 2:37 PM EDT Temperature - - Respiratory Rate - - Oxygen Saturation - - Inhaled Oxygen Concentration - - Weight 95.3 kg (210 lb) 10/07/2011 2:37 PM EDT Height 177.8 cm (5' 10) 10/07/2011 2:37 PM EDT Body Mass Index 30.13 10/07/2011 2:37 PM EDT documented in this encounter Progress Notes * Dante Hall MD - 10/07/2011 2:30 PM EDT October 07, 2011 Re: Michael Puri : 1950 Mr. Puri is here for an evaluation of his BPH and his follow-up from his HoLEP procedure. He has done fairly well from his procedures. His flow seems to be excellent. He has minimal postvoid residual. His flow is exceedingly low with a peak urinary flow rate of 90 mL/sec and voided volume of 503 cc and his residual volume is down to 24 cc. His PSA is down to 1.25 and his only complaint at this point is mild stress urinary incontinence, which is actually recovering better. He has no discomfort. All things seem to be better and is not truly down to minimal. Impression: History of incomplete bladder emptying and BPH, post holmium laser enucleation of the prostate. I would recommend that he should get a digital rectal exam in about six months, urinary flow rate, and a peak PVR, as well as a PSA in six months. He will follow up with me in the office. Please give me a call if there are any questions regarding his care. Sincerely, Dante Hall M.D. Department of Urology [id number] cc: Asher Zambrano D.O. [address] [place] [address] Electronically verified by:DANTE HALL MD Nov 02 2011 12:55PM Eastern Standard Time Electronically signed by:DANTE HALL MD Nov 02 2011 12:55PM EST documented in this encounter Plan of Treatment Not on file documented as of this encounter Visit Diagnoses Diagnosis Routine general medical examination at a health care facility documented in this encounter
--- OUTSIDE RECORDS SUMMARY | 2024-03-28 21:26 | XMS_ITS | Encounter Summary ---
Author Organization [facility] Address [address] [place] [address] Care Team Providers Care Alignment Specialist Name Role Phone Unavailable Primary Care Provider Unavailabl e Encounter Details Date Type Department Care Team (Late st Contact Info) Description 08/06/2015 Office Visit [facility] [address] [facility] [address] [place] [address] Dante Hall MD [address] [place] [address] Social History Tobacco Use Types Packs/Day Years [...]
--- OUTSIDE RECORDS SUMMARY | 2024-03-28 21:26 | XMS_ITS | Encounter Summary ---
Author Organization [facility] Address [address] [place] [address] Care Team Providers Care Passenger Agent Name Role Phone Unavailable Primary Care Provider Unavailabl e Encounter Details Date Type Department Care Team (Late st Contact Info) Description 06/13/2013 [facility] [place] [address] [facility] [address] [place] [address] Dante Hall MD [address] [place], [place] [id number] Social History Tobacco Use Types Packs/Day Years Used Date Smoking Tobacco: Never Assessed Sex and Gender Information Value Date Recorded Sex Assigned at Not on file Legal Sex Male 1:04 AM EDT Gender Identity Not on file Sexual Orientation Not on file documented as of this encounter Last Filed Vital Signs Vital Sign Reading Time Taken Comments Blood Pressure 139/79 06/13/2013 10:00 AM EST Pulse 69 06/13/2013 10:00 AM EST Temperature - - Respiratory Rate - - Oxygen Saturation - - Inhaled Oxygen Concentration - - Weight 107 kg (235 lb) 06/13/2013 10:00 AM EST Height 177.8 cm (5' 10) 06/13/2013 10:00 AM EST Body Mass Index 33.72 06/13/2013 10:00 AM EST documented in this encounter Plan of Treatment Not on file documented as of this encounter Visit Diagnoses Not on filedocumented in this encounter
--- OUTSIDE RECORDS SUMMARY | 2024-03-28 21:26 | XMS_ITS | Encounter Summary ---
Author Organization [facility] Address [address] [place] [address] Care Team Providers Care Screener Operator Name Role Phone Unavailable Primary Care Provider Unavailabl e Encounter Details Date Type Department Care Team (Late st Contact Info) Description 06/17/2010 Office Visit [facility] [place] [address] [place] [address], [address] [place] [id number] Social History Tobacco Use Types Packs/Day Years [...]
--- OUTSIDE RECORDS SUMMARY | 2024-03-28 21:26 | XMS_ITS | Patient Health Record ---
Author Organization [facility] Address [address] [facility] [address] [place] [address] Care Team Providers Care Local Telephone Operator Name Role Phone Asher Zambrano DO Primary Care Provider Evgeny Mcdonnell MD, Cole Unavailable [phone] REASON FOR REFERRAL No Information SOCIAL HISTORY Sex Assigned At : Social History Observation Description Sex Assigned At Unknown PLAN OF TREATMENT No Information Insurance Providers Payer Name Payer Address Payer Phone Subscriber Number Group Number Insured Name Patient Relationship to Insured Coverage Start Date Coverage End Date MEDICARE [address] [place] [phone] [id number] Nirmal Puri Self - patient is the insured [employer] [address] [place] [address] [id number] Nirmal Puri Self - patient is the insured
--- OUTSIDE RECORDS SUMMARY | 2024-03-28 21:26 | XMS_ITS | Encounter Summary ---
Author Organization [facility] Address [address] [place] [address] Care Team Providers Care Outdoor Recreation Specialist Name Role Phone Unavailable Primary Care Provider Unavailabl e Encounter Details Date Type Department Care Team (Late st Contact Info) Description 05/17/2008 Office Visit [facility] [place] [address] [place] [address], [address] [place] [address] Ronaldo Velez MD [address] [place] [address] Social History Tobacco Use Types Packs/Day Years [...]
--- OUTSIDE RECORDS SUMMARY | 2024-03-28 21:26 | XMS_ITS | Encounter Summary ---
Author Organization [facility] Address [address] [place] [address] Care Team Providers Care Angle Dozer Operator Name Role Phone Unavailable Primary Care Provider Unavailabl e Encounter Details Date Type Department Care Team (Late st Contact Info) Description 11/01/2007 Office Visit CONVERSION LOCATION Asher Zambrano, DO [address] [facility] [address] [place] [address] Social History Tobacco Use Types Packs/Day Years [...]
--- OUTSIDE RECORDS SUMMARY | 2024-03-28 21:26 | XMS_ITS | Encounter Summary ---
Author Organization [facility] Address [address] [place] [address] Care Team Providers Care House Builder Name Role Phone None, Provider Primary Care Provider Unavailabl e Encounter Details Date Type Department Care Team (Late st Contact Info) Description 07/29/2014 Results Only [facility] Services - [facility] ([facility]) [address] [place] [address] Muriel Nascimento MD [address] [place] [id number] Social History Tobacco Use Types Packs/Day Years [...] Procedure Name Priority Date/Time Associated Diagnosis Comments SURGICAL PATHOLOGY Routine 07/29/2014 16 :35 EST documented in this encounter Results * SURGICAL PATHOLOGY (07/29/2014 16:35 EST) Pathology Report: SURGICAL PATHOLOGY REPORT Reports generated via electronic interface contain original data; however they are lacking the format of the original report. Caution should be taken when reading/interpret ing unformatted reports. Name: ? NIRMAL ENG ? Accession #: ? [id number] ? : ? 1950 (Age: 64) ??M ? Collect Date: ? 07/29/2014 ? Location: ? [facility] ? Receive Date: ? 07/30/2014 ? Provider: MURIEL NASCIMENTO MD Copy to: ? Final Pathologic Diagnosis: APPENDIX, APPENDECTOMY: - ??Acute suppurative transmural appendicitis and periappendicitis. - ??Histologic features suggestive of perforation. - ??Proximal resection margin with no significant inflammation. Document reviewed and electronically signed by: CAROLINE LAMAR MD Report ??Date: 08/02/2014 10:01 By the signature above, the attending physician certifies that he/she has personally conducted a gross and/or microscopic examination of the described specimens and rendered or confirmed the above diagnosis. Specimen(s) Received: Appendix Clinical History: Appendicitis, perforated Gross Description: ? Received in formalin labelled with proper patient identification (initials P, T) and appendix is a vermiform appendix (9.2 cm in length x 0.4-1.2 cm in diameter) with a moderate amount of attached mesoappendix. ? The serosa is messina-dupont and diffusely dusky. The average wall thickness is 0.1 cm, with no discernable perforation site. The lumen ranges from 0.1 cm to 0.8 cm in diameter and contains one brown ovoid fecalith (0.7 x 0.6 x 0.5 cm). The proximal margin is inked blue. ? The proximal margin, en face, two patient financial representative cross sections, and one-half of the longitudinally bisected distal tip are submitted in 1. Margoth Luna 07/31/2014 09:44 AM End of Report [facility] 07/29/2014 16:3 5 EST 07/30/2014 16:35 EST Muriel Nascimento MD PATHOLOGY ORDERABLES [facility] [address] [id number] documented in this encounter Visit Diagnoses Not on filedocumented in this encounter Care Teams House Builder Relationship Specialty Start Date End Date None, Provider PCP - General 08/23/12 12/07/16 documented as of this encounter
--- OUTSIDE RECORDS SUMMARY | 2024-03-28 21:26 | XMS_ITS | Continuity of Care Document ---
Author Organization [facility] Address [address] [address] [place] [address] Phone [phone] Problems Active Problems Provider Date Increased frequency of urination Bjorn Franco M.D. Onset: 10/04/2020 Benign hypertension Bjorn Franco M.D. Onset: 10/04/2020 Erectile dysfunction Bjorn Franco M.D. Onset : 10/04/2020 Social History Type Date Description Comments ETOH Use Occasional Alcohol Tobacco Use Reviewed: 10/04/20 Patient has never smok ed Smoking Status Reviewed: 10/04/20 Patient has never sm oked Allergies and adverse reactions Active Allergies Criticality Reaction Severity Comments Date Shellfish Unable to assess criticality 08/24/2012 Bee Sting Unable to assess criticality 10/04/2020 Medications Active Medications SIG Qnty Indications Ordering Provider Date Valsartan-Hydrochlorot mniwdly50-25.5mg Tablets 1 daily Unknown 10/03/2020 Rcrlljq718-83qcf/Act Suspension as needed Unknown 10/03/2020 Ezetimibe-Simvastatin1 0-40mg Tablets 1 daily Unknown 10/03/2020 Vascepa0.5gm Capsules 2 once daily Unkno wn 10/03/2020 Jcxjuauww68rp Tablets 1 by mouth every day Unknown 10/03/2020 Vital Signs Date Vital Result Comment 10/04/2020 12:47pm BP Systolic 148 mmHg BP Diastolic 76 mmHg Height 70 inches 5'10 Weight 235.00 lb BMI (Body Mass Index) 33.7 kg/m2 Assessments Date Code Description Provider 10/04/2020 N40.0 Benign prostatic hyperplasia without lower urinary tract symptoms Bjorn Franco M.D. Plan of Treatment 10/04/2020 - Blane. Hagg, M.D.* N40.0 Benign prostatic hyperplasia without lower urinry tract symp* Comments:* Nirmal has a history of bladder outlet obstruction and underwent holmium laser enucleation of theprostate in 2010 at [facility]. He recently has been complaining of post void dribbling and some urinary frequency. His bladder scan residual is 106 cc and his urinalysis is negative. I recommended cystoscopy and urodynamic testing. He will also have a PSA as I do not have any of those results. He will also try to reduce caffeine, alcohol and spicy foods in his diet until he undergoes testing.
--- OUTSIDE RECORDS SUMMARY | 2024-03-28 21:26 | XMS_ITS | Data Portability ---
Author Organization [place] [address] [place] [address] [place] [address] Assessment No assessment recorded. Plan of Treatment Reminders Order Date Submit Date Provider Last Modified By Organization Details Last Modified Time Details Appointments None recorded. Lab rapid flu (A+B) 2022 023 klika In-Office Order, Internal Use Only DO Not Attach Compendium DO Not Attach Compendium, Do Not Delete/merge, [id number] 11:49:51 rapid SARS CoV 2 Ag, QL IA, respiratory specimen 2022 023 klika In-Office Order, Internal Use Only DO Not Attach Compendium DO Not Attach Compendium, Do Not Delete/merge, [id number] 11:49:51 rapid strep group A, throat 2022 023 klika In-Office Order, Internal Use Only DO Not Attach Compendium DO Not Attach Compendium, Do Not Delete/merge, [id number] 11:49:51 Referral None recorded. Procedures None recorded. Surgeries None recorded. Imaging None recorded. Medication Orders promethazin e-DM 6.25 mg-15 mg/5 mL oral syrup 2022 023 [id number], [address], [place], [id number], 3 11:49:59 Tamiflu 75 mg capsule 2022 023 [facility][id number], [address], [place], [id number], 3 11:49:58 Flonase Allergy Relief 50 mcg/actuati on nasal spray,suspe nsion 2022 023 [id number], [address] , [place], [place], [phone], 12:27:56 Patient TargetsNo targets recorded. Patient Instructions Encounter Date Encounter Id Patient Instructions Last Modified By Organization Details Last Modified Time 10/02/2022 [id number] Patient advised to take 10 deep breaths an hour. Advised to drink plenty of fluids, run a cool-mist humidifier in room at night, warm fluids for sore throat, and get plenty of rest. Patient should avoid over-exertion and reduce exposure to irritants such as smoke, cold, dry air, and dust. Patient may take acetaminophen or ibuprofen as directed to reduce fever and body aches. Antihistamine and decongestant usage was discussed and recommendations made. If symptoms do not improve in the next 7-10 days patient was encouraged to follow up with PCP. Customary discussion of prescribed medication benefits, side effects, and compliance was done. Discussed disease presentation, treatment options, progression, complications, and outcomes with patient during this office visit. Patient has expressed understanding and is in agreement of plan of care. sara Not available 10/02/2022 11:50:35 Reason for Referral None Reported. Results Created Date Observation Date Name Description Value Unit Range Abnormal Flag Note LastModifiedBy Organization Detail LastModifiedTime 10/03/1910/02/2022 rapid SARS CoV 2 Ag, QL IA, respi rator y speci men Is this the patient's first test for COVID-19? No Not Available In-Off ice Order Internal Use Only DO Not Attach Compendium DO Not Attach Compendium, Do Not Delete/merge, [id number] 10/02/2022 11:41:51 10/03/1910/02/2022 rapid SARS CoV 2 Ag, QL IA, respi rator y speci men Is the patient symptomatic of COVID-19 per the CDC Guidelines? Yes Not Available In-O ffice Order Internal Use Only DO Not Attach Compendium DO Not Attach Compendium, Do Not Delete/merge, [id number] 10/02/2022 11:41:51 10/03/1910/02/2022 rapid SARS CoV 2 Ag, QL IA, respi rator y speci men If yes, date of onset symptoms (mm/dd/yy): -- Not Available In-Office Order Internal Use Only DO Not Attach Compendium DO Not Attach Compendium, Do Not Delete/merge, 10/02/2022 11:41:51 10/03/1910/02/2022 rapid SARS CoV 2 Ag, QL IA, respi rator y speci men Is the patient employed in healthcare? No Not Available In-O ffice Order Internal Use Only DO Not Attach Compendium DO Not Attach Compendium, Do Not Delete/merge, 10/02/2022 11:41:51 10/03/1910/02/2022 rapid SARS CoV 2 Ag, QL IA, respi rator y speci men Is the patient hospitalized ? No Not Available In-Off ice Order Internal Use Only DO Not Attach Compendium DO Not Attach Compendium, Do Not Delete/merge, 10/02/2022 11:41:51 10/03/1910/02/2022 rapid SARS CoV 2 Ag, QL IA, respi rator y speci men Is the patient in the ICU? No Not Available In-Off ice Order Internal Use Only DO Not Attach Compendium DO Not Attach Compendium, Do Not Delete/merge, 10/02/2022 11:41:51 10/03/1910/02/2022 rapid SARS CoV 2 Ag, QL IA, respi rator y speci men Congregate care resident (e.g. prison, homeless usp, etc.)? No Not Available In-Off ice Order Internal Use Only DO Not Attach Compendium DO Not Attach Compendium, Do Not Delete/merge, 10/02/2022 11:41:51 10/03/1910/02/2022 rapid SARS CoV 2 Ag, QL IA, respi rator y speci men ? No Not Available In-Offic e Order Internal Use Only DO Not Attach Compendium DO Not Attach Compendium, Do Not Delete/merge, 10/02/2022 11:41:51 10/03/19 23 10/02/2022 rapid SARS CoV 2 Ag, QL IA, respi rator y speci men [place] where patient resides: [place] Not Available In-Office Order Internal Use Only DO Not Attach Compendium DO Not Attach Compendium, Do Not Delete/merge, 10/02/2022 11:41:51 10/03/19 23 10/02/2022 rapid SARS CoV 2 Ag, QL IA, respi rator y speci men Patient phone number with area code [email or web address] x: Not Available In-Office Order Internal Use Only DO Not Attach Compendium DO Not Attach Compendium, Do Not Delete/merge, 10/02/2022 11:41:51 10/03/19 23 10/02/2022 rapid SARS CoV 2 Ag, QL IA, respi rator y speci men LOT: [id number] Not Available In-Office Order Internal Use Only DO Not Attach Compendium DO Not Attach Compendium, Do Not Delete/merge, 10/02/2022 11:41:51 10/03/19 23 10/02/2022 rapid SARS CoV 2 Ag, QL IA, respi rator y speci men EXP: [id number] Not Available In-Office Order Internal Use Only DO Not Attach Compendium DO Not Attach Compendium, Do Not Delete/merge, 10/02/2022 11:41:51 10/03/1910/02/2022 rapid SARS CoV 2 Ag, QL IA, respi rator y speci men COVID-19 Result: negati ve Not Available In-Office Order Internal Use Only DO Not Attach Compendium DO Not Attach Compendium, Do Not Delete/merge, 10/02/2022 11:41:51 10/03/1910/02/2022 rapid strep group A, throa t [employer] Quidel Not Available In-Of fice Order Internal Use Only DO Not Attach Compendium DO Not Attach Compendium, Do Not Delete/merge, 10/02/2022 11:41:52 10/03/19 23 10/02/2022 rapid strep group A, throa t Test Strip Lot Number [id number] Not Available In-Of fice Order Internal Use Only DO Not Attach Compendium DO Not Attach Compendium, Do Not Delete/merge, [id number] 10/02/2022 11:41:52 10/03/19 23 10/02/2022 rapid strep group A, throa t Test Strip Expiration Date 024 Not Available In-Office Order Internal Use Only DO Not Attach Compendium DO Not Attach Compendium, Do Not Delete/merge, 10/02/2022 11:41:52 10/03/19 23 10/02/2022 rapid strep group A, throa t Procedural Control Results Valid Yes Not Available In-Off ice Order Internal Use Only DO Not Attach Compendium DO Not Attach Compendium, Do Not Delete/merge, 10/02/2022 11:41:52 10/03/19 23 10/02/2022 rapid strep group A, throa t Result negati ve Not Available In-Office Order Internal Use Only DO Not Attach Compendium DO Not Attach Compendium, Do Not Delete/merge, [id number] 10/02/2022 11:41:52 10/03/1910/02/2022 rapid strep group A, throa t Speciment Sent to Lab No Not Available In-O ffice Order Internal Use Only DO Not Attach Compendium DO Not Attach Compendium, Do Not Delete/merge, 10/02/2022 11:41:52 10/03/1910/02/2022 rapid flu (A+B) [employer] Juanpablo Palma Not Available In-Office Order Internal Use Only DO Not Attach Compendium DO Not Attach Compendium, Do Not Delete/merge, [id number] 10/02/2022 11:40:31 10/03/1910/02/2022 rapid flu (A+B) Test Strip Lot Number [id number] Not Available In-Office Order Internal Use Only DO Not Attach Compendium DO Not Attach Compendium, Do Not Delete/merge, [id number] 10/02/2022 11:40:31 10/03/19 23 10/02/2022 rapid flu (A+B) Test Strip Expiration Date 2024 Not Available In-Office Order Internal Use Only DO Not Attach Compendium DO Not Attach Compendium, Do Not Delete/merge, [id number] 10/02/2022 11:40:31 10/03/1910/02/2022 rapid flu (A+B) Procedural Control Valid Yes Not Available In-Off ice Order Internal Use Only DO Not Attach Compendium DO Not Attach Compendium, Do Not Delete/merge, [id number] 10/02/2022 11:40:31 10/03/1910/02/2022 rapid flu (A+B) Result positi ve Not Available In-Office Order Internal Use Only DO Not Attach Compendium DO Not Attach Compendium, Do Not Delete/merge, [id number] 10/02/2022 11:40:31 Result Notes None recorded. Problems Name Problem SNOMED Code Status Onset Date Resolution Date Notes Provider Name and Address Organization Details Recorded Time Influenza- like symptoms 185991041 Active 023 FLORINA TEMPLETONA, SATELLITE SPECIALIST [address] [place], [address] , [address] 11:44:04 Problem Notes None recorded. Medical Equipment None Reported. Allergies Allergen ID Allergen Name Allergen Category Reaction Reaction Severity Criticality Documentation Date Start Date Code Code System Note Provider Name and Address Organization Details Recorded Time 953940 shellfish derived food,medi cation Not available Not available Not available 10/02/2022 Yue Mosqueda RN [address] 3 11:38:24 300474 honey bee venom medicatio n Not available Not available Not available 10/02/2022 04754 7 RxNorm Yue Mosqueda RN [address] 3 11:38:44 Medications Name Sig Start Date Stop Date Status Note LastModified by Organization Details LastModified Time promethazine-D M 6.25 mg-15 mg/5 mL oral syrup TAKE 5 ML BY MOUTH EVERY 4 HOURS FOR 5 DAYS NEEDED active Not Available Not Available No t Available oseltamivir 75 mg capsule TAKE 1 CAPSULE BY MOUTH TWICE DAILY FOR 5 DAYS DIRECTED active Not Available Not Available No t Available fluticasone propionate 50 mcg/actuation nasal spray,suspensi on SHAKE LIQUID AND USE 1 SPRAY IN EACH NOSTRIL EVERY DAY active Not Available Not Available No t Available ezetimibe 10 mg tablet active Not Available Not Available No t Available rosuvastatin 40 mg tablet active Not Available Not Available Not Available ezetimibe unsure of dosage active Not Available Not Available No t Available rosuvastatin unsure of dosage active Not Available Not Available No t Available icosapent ethyl 1 gram capsule active Not Available Not Available Not Available Vascepa unsure of dosage active Not Available Not Available No t Available Ozempic unsure of dosage active Not Available Not Available No t Available Ozempic 2 mg/dose (8 mg/3 mL) subcutaneous pen injector active Not Available Not Available Not Available Vitals Date Recorded Body weight Body mass index (BMI) Body height Body temperature Heart rate Respiratory rate Oxygen saturation Oxygen saturation in Arterial blood by Pulse oximetry Systolic blood pressure Diastolic blood pressure Provider Name and Address Organization Details Last Updated DateTime 3 79827.9 6 g 27.1 kg/m2 177.8 cm 98.1 [degF] 85 /min 16 /min 99 % 99 % 144 mm[Hg] 90 mm[Hg] Yue Mosqueda RN [address] 11:37:46 Social History Question Answer Notes LastModified by Organizat ion Details LastModified Time Do You Have An Advance Directive? Yes Information n ot available 10/02/2022 Is Blood Transfusion Acceptable In An Emergency? Yes Information not available 10/02/2022 Are You Currently Employed? No Retired Information not available 10/02/2022 Do You Have A Medical Power Of Disulfurizer Tender? Yes Information not available 10/02/2022 What Is Your Relationship Status? Information not available 10/02/2022 Sex: Unknown Functional Status None recorded. Mental Status None recorded. Family History Relationship Description Onset Age of this Age Resolved Age Notes LastModified by Organization Details LastModified Time Father Malignant neoplastic disease Not available 2022 11:39:46 Medical History No medical history recorded. Immunizations Vaccine Type Date Status Provider Name and Address Organization Details Recorded Time Tdap 04/25/2017 completed Yue Mosqueda RN [place], [place] - [facility] [place] 10/02/2022 11:38:05 Pneumococcal conjugate PCV 13 04/25/2017 completed Yue Mosqueda RN [facility], [facility] [place] 10/02/2022 11:38:05 Past Encounters Encounter ID Performer Location Encounter Start Date Encounter Closed Date Diagnosis/Indication Diagnosis SNOMED-CT Code Diagnosis ICD10 Code [id number] FLORINA PAGE, NALINI [facility] [address] [place] [address] 10/02/2022 10:15:42 10/02/2022 11:59:32 Influenza-like symptoms 169843611 R68.89 Health Concerns Section Related Observation LastModified by Organization Detai ls LastModified Time None Recorded Concern Status LastModified by Organization Details LastModified Time None Recorded Advance Directives Directive Y: Payers Encounter Date Sequence Insurance Name Policy Number Policy Ceja Covered Member ID Ceja Member ID Guarantor Name 10/02/2022 1 [place] Nirmal Puri [id number] Nirmal Puri 10/02/2022 2 [employer] (MEDICARE SUPPLEMENT) Nirmal Puri [id number] Nirmal Puri Notes Date Note Type Note Provider Name and Address Organization Details Recorded Time 10/02/2022 text/html HPI Notes: Nirmal presents with nasal drainage, post nasal drip and cough x2 days. Denies sob, wheezing, SOB. No recent infections or antibiotic use. FLORINA PAGE, NALINI [address] [place], [address], [facility] [place] 10/02/2022 12:28:27
--- OUTSIDE RECORDS SUMMARY | 2024-03-28 21:26 | XMS_ITS | Encounter Summary ---
Author Organization [facility] Address [address] [place] [address] Care Team Providers Care Biodiesel Operations Manager Name Role Phone Unavailable Primary Care Provider Unavailabl e Encounter Details Date Type Department Care Team (Latest Contact Info) Description 08/22/2010 7:02 AM EST - 08/23/2010 2:12 PM [facility] Hospital Encounter [facility] [address] [place] [address] Dante Hall MD [address] [place] [address] Hypertrophy of prostate with urinary obstruction and other lower urinary tract symptoms (LUTS); Pure hypercholesterolemi a; Bladder neck obstruction; Unspecified essential hypertension; Incomplete bladder emptying; Urinary frequency Social History Tobacco Use Types Packs/Day Years Used Date Smoking Tobacco: Never Assessed Sex and Gender Information Value Date Recorded Sex Assigned at Not on file Legal Sex Male 1:04 AM EDT Gender Identity Not on file Sexual Orientation Not on file documented as of this encounter Miscellaneous Notes * Op Note - Dante Hall MD - 08/22/2010 12:00 AM EST [facility] Patient Name: KADE ENG Procedure Date: 08/22/2010 Account No: [id number] Patient Type: Inpatient Discharge Date: 08/23/2010 Surgeon: Dante Hall M.D. 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 NAME OF PROCEDURE 1. Cystourethroscopy. 2. Urethral calibration and dilatation. 3. Holmium laser enucleation of prostate. SURGEON: Dante Hall MD PHYSICIAN ADVISOR: Fabiola Cortez MD ANESTHESIA: General laryngeal mask airway. ESTIMATED BLOOD LOSS: Minimal. INTRAVENOUS FLUIDS: 1300 mL of crystalloid. DRAINS: 20 Tristanian 3-way Araujo catheter to continuous bladder irrigation with normal saline. URINE OUTPUT: Not measured. SPECIMENS: Prostate chips for routine specimen. COMPLICATIONS: None. CONDITION: Stable. FINDINGS: High bladder neck with lateral lobe enlargement. INDICATIONS FOR THE PROCEDURE: The patient is a 60-year-old gentleman with a greater than 1 year history of obstructive lower urinary tract symptoms and elevated postvoid residuals. He has failed medical management with alpha nikki and 5 alpha reductase inhibitor. Transrectal ultrasound guided biopsy on 07/30/2010 revealed a 32 gram prostate. 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 The urodynamics in June 2010 showed markedly elevated detrusor pressure and significantly diminished flow consistent with bladder outlet obstruction. All risks, benefits, and alternatives were discussed. The patient elected to proceed with surgery. Informed consent was obtained. Preoperative urine culture was negative. DETAILS OF THE PROCEDURE: After proper identification and informed consent, the patient was brought to the operating room and placed supine on the table. All bony prominences were well padded. Sequential compression devices were placed on bilateral lower extremities. Prophylactic intravenous antibiotics were given with ciprofloxacin 400 mg. general anesthesia was administered via laryngeal mask airway. The patient was then repositioned in dorsal lithotomy. The genitalia were prepped and draped in the standard sterile fashion. A time-out was performed to confirm the patient and the procedure. A 22 Tristanian rigid cystoscope was inserted per urethra in atraumatic fashion. Upon entering the bladder, the bladder neck was relatively tight and markedly elevated. Both lateral lobes were enlarged. No significant median lobe was seen. Bilateral ureteral orifices were identified and orthotopic in location and relatively remote from the bladder neck. No bladder tumors, stones, or intravesical pathology was seen. The bladder wall was mild to moderately trabeculated. The cystoscope was then removed. The urethra was then calibrated and dilated using Katelyn sounds from 18 Tristanian up to 30 Tristanian. Following this, a 26 Tristanian continuous flow resectoscope was inserted using the visual obturator. The obturator was then exchanged for the laser bridge and lens. A 550 micron [employer] holmium laser fiber was inserted. Normal saline irrigant was used during the procedure. Bilateral ureteral orifices and external urinary sphincter were identified. Using settings of energy 2 joules and frequency of 50 Hz, enucleation commenced by creating grooves at the 5 and 7 o'clock positions at the bladder neck. The grooves were deepened down to the surgical capsule and then extended distally just proximal to the verumontanum. The grooves were then joined and the median lobe was enucleated in a retrograde fashion. Care was taken not to undermine the bladder neck. The median lobe was then pushed into the bladder. Following enucleation of the median lobe, attention was turned to the lateral lobes beginning on the right side. A groove was created at the 1 o'clock position on the bladder neck and deepened into the surgical capsule. This was then extended distally to a point just proximal to the verumontanum. The incision was then extended transversely toward the verumontanum. The right lateral lobe was then enucleated in a retrograde fashion and the remaining lateral attachments were taken down and the tissue was pushed into the bladder. In a similar fashion this was repeated on the left side. A groove was created at the 11 o'clock position in the bladder neck and deepened down to the capsule and extended distally just proximal to the verumontanum. The incision was extended transversely toward the verumontanum. The left lateral lobe was then enucleated. Once both lobes were completely enucleated, the channel was wide open. The resectoscope was then removed. A 24 Tristanian rigid nephroscope was then inserted into the bladder. A [employer] percutaneous retrieval basket was then used to extract the specimen. The nephroscope was then removed. Repeat inspection with the cystoscope confirmed hemostasis and bilateral ureteral orifices intact. No prostate chips remained. The bladder was left slightly full. The cystoscope was removed. A 20 Tristanian 3-way Araujo catheter was inserted and irrigated clear. The balloon was inflated with 30 mL of sterile water placed on normal saline continuous bladder irrigation at a low drip rate. The patient was then repositioned supine, extubated, and taken to the recovery room in stable condition. There were no apparent complications. Dr. Hall was present for all critical portions of the procedure. Electronically Authenticated by Dante Hall M.D. 09/08/2010 09:38 A Dictated by: Fabiola Cortez M.D. Attending: Dante Hall M.D. cc: Kathe Erickson M.D. Dictation Date/Time: 08/22/2010 12:23 P Date/Time Transcribed: 08/23/2010 10:18 A Cathode Builder wmx/JOB: [id number] #: [id number] documented in this encounter Plan of Treatment Not on file documented as of this encounter Visit Diagnoses Diagnosis Hypertrophy of prostate with urinary obstruction and other lower urinary tract symptoms (LUTS) Pure hypercholesterolemia Bladder neck obstruction Unspecified essential hypertension Incomplete bladder emptying Urinary frequency documented in this encounter
--- OUTSIDE RECORDS SUMMARY | 2024-03-28 21:26 | XMS_ITS | Encounter Summary ---
Author Organization [facility] Address [address] [place] [address] Care Team Providers Care On Awake Counselor Name Role Phone Unavailable Primary Care Provider Unavailabl e Encounter Details Date Type Department Care Team (Late st Contact Info) Description 08/22/2010 Office Visit [facility] [address] [facility] [address] [place] [address] Dante Hall MD [address] [place] [address] Social History Tobacco Use Types Packs/Day Years [...]
--- OUTSIDE RECORDS SUMMARY | 2024-03-28 21:26 | XMS_ITS | Encounter Summary ---
Author Organization [facility] Address [address] [place] [address] Care Team Providers Care Human Services Program Specialist Name Role Phone Unavailable Primary Care Provider Unavailabl e Encounter Details Date Type Department Care Team (Late st Contact Info) Description 09/09/2010 Office Visit [facility] [address] [facility] [address] [place] [address] Dante Hall MD [address] [place], [place] [id number] Routine general medical examination at a health care facility; Hypertrophy of prostate with urinary obstruction and other lower urinary tract symptoms (LUTS) Social History Tobacco Use Types Packs/Day Years [...] medical examination at a health care facility Hypertrophy of prostate with urinary obstruction and other lower urinary tract symptoms (LUTS) documented in this encounter
--- OUTSIDE RECORDS SUMMARY | 2024-03-28 21:26 | XMS_ITS | Encounter Summary ---
Author Organization [facility] Address [address] [place] [id number] Care Team Providers Care Accounts Payables Clerk Name Role Phone None, Provider Primary Care Provider Unavailabl e Encounter Details Date Type Department Care Team (Latest Contact Info) Description 07/29/2014 13:16 EST - 07/29/2014 23:59 EST Hospital Encounter [facility] - [address] [address] Unknown, Provider, Discharge Disposition: Home or Self Care Social [...] tablet Take 160 mg by mouth daily. Fenofibrate Nanocrystallized (TRICOR) 145 mg Tab Take 145 mg by mouth daily. 12/08/2016 documented as of this encounter Discharge Disposition Disposition Code Departure Means Destination Home or Self Retirement documented in this encounter Plan of Treatment Not on file documented as of this encounter Visit Diagnoses Not on filedocumented in this encounter Care Teams Accounts Payables Clerk Relationship Specialty Start Date End Date None, Provider PCP - General 08/23/12 12/07/16 documented as of this encounter
--- OUTSIDE RECORDS SUMMARY | 2024-03-28 21:26 | XMS_ITS | Encounter Summary ---
Author Organization [facility] Address [address] [place] [address] Care Team Providers Care Engineering Group Manager Name Role Phone Unavailable Primary Care Provider Unavailabl e Encounter Details Date Type Department Care Team (Late st Contact Info) Description 12/21/2013 Medication CONVERSION LOCATION Social History Tobacco Use Types Packs/Day Years Used Date Smoking Tobacco: Never Assessed Sex and Gender Information Value Date Recorded Sex Assigned at Not on file Legal Sex Male 1:04 AM EDT Gender Identity Not on file Sexual Orientation Not on file documented as of this encounter Progress Notes * Dante Hall MD - 12/21/2013 10:47 AM EDT Mr. Khushi lopez was called into the [facility] for Staxyn 10 MG 1 tab po QD for 10days. Script was called in bacause DR. Hall didn't electronically sign off on the script. Electronically signed by:Sofia Zamora MA Dec 21 2013 10:54AM EST documented in this encounter Plan of Treatment Not on file documented as of this encounter Visit Diagnoses Not on filedocumented in this encounter
--- OUTSIDE RECORDS SUMMARY | 2024-03-28 21:26 | XMS_ITS | Encounter Summary ---
Author Organization [facility] Address [address] [place] [address] Care Team Providers Care Dimmer Board Operator Name Role Phone Asher Zambrano DO Primary Care Provider [phone] Dante Hall MD Unavailable Reason for Referral * Diagnostic Imaging (Routine) - Canceled Specialty Diagnoses / Procedures Referred By Chelle villaseñor Referred To Contact Radiology Procedures ULTRASOUND EXTERNAL [address] [place] [address] Phone: tel: Referral ID Status Reason Start Date Expiration Date Visits Requested Visits Authorized [id number] Canceled Specialty Services Required 2017 12/07/2017 1 1 Encounter Details Date Type Department Care Team (Late st Contact Info) Description 2017 Orders Only [address] [place] [address] Social History Tobacco Use Types Packs/Day Years [...] Procedure Name Priority Date/Time Associated Diagnosis Comments ULTRASOUND EXTERNAL Routine 05/28/2017 1 2:00 AM EST documented in this encounter Results * ULTRASOUND EXTERNAL (05/28/2017 12:00 AM EST) Anatomical Region Laterality Modality Ultrasound us Historical Provider MD GASPAR US PROCEDURES Final R esult documented in this encounter Visit Diagnoses Not on filedocumented in this encounter Care Teams Dimmer Board Operator Relationship Specialty Start Date End Date Asher Zambrano DO [address] [place] [address] [place] [address] PCP - General Internal Medicine 03/23/17 Dante Hall MD [address] [place] [address] [place] [address] Consulting Physician Urology 05/11/17 documented as of this encounter
--- OUTSIDE RECORDS SUMMARY | 2024-03-28 21:26 | XMS_ITS | Encounter Summary ---
Author Organization [facility] Address [address] [place] [address] Care Team Providers Care Bookkeeping Manager Name Role Phone Unavailable Primary Care Provider Unavailabl e Encounter Details Date Type Department Care Team (Late st Contact Info) Description 07/30/2010 Office Visit [facility] [address] [facility] [address] [place] [address] Dante Hall MD [address] [place], [place] [id number] Routine general medical examination at a health care facility Social History Tobacco Use Types Packs/Day Years Used Date Smoking Tobacco: Never Assessed Sex and Gender Information Value Date Recorded Sex Assigned at Not on file Legal Sex Male 1:04 AM EDT Gender Identity Not on file Sexual Orientation Not on file documented as of this encounter Miscellaneous Notes * Telephone Encounter - Jean Pierre Mann MD - 07/30/2010 8:30 AM EST patient called to request if he needed any sedation prior to prostate biopsy scheduled tommorrow; will order Valium 2mg once to take half hour prior to biopsy; repeat x one if needed; script sent to [facility]; Electronically signed by:DEJON NOLASCO Jul 29 2010 12:48PM EST documented in this encounter Plan of Treatment Not on file documented as of this encounter Procedures Procedure Name Priority Date/Time Associated Diagnosis Comments PATHOLOGY EXTERNAL 07/30/2010 12 :00 AM EST documented in this encounter Results * PATHOLOGY EXTERNAL (07/30/2010 12:00 AM EST) Narrative 07/30/2010 12:00 AM EST Ordered by an unspecified provider. us Provider Scan LAB PATHOLOGY/CYTOLOGY ORDERABLE S Final Result documented in this encounter Visit Diagnoses Diagnosis Routine general medical examination at a health care facility documented in this encounter
--- OUTSIDE RECORDS SUMMARY | 2024-03-28 21:26 | XMS_ITS | Encounter Summary ---
Author Organization [facility] Address [address] [place] [address] Care Team Providers Care Cement Block Maker Name Role Phone Unavailable Primary Care Provider Unavailabl e Encounter Details Date Type Department Care Team (Late st Contact Info) Description 10/10/2007 Office Visit [facility] [address] [facility] [address] [place] [address] Donavon Kelly MD [address] [place] [address] Social History Tobacco Use Types Packs/Day Years [...]
--- OUTSIDE RECORDS SUMMARY | 2024-03-28 21:27 | XMS_ITS | Data Portability ---
Author Organization [facility]/Melissa son, [facility] Address [address] [place] [id number] Assessment Encounter Date Assessment Date Assessment LastModified by Organization Details LastModified Time 02/25/2023 02/25/2023 Patient presented for follow up of: . Studies ordered as below. Discussed plan with , who expressed understanding . Follow up as noted below. [email or web address] Not available 02/25/2023 13:49:00 06/30/2023 06/30/2023 Patient presented for follow up of: . Studies ordered as below. Discussed plan with , who expressed understanding . Follow up as noted below. dlazowick Not available 07/05/2023 22:04:20 12/13/2023 12/13/2023 Patient presented for follow up of: . Studies ordered as below. Discussed plan with patient, who expressed understanding . Follow up as noted below. dlazowick Not available 12/23/2023 14:43:48 Plan of Treatment Reminders Order Date Submit Date Provider Last Modified By Organization Details Last Modified Time Details Appointments INJECTION 2023 10:00A M Not available Not available Not available Lab None recorded. Referral None recorded. Procedures None recorded. Surgeries None recorded. Imaging CT, angiogram , head + neck, w/ contrast 2021 022 JESSY Not available 12/27/2022 05:01:43 Medication Orders Ozempic 1 mg/dose (4 mg/3 mL) subcutane ous pen injector 2021 [facility], [address], [address], [place], [id number], 08/07/2022 14:54:54 ezetimibe 10 mg tablet 2021 022 [facility], [address], [address], [place], [id number], 05/20/2022 15:11:53 rosuvasta tin 40 mg tablet 2021 022 [place] [facility], [address], [address], [place], [id number], 05/20/2022 15:11:51 sildenafi l 100 mg tablet 2022 023 [place] [facility], [address], [address], [place], [id number], 02/25/2023 13:16:14 Cortispor in-TC 3.3 mg-3 mg-10 mg-0.5 mg/mL ear drops,brayden pension 2022 024 JESS[facility] [address], [address], [address], [place], [id number], 12/13/2023 10:59:51 Patient TargetsNo targets recorded. Patient Instructions Encounter Date Encounter Id Patient Instructions Last Modified By Organization Details Last Modified Time 05/20/2022 [id number] advance care planning: care instructions [email or web address] Not available 06/14/2022 17:37:18 In compliance with Medicare guidelines, we will be billing Medicare to inform them of your adherence to completing your necessary preventive care. dlazowick Not available 06/14/2022 17:11:11 Discussed and explained advance directives such as standard forms to the {{patient caregiv er patient and caregiver}}. Face to face discussion lasted for a duration of ___ minutes. pamazowick Not available 06/14/2022 17:11:10 Reason for Referral None Reported. Results Created Date Observation Date Name Description Value Unit Range Abnormal Flag Note LastModifiedBy Organization Detail LastModifiedTime 04/30/20 22 04/30/2022 URIC ACID uric acid 8.1 mg/dL 4.8-8. 2 Not Available [facility] [address] [facility], [place], [address], 04/30/2022 22:38:10 04/30/20 22 04/30/2022 C-BOB CTIVE PROTE IN, HIGHL Y SENSI TIVE C reactive protein high sensit 0.48 mg/L <=7.48 Low risk: <1.0 mg/L Cascade ge Risk: 1.0 to 3.0 mg/L High risk: >3.0 mg/L (Pear son, Mensa h, et al, Circu latio n 107:4 99 Not Available [facility] [address] [facility] [address] [facility], [place], [address], 04/30/2022 22:38:11 04/30/20 22 04/30/2022 PSA TOTAL prostate specific Ag 1.84 NG/mL <=3.99 Ambar Ag er Hybri tech metho d. Serum level s of PSA shoul d not be inter prete d as absol [place] tribe evide nce for the prese nce of rudi montgomery . The PSA value shoul d be used in conju nctio n with other perti nent clini jaz diagn ostic proce dures . Not Available [facility]/ Imaging [address] [facility], [place], [address], 04/30/2022 23:06:33 04/30/20 22 04/30/2022 MICRO ALBUM IN/CR EATIN INE URINE RANDO M microalbumin urine rnd 6.0 mg/L <20.0 Not Available [facility] [address] [facility], [place], [address], 05/01/2022 00:21:33 04/30/20 22 04/30/2022 MICRO ALBUM IN/CR EATIN INE URINE RANDO M creatinine, urine random 88.7 mg/dL Not Available [facility] [address] [facility], [place], [address], 05/01/2022 00:21:33 04/30/20 22 04/30/2022 MICRO ALBUM IN/CR EATIN INE URINE RANDO M microalbumin /creatinine urine 6.8 ug/mg <30.0 Not Available [facility] [address] [facility], [place], [address], 05/01/2022 00:21:33 04/30/20 22 04/30/2022 LIPOP ROTEI N A (LPA) qst lipoprotein (A) <10 nmol/ L <75 Assay was ariadne jenkins and evette toledo. Risk Categ ory Optim al < 75 nmol/ L Moder ate 75 - 125 nmol/ L High > 125 nmol/ L Cardi ovasc ular event risk categ ory cut point s (opti mal, moder ate, high) are based on Smita Dailey. JAC 2017; 69:69 2-711 . Not Available [facility] [address] [facility], [place], [address], 05/07/2022 06:01:05 04/30/20 22 04/30/2022 APOLI POPRO TEIN B qst apolipoprote in B 75 mg/dL <90 Refer ence Range : <90 Risk Categ ory: Optim al < 90 Moder ate 90 - 119 High > or = 120 Cardi ovasc ular event risk categ ory cut point s (opti mal, moder ate, high) are based on Natio nal Lipid Assoc iatio n recom luz ashley TA et al. J Clin Lipid . 2015; 9:129 -169 and Vi AMEZCUA et al. Endoc r Pract . 2017; 23(Humphreys ppl 2):1- 87. Not Available [facility]/ Imaging [address] [facility] [address] [facility], [place], [address], 05/07/2022 07:31:37 04/30/20 22 04/30/2022 CBC WITH DIFFE RENTI AL WBC 7.2 K/uL 3.8-10 .8 Not Available [facility] Order Only [address], [place], [address], 05/07/2022 15:21:55 04/30/20 22 04/30/2022 CBC WITH DIFFE RENTI AL RBC 5.27 M/uL 4.20-5 .80 Not Available [facility] - Manual Order Only [address], [place], [address], 05/07/2022 15:21:55 04/30/20 22 04/30/2022 CBC WITH DIFFE RENTI AL hemoglobin 15.6 g/dL 13.2-1 7.1 Not Available [facility] - Manual Order Only [address], [place], [address], 05/07/2022 15:21:55 04/30/20 22 04/30/2022 CBC WITH DIFFE RENTI AL hematocrit 45.6 % 38.5-5 0.0 Not Available [facility] - Manual Order Only [address], [place], [address], 05/07/2022 15:21:55 04/30/20 22 04/30/2022 CBC WITH DIFFE RENTI AL MCV 86.5 fL 80.0-1 00.0 Not Available [facility] - Manual Order Only [address], [place], [address], 05/07/2022 15:21:55 04/30/20 22 04/30/2022 CBC WITH DIFFE RENTI AL MCH 29.6 pg 27.0-3 3.0 Not Available [facility] - Manual Order Only [address], [place], [address], 05/07/2022 15:21:55 04/30/20 22 04/30/2022 CBC WITH DIFFE RENTI AL MCHC 34.2 g/dL 32.0-3 6.0 Not Available [facility] - Manual Order Only [address], [place], [address], 05/07/2022 15:21:55 04/30/20 22 04/30/2022 CBC WITH DIFFE RENTI AL red cell distribution width 13.5 % 11.0-1 5.0 Not Available [facility] - Manual Order Only [address], [place], [address], 05/07/2022 15:21:55 04/30/20 22 04/30/2022 CBC WITH DIFFE RENTI AL platelet count 248 K/uL 140-40 0 Not Available [facility] - Manual Order Only [address], [place], [address], 05/07/2022 15:21:55 04/30/20 22 04/30/2022 CBC WITH DIFFE RENTI AL mean platelet volume 9.8 fL 7.5-12 .5 Not Available [facility] - Manual Order Only [address], [place], [address], 05/07/2022 15:21:55 04/30/20 22 04/30/2022 CBC WITH DIFFE RENTI AL neutrophil % 54.4 % 38.0-8 0.0 Not Available [facility] - Manual Order Only [address], [place], [address], 05/07/2022 15:21:55 04/30/20 22 04/30/2022 CBC WITH DIFFE RENTI AL neutrophil absolute 3.91 K/uL 1.50-7 .80 Not Available [facility] - Manual Order Only [address], [place], [address], 05/07/2022 15:21:55 04/30/20 22 04/30/2022 CBC WITH DIFFE RENTI AL lymphocyte % 35.0 % 15.0-4 9.0 Not Available [facility] - Manual Order Only [address], [place], [address], 05/07/2022 15:21:55 04/30/20 22 04/30/2022 CBC WITH DIFFE RENTI AL lymphocyte absolute 2.52 K/uL 0.85-3 .90 Not Available [facility] - Manual Order Only [address], [place], [address], 05/07/2022 15:21:55 04/30/20 22 04/30/2022 CBC WITH DIFFE RENTI AL monocyte % 8.1 % 0.0-13 .0 Not Available [facility] - Manual Order Only [address], [place], [address], 05/07/2022 15:21:55 04/30/20 22 04/30/2022 CBC WITH DIFFE RENTI AL monocyte absolute 0.58 K/uL 0.20-0 .95 Not Available [facility] - Manual Order Only [address], [place], [address], 05/07/2022 15:21:55 04/30/20 22 04/30/2022 CBC WITH DIFFE RENTI AL eosinophil % 1.7 % 0.0-8. 0 Not Available [facility] - Manual Order Only [address], [place], [address], 05/07/2022 15:21:55 04/30/20 22 04/30/2022 CBC WITH DIFFE RENTI AL eosinophil absolute 0.12 K/uL 0.00-0 .50 Not Available [facility] - Manual Order Only [address], [place], [address], 05/07/2022 15:21:55 04/30/20 22 04/30/2022 CBC WITH DIFFE RENTI AL basophil % 0.8 % 0.0-2. 0 Not Available [facility] [address], [place], [address], 05/07/2022 15:21:55 04/30/20 22 04/30/2022 CBC WITH DIFFE RENTI AL basophil absolute 0.06 K/uL 0.00-0 .20 Not Available [facility] [address], [place], [address], 05/07/2022 15:21:55 04/30/20 22 04/30/2022 COMPR EHENS LORENZO METAB OLIC PANEL glucose 98 mg/dL 65-99 Not Available [facility] - Manual Order Only [address], [place], [address], 05/07/2022 15:21:56 04/30/20 22 04/30/2022 COMPR EHENS LORENZO METAB OLIC PANEL calcium 10.0 mg/dL 8.5-10 .5 Not Available [facility] - Manual Order Only [address], [place], [address], 05/07/2022 15:21:56 04/30/20 22 04/30/2022 COMPR EHENS LORENZO METAB OLIC PANEL sodium 140 mmol/ L 136-14 5 Not Available [facility] - Manual Order Only [address], [place], [address], 05/07/2022 15:21:56 04/30/20 22 04/30/2022 COMPR EHENS LORENZO METAB OLIC PANEL potassium 5.4 mmol/ L 3.5-5. 1 high Not Available [facility] - Manual Order Only [address], [place], [address], 05/07/2022 15:21:56 04/30/20 22 04/30/2022 COMPR EHENS LORENZO METAB OLIC PANEL chloride 99 mmol/ L 95-108 Not Available [facility] - Manual Order Only [address], [place], [address], 05/07/2022 15:21:56 04/30/20 22 04/30/2022 COMPR EHENS LORENZO METAB OLIC PANEL CO2 (carbon dioxide) 27 mmol/ L 21-33 Not Available [facility] - Manual Order Only [address], [place], [address], 05/07/2022 15:21:56 04/30/20 22 04/30/2022 COMPR EHENS LORENZO METAB OLIC PANEL BUN (blood urea nitrogen) 26 mg/dL 8-23 high Not Available [facility] Order Only [address], [place], [address], 05/07/2022 15:21:56 04/30/20 22 04/30/2022 COMPR EHENS LORENZO METAB OLIC PANEL creatinine 0.95 mg/dL 0.70-1 .28 Not Available [facility] - Manual Order Only [address], [place], [address], 05/07/2022 15:21:56 04/30/20 22 04/30/2022 COMPR EHENS LORENZO METAB OLIC PANEL protein, total 7.6 g/dL 6.1-8. 0 Not Available [facility] - Manual Order Only [address], [place], [address], 05/07/2022 15:21:56 04/30/20 22 04/30/2022 COMPR EHENS LORENZO METAB OLIC PANEL albumin 5.2 g/dL 3.5-5. 5 Not Available [facility] - Manual Order Only [address], [place], [address], 05/07/2022 15:21:56 04/30/20 22 04/30/2022 COMPR EHENS LORENZO METAB OLIC PANEL globulin 2.4 g/dL_ (calc ) 1.8-3. 8 Not Available [facility] - Manual Order Only [address], [place], [address], 05/07/2022 15:21:56 04/30/20 22 04/30/2022 COMPR EHENS LORENZO METAB OLIC PANEL albumin/glob ulin ratio 2.2 calc 1.0-2. 5 Not Available [facility] [address], [place], [address], 05/07/2022 15:21:56 04/30/20 22 04/30/2022 COMPR EHENS LORENZO METAB OLIC PANEL alkaline phosphatase 60 U/L <150 Not Available [facility] [address], [place], [address], 05/07/2022 15:21:56 04/30/20 22 04/30/2022 COMPR EHENS LORENZO METAB OLIC PANEL alanine aminotransfe rase (ALT) 37 U/L 9-46 Not Available [facility] - Manual Order Only [address], [place], [address], 05/07/2022 15:21:56 04/30/20 22 04/30/2022 COMPR EHENS LORENZO METAB OLIC PANEL aspartate aminotransfe rase (AST) 23 U/L 10-35 Not Available [facility] - Manual Order Only [address], [place], [address], 05/07/2022 15:21:56 04/30/20 22 04/30/2022 COMPR EHENS LORENZO METAB OLIC PANEL bilirubin, total 0.8 mg/dL <1.3 Not Available [facility] - Manual Order Only [address], [place], [address], 05/07/2022 15:21:56 04/30/20 22 04/30/2022 COMPR EHENS LORENZO METAB OLIC PANEL BUN/creatini ne ratio 27 calc 6-22 high Not Available [facility] - Manual Order Only [address], [place], [address], 05/07/2022 15:21:56 04/30/20 22 04/30/2022 COMPR EHENS LORENZO METAB OLIC PANEL eGFR 86 mL/mi n/1.7 3m_sq uared >59 The eGFR is based on the CKD-E PI 2020 equat ion. To calcu late the new eGFR from a previ ous Creat inine or Cysta tin C resul t, go to https ://jono w.kid rebel.o rg/pr ofess ional s/kdo qi/gf r%5Fc alcul ator. Not Available [facility] - Manual Order Only [address], [place], [address], 05/07/2022 15:21:56 04/30/20 22 04/30/2022 THYRO ID STIMU LATIN G HORMO NE (TSH) thyroid stimulating hormone (TSH) 2.22 mlu/L 0.40-4 .50 For addit ional infor lia izaguirre e refer to http: //[facility] anthony.Que stDia gnost ics.c om/fa q/FAQ 138 This test was perfo rmed using the Sieme ns TSH immun oassa y metho d. Value s obtai ashley with previ ous assay metho ds canno t be used inter glass eably . Not Available [facility] - Manual Order Only [address], [place], [address], 05/07/2022 15:21:56 04/30/20 22 04/30/2022 HEMOG LOBIN A1C HbA1C 5.7 % <5.7 high For someo ne witho ut known diabe johann, a hemog lobin A1c value betwe en 5.7% and 6.4% is consi stent with predi abete s and shoul d be confi rmed with a follo w-up test. For someo ne with known diabe johann, a value <7% indic ates that their diabe johann is well contr olled . A1c targe ts shoul d be indiv idual ized based on durat ion of diabe johann, age, co-mo rbid condi tions and other consi derat ions. This assay resul t is consi stent with an incre ased risk of diabe johann. Curre ntly, no conse nsus exist s regjohn oliver use of hemog lobin A1c for diagn osis of diabe johann in child svetlana. Not Available [facility] - Manual Order Only [address], [place], [address], 05/07/2022 15:21:56 04/30/20 22 04/30/2022 HEMOG LOBIN A1C estimated average glucose 117 mg/dL <117 high The estim ated avera ge gluco se value is an adjun ct to the treat ment of both Type I and Type II Diabe johann. It is not inten ded for the diagn osis or risk asses sment of patie nts witho ut diabe johann. (Refe rence : Yessica GUILLORY et al. Diabe johann Care 2008; 31:14 73-14 78). Not Available [facility] - Manual Order Only [address], [place], [address], 05/07/2022 15:21:56 04/30/20 22 04/30/2022 LIPID PANEL W/ TG/HD L-C (ORDE RED WITH LIPOP ROTEI N, NMR) cholesterol, total 127 mg/dL <200 Not Available [facility] - Manual Order Only [address], [place], [address], 05/07/2022 15:21:57 04/30/20 22 04/30/2022 LIPID PANEL W/ TG/HD L-C (ORDE RED WITH LIPOP ROTEI N, NMR) HDL cholesterol 42 mg/dL >39 Not Available [facility] - Manual Order Only [address], [place], [address], 05/07/2022 15:21:57 04/30/20 22 04/30/2022 LIPID PANEL W/ TG/HD L-C (ORDE RED WITH LIPOP ROTEI N, NMR) triglyceride s 193 mg/dL <150 high Not Available [facility] - Manual Order Only [address], [place], [address], 05/07/2022 15:21:57 04/30/20 22 04/30/2022 LIPID PANEL W/ TG/HD L-C (ORDE RED WITH LIPOP ROTEI N, NMR) LDL cholesterol, calculated 59 mg/dL _(jaz c) <100 Jackson able range <100 mg/dL for prima ry preve ntion ; <70 mg/dL for patie nts with CHD or diabe tic patie nts with >= 2 CHD risk facto rs. LDL-C is now calcu lated using the Mariann n-Hop kins calcu jovany n, which is a valid ated novel yaquelino d gauri oliver franklin r accur acy than the Fried susan equat ion in the estim ation of LDL-C . Mariann anthony SS et al. TE. 2013; 310(1 9): 2061- 2068 (http ://ed ucati on.Fitly rachidPrixing. com/f aq/FA Q164) Not Available [facility] - Manual Order Only [address], [place], [address], 05/07/2022 15:21:57 04/30/20 22 04/30/2022 LIPID PANEL W/ TG/HD L-C (ORDE RED WITH LIPOP ROTEI N, NMR) chol/HDL-C 3.0 calc <3.6 Not Available [facility] - Manual Order Only [address], [place], [address], 05/07/2022 15:21:57 04/30/20 22 04/30/2022 LIPID PANEL W/ TG/HD L-C (ORDE RED WITH LIPOP ROTEI N, NMR) non-HDL cholesterol 85 mg/dL _(jaz c) <130 For patie nts with diabe johann plus 1 major ASCVD risk facto r, treat ing to a non-H DL-C goal of <100 mg/dL (LDL- C of <70 mg/dL ) is shantal lozano optio n. Not Available [facility] - Manual Order Only [address], [place], [address], 05/07/2022 15:21:57 04/30/20 22 04/30/2022 LIPID PANEL W/ TG/HD L-C (ORDE RED WITH LIPOP ROTEI N, NMR) TG/HDL-C 4.6 calc <2.0 high Not Available [facility] - Manual Order Only [address], [place], [address], 05/07/2022 15:21:57 04/30/20 22 04/30/2022 MYELO PEROX IDASE myeloperoxid ase 171 pmol/ L <470 Based on a high risk sub-p opula tion (N=92 0) defin ed as ambul atory stabl e patie nts witho ut acute coron jatinder syndr ome who under went elect lorenzo diagn ostic coron jatinder angio graph y (1) and a refer ence range study of appar ently healt hy donor s, we have defin ed the follo wing cut-o ffs for MPO: A cut-o ff of <470 pmol/ L defin es an 'appa rentl y healt hy' popul ation at optim al relat lorenzo risk for a cardi ovasc ular event , 470-5 39 pmol/ L defin es a popul ation at moder ate relat lorenzo risk for a cardi ovasc ular event (2-fo ld incre ased risk of MACE at 3 years ), and > = 540 pmol/ L defin es a popul ation with a high relat lorenzo risk for a cardi ovasc ular event . (Refe rence : 1. Manas et al. Am J Cardi ol. 2013; 111:4 65-47 0 and perso nal commu nicat ion with Manas campbell al). This test is perfo rmed by a turbi dimet suraj immun oassa y metho d. This test was devel oped and its perfo rmanc e yifan cteri stics deter mined by the [facility] It has not been clear ed or appro clarita by the U.S. FDA. The [facility] is regul ated under Clini jaz Labor atory Impro vemen t Amend ments (CLIA ) as quali fied to perfo rm high- compl exity testi ng. This test is used for clini jaz purpo ses. It shoul d not be regar ded as inves tigat ional or for resea rch. Not Available [facility] - Manual Order Only [address], [place], [address], 05/07/2022 15:21:58 04/30/20 22 04/30/2022 VITAM IN D 25 HYDRO XY LC-MS /MS vitamin D 25 hydroxy by lc-MS/MS 41.8 NG/mL >29.9 Vitam in D, 25-Hy droxy repor ts nida ntrat ions of two commo n forms , 25-OH D2 and 25-OH D3. 25-OH D3 indic ates both endog enous produ ction and suppl ement ation . 25-OH D2 is an indic ator of exoge nous sourc es, such as diet or suppl ement ation . Thera py is based on measu remen t of Total 25-OH D, with level s <20 ng/mL indic ative of Vitam in D defic iency , while level s betwe en 20 ng/mL and 30 ng/mL sugge st insuf ficie ncy. Optim al level s are >=30 ng/mL . Vitam in-D is fat-s olubl e and there fore inadv erten t or inten gina l inges tion of exces sivel y high amoun ts could be toxic . Studi es in child svetlana and adult s sugge st blood level s would need to excee d 150 ng/mL befor e there is any nida rn. Marta lemon MF, Young ey NC, Joel off-f errar i CRUZ, et al. Evalu ation , treat ment, and preve ntion of vitam in D defic iency : an Endoc rine Socie ty clini jaz pract ice guide line. J Clin Endoc rinol Metab . 2011; 96(7) :1911 -30. This test is perfo rmed by jose carranza Chrom atogr aphy- Marcel m Mass Spect romet ry (LC-M S/MS) gertrudis carranza. This test was devel oped and its perfo rmanc e yifan cteri stics deter mined by the [facility] It has not been clear ed or appro clarita by the U.S. FDA. The [facility] is regul ated under Clini jaz Labor atory Impro vemen t Amend ments (CLIA ) as quali fied to perfo rm high- compl exity testi ng. This test is used for clini jaz purpo ses. It shoul d not be regar ded as inves tigat ional or for resea rch. Not Available [facility] - Manual Order Only [address], [place], [address], 05/07/2022 15:21:58 04/30/20 22 04/30/2022 LIPOP ROTEI N FRACT IONAT ION, NMR W/LIP ID PANEL LDL-P 1288 nmol/ L <935 high Relat lorenzo risk: Optim al <935; Moder ate 935-1 816; High >1816 nmol/ L. Refer ence range is 592-2 404 nmol/ L. This test is perfo rmed by a Nucle ar Magne tic Reson ance gertrudis carranza. This test was devel oped and its perfo rmanc e yifan cteri stics deter mined by The [facility] It has not been clear ed or appro clariat by the U.S. FDA. The [facility] is regul ated under Clini jaz Labor atory Impro vemen t Amend ments (CLIA ) as quali fied to perfo rm high- compl exity testi ng. This test is used for clini jaz purpo ses. It shoul d not be regar ded as inves tigat ional or for resea rch. Not Available [facility] - Manual Order Only [address], [place], [address], 05/07/2022 15:21:58 04/30/20 22 04/30/2022 LIPOP ROTEI N FRACT IONAT ION, NMR W/LIP ID PANEL small LDL-P 721 nmol/ L <467 high Relat lorenzo risk: Optim al <467; Moder ate 467-8 20; High >820 nmol/ L. Refer ence range is <1408 nmol/ L. Not Available [facility] - Manual Order Only [address], [place], [address], 05/07/2022 15:21:58 04/30/20 22 04/30/2022 LIPOP ROTEI N FRACT IONAT ION, NMR W/LIP ID PANEL LDL size 20.4 nm >20.5 low Relat lorenzo risk: Optim al >20.5 ; High <20.6 nm. Refer ence range is 20.0- 22.3 nm. Not Available [facility] - Manual Order Only [address], [place], [address], 05/07/2022 15:21:58 04/30/20 22 04/30/2022 LIPOP ROTEI N FRACT IONAT ION, NMR W/LIP ID PANEL HDL-P 39.6 umol/ L >32.8 Relat lorenzo risk: Optim al >32.8 ; Moder ate 29.2- 32.8; High <29.2 umol/ L. Refer ence range is 21.1- 43.4 umol/ L. Not Available [facility] - Manual Order Only [address], [place], [address], 05/07/2022 15:21:58 04/30/20 22 04/30/2022 LIPOP ROTEI N FRACT IONAT ION, NMR W/LIP ID PANEL large HDL-P <3.0 umol/ L >7.2 low Relat lorenzo risk: Optim al >7.2; Moder ate 5.3-7 .2; High <5.3 umol/ L. Refer ence range is >3.5 umol/ L. Not Available [facility] - Manual Order Only [address], [place], [address], 05/07/2022 15:21:58 04/30/20 22 04/30/2022 LIPOP ROTEI N FRACT IONAT ION, NMR W/LIP ID PANEL HDL size 8.0 nm >9.0 low Relat lorenzo risk: Optim al >9.0; Moder ate 8.7-9 .0; High <8.7 nm. Refer ence range is 8.3-1 0.5 nm. Not Available [facility] - Manual Order Only [address], [place], [address], 05/07/2022 15:21:58 04/30/2004/30/2022 LIPOP ROTEI N FRACT IONAT ION, NMR W/LIP ID PANEL large VLDL-P 4.8 nmol/ L <3.7 high Relat lorenzo risk: Optim al <3.7; Moder ate 3.7-6 .1; High >6.1 nmol/ L. Refer ence range is <16.0 nmol/ L. Not Available [facility] - Manual Order Only [address], [place], [address], 05/07/2022 15:21:58 04/30/2004/30/2022 LIPOP ROTEI N FRACT IONAT ION, NMR W/LIP ID PANEL VLDL size 55.0 nm <47.1 high Relat lorenzo risk: Optim al <47.1 ; Moder ate 47.1- 49.0; High >49.0 nm. Refer ence range is 41.1- 61.7 nm. Not Available [facility] - Manual Order Only [address], [place], [address], 05/07/2022 15:21:58 04/30/20 22 04/30/2022 URINA LYSIS , COMPL ETE color YELLOW yellow Not Available [facility] - Manual Order Only [address], [place], [address], 05/07/2022 15:21:59 04/30/20 22 04/30/2022 URINA LYSIS , COMPL ETE appearance CLEAR clear Not Available [facility] - Manual Order Only [address], [place], [address], 05/07/2022 15:21:59 04/30/20 22 04/30/2022 URINA LYSIS , COMPL ETE specific gravity 1.015 1.001- 1.035 Not Available [facility] - Manual Order Only [address], [place], [address], 05/07/2022 15:21:59 04/30/20 22 04/30/2022 URINA LYSIS , COMPL ETE pH 6.0 5.0-8. 0 Not Available [facility] - Manual Order Only [address], [place], [address], 05/07/2022 15:21:59 04/30/20 22 04/30/2022 URINA LYSIS , COMPL ETE glucose NEGATI VE negati ve Not Available [facility] - Manual Order Only [address], [place], [address], 05/07/2022 15:21:59 04/30/20 22 04/30/2022 URINA LYSIS , COMPL ETE bilirubin NEGATI VE negati ve Not Available [facility] - Manual Order Only [address], [place], [address], 05/07/2022 15:21:59 04/30/20 22 04/30/2022 URINA LYSIS , COMPL ETE ketones NEGATI VE negati ve Not Available [facility] - Manual Order Only [address], [place], [address], 05/07/2022 15:21:59 04/30/20 22 04/30/2022 URINA LYSIS , COMPL ETE occult blood NEGATI VE negati ve Not Available [facility] - Manual Order Only [address], [place], [address], 05/07/2022 15:21:59 04/30/20 22 04/30/2022 URINA LYSIS , COMPL ETE protein NEGATI VE negati ve Not Available [facility] - Manual Order Only [address], [place], [address], 05/07/2022 15:21:59 04/30/20 22 04/30/2022 URINA LYSIS , COMPL ETE nitrite NEGATI VE negati ve Not Available [facility] - Manual Order Only [address], [place], [address], 05/07/2022 15:21:59 04/30/20 22 04/30/2022 URINA LYSIS , COMPL ETE leukocyte esterase NEGATI VE negati ve Not Available [facility] - Manual Order Only [address], [place], [address], 05/07/2022 15:21:59 04/30/20 22 04/30/2022 URINA LYSIS , COMPL ETE WBC NONE SEEN /hpf <6 Not Available [facility] - Manual Order Only [address], [place], [address], 05/07/2022 15:21:59 04/30/20 22 04/30/2022 URINA LYSIS , COMPL ETE RBC 0-2 /hpf 0-3 Not Available [facility] - Manual Order Only [address], [place], [address], 05/07/2022 15:21:59 04/30/20 22 04/30/2022 URINA LYSIS , COMPL ETE squamous epithelial cells NONE SEEN /hpf 0-5 Not Available [facility] - Manual Order Only [address], [place], [address], 05/07/2022 15:21:59 04/30/20 22 04/30/2022 URINA LYSIS , COMPL ETE bacteria NONE SEEN /hpf none seen Not Available [facility] - Manual Order Only [address], [place], [address], 05/07/2022 15:21:59 04/30/20 22 04/30/2022 URINA LYSIS , COMPL ETE hyaline casts NONE SEEN /lpf none seen This urine was rigo zed for the prese nce of WBC, RBC, bacte radha, casts , and other forme d eleme nts. Only those eleme nts seen were repor alice. Not Available [facility] - Manual Order Only [address], [place], [address], 05/07/2022 15:21:59 07/17/19 23 07/17/2022 CBC WBC 5.89 K/uL 3.80-1 0.50 Not Available [facility] [address] [facility], [place], [address], 07/17/2022 13:19:54 07/17/19 23 07/17/2022 CBC RBC 4.56 M/uL 4.50-5 .80 Not Available [facility] Imaging [address] [facility], [place], [address], 07/17/2022 13:19:54 07/17/19 23 07/17/2022 CBC hemoglobin 13.0 g/dL 13.7-1 7.5 low Not Available [facility] Imaging [address] [facility], [place], [address], 07/17/2022 13:19:54 07/17/19 23 07/17/2022 CBC hematocrit 39.2 % 40.1-5 1.0 low Not Available [facility]/ Imaging [address] [facility], [place], [address], 07/17/2022 13:19:54 07/17/19 23 07/17/2022 CBC MCV 86.0 fL 83.0-9 8.0 Not Available [facility]/ Imaging [address] [facility], [place], [address], 07/17/2022 13:19:54 07/17/19 23 07/17/2022 CBC MCH 28.5 pg 28.0-3 3.2 Not Available [facility]/ Imaging [address] [facility], [place], [address], 07/17/2022 13:19:54 07/17/19 23 07/17/2022 CBC MCHC 33.2 g/dL 32.2-3 6.5 Not Available [facility] Imaging [address] [facility], [place], [address], 07/17/2022 13:19:54 07/17/19 23 07/17/2022 CBC RDW 14.6 % 11.6-1 4.4 high Not Available [facility] Imaging [address] [facility], [place], [address], 07/17/2022 13:19:54 07/17/19 23 07/17/2022 CBC platelets 271 K/uL 150-35 0 Not Available [facility] Imaging [address] [facility], [place], [address], 07/17/2022 13:19:54 07/17/19 23 07/17/2022 CBC MPV 8.6 fL 9.4-12 .4 low Not Available [facility] [address] [facility], [place], [address], 07/17/2022 13:19:54 07/17/19 23 07/17/2022 PROTI ME-IN R PT (protime) 13.5 sec 12.2-1 4.5 Not Available [facility] [address] [facility], [place], [address], 07/17/2022 13:27:58 07/17/19 23 07/17/2022 PROTI ME-IN R INR 1.0 INR has no defin ed signi fican ce when PT is withi n Refer ence Range . Not Available [facility] [address] [facility], [place], [address], 07/17/2022 13:27:58 07/17/19 23 07/17/2022 COMPR EHENS LORENZO METAB OLIC PANEL sodium 138 mEq/L 136-14 4 Not Available [facility] Imaging [address] [facility], [place], [address], 07/17/2022 14:18:18 07/17/19 23 07/17/2022 COMPR EHENS LORENZO METAB OLIC PANEL potassium 4.5 mEq/L 3.6-5. 1 Not Available [facility] Imaging [address] [facility], [place], [address], 07/17/2022 14:18:18 07/17/19 23 07/17/2022 COMPR EHENS LORENZO METAB OLIC PANEL chloride 103 mEq/L 98-109 Not Available [facility] Imaging [address] [facility], [place], [address], 07/17/2022 14:18:18 07/17/19 23 07/17/2022 COMPR EHENS LORENZO METAB OLIC PANEL carbon dioxide, total 30 mEq/L 22-32 Not Available [facility] [address] [facility], [place], [address], 07/17/2022 14:18:18 07/17/19 23 07/17/2022 COMPR EHENS LORENZO METAB OLIC PANEL BUN 24 mg/dL 8-20 high Not Available [facility] [address] [facility], [place], [address], 07/17/2022 14:18:18 07/17/19 23 07/17/2022 COMPR EHENS LORENZO METAB OLIC PANEL creatinine 1.0 mg/dL 0.8-1. 3 Not Available [facility] [address] [facility], [place], [address], 07/17/2022 14:18:18 07/17/19 23 07/17/2022 COMPR EHENS LORENZO METAB OLIC PANEL glucose 107 mg/dL 70-99 high Not Available [facility] Imaging [address] [facility], [place], [address], 07/17/2022 14:18:18 07/17/19 23 07/17/2022 COMPR EHENS LORENZO METAB OLIC PANEL calcium 9.6 mg/dL 8.9-10 .3 Not Available [facility] [address] [facility], [place], [address], 07/17/2022 14:18:18 07/17/19 23 07/17/2022 COMPR EHENS LORENZO METAB OLIC PANEL AST (SGOT) 28 IU/L 15-41 Not Available [facility] [address] [facility], [place], [address], 07/17/2022 14:18:18 07/17/19 23 07/17/2022 COMPR EHENS LORENZO METAB OLIC PANEL ALT (SGPT) 40 IU/L 16-63 Not Available [facility] [address] [facility], [place], [address], 07/17/2022 14:18:18 07/17/19 23 07/17/2022 COMPR EHENS LORENZO METAB OLIC PANEL alkaline phosphatase 47 IU/L 35-126 Not Available [facility] [address] [facility], [place], [address], 07/17/2022 14:18:18 07/17/19 23 07/17/2022 COMPR EHENS LORENZO METAB OLIC PANEL protein total 7.1 g/dL 6.0-8. 2 Not Available [facility] [address] [facility], [place], [address], 07/17/2022 14:18:18 07/17/19 23 07/17/2022 COMPR EHENS LORENZO METAB OLIC PANEL albumin 4.3 g/dL 3.4-5. 0 Not Available [facility] Imaging [address] [facility], [place], [address], 07/17/2022 14:18:18 07/17/19 23 07/17/2022 COMPR EHENS LORENZO METAB OLIC PANEL bilirubin total 0.8 mg/dL 0.3-1. 2 Not Available [facility] [address] [facility], [place], [address], 07/17/2022 14:18:18 07/17/19 23 07/17/2022 COMPR EHENS LORENZO METAB OLIC PANEL glomerular filtration rate > mL/mi n/1.7 3m*2 >=60.0 Not Available [facility] [address] [facility], [place], [address], 07/17/2022 14:18:18 07/17/19 23 07/17/2022 COMPR EHENS LORENZO METAB OLIC PANEL anion gap 5 mEq/L 3-15 Not Available [facility] [address] [facility], [place], [address], 07/17/2022 14:18:18 07/17/19 23 07/17/2022 SARS- COV-2 (COVI D 19), PCR (PERF ) sars-cov-2 (covid 19) NEGATI VE negati ve Not Available [facility] [address] [facility], [place], [address], 07/17/2022 22:36:08 07/21/19 23 07/21/2022 CBC WBC 7.89 K/uL 3.80-1 0.50 Not Available [facility] Imaging [address] [facility], [place], [address], 07/21/2022 04:31:07 07/21/19 23 07/21/2022 CBC RBC 3.84 M/uL 4.50-5 .80 low Not Available [facility] Imaging [address] [facility], [place], [address], 07/21/2022 04:31:07 07/21/19 23 07/21/2022 CBC hemoglobin 11.0 g/dL 13.7-1 7.5 low Not Available [facility] Imaging [address] [facility], [place], [address], 07/21/2022 04:31:07 07/21/19 23 07/21/2022 CBC hematocrit 33.7 % 40.1-5 1.0 low Not Available [facility] Imaging [address] [facility], [place], [address], 07/21/2022 04:31:07 07/21/19 23 07/21/2022 CBC MCV 87.8 fL 83.0-9 8.0 Not Available [facility] Imaging [address] [facility], [place], [address], 07/21/2022 04:31:07 07/21/19 23 07/21/2022 CBC MCH 28.6 pg 28.0-3 3.2 Not Available [facility] Imaging [address] [facility], [place], [address], 07/21/2022 04:31:07 07/21/19 23 07/21/2022 CBC MCHC 32.6 g/dL 32.2-3 6.5 Not Available [facility] Imaging [address] [facility], [place], [address], 07/21/2022 04:31:07 07/21/19 23 07/21/2022 CBC RDW 14.8 % 11.6-1 4.4 high Not Available [facility] Imaging [address] [facility], [place], [address], 07/21/2022 04:31:07 07/21/19 23 07/21/2022 CBC platelets 224 K/uL 150-35 0 Not Available [facility]/ Imaging [address] [facility], [place], [address], 07/21/2022 04:31:07 07/21/19 23 07/21/2022 CBC MPV 8.8 fL 9.4-12 .4 low Not Available [facility] Imaging [address] [facility], [place], [address], 07/21/2022 04:31:07 07/21/19 23 07/21/2022 BASIC METAB OLIC PANEL sodium 139 mEq/L 136-14 4 Not Available [facility] Imaging [address] [facility], [place], [address], 07/21/2022 04:58:06 07/21/19 23 07/21/2022 BASIC METAB OLIC PANEL potassium 4.0 mEq/L 3.6-5. 1 Not Available [facility] Imaging [address] [facility], [place], [address], 07/21/2022 04:58:06 07/21/19 23 07/21/2022 BASIC METAB OLIC PANEL chloride 106 mEq/L 98-109 Not Available [facility] Imaging [address] [facility], [place], [address], 07/21/2022 04:58:06 07/21/19 23 07/21/2022 BASIC METAB OLIC PANEL carbon dioxide, total 23 mEq/L 22-32 Not Available [facility] [address] [facility], [place], [address], 07/21/2022 04:58:06 07/21/19 23 07/21/2022 BASIC METAB OLIC PANEL BUN 25 mg/dL 8-20 high Not Available [facility] Imaging [address] [facility], [place], [address], 07/21/2022 04:58:06 07/21/1907/21/2022 BASIC METAB OLIC PANEL creatinine 0.9 mg/dL 0.8-1. 3 Not Available [facility] Imaging [address] [facility], [place], [address], 07/21/2022 04:58:06 07/21/19 23 07/21/2022 BASIC METAB OLIC PANEL glucose 93 mg/dL 70-99 Not Available [facility] Imaging [address] [facility], [place], [address], 07/21/2022 04:58:06 07/21/19 23 07/21/2022 BASIC METAB OLIC PANEL calcium 8.4 mg/dL 8.9-10 .3 low Not Available [facility] Imaging [address] [facility], [place], [address], 07/21/2022 04:58:06 07/21/1907/21/2022 BASIC METAB OLIC PANEL glomerular filtration rate > mL/mi n/1.7 3m*2 >=60.0 Not Available [facility] Imaging [address] [facility], [place], [address], 07/21/2022 04:58:06 07/21/1907/21/2022 BASIC METAB OLIC PANEL anion gap 10 mEq/L 3-15 Not Available [facility] Imaging [address] [facility], [place], [address], 07/21/2022 04:58:06 11/12/19 23 11/11/2022 CBC AND DIFF WBC 6.93 K/uL 3.80-1 0.50 Not Available [facility] [address] [facility], [place], [address], 11/12/2022 00:56:48 11/12/1911/11/2022 CBC AND DIFF RBC 4.92 M/uL 4.50-5 .80 Not Available [facility] Imaging [address] [facility], [place], [address], 11/12/2022 00:56:48 11/12/1911/11/2022 CBC AND DIFF hemoglobin 13.4 g/dL 13.7-1 7.5 low Not Available [facility] Imaging [address] [facility], [place], [address], 11/12/2022 00:56:48 11/12/1911/11/2022 CBC AND DIFF hematocrit 44.7 % 40.1-5 1.0 Not Available [facility] Imaging [address] [facility], [place], [address], 11/12/2022 00:56:48 11/12/1911/11/2022 CBC AND DIFF MCV 90.9 fL 83.0-9 8.0 Not Available [facility] Imaging [address] [facility], [place], [address], 11/12/2022 00:56:48 11/12/1911/11/2022 CBC AND DIFF MCH 27.2 pg 28.0-3 3.2 low Not Available [facility] Imaging [address] [facility], [place], [address], 11/12/2022 00:56:48 11/12/1911/11/2022 CBC AND DIFF MCHC 30.0 g/dL 32.2-3 6.5 low Not Available [facility] Imaging [address] [facility], [place], [address], 11/12/2022 00:56:48 11/12/1911/11/2022 CBC AND DIFF RDW 15.8 % 11.6-1 4.4 high Not Available [facility] [address] [facility], [place], [address], 11/12/2022 00:56:48 11/12/1911/11/2022 CBC AND DIFF platelets 274 K/uL 150-35 0 Not Available [facility] [address] [facility], [place], [address], 11/12/2022 00:56:48 11/12/1911/11/2022 CBC AND DIFF MPV 9.8 fL 9.4-12 .4 Not Available [facility] [address] [facility], [place], [address], 11/12/2022 00:56:48 11/12/1911/11/2022 CBC AND DIFF differential type AUTO Not Available [facility] [address] [facility], [place], [address], 11/12/2022 00:56:48 11/12/1911/11/2022 CBC AND DIFF NRBC (auto) 0.0 % <=0.0 Not Available [facility] [address] [facility], [place], [address], 11/12/2022 00:56:48 11/12/1911/11/2022 CBC AND DIFF imm gran, rel (auto) 0.1 % Not Available [facility] [address] [facility], [place], [address], 11/12/2022 00:56:48 11/12/1911/11/2022 CBC AND DIFF neutrophils, rel (auto) 56.8 % Not Available [facility] [address] [facility], [place], [address], 11/12/2022 00:56:48 11/12/1911/11/2022 CBC AND DIFF lymphocytes, rel (auto) 31.6 % Not Available [facility] [address] [facility], [place], [address], 11/12/2022 00:56:48 11/12/1911/11/2022 CBC AND DIFF monocytes, rel (auto) 7.5 % Not Available [facility] [address] [facility], [place], [address], 11/12/2022 00:56:48 11/12/19 23 11/11/2022 CBC AND DIFF eosinophils rel (auto) 3.0 % Not Available [facility] Imaging [address] [facility], [place], [address], 11/12/2022 00:56:48 11/12/1911/11/2022 CBC AND DIFF basophils, rel (auto) 1.0 % Not Available [facility] [address] [facility], [place], [address], 11/12/2022 00:56:48 11/12/1911/11/2022 CBC AND DIFF imm gran, abs (auto) 0.01 K/uL 0.00-0 .08 Not Available [facility] [address] [facility], [place], [address], 11/12/2022 00:56:48 11/12/1911/11/2022 CBC AND DIFF neutrophils, abs (auto) 3.93 K/uL 1.70-7 .00 Not Available [facility] [address] [facility], [place], [address], 11/12/2022 00:56:48 11/12/1911/11/2022 CBC AND DIFF lymphocytes, abs (auto) 2.19 K/uL 1.20-3 .50 Not Available [facility] [address] [facility], [place], [address], 11/12/2022 00:56:48 11/12/1911/11/2022 CBC AND DIFF monocytes, abs (auto) 0.52 K/uL 0.30-1 .00 Not Available [facility] [address] [facility], [place], [address], 11/12/2022 00:56:48 11/12/1911/11/2022 CBC AND DIFF eosinophils, abs (auto) 0.21 K/uL 0.04-0 .54 Not Available [facility] [address] [facility], [place], [address], 11/12/2022 00:56:48 11/12/1911/11/2022 CBC AND DIFF basophils, abs (auto) 0.07 K/uL 0.01-0 .10 Not Available [facility] [address] [facility], [place], [address], 11/12/2022 00:56:48 11/12/1911/11/2022 TSH 3RD GENER ATION TSH3 1.41 mIU/L 0.34-5 .60 Not Available [facility] [address] [facility], [place], [address], 11/12/2022 01:26:31 11/12/19 23 11/11/2022 COMPR EHENS LORENZO METAB OLIC PANEL sodium 146 mEq/L 136-14 4 high Not Available [facility] [address] [facility], [place], [address], 11/12/2022 01:50:44 11/12/19 23 11/11/2022 COMPR EHENS LORENZO METAB OLIC PANEL potassium 5.2 mEq/L 3.6-5. 1 high Not Available [facility] [address] [facility], [place], [address], 11/12/2022 01:50:44 11/12/19 23 11/11/2022 COMPR EHENS LORENZO METAB OLIC PANEL chloride 108 mEq/L 98-109 Not Available [facility] [address] [facility], [place], [address], 11/12/2022 01:50:44 11/12/19 23 11/11/2022 COMPR EHENS LORENZO METAB OLIC PANEL carbon dioxide, total 27 mEq/L 22-[address] [facility] Imaging [address] [facility], [place], [address], 11/12/2022 01:50:44 11/12/1911/11/2022 COMPR EHENS LORENZO METAB OLIC PANEL BUN 14 mg/dL 8-20 Not Available [facility] Imaging [address], [place], [address], 11/12/2022 01:50:44 11/12/19 23 11/11/2022 COMPR EHENS LORENZO METAB OLIC PANEL creatinine 0.8 mg/dL 0.8-1. 3 Not Available [facility] Imaging [address] [facility], [place], [address], 11/12/2022 01:50:44 11/12/19 23 11/11/2022 COMPR EHENS LORENZO METAB OLIC PANEL glucose 88 mg/dL 70-99 Not Available [facility] Imaging [address] [facility], [place], [address], 11/12/2022 01:50:44 11/12/19 23 11/11/2022 COMPR EHENS LORENZO METAB OLIC PANEL calcium 10.1 mg/dL 8.9-10 .3 Not Available [facility] Imaging [address] [facility], [place], [address], 11/12/2022 01:50:44 11/12/19 23 11/11/2022 COMPR EHENS LORENZO METAB OLIC PANEL AST (SGOT) 45 IU/L 15-41 high Not Available Main [facility]/ Imaging [address], [place], [address], 11/12/2022 01:50:44 11/12/19 23 11/11/2022 COMPR EHENS LORENZO METAB OLIC PANEL ALT (SGPT) 60 IU/L 16-63 Not Available [facility]/ Imaging [address] [facility], [place], [address], 11/12/2022 01:50:44 11/12/1911/11/2022 COMPR EHENS LORENZO METAB OLIC PANEL alkaline phosphatase 64 IU/L 35-126 Not Available [facility] [address] [facility], [place], [address], 11/12/2022 01:50:44 11/12/1911/11/2022 COMPR EHENS LORENZO METAB OLIC PANEL protein total 6.4 g/dL 6.0-8. 2 Not Available [facility] [address] [facility], [place], [address], 11/12/2022 01:50:44 11/12/1911/11/2022 COMPR EHENS LORENZO METAB OLIC PANEL albumin 4.0 g/dL 3.4-5. 0 Not Available [facility] [address] [facility], [place], [address], 11/12/2022 01:50:44 11/12/1911/11/2022 COMPR EHENS LORENZO METAB OLIC PANEL bilirubin total 0.9 mg/dL 0.3-1. 2 Not Available [facility] [address] [facility], [place], [address], 11/12/2022 01:50:44 11/12/19 23 11/11/2022 COMPR EHENS LORENZO METAB OLIC PANEL glomerular filtration rate > mL/mi n/1.7 3m*2 >=60.0 Not Available [facility] [address] [facility], [place], [address], 11/12/2022 01:50:44 11/12/19 23 11/11/2022 COMPR EHENS LORENZO METAB OLIC PANEL anion gap 11 mEq/L 3-15 Not Available [facility] [address] [facility], [place], [address], 11/12/2022 01:50:44 11/12/19 23 11/11/2022 LIPID PROFI LE triglyceride 74 mg/dL 30-149 Not Available [facility] [address] [facility], [place], [address], 11/12/2022 01:50:45 11/12/19 23 11/11/2022 LIPID PROFI LE cholesterol 88 mg/dL <=200 Not Available [facility] [address] [facility], [place], [address], 11/12/2022 01:50:45 11/12/19 23 11/11/2022 LIPID PROFI LE HDL cholesterol 44 mg/dL >=45 low 2001 NCEP GUIDE LINES <40 mg/dL Low >=60 mg/dL High Not Available [facility] [address] [facility], [place], [address], 11/12/2022 01:50:45 11/12/19 23 11/11/2022 LIPID PROFI LE LDL by calculation 29 mg/dL <=100 ATP III GUIDE LINES Optim al: <100 mg/dL Near/ Above Optim al: 100-1 29 mg/dL Gypsy rogers High: 130-1 59 mg/dL High: 160-1 89 mg/dL Very High: >190 mg/dL Not Available [facility] [address] [facility], [place], [address], 11/12/2022 01:50:45 11/12/19 23 11/11/2022 LIPID PROFI LE nonhdl, calculated 44 mg/dL Not Available [facility] Laboratories/ Imaging [address] [facility], [place], [address], 11/12/2022 01:50:45 11/12/1911/11/2022 LIPID PROFI LE risk 2.0 <=5.0 RISK MALE (TRIST[facility] [employer] STUDY DATA) 1/2 Cascade ge 3.4 Cascade ge 5.0 2X Cascade ge 9.6 3X Cascade ge 24.0 Not Available [facility] [address] [facility], [place], [address], 11/12/2022 01:50:45 11/12/1911/11/2022 HEMOG LOBIN A1C hemoglobin A1C 5.6 % <5.[address] [facility]/ Imaging [address] [facility], [place], [address], 11/12/2022 10:11:59 11/12/1911/11/2022 HEMOG LOBIN A1C estimated avg glucose 114 mg/dL Estim ate of avera ge gluco se nida ntrat ion isauro nuous ly over 24 hours for previ ous 2 to 3 month s(Per ADA Recom menda tion) . Not Available [facility] [address] [facility], [place], [address], 11/12/2022 10:11:59 11/12/1911/11/2022 APOLI POPRO TEIN B qst apolipoprote in B 46 mg/dL <90 Refer ence Range : <90 Risk Categ ory: Optim al < 90 Moder ate 90 - 119 High > or = 120 Cardi ovasc ular event risk categ ory cut point s (opti mal, moder ate, high) are based on Natio nal Lipid Assoc iatio n recom menda tions -Flex ashley TA et al. J Clin Lipid . 2015; 9:129 -169 and Vi AMEZCUA et al. Endoc r Pract . 2017; 23(Humphreys ppl 2):1- 87. Not Available [facility] [address] [facility] [facility], [place], [address], 11/18/2022 12:31:37 02/26/20 23 02/25/2023 CBC AND DIFF WBC 7.79 K/uL 3.80-1 0.50 Not Available [facility] [address] [facility], [place], [address], 02/25/2023 23:52:30 02/26/20 23 02/25/2023 CBC AND DIFF RBC 4.85 M/uL 4.50-5 .80 Not Available [facility] [address] [facility], [place], [address], 02/25/2023 23:52:30 02/26/20 23 02/25/2023 CBC AND DIFF hemoglobin 13.2 g/dL 13.7-1 7.5 low Not Available [facility] [address] [facility], [place], [address], 02/25/2023 23:52:30 02/26/20 23 02/25/2023 CBC AND DIFF hematocrit 41.9 % 40.1-5 1.0 Not Available [facility] [address] [facility], [place], [address], 02/25/2023 23:52:30 02/26/20 23 02/25/2023 CBC AND DIFF MCV 86.4 fL 83.0-9 8.0 Not Available [facility] [address] [facility], [place], [address], 02/25/2023 23:52:30 02/26/20 23 02/25/2023 CBC AND DIFF MCH 27.2 pg 28.0-3 3.2 low Not Available [facility] [address] [facility], [place], [address], 02/25/2023 23:52:30 02/26/20 23 02/25/2023 CBC AND DIFF MCHC 31.5 g/dL 32.2-3 6.5 low Not Available [facility] [address] [facility], [place], [address], 02/25/2023 23:52:30 02/26/20 23 02/25/2023 CBC AND DIFF RDW 15.8 % 11.6-1 4.4 high Not Available [facility] [address] [facility], [place], [address], 02/25/2023 23:52:30 02/26/20 23 02/25/2023 CBC AND DIFF platelets 224 K/uL 150-35 0 Not Available [facility] [address] [facility], [place], [address], 02/25/2023 23:52:30 02/26/20 23 02/25/2023 CBC AND DIFF MPV 10.0 fL 9.4-12 .4 Not Available [facility] [address], [place], [address], 02/25/2023 23:52:30 02/26/20 23 02/25/2023 CBC AND DIFF differential type AUTO Not Available [facility]/ Imaging [address] [facility], [place], [address], 02/25/2023 23:52:30 02/26/20 23 02/25/2023 CBC AND DIFF NRBC (auto) 0.0 % <=0.[address] [facility]/ Imaging [address] [facility], [place], [address], 02/25/2023 23:52:30 02/26/20 23 02/25/2023 CBC AND DIFF imm gran, rel (auto) 0.1 % Not Available [facility] [address] [facility], [place], [address], 02/25/2023 23:52:30 02/26/20 23 02/25/2023 CBC AND DIFF neutrophils, rel (auto) 80.9 % Not Available [facility] [address] [facility], [place], [address], 02/25/2023 23:52:30 02/26/20 23 02/25/2023 CBC AND DIFF lymphocytes, rel (auto) 15.4 % Not Available [facility]/ Imaging [address] [facility], [place], [address], 02/25/2023 23:52:30 02/26/20 23 02/25/2023 CBC AND DIFF monocytes, rel (auto) 2.2 % Not Available [facility]/ Imaging [address] [facility], [place], [address], 02/25/2023 23:52:30 02/26/20 23 02/25/2023 CBC AND DIFF eosinophils rel (auto) 0.9 % Not Available [facility] [address] [facility], [place], [address], 02/25/2023 23:52:30 02/26/20 23 02/25/2023 CBC AND DIFF basophils, rel (auto) 0.5 % Not Available [facility] [address] [facility] [address] [facility], [place], [address], 02/25/2023 23:52:30 02/26/20 23 02/25/2023 CBC AND DIFF imm gran, abs (auto) 0.01 K/uL 0.00-0 .08 Not Available [facility] [address] [facility], [place], [address], 02/25/2023 23:52:30 02/26/20 23 02/25/2023 CBC AND DIFF neutrophils, abs (auto) 6.30 K/uL 1.70-7 .00 Not Available [facility] [address] [facility] [address] [facility], [place], [address], 02/25/2023 23:52:30 02/26/20 23 02/25/2023 CBC AND DIFF lymphocytes, abs (auto) 1.20 K/uL 1.20-3 .50 Not Available [facility] [address] [facility], [place], [address], 02/25/2023 23:52:30 02/26/20 23 02/25/2023 CBC AND DIFF monocytes, abs (auto) 0.17 K/uL 0.30-1 .00 low Not Available [facility] [address] [facility], [place], [address], 02/25/2023 23:52:30 02/26/20 23 02/25/2023 CBC AND DIFF eosinophils, abs (auto) 0.07 K/uL 0.04-0 .54 Not Available [facility] [address] [facility], [place], [address], 02/25/2023 23:52:30 02/26/20 23 02/25/2023 CBC AND DIFF basophils, abs (auto) 0.04 K/uL 0.01-0 .10 Not Available [facility] [address] [facility], [place], [address], 02/25/2023 23:52:30 02/26/20 23 02/25/2023 COMPR EHENS LORENZO METAB OLIC PANEL sodium 145 mEq/L 136-14 5 Not Available [facility] [address] [facility] [address] [facility], [place], [address], 02/26/2023 00:26:25 02/26/20 23 02/25/2023 COMPR EHENS LORENZO METAB OLIC PANEL potassium 4.2 mEq/L 3.5-5. 1 Not Available [facility] [address] [facility], [place], [address], 02/26/2023 00:26:25 02/26/20 23 02/25/2023 COMPR EHENS LORENZO METAB OLIC PANEL chloride 107 mEq/L 98-107 Not Available [facility] [address] [facility], [place], [address], 02/26/2023 00:26:25 02/26/20 23 02/25/2023 COMPR EHENS LORENZO METAB OLIC PANEL carbon dioxide, total 28 mEq/L 21-31 Not Available [facility] [address] [facility], [place], [address], 02/26/2023 00:26:25 02/26/20 23 02/25/2023 COMPR EHENS LORENZO METAB OLIC PANEL BUN 18 mg/dL 7-25 Not Available [facility] [address] [facility], [place], [address], 02/26/2023 00:26:25 02/26/20 23 02/25/2023 COMPR EHENS LORENZO METAB OLIC PANEL creatinine 0.7 mg/dL 0.7-1. 3 Not Available [facility] [address] [facility], [place], [address], 02/26/2023 00:26:25 02/26/20 23 02/25/2023 COMPR EHENS LORENZO METAB OLIC PANEL glucose 140 mg/dL 70-99 high Not Available [facility] [address] [facility], [place], [address], 02/26/2023 00:26:25 02/26/20 23 02/25/2023 COMPR EHENS LORENZO METAB OLIC PANEL calcium 10.1 mg/dL 8.6-10 .3 Not Available [facility]/ Imaging [address] [facility], [place], [address], 02/26/2023 00:26:25 02/26/20 23 02/25/2023 COMPR EHENS LORENZO METAB OLIC PANEL AST (SGOT) 34 IU/L 13-39 Not Available [facility]/ Imaging [address] [facility], [place], [address], 02/26/2023 00:26:25 02/26/20 23 02/25/2023 COMPR EHENS LORENZO METAB OLIC PANEL ALT (SGPT) 57 IU/L 7-52 high Not Available [facility]/ Imaging [address] [facility], [place], [address], 02/26/2023 00:26:25 02/26/20 23 02/25/2023 COMPR EHENS LORENZO METAB OLIC PANEL alkaline phosphatase 69 IU/L 34-125 Not Available [facility]/ Imaging [address] [facility], [place], [address], 02/26/2023 00:26:25 02/26/20 23 02/25/2023 COMPR EHENS LORENZO METAB OLIC PANEL protein total 7.1 g/dL 6.0-8. 2 Not Available [facility]/ Imaging [address] [facility], [place], [address], 02/26/2023 00:26:25 02/26/20 23 02/25/2023 COMPR EHENS LORENZO METAB OLIC PANEL albumin 4.6 g/dL 3.5-5. 7 Not Available [facility]/ Imaging [address] [facility], [place], [address], 02/26/2023 00:26:25 02/26/20 23 02/25/2023 COMPR EHENS LORENZO METAB OLIC PANEL bilirubin total 0.7 mg/dL 0.3-1. 2 Not Available [facility] [address] [facility], [place], [address], 02/26/2023 00:26:25 02/26/20 23 02/25/2023 COMPR EHENS LORENZO METAB OLIC PANEL glomerular filtration rate > mL/mi n/1.7 3m*2 >=60.0 Not Available [facility] [address] [facility], [place], [address], 02/26/2023 00:26:25 02/26/20 23 02/25/2023 COMPR EHENS LORENZO METAB OLIC PANEL anion gap 10 mEq/L 3-15 Not Available [facility] [address] [facility], [place], [address], 02/26/2023 00:26:25 02/26/20 23 02/25/2023 TSH 3RD GENER ATION TSH3 0.99 mIU/L 0.34-5 .60 Not Available [facility] [address] [facility], [place], [address], 02/26/2023 00:34:21 02/26/20 23 02/25/2023 HEMOG LOBIN A1C hemoglobin A1C 5.2 % <5.7 Not Available [facility] [address], [place], [address], 02/26/2023 10:21:53 02/26/20 23 02/25/2023 HEMOG LOBIN A1C estimated avg glucose 103 mg/dL Estim ate of avera ge gluco se nida ntrat ion isauro nuous ly over 24 hours for previ ous 2 to 3 month s(Per ADA Recom menda tion) . Not Available [facility] [address] [facility], [place], [address], 02/26/2023 10:21:53 02/26/20 23 02/25/2023 APOLI POPRO TEIN B qst apolipoprote in B 44 mg/dL <90 Refer ence Range : <90 Risk Categ ory: Optim al < 90 Moder ate 90 - 119 High > or = 120 Cardi ovasc ular event risk categ ory cut point s (opti mal, moder ate, high) are based on Natio nal Lipid Assoc iatio n recom menda tions -Flex bsjared TA et al. J Clin Lipid . 2015; 9:129 -169 and Vi AMEZCUA et al. Endoc r Pract . 2017; 23(Humphreys ppl 2):1- 87. Not Available [facility] [address] [facility], [place], [address], 03/03/2023 20:02:06 04/01/20 23 04/01/2023 CBC AND DIFF WBC 4.93 K/uL 3.80-1 0.50 Not Available [facility] [address] [facility], [place], [address], 04/01/2023 22:12:50 04/01/20 23 04/01/2023 CBC AND DIFF RBC 5.07 M/uL 4.50-5 .80 Not Available [facility] [address] [facility], [place], [address], 04/01/2023 22:12:50 04/01/20 23 04/01/2023 CBC AND DIFF hemoglobin 14.2 g/dL 13.7-1 7.5 Not Available [facility] [address] [facility], [place], [address], 04/01/2023 22:12:50 04/01/20 23 04/01/2023 CBC AND DIFF hematocrit 43.7 % 40.1-5 1.0 Not Available [facility] [address] [facility], [place], [address], 04/01/2023 22:12:50 04/01/20 23 04/01/2023 CBC AND DIFF MCV 86.2 fL 83.0-9 8.0 Not Available [facility] [address] [facility], [place], [address], 04/01/2023 22:12:50 04/01/20 23 04/01/2023 CBC AND DIFF MCH 28.0 pg 28.0-3 3.2 Not Available [facility] [address] [facility], [place], [address], 04/01/2023 22:12:50 04/01/20 23 04/01/2023 CBC AND DIFF MCHC 32.5 g/dL 32.2-3 6.5 Not Available [facility] [address] [facility], [place], [address], 04/01/2023 22:12:50 04/01/20 23 04/01/2023 CBC AND DIFF RDW 15.7 % 11.6-1 4.4 high Not Available [facility] [address] [facility], [place], [address], 04/01/2023 22:12:50 04/01/20 23 04/01/2023 CBC AND DIFF platelets 189 K/uL 150-35 0 Not Available [facility] [address] [facility], [place], [address], 04/01/2023 22:12:50 04/01/20 23 04/01/2023 CBC AND DIFF MPV 9.8 fL 9.4-12 .4 Not Available [facility] [address] [facility], [place], [address], 04/01/2023 22:12:50 04/01/20 23 04/01/2023 CBC AND DIFF differential type AUTO Not Available [facility] [address] [facility], [place], [address], 04/01/2023 22:12:50 04/01/20 23 04/01/2023 CBC AND DIFF NRBC (auto) 0.0 % <=0.0 Not Available [facility] [address] [facility], [place], [address], 04/01/2023 22:12:50 04/01/20 23 04/01/2023 CBC AND DIFF imm gran, rel (auto) 0.2 % Not Available [facility] [address] [facility], [place], [address], 04/01/2023 22:12:50 04/01/20 23 04/01/2023 CBC AND DIFF neutrophils, rel (auto) 55.2 % Not Available [facility] [address] [facility], [place], [address], 04/01/2023 22:12:50 04/01/20 23 04/01/2023 CBC AND DIFF lymphocytes, rel (auto) 30.4 % Not Available [facility] [address] [facility], [place], [address], 04/01/2023 22:12:50 04/01/20 23 04/01/2023 CBC AND DIFF monocytes, rel (auto) 11.4 % Not Available [facility] [address] [facility], [place], [address], 04/01/2023 22:12:50 04/01/20 23 04/01/2023 CBC AND DIFF eosinophils rel (auto) 1.6 % Not Available [facility] [address] [facility], [place], [address], 04/01/2023 22:12:50 04/01/20 23 04/01/2023 CBC AND DIFF basophils, rel (auto) 1.2 % Not Available [facility] [address] [facility], [place], [address], 04/01/2023 22:12:50 04/01/20 23 04/01/2023 CBC AND DIFF imm gran, abs (auto) 0.01 K/uL 0.00-0 .08 Not Available [facility] [address] [facility], [place], [address], 04/01/2023 22:12:50 04/01/20 23 04/01/2023 CBC AND DIFF neutrophils, abs (auto) 2.72 K/uL 1.70-7 .00 Not Available [facility] [address] [facility], [place], [address], 04/01/2023 22:12:50 04/01/20 23 04/01/2023 CBC AND DIFF lymphocytes, abs (auto) 1.50 K/uL 1.20-3 .50 Not Available [facility] [address] [facility], [place], [address], 04/01/2023 22:12:50 04/01/20 23 04/01/2023 CBC AND DIFF monocytes, abs (auto) 0.56 K/uL 0.30-1 .00 Not Available [facility] [address] [facility], [place], [address], 04/01/2023 22:12:50 04/01/20 23 04/01/2023 CBC AND DIFF eosinophils, abs (auto) 0.08 K/uL 0.04-0 .54 Not Available [facility] [address] [facility], [place], [address], 04/01/2023 22:12:50 04/01/20 23 04/01/2023 CBC AND DIFF basophils, abs (auto) 0.06 K/uL 0.01-0 .10 Not Available [facility] [address] [facility], [place], [address], 04/01/2023 22:12:50 04/01/20 23 04/01/2023 COMPR EHENS LORENZO METAB OLIC PANEL sodium 139 mEq/L 136-14 5 Not Available [facility] [address] [facility], [place], [address], 04/01/2023 22:57:24 04/01/20 23 04/01/2023 COMPR EHENS LORENZO METAB OLIC PANEL potassium 3.7 mEq/L 3.5-5. 1 Not Available [facility] [address] [facility], [place], [address], 04/01/2023 22:57:24 04/01/20 23 04/01/2023 COMPR EHENS LORENZO METAB OLIC PANEL chloride 103 mEq/L 98-107 Not Available [facility] [address] [facility], [place], [address], 04/01/2023 22:57:24 04/01/20 23 04/01/2023 COMPR EHENS LORENZO METAB OLIC PANEL carbon dioxide, total 28 mEq/L 21-[address] [facility] Imaging [address] [facility], [place], [address], 04/01/2023 22:57:24 04/01/20 23 04/01/2023 COMPR EHENS LORENZO METAB OLIC PANEL BUN 17 mg/dL 7-25 Not Available [facility] [address] [facility], [place], [address], 04/01/2023 22:57:24 04/01/20 23 04/01/2023 COMPR EHENS LORENZO METAB OLIC PANEL creatinine 0.8 mg/dL 0.7-1. 3 Not Available [facility] [address] [facility], [place], [address], 04/01/2023 22:57:24 04/01/20 23 04/01/2023 COMPR EHENS LORENZO METAB OLIC PANEL glucose 76 mg/dL 70-99 Not Available [facility] [address] [facility], [place], [address], 04/01/2023 22:57:24 04/01/20 23 04/01/2023 COMPR EHENS LORENZO METAB OLIC PANEL calcium 9.6 mg/dL 8.6-10 .3 Not Available [facility] [address] [facility], [place], [address], 04/01/2023 22:57:24 04/01/20 23 04/01/2023 COMPR EHENS LORENZO METAB OLIC PANEL AST (SGOT) 29 IU/L 13-39 Not Available [facility] Imaging [address] [facility], [place], [address], 04/01/2023 22:57:24 04/01/20 23 04/01/2023 COMPR EHENS LORENZO METAB OLIC PANEL ALT (SGPT) 53 IU/L 7-52 high Not Available [facility] Imaging [address] [facility], [place], [address], 04/01/2023 22:57:24 04/01/20 23 04/01/2023 COMPR EHENS LORENZO METAB OLIC PANEL alkaline phosphatase 61 IU/L 34-125 Not Available [facility] [address] [facility], [place], [address], 04/01/2023 22:57:24 04/01/20 23 04/01/2023 COMPR EHENS LORENZO METAB OLIC PANEL protein total 6.7 g/dL 6.0-8. 2 Not Available [facility] [address] [facility], [place], [address], 04/01/2023 22:57:24 04/01/20 23 04/01/2023 COMPR EHENS LORENZO METAB OLIC PANEL albumin 4.5 g/dL 3.5-5. 7 Not Available [facility] [address] [facility], [place], [address], 04/01/2023 22:57:24 04/01/20 23 04/01/2023 COMPR EHENS LORENZO METAB OLIC PANEL bilirubin total 0.9 mg/dL 0.3-1. 2 Not Available [facility] [address] [facility], [place], [address], 04/01/2023 22:57:24 04/01/20 23 04/01/2023 COMPR EHENS LORENZO METAB OLIC PANEL glomerular filtration rate > mL/mi n/1.7 3m*2 >=60.0 Not Available [facility] [address] [facility], [place], [address], 04/01/2023 22:57:24 04/01/20 23 04/01/2023 COMPR EHENS LORENZO METAB OLIC PANEL anion gap 8 mEq/L 3-15 Not Available [facility] [address] [facility], [place], [address], 04/01/2023 22:57:24 05/18/20 22 05/18/2022 MR, angio gram, head, w/o contr ast DIAGNO STIC RADIOL OGY - 022 10:50: 02 AM - MRI ANGIOG STEPHEN HEAD WO CONTRA ST - Dictat ed By: SINDY ESCOBAR STUDY: MRI of the Brain withou t contra st CLINIC AL HISTOR Y: Headac he and neck pain. Vertig o. Concer n for caroti d dissec tion and aneury sm. -- IMPRES MARÍA ELENA: Unrema rkable MRI of the brain. Unrema rkable MRA of the head. 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 If there is contin ued clinic al concer n, CTA may be helpfu l to better assess . No eviden ce for vessel dissec tion. COMMEN T: Techni que: The brain was scanne d in multip le planes with a variet y of pulse sequen joey withou t contra st. Compar pawel: Brain MRI dated 2017. Findin gs: Single subcor tical white matter T2 hyperi ntensi ty in the left gil radiat a. Sulci, ventri cles and basal cister ns are within normal limits for patien t's stated age. No mass-e ffect, intrac ranial hemorr pk, acute segmen darwin infarc t or extra- axial fluid collec tion is seen. Cerebe llar tonsil s are normal in positi on. Expect ed signal voids are seen in the intrac ranial vessel s at the skull base. The orbits and sella are unrema rkable . The parana tammi sinuse s are clear. The mastoi d air cells are clear. MR angiog rocky head and neck withou t contra st Techni que: An MRA of the [place] was perfor med utiliz ing a 3D time-o f-flig ht techni que. MRA of the neck was also perfor med utiliz ing 2-D and 3-D time-o f-flig ht techni que. Axial T1 fat sat images of the neck also obtain ed for dissec tion protoc ol. No prior studie s are availa ble for compar pawel. 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 No medium or large size aneury sms are seen in the [place] . Please note that MRA may be insens itive in the detect ion of aneury sms smalle r than 4 mm. MRA of the neck demons trates patenc y of the common caroti d arteri es, customer success intern al caroti d arteri es and verteb ral arteri es bilate rally. There is sugges tion of modera te greate r than 50% stenos is of the origin of the right customer success intern al caroti d artery , modera te to severe greate r than 70% stenos is of the left proxim al customer success intern al caroti d artery . Left verteb ral artery is domina nt. No eviden ce for vessel dissec tion, cutoff , hemody namica lly signif icant stenos es by NASCET criter ia. No intram ural hemato ma or dissec tion flap to sugges t vessel dissec tion. Interp reted By: SINDY BENTON Signed By: SINDY SELLERS [facility] Imaging [address], [place], [address], 06/14/2022 17:12:25 05/18/20 22 05/18/2022 MR, angio gram, neck, w/o contr ast DIAGNO STIC RADIOL OGY - 022 10:50: 02 AM - MRI ANGIOG STEPHEN NECK WO CONTRA ST - Dictat ed By: SINDY ESCOBAR STUDY: MRI of the Brain withou t contra st CLINIC AL HISTOR Y: Headac he and neck pain. Vertig o. Concer n for caroti d dissec tion and aneury sm. -- IMPRES MARÍA ELENA: Unrema rkable MRI of the brain. Unrema rkable MRA of the head. 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 If there is contin ued clinic al concer n, CTA may be helpfu l to better assess . No eviden ce for vessel dissec tion. COMMEN T: Techni que: The brain was scanne d in multip le planes with a variet y of pulse sequen joey withou t contra st. Compar pawel: Brain MRI dated 2017. Findin gs: Single subcor tical white matter T2 hyperi ntensi ty in the left gil radiat a. Sulci, ventri cles and basal cister ns are within normal limits for patien t's stated age. No mass-e ffect, intrac ranial hemorr pk, acute segmen darwin infarc t or extra- axial fluid collec tion is seen. Cerebe llar tonsil s are normal in positi on. Expect ed signal voids are seen in the intrac ranial vessel s at the skull base. The orbits and sella are unrema rkable . The parana tammi sinuse s are clear. The mastoi d air cells are clear. MR angiog rocky head and neck withou t contra st Techni que: An MRA of the [place] was perfor med utiliz ing a 3D time-o f-flig ht techni que. MRA of the neck was also perfor med utiliz ing 2-D and 3-D time-o f-flig ht techni que. Axial T1 fat sat images of the neck also obtain ed for dissec tion protoc ol. No prior studie s are availa ble for compar pawel. 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 No medium or large size aneury sms are seen in the [place] of [place] . Please note that MRA may be insens itive in the detect ion of aneury sms smalle r than 4 mm. MRA of the neck demons trates patenc y of the common caroti d arteri es, customer success intern al caroti d arteri es and verteb ral arteri es bilate rally. There is sugges tion of modera te greate r than 50% stenos is of the origin of the right customer success intern al caroti d artery , modera te to severe greate r than 70% stenos is of the left proxim al customer success intern al caroti d artery . Left verteb ral artery is domina nt. No eviden ce for vessel dissec tion, cutoff , hemody namica lly signif icant stenos es by NASCET criter ia. No intram ural hemato ma or dissec tion flap to sugges t vessel dissec tion. Interp reted By: SINDY BENTON Signed By: SINDY SELLERS [facility]/ Imaging [address], [place], [address], 06/14/2022 17:12:24 05/18/20 22 05/18/2022 MRI, brain , w/o contr ast DIAGNO STIC RADIOL OGY - 022 10:50: 02 AM - MRI BRAIN WO CONTRA ST - Dictat ed By: SINDY ESCOBAR STUDY: MRI of the Brain withou t contra st CLINIC AL HISTOR Y: Headac he and neck pain. Vertig o. Concer n for caroti d dissec tion and aneury sm. -- IMPRES MARÍA ELENA: Unrema rkable MRI of the brain. Unrema rkable MRA of the head. 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 If there is contin ued clinic al concer n, CTA may be helpfu l to better assess . No eviden ce for vessel dissec tion. COMMEN T: Techni que: The brain was scanne d in multip le planes with a variet y of pulse sequen joey withou t contra st. Compar pawel: Brain MRI dated 2017. Findin gs: Single subcor tical white matter T2 hyperi ntensi ty in the left gil radiat a. Sulci, ventri cles and basal cister ns are within normal limits for patien t's stated age. No mass-e ffect, intrac ranial hemorr pk, acute segmen darwin infarc t or extra- axial fluid collec tion is seen. Cerebe llar tonsil s are normal in positi on. Expect ed signal voids are seen in the intrac ranial vessel s at the skull base. The orbits and sella are unrema rkable . The parana tammi sinuse s are clear. The mastoi d air cells are clear. MR angiog rocky head and neck withou t contra st Techni que: An MRA of the [place] of [place] was perfor med utiliz ing a 3D time-o f-flig ht techni que. MRA of the neck was also perfor med utiliz ing 2-D and 3-D time-o f-flig ht techni que. Axial T1 fat sat images of the neck also obtain ed for dissec tion protoc ol. No prior studie s are availa ble for compar pawel. 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 No medium or large size aneury sms are seen in the [place] . Please note that MRA may be insens itive in the detect ion of aneury sms smalle r than 4 mm. MRA of the neck demons trates patenc y of the common caroti d arteri es, customer success intern al caroti d arteri es and verteb ral arteri es bilate rally. There is sugges tion of modera te greate r than 50% stenos is of the origin of the right customer success intern al caroti d artery , modera te to severe greate r than 70% stenos is of the left proxim al customer success intern al caroti d artery . Left verteb ral artery is domina nt. No eviden ce for vessel dissec tion, cutoff , hemody namica lly signif icant stenos es by NASCET criter ia. No intram ural hemato ma or dissec tion flap to sugges t vessel dissec tion. Interp reted By: SINDY SELLERS ,SINDY SELLERS Signed By: SINDY SELLERS [facility]/ Imaging [address] [facility], [place], [address], 06/14/2022 17:12:24 06/01/20 22 05/21/2022 home sleep study No observ ation record ed. [facility] [address] [facility] [address], [place], [address], 06/14/2022 17:12:24 06/08/20 22 06/08/2022 MRI, thora cic spine , w/o contr ast DIAGNO STIC RADIOL OGY - 2021 4:12:5 1 PM - MRI THORAC IC SPINE WO CONTRA ST - Dictat ed By: CHARLEY AVILA A CLINIC AL HISTOR Y: M48.06 1: Spinal stenos is, lumbar region withou t neurog enic claudi cation M48.04 : Spinal stenos is, thorac ic region , pain PRIOR STUDY: None TECHNI QUE: Noncon trast MR cervic al spine COMMEN T: There is straig htenin g the normal cervic al lordos is. The verteb ral bodies are mainta ined in height . There are mixed endpla te change s noted at C3-C4. There is grade 1 retrol isthes is of C3 on C4. There is disc desicc ation and narrow ing noted throug hout. Unless otherw ise noted there is no signif icant disc hernia tion, centra l or forami nal narrow ing. C2-C3 shows facet hypert rophy contri buting to severe right and modera te left forami nal narrow ing. C3-C4 shows a disc osteop hyte comple x contac ting and mildly deform ing the ventra l spinal cord, uncove rtebra l and facet hypert rophy contri buting to severe bilate ral forami nal narrow ing and modera te centra l canal narrow ing. C4-C5 shows mild facet hypert rophy. C5-C6 shows a disc osteop hyte comple x, uncove rtebra l and facet hypert rophy contri buting to severe right forami nal narrow ing. There is mild centra l canal narrow ing. C6-C7 shows a disc osteop hyte comple x, uncove rtebra l and facet hypert rophy contri buting to modera te to severe bilate ral forami nal narrow ing and mild centra l canal narrow ing. C7-T1 shows facet hypert rophy. Thorac ic: There is a normal thorac ic kyphos is. The verteb ral bodies are mainta ined in height , signal and alignm ent. There is mild disc desicc ation. Unless otherw ise noted there is no signif icant disc hernia tion, centra l or forami nal narrow ing. T8-T9 shows a tiny right centra l protru maría elena. -- IMPRES MARÍA ELENA: Multil evel spondy losis as descri bed above in detail . No severe centra l canal narrow ing. Interp reted By: CHARLEY BENAVIDES,ELOISE BENAVIDES Signed By: CHARLEY BENAVIDES [facility]/ Imaging [address], [place], [address], 06/14/2022 17:12:24 06/08/20 22 06/08/2022 MRI, cervi jaz spine , w/o contr ast DIAGNO STIC RADIOL OGY - 2021 4:12:5 1 PM - MRI CERVIC AL SPINE WO CONTRA ST - Dictat ed By: REBECA BENAVIDES, CHARLEY Wilson CLINIC AL HISTOR Y: M48.06 1: Spinal stenos is, lumbar region withou t neurog enic claudi cation M48.04 : Spinal stenos is, thorac ic region , pain PRIOR STUDY: None TECHNI QUE: Noncon trast MR cervic al spine COMMEN T: There is straig htenin g the normal cervic al lordos is. The verteb ral bodies are mainta ined in height . There are mixed endpla te change s noted at C3-C4. There is grade 1 retrol isthes is of C3 on C4. There is disc desicc ation and narrow ing noted throug hout. Unless otherw ise noted there is no signif icant disc hernia tion, centra l or forami nal narrow ing. C2-C3 shows facet hypert rophy contri buting to severe right and modera te left forami nal narrow ing. C3-C4 shows a disc osteop hyte comple x contac ting and mildly deform ing the ventra l spinal cord, uncove rtebra l and facet hypert rophy contri buting to severe bilate ral forami nal narrow ing and modera te centra l canal narrow ing. C4-C5 shows mild facet hypert rophy. C5-C6 shows a disc osteop hyte comple x, uncove rtebra l and facet hypert rophy contri buting to severe right forami nal narrow ing. There is mild centra l canal narrow ing. C6-C7 shows a disc osteop hyte comple x, uncove rtebra l and facet hypert rophy contri buting to modera te to severe bilate ral forami nal narrow ing and mild centra l canal narrow ing. C7-T1 shows facet hypert rophy. Thorac ic: There is a normal thorac ic kyphos is. The verteb ral bodies are mainta ined in height , signal and alignm ent. There is mild disc desicc ation. Unless otherw ise noted there is no signif icant disc hernia tion, centra l or forami nal narrow ing. T8-T9 shows a tiny right centra l protru maría elena. -- IMPRES MARÍA ELENA: Multil evel spondy losis as descri bed above in detail . No severe centra l canal narrow ing. Interp reted By: CHARLEY BENAVIDES,ELOISE BENAVIDES Signed By: CHARLEY BENAVIDES [facility]/ Imaging [address], [place], [address], 06/14/2022 17:12:24 06/09/20 22 06/09/2022 cta head/ neck W wo IV contr ast DIAGNO STIC RADIOL OGY - 2021 9:24:1 3 AM - CT ANGIOG ROCKY HEAD/N ROBERTO W WO IV CONTRA ST - Dictat ed By: CHARLEY AVILA A 100 CLINIC AL HISTOR Y: Caroti d occlus ion PRIOR STUDY: MRA head dated 022 Techni que: Noncon trast Head CT was perfor med. Thin sectio n CT angiog rocky of the head and neck was perfor med from the aortic arch to the vertex was perfor med using a multis lice CT scanne r, follow ing the infusi on of 100 cc Omnipa que [address] materi al. MIP and 3D volume render ed reform ats were obtain ed using a [employer] [facility]. CAROTI D IMAGIN G CRITER IA: Measur ement of caroti d stenos is is based on parame ters that correl ate the residu al customer success intern al caroti d lumen diamet er with NASCET -based stenos is levels . CT DOSE: One or more dose reduct ion techni ques (e.g. automa alice exposu re contro l, adjust ment of the mA and/or kV accord ing to patien t size, use of iterat lorenzo recons tructi on techni que) utiliz ed for this [facility]. COMMEN T: Head CT: There is no intrap arench ymal hemorr pk, mass effect , midlin e shift or extra- axial fluid collec tion. The ventri cles, sulci and basila r cister ns appear approp riate for age. The dupont-w rose matter differ entiat ion is mainta ined. The chronic disease epidemiologist ior fossa is unrema rkable . The mastoi d air cells and middle ear is are well-a erated . There is trace maxill jatinder and ethmoi d mucosa l thicke delilah. No air-fl uid levels . Neck CTA:Th ere is a normal branch ing patter n of the great vessel s. There is mild narrow ing of the origin of the left verteb ral artery . There is athero sclero tic plaque involv ing the bilate ral caroti d bulbs. The right caroti d bulb narrow s down to 1.2 mm compar ed to the distal cervic al segmen t that measur es 4 mm giving a 70% stenos is. The nasoph arynx, oropha rynx, hypoph arynx and larynx appear normal . The thyroi d, subman dibula r and paroti d glands are normal . There are bilate ral cervic al lymph nodes noted that are not enlarg ed by size criter ia. The lung apices are clear. There is cervic al spine degene rative change s. Head CTA: No intrac ranial aneury sm or stenos is noted. There is origin of the right chronic disease epidemiologist ior cerebr al artery . -- IMPRES MARÍA ELENA: 1. No eviden ce of hemorr pk, mass or new infarc t. 2. 70% right caroti d bulb stenos is. 3. No intrac ranial aneury sm or stenos is. Interp reted By: CHARLEY JOSE CK,ELOISE JOSE CK Signed By: CHARLEY BENAVIDES [facility]/ Imaging [address] [facility], [place], [address], 06/14/2022 17:12:24 06/25/20 22 06/25/2022 US, carot id arter y No observ ation record ed. [facility] [address] [place], [address], 11/11/2022 13:28:07 06/25/20 22 06/25/2022 US, carot id arter y No observ ation record ed. [facility] [address] [place], [address], 11/11/2022 13:28:07 11/13/19 23 11/12/2022 fL fluor oscop y techn ical beau tance DIAGNO STIC RADIOL OGY - 11/13/19 1:52:3 6 PM - FL FLUORO SCOPY TECHNI JAZ ASSIST ANCE - Dictat ed By: ADMINI STRATO R, SYSTEM CLINIC AL HISTOR Y: Techni jaz assist ance was provid ed for fluoro scopy. COMMEN T: Techni jaz assist ance was provid ed for fluoro scopy. Total fluoro scopy time 1.40 minute s. Dose 9.03 mGy. -- IMPRES MARÍA ELENA: Techni jaz saha was provid ed for fluoro scopy. Total fluoro scopy time 1.40 minute s. Dose 9.03 mGy. Interp reted By: OBI Leyva Signed By: OBI monique [facility]/ Imaging [address], [place], [address], 02/25/2023 13:49:20 04/05/20 23 elect brandee diogr am No observ ation record ed. kayden Not Available 2022 22:04:58 Result Notes Documentation Provider Name and Address Organization Details Recorded Time Mri, Thoracic Spine, W/o Contrast : DIAGNOSTIC RADIOLOGY - 06/08/2022 4:12:51 PM - MRI THORACIC SPINE WO CONTRAST - Dictated By: CELESTINE HORVATH CLINICAL HISTORY: M48.061: Spinal stenosis, lumbar region without neurogenic claudication M48.04: Spinal stenosis, thoracic region , pain PRIOR STUDY: None TECHNIQUE: Noncontrast MR cervical spine COMMENT: There is straightening the normal cervical lordosis. The vertebral bodies are maintained in height. There are mixed endplate changes noted at C3-C4. There is grade 1 retrolisthesis of C3 on C4. There is disc desiccation and narrowing noted throughout. [...] hypertrophy contributing to severe right foraminal narrowing. There is mild central canal narrowing. C6-C7 shows a disc osteophyte complex, uncovertebral and facet hypertrophy contributing to moderate to severe bilateral foraminal narrowing and mild central canal narrowing. C7-T1 shows facet hypertrophy. Thoracic: There is a normal thoracic kyphosis. The vertebral bodies are maintained in height, signal and alignment. There is mild disc desiccation. Unless otherwise noted there is no significant disc herniation, central or foraminal narrowing. T8-T9 shows a tiny right central protrusion. -- IMPRESSION: Multilevel spondylosis as described above in detail. No severe central canal narrowing. Interpreted By: CELESTINE CURIEL Signed By: CELESTINE Zambrano, DO [address] [place], [address], [place] 06/14/2022 17:12:24 Mri, Cervical Spine, W/o Contrast : DIAGNOSTIC RADIOLOGY - 06/08/2022 4:12:51 PM - MRI CERVICAL SPINE WO CONTRAST - Dictated By: CELESTINE HORVATH CLINICAL HISTORY: M48.061: Spinal stenosis, lumbar region without neurogenic claudication M48.04: Spinal stenosis, thoracic region , pain PRIOR STUDY: None TECHNIQUE: Noncontrast MR cervical spine COMMENT: There is straightening the normal cervical lordosis. The vertebral bodies are maintained in height. There are mixed endplate changes noted at C3-C4. There is grade 1 retrolisthesis of C3 on C4. There is disc desiccation and narrowing noted throughout. [...] hypertrophy contributing to severe right foraminal narrowing. There is mild central canal narrowing. C6-C7 shows a disc osteophyte complex, uncovertebral and facet hypertrophy contributing to moderate to severe bilateral foraminal narrowing and mild central canal narrowing. C7-T1 shows facet hypertrophy. Thoracic: There is a normal thoracic kyphosis. The vertebral bodies are maintained in height, signal and alignment. There is mild disc desiccation. Unless otherwise noted there is no significant disc herniation, central or foraminal narrowing. T8-T9 shows a tiny right central protrusion. -- IMPRESSION: Multilevel spondylosis as described above in detail. No severe central canal narrowing. Interpreted By: CELESTINE CURIEL Signed By: CELESTINE Zambrano, DO [address] [place], [address], [place] Zambrano/Sherry 06/14/2022 17:12:24 Problems Name Problem SNOMED Code Status Onset Date Resolution Date Notes Provider Name and Address Organization Details Recorded Time Dyllan ring 94422795 Active 2015 Not Available [facility] 3 15:07:58 Nonalcoh olic steatohe patitis 100870756 Active 2015 [facility] Available [facility] 3 15:07:58 Obstruct lorenzo sleep apnea syndrome 90968137 Active 2015 intolera nt to CPAP Sleep Study- 06/01/22 - Dx - JAGJIT-MAE RE Not Available [facility] 3 15:07:58 Benign prostati c hyperpla paco 718452666 Active 2015 Dr Linton/ Urology at [facility] PSA- 1.84 ( 04/30/22 ) Not Available [facility] 3 15:07:58 Hyperlip idemia 57618116 Active 2015 [facility] Available [facility] 3 15:07:58 Gastroes ophageal reflux disease 454222027 Active 2015 Not Available [facility] 3 15:07:58 Disorder of sacrum 85994613 Completed 201205/02/2018 Asher Zambrano, DO [address] [place], [address] , [place] [facility] 8 11:14:12 Cough 99432407 Completed 201201/01/2013 Asher Zambrano DO [address] [place], [address] , [place] [facility] 3 13:31:25 Acute bronchit is 47495973 Completed 201201/01/2013 Not Available [facility] 6 05:32:23 Respirat ory finding 116793385 Completed 201206/06/2013 Not Available [facility] 6 05:32:23 Acute sinusiti s 00612842 Completed 201206/06/2013 Not Available [facility] 6 05:32:23 Generali zed abdomina l pain 633539511 Completed 201206/06/2013 Not Available [facility] 6 05:32:23 Malaise and fatigue 356822678 Completed 201201/30/2014 Not Available [facility] 6 05:32:23 Abnormal weight gain 707138677 Completed 201206/06/2013 Not Available [facility] 6 05:32:24 Hyperhid rosis 211265009 Completed 201201/30/2014 Not Available [facility] 6 05:32:24 Dyspnea 732069035 Completed 201206/05/2013 Not Available [facility] 6 05:32:24 General examinat ion of patient Completed 201307/14/2014 Not Available [facility] 6 05:32:24 Testicul ar hypofunc tion 556827216 Active 2012 Not Available [facility] 3 15:07:58 Urinary tract obstruct ion 5682570 Completed 201205/02/2018 Urologis t- Asher Zambrano, DO [address] [place], [address] , [place] 8 11:14:54 Lower urinary tract symptoms 226515000 Completed 201205/02/2018 Asher Zambrano DO [address] [place], [address] , [place] 8 11:15:36 Obesity 649512809 Completed 201205/02/2018 Asher Zambrano DO [address] [place], [address] , [place] 3 13:13:30 Pain in thoracic spine 342700456 Completed 201403/29/2015 Not Available [facility] 6 05:32:24 Shoulder joint pain 089315732 Completed 201403/29/2015 [facility] Available [facility] 6 05:32:25 Benign essentia l hyperten maría elena 3535456 Completed 201205/02/2018 Asher Zambrano, DO [address] [place], [address] , [place]/[facility]on 8 11:15:31 Malignan t neoplasm of skin 555725366 Active 2017 Dr Sea carranza Not Available [facility] 3 15:07:58 Divertic ulosis of intestin e Active 2017 colonosc opy-2008 colonosc opy 06/13/19- scattere d divertic ulum; colonic polyps- 0.6cm at 20/50/60 cm- all removed; path-ramona oliver ( Dr Cole Gibbs)- repeat 2023 Not Available [facility] 3 15:07:58 Polyp of colon 47949418 Active 2018 colonosc opy-2008 colonosc opy 06/13/19- scattere d divertic ulum; colonic polyps- 0.6cm at 20/50/60 cm- all removed; pathhieu oliver ( Dr Cole Gibbs)- repeat 2023 Not Available [facility] 3 15:07:58 Chronic sinusiti s 07708722 Active 2019 Not Available [facility] 3 15:07:58 Degenera tion of cervical interver tebral disc 98543460 Active 2021 MRI of Cervical Spine- 06/08/22 -COMMENT : There is straight ening the normal cervical lordosis . The vertebra l bodies are maintain ed in height. There are mixed endplate changes noted at C3-C4. There is grade 1 retrolis thesis of C3 on C4. There is disc desiccat ion and narrowin g noted througho ut. Unless otherwis e noted there is no signific ant disc herniati on, central or foramina l narrowin g. C2-C3 shows facet hypertro phy contribu ting to severe right and moderate left foramina l narrowin g. C3-C4 shows a disc osteophy te complex contacti ng and mildly deformin g the ventral spinal cord, uncovert ebral and facet hypertro phy contribu ting to severe bilatera l foramina l narrowin g and moderate central canal narrowin g. C4-C5 shows mild facet hypertro phy. C5-C6 shows a disc osteophy te complex, uncovert ebral and facet hypertro phy contribu ting to severe right foramina l narrowin g. There is mild central canal narrowin g. C6-C7 shows a disc osteophy te complex, uncovert ebral and facet hypertro phy contribu ting to moderate to severe bilatera l foramina l narrowin g and mild central canal narrowin g. C7-T1 shows facet hypertro phy. Thoracic : There is a normal thoracic kyphosis . The vertebra l bodies are maintain ed in height, signal and alignmen t. There is mild disc desiccat ion. Unless otherwis e noted there is no signific ant disc herniati on, central or foramina l narrowin g. T8-T9 shows a tiny right central protrusi on. -- IMPRESSI ON: Multilev el spondylo sis as describe d above in detail. No severe central canal narrowin g. -EMG--mi ld subclini jaz median neuropat hy without axonal or demyelin ating polyneur opathy. Asher Zambrano, DO [address] [place], [address] , [place] - [place]/[facility]on 3 16:28:36 Rheumati sm 451340496 Active 2021 Not Available [facility] 3 15:07:58 Disorder of carotid artery 251996884 Active 2021 -CT of A/P 04/14/17 -FINDING S: Images of the lower chest demonstr ate severe coronary artery calcific ations. -MRI/MRA of Head/ Neck-05/18/22 -IMPRESS ION: Unremark able MRI of the brain. Unremark able MRA of the head. MRA of the neck suggests atherosc lerotic disease and greater than 50% narrowin g of the right proximal internal carotid artery, greater than 70% narrowin g of the left internal carotid artery. If there is continue d clinical concern, CTA may be helpful to better assess. No evidence for vessel dissecti on. -Carotid U/S 06/25/22 ( ordered by vascular surgeon Dr Brandyn Ospina/ [facility])- R- > 70% stenosis of proximal R-ICA; L- 50-69% stenosis in the proximal L-ICA -s/p R-CEA-05/03-Dr Brandyn Zambrano, DO [address] [place], [address] , [place] - [place]/Michael [facility] 3 13:30:29 Coronary atherosc lerosis 223430227 Active 2021 Asher Zambrano, DO [address] [place], [address] , [place] - [place]/[facility] 3 12:54:51 Hypergly cemia 82996755 Active 2021 Not Available [facility] 3 15:07:58 Erectile dysfunct ion 072517819 Active 2022 Asher Zambrano, [address] [place], [address] , [place] - [place]/[facility] 3 13:15:21 Obesity 266447184 Active 2022 Asher Zambrano DO [address] [place], [address] , [place] - [place]/Michael [facility] 3 13:13:30 Otitis externa 7164377 Active 2022 Asher Zambrano DO [address] [place], [address] , [place] - [place] Manuel/Michael [facility] 3 13:11:46 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 Please review this document and add these problems to the patient's chart manually as needed. Problem Notes None recorded. Procedures Surgical History Date Name Laterality Status Provider Name and Address Organization Details Recorded Time 2 MDVIP SAWE completed Asher Zambrano DO [address] [place], [address], [place] Zambrano/Sang n 06/14/2022 17:11:11 9 colonoscopy completed Alice Zambrano/Sang n 06/13/2019 13:51:14 Imaging Results Imaging Date Name Status LastModified by Organization Details LastModified Time 05/18/2022 MR, angiogram, head, w/o contrast completed [facility] [address] [facility] [address], 06/14/2022 17:12:25 05/18/2022 MR, angiogram, neck, w/o contrast completed [facility] [address] [facility] [address], 06/14/2022 17:12:24 05/18/2022 MRI, brain, w/o contrast completed [facility] [employer] [address] [place] [place], [address], 06/14/2022 17:12:24 05/21/2022 home sleep study completed Grata [facility] [address] [facility] [address], [place], [address], 06/14/2022 17:12:24 06/08/2022 MRI, thoracic spine, w/o contrast completed Grata [facility] [address] [facility], [place], [address], 06/14/2022 17:12:24 06/08/2022 MRI, cervical spine, w/o contrast completed [facility] [address] [facility], [place], [address], 06/14/2022 17:12:24 06/09/2022 cta head/neck W wo IV contrast completed Grata [facility] [address] [facility], [place], [address], 06/14/2022 17:12:24 06/25/2022 US, carotid artery completed [facility] [address] [place], [address], 11/11/2022 13:28:07 06/25/2022 US, carotid artery completed [facility] [address] [place], [address], 11/11/2022 13:28:07 11/12/2022 fL fluoroscopy technical assistance completed [facility] [address] [facility], [place], [address], 02/25/2023 13:49:20 04/05/2023 electrocardiogram completed [employer] not available 07/05/2023 22:04:58 Procedure Notes None recorded. Medical Equipment None Reported. Allergies No known drug allergies Medications Name Sig Start Date Stop Date Status Note LastModified by Organization Details LastModified Time amoxicilli n 500 mg capsule 11/27 completed Not Available Not Available Not Available promethazi ne-DM 6.25 mg-15 mg/5 mL oral syrup TAKE 5 ML BY MOUTH EVERY 4 HOURS FOR 5 DAYS NEEDED 11/11 completed Not Available Not Available Not Available ketoconazo le 2 % shampoo PLEASE SEE ATTACHED FOR DETAILED DIRECTION S active Not Available Not Available No t Available Pneumovax- 23 25 mcg/0.5 mL injection solution Take 0.5 mL by injection route as directed. 06/12 completed Not Available Not Available Not Available azithromyc in 250 mg tablet TAKE 2 TABLETS (500 MG) BY ORAL ROUTE ONCE DAILY FOR 1 DAY THEN 1 TABLET (250 MG) BY ORAL ROUTE ONCE DAILY FOR 4 DAYS 06/12 completed Not Available Not Available Not Available ibuprofen 800 mg tablet TAKE 1 TABLET BY MOUTH EVERY 8 HOURS WITH FOOD OR MILK NEEDED 06/30 completed Not Available Not Available Not Available meloxicam 15 mg tablet Take 1 tablet every day by oral route. 2023 active Not Available Not Available Not Avai lable prednisone 20 mg tablet 04/22 completed Not Available Not Available Not Available fluorourac il 5 % topical cream APPLY TOPICALLY ON AND AROUND THE AFFECTED AREA TWICE A DAY FOR 3 WEEKS THEN SEE DOCTOR active Not Available Not Available No t Available prednisone 5 mg tablet taper pack; 8-7-6-5-4 -3-2-1 stop 11/25 completed Not Available Not Available Not Available clopidogre l 75 mg tablet TAKE 1 TABLET BY MOUTH EVERY MORNING 02/25 completed Not Available Not Available Not Available ciprofloxa tristan 500 mg tablet Take 1 tablet every 12 hours by oral route. 10/05 completed Not Available Not Available Not Available sulfametho xazole 800 mg-trimeth oprim 160 mg tablet TAKE 1 TABLET BY MOUTH EVERY 12 HOURS FOR 10 DAYS 04/22 completed Not Available Not Available Not Available aspirin 81 mg tablet,del ayed release Take 1 tablet every day by oral route. active Not Available Not Available No t Available doxycyclin e monohydrat e 100 mg tablet 10/05 completed Not Available Not Available Not Available sildenafil 100 mg tablet TAKE 1 TABLET BY MOUTH EVERY DAY DIRECTED active Not Available Not Available No t Available triamcinol one acetonide 0.1 % topical cream APPLY THIN LAYER TOPICALLY TO THE AFFECTED AREA DAILY 11/11 completed Not Available Not Available Not Available phentermin e 30 mg capsule Take 1 capsule(s ) by mouth daily 08/31 completed Not Available Not Available Not Available amoxicilli n 500 mg tablet TAKE 1 TABLET BY MOUTH TWICE DAILY 11/11 completed Not Available Not Available Not Available valsartan 80 mg-hydroch lorothiazi de 12.5 mg tablet TAKE 1 TABLET BY MOUTH EVERY DAY 08/07 completed Not Available Not Available Not Available meloxicam 7.5 mg tablet TAKE 1 TABLET BY MOUTH EVERY DAY WITH FOOD NEEDED. STOP IF STOMACH PAIN 05/20 completed Not Available Not Available Not Available meclizine 25 mg tablet 03/21 completed Not Available Not Available Not Available benzonatat e 100 mg capsule TAKE ONE CAPSULE BY MOUTH EVERY 8 HOURS NEEDED FOR COUGH 04/22 completed Not Available Not Available Not Available cephalexin 500 mg capsule TAKE 1 CAPSULE BY MOUTH FOUR TIMES DAILY FOR 5 DAYS 06/30 completed Not Available Not Available Not Available oseltamivi r 75 mg capsule TAKE 1 CAPSULE BY MOUTH TWICE DAILY FOR 5 DAYS DIRECTED 11/11 completed Not Available Not Available Not Available Diovan HCT 160 mg-12.5 mg tablet Take 1 tablet(s) by mouth daily 01/30 completed Not Available Not Available Not Available montelukas t 10 mg tablet Take by oral route for 90 days. 04/22 completed Not Available Not Available Not Available hydroxyzin e HCl 25 mg tablet 04/22 completed Not Available Not Available Not Available mupirocin 2 % topical ointment APPLY TO THE AFFECTED AREA TWICE DAILY active Not Available Not Available No t Available gabapentin 100 mg capsule TAKE 1 CAPSULE BY MOUTH EVERY NIGHT AT BEDTIME FOR 3 DAYS THEN 2 CAPSULES EVERY NIGHT AT BEDTIME FOR 3 DAYS THEN 3 CAPSULES EVERY NIGHT AT BEDTIME 11/11 completed Not Available Not Available Not Available azelastine 137 mcg (0.1 %) nasal spray USE 1 SPRAY IN EACH NOSTRIL TWICE DAILY active Not Available Not Available No t Available epinephrin e 0.3 mg/0.3 mL injection, auto-injec tor USE DIRECTED active Not Available Not Available No t Available levofloxac in 500 mg tablet take 1 tablet (500MG) by oral route every 24 hours 05/02 completed Not Available Not Available Not Available methylpred nisolone 4 mg tablets in a dose pack FOLLOW PACKAGE DIRECTION S TAKE WITH FOOD 02/23 completed Not Available Not Available Not Available ipratropiu m bromide 42 mcg (0.06 %) nasal spray [place] 2 sprays 3 times a day by intranasa l route. 04/22 completed Not Available Not Available Not Available ketoconazo le 2 % topical cream 03/21 completed Not Available Not Available Not Available Cortispori n-TC 3.3 mg-3 mg-10 mg-0.5 mg/mL ear drops,susp ension Instill 4 drops 4 times a day by otic route as directed for 5 days. 12/12 completed Not Available Not Available Not Available cefdinir 300 mg capsule TAKE ONE CAPSULE BY MOUTH TWICE DAILY 12/12 completed Not Available Not Available Not Available fluticason e propionate 50 mcg/actuat ion nasal spray,susp ension SHAKE LIQUID AND USE 1 SPRAY IN EACH NOSTRIL EVERY DAY 11/11 completed Not Available Not Available Not Available doxycyclin e hyclate 100 mg tablet 03/21 completed Not Available Not Available Not Available amoxicilli n 875 mg-potassi um clavulanat e 125 mg tablet TAKE 1 TABLET BY MOUTH EVERY 12 HOURS 10/07 completed Not Available Not Available Not Available clindamyci n phosphate 1 % topical solution 05/02 completed Not Available Not Available Not Available oxycodone 5 mg tablet TK 1 TO 2 TS PO Q 4 TO 6 H 04/22 completed Not Available Not Available Not Available valsartan 160 mg-hydroch lorothiazi de 25 mg tablet TAKE 1 TABLET BY MOUTH DAILY 02/23 completed Not Available Not Available Not Available pneumococc al 23 polyvalent vaccine 25 mcg/0.5 mL injection syringe Take 0.5 mL by injection route as needed. 05/02 completed Not Available Not Available Not Available azithromyc in 500 mg tablet TAKE 1 TABLET BY MOUTH EVERY DAY 04/22 completed Not Available Not Available Not Available ezetimibe 10 mg tablet TAKE 1 TABLET BY MOUTH DAILY active Not Available Not Available No t Available ciprofloxa tristan 0.3 %-dexameth asone 0.1 % ear drops,susp ension SHAKE LIQUID AND INSTILL 4 DROPS TO AFFECTED EAR TWICE DAILY FOR 7 DAYS 12/12 completed Not Available Not Available Not Available rosuvastat in 40 mg tablet TAKE 1 TABLET BY MOUTH DAILY active Not Available Not Available No t Available Cialis 20 mg tablet take 1 tablet (20 mg) by oral route one hour prior to sexual activity 05/20 completed Not Available Not Available Not Available ezetimibe 10 mg-simvast atin 40 mg tablet TAKE 1 TABLET BY MOUTH DAILY 05/29 completed Not Available Not Available Not Available Tricor 145 mg tablet take 1 tablet (145MG) by oral route every day 05/15 completed Not Available Not Available Not Available Boostrix Tdap 2.5 Lf unit-8 mcg-5 Lf/0.5 mL intramuscu lar suspension 05/02 completed Not Available Not Available Not Available Vitamin D3 2000 units daily active Not Available Not Available No t Available valsartan 320 mg-hydroch lorothiazi de 25 mg tablet TAKE 1 TABLET BY MOUTH DAILY 08/07 completed Not Available Not Available Not Available Symbicort 160 mcg-4.5 mcg/actuat ion HFA aerosol inhaler Inhale 2 puffs twice a day by inhalatio n route. 05/02 completed Not Available Not Available Not Available Astepro 205.5 mcg (0.15 %) nasal spray (205.5 mcg) Nasal [place], spray 1 spray (205.5MCG ) by intranasa l route 2 times every day in each nostril 04/20 completed Not Available Not Available Not Available Staxyn 10 mg disintegra ting tablet Place 1 tablet every day by transling ual route. 05/20 completed ED agent Not Available Not Available Not Available AndroGel 20.25 mg/1.25 gram per pump act. (1.62 %) transderma l gel Transderm al Gel Pump apply (20.25MG) by topical route every day in the morning to each upper arm and shoulder for a total dose of 40.5 mg 03/15 completed Not Available Not Available Not Available azelastine 137 mcg-flutic asone 50 mcg/spray nasal spray USE 1 SPRAY NASALLY TWO TIMES DAILY 11/11 completed Not Available Not Available Not Available icosapent ethyl 1 gram capsule TAKE 2 CAPSULES BY MOUTH TWICE DAILY 02/25 completed Not Available Not Available Not Available Shingrix (PF) 50 mcg/0.5 mL intramuscu lar suspension , kit Inject 0.5 mL by intramusc ular route as directed. 06/12 completed Not Available Not Available Not Available Ozempic 0.25 mg or 0.5 mg (2 mg/1.5 mL) subcutaneo us pen injector ADMINISTE R 0.335 MG UNDER THE SKIN EVERY WEEK 05/20 completed Not Available Not Available Not Available Ozempic 1 mg/dose (4 mg/3 mL) subcutaneo us pen injector INJECT 1 MG UNDER THE SKIN ONCE A WEEK 08/07 completed Not Available Not Available Not Available Paxlovid 300 mg (150 mg x 2)-100 mg tablets in a dose pack Take 1 dose pk as needed by oral route. 02/23 completed Not Available Not Available Not Available Ozempic 2 mg/dose (8 mg/3 mL) subcutaneo us pen injector INJECT SUBCUTANE OUSLY 2 MG EVERY WEEK active Not Available Not Available No t Available Mounjaro 2.5 mg/0.5 mL subcutaneo us pen injector Inject 2.5 mg every week by subcutane ous route. 03/10 completed Not Available Not Available Not Available Vitals Date Recorded Body height Body mass index (BMI) Body weight Heart rate Respiratory rate Oxygen saturation Oxygen saturation in Arterial blood by Pulse oximetry Systolic blood pressure Diastolic blood pressure Systolic blood pressure Diastolic blood pressure Provider Name and Address Organization Details Last Updated DateTime 2 177.8 cm 30.8 kg/m2 72645.3 6 g 86 /min 14 /min 97 % 97 % 120 mm[Hg] 60 mm[Hg] 122 mm[Hg] 60 mm[Hg] Asher Zambrano, DO [address] [place], [address], [place] 2 17:11:54 Date Recorded Body height Body mass index (BMI) Body weight Provider Name and Address Organization Details Last Updated DateTime 11/11/2022 177.8 cm 27 kg/m2 05917.8 g Trista Brendanshaila ROSAS - [place] on 11/11/2022 12:44:52 Date Recorded Heart rate Respiratory rate Oxygen saturation Oxygen saturation in Arterial blood by Pulse oximetry Systolic blood pressure Diastolic blood pressure Systolic blood pressure Diastolic blood pressure Provider Name and Address Organization Details Last Updated DateTime 82 /min 14 /min 97 % 97 % 136 mm[Hg] 80 mm[Hg] 138 mm[Hg] 80 mm[Hg] Asher Zambrano, DO [address] [place], [address], [place] Marie [place] 3 13:27:52 Date Recorded Body height Body mass index (BMI) Body weight Provider Name and Address Organization Details Last Updated DateTime 02/25/2023 177.8 cm 25.3 kg/m2 22890.26 g Margoth [place] on 02/25/2023 13:00:37 Date Recorded Heart rate Systolic blood pressure Diastolic blood pressure Provider Name and Address Organization Details Last Updated DateTime 02/25/2023 70 /min 118 mm[Hg] 70 mm[Hg] Asher Zambrano, DO [address] [place], [address], [place] 02/25/2023 13:49:11 Date Recorded Body height Body mass index (BMI) Body weight Provider Name and Address Organization Details Last Updated DateTime 06/30/2023 177.8 cm 24.8 kg/m2 72859.48 g Margoth Salazar [place] on 06/30/2023 12:59:51 Date Recorded Heart rate Respiratory rate Oxygen saturation Oxygen saturation in Arterial blood by Pulse oximetry Systolic blood pressure Diastolic blood pressure Provider Name and Address Organization Details Last Updated DateTime 3 70 /min 14 /min 98 % 98 % 118 mm[Hg] 70 mm[Hg] Asher Zambrano, DO [address] [place], [address], [place] hison 3 22:04:39 Date Recorded Body height Heart rate Respiratory rate Oxygen saturation Oxygen saturation in Arterial blood by Pulse oximetry Systolic blood pressure Diastolic blood pressure Provider Name and Address Organization Details Last Updated DateTime 4 177.8 cm 66 /min 14 /min 98 % 98 % 112 mm[Hg] 74 mm[Hg] Asher Zambrano, [address] [place], [address], [place] his[place] 4 14:41:12 Social History Question Answer Notes LastModified by Organizat ion Details LastModified Time Tobacco Smoking Status Former Smoker quit 20 years; 1.5 x 10 years Asher Zambrano, [address] [place], [address], [place] Zambrano/[place] on 05/02/2018 11:08:08 What Is Your Level Of Alcohol Consumption? Moderate 2 Drinks/ Vodka/ Daily Information not available 05/02/2018 Do You Or Have You Ever Used E-cigarettes Or Vape? Never Used Electronic Cigarettes Information not available 06/13/2019 What Was The Date Of Your Most Recent Tobacco Screening? 05/02/2018 Information not available 02/03/2019 Do You Or Have You Ever Used Smokeless Tobacco? Never Used Smokeless Tobacco Information not available 06/13/2019 How Much Tobacco Do You Smoke? 1.5 PPD Information not available 06/13/2019 How Many Years Have You Smoked Tobacco? 10 Information not available 06/13/2019 Sex: Male Functional Status None recorded. Mental Status None recorded. 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 Immunizations Vaccine Type Date Status Provider Name and Address Organization Details Recorded Time SARS-COV-2 (COVID-19) vaccine, UNSPECIFIED 10/09/2020 completed Not Available [facility] 11/14/2022 07:17:09 Influenza, high-dose, quadrivalent, PF 04/22/2021 completed Not Available [facility] 11/14/2022 07:17:09 COVID-19, mRNA, LNP-S, PF, 30 mcg/0.3 mL dose 04/05/2022 completed Not Available [facility] 11/14/2022 07:17:09 Influenza, high-dose, trivalent, PF 04/30/2022 completed Not Available [facility] 11/14/2022 07:17:09 Influenza, high-dose, trivalent, PF 03/23/2017 completed Not Available [facility] 07/29/2019 06:24:58 COVID-19, mRNA, LNP-S, PF, 100 mcg/0.5mL dose or 50 mcg/0.25mL dose 04/30/2023 completed AL[place] Thompson/Sherry 04/30/2023 14:26:48 Influenza, high-dose, quadrivalent, PF 04/30/2023 completed ALISON caban/Sherry 04/30/2023 14:40:52 Influenza, split virus, trivalent, PF 04/06/2013 completed Not Available [facility] 11/14/2022 07:17:09 Influenza, split virus, trivalent, PF 04/24/2014 completed Not Available [facility] 11/14/2022 07:17:09 Tdap 04/25/2017 completed Not Available [facility] 07:17:09 Pneumococcal conjugate PCV 13 04/25/2017 completed Not Available [facility] 11/14/2022 07:17:09 Influenza, high-dose, trivalent, PF 05/02/2018 completed Not Available [facility] 11/14/2022 07:17:09 zoster recombinant 02/14/[address] [facility] 11/14/2022 07:17:08 zoster recombinant 04/25/[address] [facility] 11/14/2022 07:17:09 Influenza, split virus, quadrivalent, preservative 05/15/2019 completed Not Available [facility] 11/14/2022 07:17:08 Influenza, high-dose, quadrivalent, PF 05/20/2020 completed Not Available [facility] 11/14/2022 07:17:09 SARS-COV-2 (COVID-19) vaccine, UNSPECIFIED 09/11/2020 completed Not Available [facility] 11/14/2022 07:17:09 Past Encounters Encounter ID Performer Location Encounter Start Date Encounter Closed Date Diagnosis/Indication Diagnosis SNOMED-CT Code Diagnosis ICD10 Code [id number] Juan Manuel Stahl Main Office [address] [place] [id number] 03/27/2016 11:29:49 03/30/2016 11:36:01 Essential hypertension 63538892 I10 Blood gluc ose outside reference range 918454590 R73.09 Gastroesop hageal reflux disease 428757656 K21.9 Hyperlipidemia 90054333 E78.5 [id number] [facility] - IP [address] [id number] 11/25/2012 00:00:00 [id number] [facility] - IP [address] [id number] 11/27/2012 [facility]:00[facility]00 [id number] [facility] [address] [id number] 04/11/2013 00:00:00 [id number] [facility] JOSE[facility] - IP [address] [id number] 04/20/2013 00:00:00 [id number] [facility] [address] [id number] 01/30/2014 00:00:00 [id number] [facility] [address] [id number] 02/01/2014 00:00:00 [id number] [facility] [address] [id number] 05/16/2014 00:00:00 [id number] [facility] [address] [id number] 01/28/2015 00:00:[id number] Juan Manuel Stahl Main Office [address] [id number] 05/02/2018 10:20:43 05/12/2018 12:54:12 Benign paroxysmal positional vertigo 675979895 H81.13 Blood gluc ose outside reference range 530441984 R73.09 Benign pro static hyperplasia 278738045 N40.0 Obstructiv e sleep apnea syndrome 70086604 G47.33 Nonalcohol ic steatohepatitis 507432795 K75.81 Essential hypertension 10255572 I10 Hyperlipidemia 40698402 E78.[id number] Juan Manuel Stahl Main Office [address] [place] [id number] 03/21/2019 08:21:02 03/22/2019 12:00:25 Lyme disease 15788714 A69.20 Essential hypertension 76129412 I10 [id number] Juan Manuel Stahl Main Office [address] [id number] 06/12/2019 09:31:07 06/19/2019 13:20:16 Essential hypertension 47395594 I10 Nonalcohol ic steatohepatitis 334970777 K75.81 Hyperlipidemia 71981864 E78.5 Gastroesop hageal reflux disease 625607829 K21.[id number] Juan Manuel Stahl Main Office [address] [id number] 11/28/2019 08:08:58 11/29/2019 13:30:14 Gastroesophageal reflux disease 154980508 K21.9 Obstructiv e sleep apnea syndrome 75072038 G47.33 Essential hypertension 18184892 I10 Blood gluc ose outside reference range 759365974 R73.09 Chronic sinusitis 805365 00 J32.9 Cough 33446491 R05 Hyperlipidemia 73179480 E78.[id number] Juan Manuel Stahl Main Office [address] [id number] 04/22/2021 15:24:36 04/25/2021 10:10:18 Muscle spasm of cervical muscle of neck 5418237363 [id number] Juan Manuel Stahl Main Office [address] [id number] 02/23/2022 14:26:24 03/03/2022 14:34:30 Benign prostatic hyperplasia 098999648 N40.0 Blood gluc ose outside reference range 904548627 R73.09 Chronic no nalcoholic liver disease 52410050 K76.9 Essential hypertension 97591506 I10 Hyperlipidemia 64926503 E78.5 Obstructiv e sleep apnea syndrome 04600482 G47.33 Lyme disease 68894056 A6 9.20 Degenerati on of cervical intervertebral disc 73003888 M50.30 Rheumatism 716190657 M79 .0 Muscle spa sm of cervical muscle of neck 0986595739 [id number] Juan Manuel Stahl Main Office [address] [id number] 05/20/2022 14:30:20 06/25/2022 10:14:41 Coronary atherosclerosis 185607630 I25.10 Essential hypertension 70161934 I10 Hyperglycemia 91019478 R 73.9 Carotid ar nisha occlusion 542221903 I65.29 Adult [facility] th examination 155400241 Z00.01 Screening for cardiovascular system disease 171007440 Z13.6 Screening for malignant neoplasm of colon 408691308 Z12.[id number] Zambrano Main Office [address] [id number] 05/07/2017 00:00:00 05/09/2017 00:00:[id number] Zambrano Main Office [address] [id number] 06/15/2016 00:00:00 06/15/2016 00:00:[id number] Juan Manuel Stahl Main Office [address] [id number] 11/11/2022 12:41:04 11/11/2022 14:45:50 Abdominal pain 13562090 R10.9 Essential hypertension 89870932 I10 Hyperlipidemia 08596914 E78.5 Disorder o f carotid artery 041405842 I77.[id number] Juan Manuel Stahl Main Office [address] [id number] 02/25/2023 12:57:57 02/25/2023 15:59:44 Erectile dysfunction 667054100 F52.21 Coronary atherosclerosis 115138629 I25.10 Degenerati on of cervical intervertebral disc 77207913 M50.30 Disorder o f carotid artery 850108279 I77.9 Essential hypertension 51700794 I10 Hyperglycemia 85713031 R 73.9 Obstructiv e sleep apnea syndrome 35594330 G47.33 Acquired t tripe washer finger 8898878 M65.[id number] 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 Juan Manuel Stahl Main Office [address] [id number] 12/13/2023 10:20:08 12/24/2023 12:17:00 Chronic sinusitis 68788344 J32.9 Disorder o f carotid artery 463974973 I77.9 Essential hypertension 20891214 I10 Obesity 765936567 E66.9 Health Concerns Section Related Observation LastModified by Organization Detai ls LastModified Time None Recorded Concern Status LastModified by Organization Details LastModified Time None Recorded Advance Directives Directive None Recorded Payers Encounter Date Sequence Insurance Name Policy Number Policy Ceja Covered Member ID Ceja Member ID Guarantor Name 05/20/2022 1 [place] Nirmal R Puri [id number] Nirmal Puri 05/20/2022 2 [employer] (MEDICARE SUPPLEMENT) Nirmal Puri [id number] Nirmal Puri 11/11/2022 1 [place] Nirmal R Puri [id number] Nirmal Puri 11/11/2022 2 [employer] (MEDICARE SUPPLEMENT) Nirmal Puri [id number] Nirmal Puri 02/25/2023 1 [place] Nirmal R Puri [id number] Nirmal Puri 02/25/2023 2 [employer] (MEDICARE SUPPLEMENT) Nirmal Puri [id number] Nirmal Puri 06/30/2023 1 [place] (MEDICARE) Nirmal R Puri [id number] Nirmal Puri 06/30/2023 2 [employer] (MEDICARE SUPPLEMENT) Nirmal Puri [id number] Nirmal Puri 12/13/2023 2 [employer] (MEDICARE SUPPLEMENT) Nirmal Puri [id number] Nirmal Puri 12/13/2023 1 [employer] (PPO) [id number] Nirmal Puri [id number] Nirmal Puri Notes Date Note Type Note Provider Name and Address Organization Details Recorded Time 05/20/2022 text/html HPI Notes: Alejandra turpin is here for the [facility] Wellness Program and Subsequent Annual Wellness Exam. During this visit we will review and discuss their Health Risk Assessment and review the various tests and procedures performed as part of the [facility] Annual Wellness Exam. The patient has no current acute medical complaints, nor any recent hospitalizations. Discussion Points for Review during Visit: -Review current medical conditions and specialists' consultations in detail. -Labs and testing review in great detail. -Review risks associated w/pain, nutrition, hydration, sleep, stress, activity and sexual health. -Review risks of alcohol, caffeine, and tobacco. -Preventative services and offer available/appropriate services. -Review personal, home and driving safety. --Patient presents to the office today for his annual wellness evaluation. Electronic health record is updated to include his extensive past medical, past surgical, social, family, medication and allergy history. He remains independent with activities of daily living. Continues to golf excessively. He is retired and he and his traveled to the [place] region as well as down to [place]. I will discuss his laboratory studies and values below. I will discuss individual comorbid conditions. I discussed consultation. 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 He is following with , and imaging study has been done. He does have extensive cervical disc degenerative disease. He states he is pending an EMG. He is using meloxicam 15 mg daily without opposing GI prophylaxis such as with a PPI. I will discuss this below. He denies symptoms such as fever, chills, night sweats, nausea, vomiting, early satiety or unintentional weight loss. He has had purposeful weight loss for the last 3 months as he has been on Ozempic. He has a history of metabolic syndrome, glucose intolerance, atherosclerotic cardiovascular disease which I will elaborate on below. He denies headache, altered vision. He denies cardiopulmonary issues such as chest pain at rest with activity, PND, increased pillow orthopnea or awareness of new lower extremity edema. He does have paresthesia in lower extremities. Does not describe claudication but rather pseudoclaudication. Denies cough, hemoptysis. Denies GI issues such as bright red blood per rectum or black stool or altered bowel habits. He is presently not on an aspirin which I will discuss below. He denies any new urinary issues. Does have BPH symptoms. This is not new. He has been followed by urology which I will discuss below. PSA has been stable. Mental health status is stable. I will discuss screening/such as colon cancer, skin cancer, prostate cancer status. Below. Asher Zambrano, DO [address] [place], [id number], ALISON Zambrano/Sang anthony 06/14/2022 17:38:52 11/11/2022 text/html HPI Notes: Alejandra turpin presents to the office today with a 36-hour history of left upper quadrant pain. Patient has been in usual state of health. He has lost approximately 40 pounds since starting on Ozempic. He has been playing more golf but not recently. He underwent successful, and uneventful right carotid endarterectomy in July 2022. He is pending cervical epidural steroid injection in the upcoming 24-48 hours. He had been taking Mobic for chronic pain but stopped this for the upcoming procedure over the last 3 days. The patient states without any trauma developed left upper quadrant discomfort. He does not have associated nausea, vomiting, diarrhea. He has chronic constipation aggravated with the use of Ozempic but this has been stable. He has occasional reflux. The pain in his left upper quadrant is reproduced with touch and twisting of his torso. No associated rash. He has a history of diverticular disease from prior CT scan of the abdomen/pelvis in 2017 that I reviewed but this does not seem to be related to food intake. No bowel issues. He does not have any pain in this area unless moving in certain positions or directly touching Asher Zambrano, DO [address] [place], [id number], ALISON Zambrano/Sang n 11/11/2022 13:38:02 02/25/2023 text/html HPI Notes: Alejandra turpin presents back to the office today for follow-up. He wants to discuss issues such as erectile dysfunction, significant weight loss, ongoing cervical nerve root impingement with upper extremity radicular pain, and bowel issues. The patient has lost 55 pounds in 1 year. Primarily this has been achieved by taking Ozempic where he is now 2 mg given subcutaneously once weekly. He has been adhering to a Mediterranean-based diet. He does exercise. He feels much improved in regards to his hip and knee pain. He still has slow bowel transit. He takes MiraLAX as needed. I will make further suggestions. He drinks alcohol much less secondary to a increased satiety sensation after 1 drink. He denies any chest pain at rest with activity, PND or increased pillow orthopnea. He does have erectile dysfunction and is requesting Viagra. He is not on any nitrate agents. He has a noted history of cervical nerve root dysfunction. He had an attempt of a midline C6-7 cervical interlaminar epidural injection, given on 11/12/[address] Wilfrido Shine, Department of pain management. I reviewed the operative note. Anesthesiologist would not provide sedation because the patient had taken Ozempic. The patient did still however proceed with the procedure with using 1% lidocaine. Dr. Wong operative note however states that the steroid solution was not injected because of atypical dye spread. There was no neurologic complications and it was requested that the patient come back in the next several weeks for follow-up attempt. Patient still has ongoing upper extremity radicular pain. I reviewed his blood pressure monitor and this continues to be extremely well controlled. He is no longer taking blood pressure lowering agents. He is taking lipid-lowering agents including rosuvastatin and ezetimibe. He is no longer taking Vascepa. Asher Zambrano DO [address] [place], [id number], ALISON Zambrano/Sang n 04/04/2023 20:29:36 06/30/2023 text/html HPI Notes: . Pre sents for patient patient presents to the office today with complaints of discomfort and mild to moderate pain which is escalating along his right external ear canal. He has not been swimming but has noted specific pain. He notices some decreased hearing in the right ear. No findings on the left. No vertigo, orthostasis. His weight reduction has been purposeful and this has been chronicled as he has been on the GLP-1 agonist agent. He has essentially hit a weight reduction plateau and is feeling well. He does have chronic shoulder and knee issues. He is being followed by orthopedic and did have cortisone injections done on the same day. He is preparing to go to [place]. He comes in for evaluation. He denies fever, chills, night sweats, associated nausea or vomiting. No severe headache. No GI or or cardiopulmonary symptoms. Asher Zambrano DO [address] [place], [id number], ALISON Roche n 07/05/2023 22:16:12 12/13/2023 text/html HPI Notes: Madelainejasmin dyana presents to the office today with a few issues. He specifically describes headache that is located in the frontal sinus region. This is chronic and has been going on for approximately 5 weeks. He has discomfort along the left temporal bone region. It is not associated with eating and is not described as jaw claudication. He denies any acute visual issue. The discomfort is also aggravated with range of motion activities of the cervical spine. Tylenol does provide relief. He does not have symptoms of polymyalgia rheumatica. I reviewed an MRI of his brain from May 2022 which was overall negative showing no parenchymal abnormality. He had a chronic posterior cervical lymph node that was felt in the years past. This is still present. He is status post carotid endarterectomy repair secondary to the identification of carotid artery stenosis. Asher Zambrano, DO [address] [place], [id number], ALISON Zambrano/Sang anthony 12/23/2023 14:46:43
[2024-03-28] MEDS: Omnipaque 350 MG/ML 100 ML BTL IJ (21:55)
[2024-03-28] MEDS: Normal Saline - Diluent 50 ML VIAL IJ (22:02)
[2024-03-28 22:10] LABS: Troponin I 6 ng/L (<or=76)
--- NOTE | 2024-03-28 22:13 | DI.CT_ITS ---
Exam(s) CT CHEST PE CTA EXAM: CT CHEST PE CTA CLINICAL HISTORY: Chest pain. TECHNIQUE: Imaging Protocol: CT angiography of the chest was performed using pulmonary embolus dionisio col. Multi planar reconstructions were performed. CONTRAST MATERIAL: Intravenous: Omnipaque 350 Contrast volume: 100 cc COMPARISON: CT CT CHEST WO from 02/07/2020 FINDINGS: CHEST: PULMONARY ARTERIES: There are no intraluminal filling defects to suggest acute pulmonary emboli. LUNGS: There are no infiltrates nor evidence of pulmonary infarction.. There are no pleural effusions . MEDIASTINUM: There is no hilar nor mediastinal adenopathy. Visualized thyroid unremarkable. CARDIAC: Heart size is upper normal. There is no pericardial effusion.Caliber of the thoracic aorta is within normal limits. No evidence of dissection there is no significant shift of the interventricu lar septum. The wall of the left ventricle is uniformly thickened. PARTIALLY VISUALIZED UPPERMOST ABDOMEN: There is free intraperitoneal air evident consistent ruptured viscus. OSSEOUS: No significant osseous lesions.. IMPRESSION: 1. No evidence of acute pulmonary emboli. No evidence of pulmonary infarction. 2. No evidence of aortic dissection nor pericardial effusion. There is hypertrophy of the left ventr icular wall concerning for hypertrophic cardiomyopathy. 3. There is free intraperitoneal air evident. This implies perforated viscus. Recommend further elise ging with abdominal-pelvic CT scan as well as surgical consultation . First read by [facility]. RADIATION DOSE DELIVERED: 86mGy.cm Total DLP DATA REPOSITORY: All CT scans at this facility are submitted to the National Radiology Data Registry (NRDR) Dose Index Registry (DIR) with the [employer] (ACR). RADIATION OPTIMIZATION: All CT scans at this facility use at least one of these dose optimization te chniques: automated exposure control; mA and/or kV adjustment per patient size (includes targeted exa ms where dose is matched to clinical indication); or iterative reconstruction.
--- NOTE | 2024-03-28 22:50 | DI.VRAD_ITS ---
PROCEDURE INFORMATION: Exam: CTA Chest With Contrast Exam date and time: 03/28/2024 10:01 PM Age: 73 years old Clinical indication: Chest pressure; Patient HX: Chest pain TECHNIQUE: Imaging protocol: Computed tomographic angiography of the chest with contrast. Exam focused on the arteries. 3D rendering (Not supervised by radiologist): MIP and/or 3D reconstructed images were created by the technologist. Radiation optimization: All CT scans at this facility use at least one of these dose optimization techniques: automated exposure control; mA and/or kV adjustment per patient size (includes targeted exams where dose is matched to clinical indication); or iterative reconstruction. Contrast material: [id number]; Contrast volume: 100 ml; Contrast route: INTRAVENOUS (IV); COMPARISON: CR XR PORTABLE CHEST AP 03/28/2024 7:51 PM FINDINGS: Pulmonary arteries: The pulmonary arteries enhance appropriately with no evidence of pulmonary embolism. Aorta: Moderate aortic ectasia/tortuosity and calcific atherosclerosis. No aortic aneurysm or dissection. No mediastinal hematoma. Thyroid: The visualized thyroid gland demonstrates no gross abnormality. Lungs: No acute tracheobronchial abnormalities. No gross pulmonary infiltrates or edema pattern. Mild atelectasis in the lung bases. No pulmonary mass lesions are identified. Pleural spaces: No pleural effusion. No pneumothorax. Heart: Mild cardiomegaly. Left ventricular myocardial hypertrophy measuring 2.2 cm thickness at the interventricular septum suggesting hypertrophic cardiomyopathy. No pericardial effusion. Coronary arteries: Moderate coronary artery calcification. Esophagus: The esophagus is largely contracted but demonstrates no gross abnormality. Lymph nodes: No supraclavicular or axillary adenopathy. No mediastinal or hilar adenopathy. Intraperitoneal space: Moderate free intraperitoneal air in the upper abdomen concerning for bowel perforation, with air around the antro-pyloric distribution of the stomach where there is mild wall thickening, and focal 10 mm posterosuperior wall thinning concerning for perforated gastric ulcer. Recommend GI or surgical consult, consider CT abdomen and pelvis with oral and IV contrast. Bones/joints: No acute osseous abnormalities. Soft tissues: No acute soft tissue abnormalities. IMPRESSION: 1. Moderate intraperitoneal free air in the upper abdomen concerning for bowel perforation. Suspected perforated gastric ulcer in the posterosuperior antro-pyloric distribution. Recommend GI or surgical consult, consider abdomen/pelvic CT with oral and IV contrast. 2. Mild cardiomegaly with left ventricular myocardial hypertrophy concerning for hypertrophic cardiomyopathy. Consider echocardiographic assessment as clinically indicated. Moderate coronary artery calcification. 3. No evidence of pulmonary embolism or aortic dissection. 4. THIS REPORT CONTAINS FINDINGS THAT MAY BE CRITICAL TO PATIENT CARE. The findings were verbally communicated via telephone conference with TIFFANY CHAHAL at 10:49 PM EDT on 03/28/2024. The findings were acknowledged and understood. Dictated and Authenticated by: Miguel Barnes MD. Ordering:GER Christianson MD
[2024-03-28] MEDS: Normal Saline Flush 10 ML SYR IVP (23:37)
[2024-03-28] MEDS: PIPERACILLIN/TAZO 3.375 GM in Normal Saline 50 ML IVPB (23:37)
[2024-03-29] VITALS (33 sets, daily range): BP systolic 113–156; BP diastolic 53–80; PULSE 64–95; RESP 12–24; TEMP 36.5; O2SAT 95–97; BMI 26.0
[2024-03-29] MEDS: Omnipaque 350 MG/ML 100 ML BTL IJ (00:56)
[2024-03-29] MEDS: Normal Saline - Diluent 50 ML VIAL IJ (00:57)
[2024-03-29] MEDS: Normal Saline Flush 10 ML SYR IVP ×2 (00:57→21:16)
[2024-03-29] MEDS: HYDROmorphone 2 MG/ML SYR 1 MG IVP (01:22)
[2024-03-29] MEDS: Normal Saline 1,000 ML 200 ML IV (01:23)
--- NOTE | 2024-03-29 01:47 | DI.VRAD_ITS ---
PROCEDURE INFORMATION: Exam: CT Abdomen And Pelvis With Contrast Exam date and time: 03/29/2024 12:46 AM Age: 73 years old Clinical indication: Abdominal pain; Generalized; Patient HX: Free air, abd pain TECHNIQUE: Imaging protocol: Computed tomography of the abdomen and pelvis with contrast. Radiation optimization: All CT scans at this facility use at least one of these dose optimization techniques: automated exposure control; mA and/or kV adjustment per patient size (includes targeted exams where dose is matched to clinical indication); or iterative reconstruction. Contrast material: OMNIPAQUE 350; Contrast volume: 100 ml; Contrast route: INTRAVENOUS (IV); COMPARISON: CT CHEST PE CTA 03/28/2024 10:01 PM FINDINGS: Esophagus: The visualized distal esophagus is largely contracted without gross abnormality. Liver: Normal contour. No mass lesions. No intrahepatic biliary ductal dilatation. Gallbladder and biliary ducts: Calcific sludge or small stones layering dependently in the gallbladder with no evidence of cholecystitis. Nondilated bile ducts. No duct stones. Pancreas: Normal. No inflammatory changes or ductal dilation. Spleen: Normal. No splenomegaly. Adrenal glands: Normal. No adrenal mass. Kidneys and ureters: Small bilateral renal cortical cysts which do not require further assessment. No hydronephrosis or hydroureter. No urinary tract stones are identified although excreted contrast from the recent CT angiogram limits sensitivity for small stones. Scattered small foci of renal cortical enhancement are present bilaterally, with slight bilateral perinephric stranding, cannot exclude mild nephritis, correlate clinically for medical renal disease. Stomach and bowel: The stomach is partially distended with food and fluid content, with no oral contrast. The previously questioned possible ulcer in the antropyloric distribution on the chest CT angiogram is not confirmed. There is however a fluid-filled 1.5 x 1.8 cm full-thickness penetrating ulcer in the posterior gastric fundus on series 5, images 83-108, with adjacent intraperitoneal free air consistent with perforation. No abscess. The small bowel is nondilated with no gross abnormality. No acute colonic abnormalities. Mild distal colonic diverticulosis without diverticulitis. Appendix: The appendix is not identified. No secondary signs of appendicitis. Intraperitoneal space: Moderate volume intraperitoneal free air in the upper abdomen consistent with bowel perforation. No peritoneal free fluid or peritoneal abscess. Vasculature: No acute process. No abdominal aortic aneurysm. Moderate calcific atherosclerosis Circumaortic left renal vein configuration noted. Lymph nodes: No adenopathy. Urinary bladder: Bladder is distended with excreted contrast but otherwise unremarkable. Reproductive: Moderately enlarged prostate. Bones/joints: No acute osseous abnormalities. Moderate-severe disc degenerative changes L2-L3 and L3-L4. Mild thoracolumbar spondylosis. Soft tissues: No acute soft tissue abnormalities. Very small fatty umbilical hernia and small fatty left inguinal hernia. No evidence of associated bowel herniation or strangulation. IMPRESSION: 1. There is a 1.8 x 1.5 cm penetrating ulcer in the posterior gastric fundus with moderate intraperitoneal free air in the upper abdomen consistent with perforated gastric ulcer. 2. Small volume calcific sludge or stones in the gallbladder with no evidence of cholecystitis or biliary obstruction. 3. Nonspecific mild multifocal bilateral renal cortical enhancement, possibly mild nephritis. Correlate clinically for medical renal disease. 4. THIS REPORT CONTAINS FINDINGS THAT MAY BE CRITICAL TO PATIENT CARE. The findings were verbally communicated via telephone conference with Dr Meyers at 1:46 AM EDT on 03/29/2024. The findings were acknowledged and understood. Dictated and Authenticated by: Miguel Barnes MD. Ordering:GER Christianson MD
--- NOTE | 2024-03-29 05:03 | ED.PROG_ITS ---
Date of service: 03/29/24 Time of Service: 05:03 Medical Decision Making 4 AM Patient was signed out to me at midnight. At that time we were pending CT scan results, however the diagnosis of a perforated ulcer had already been made. Zosyn had been administered. We are awaiting potential placement options. Case had been discussed with Dr. Mathis of surgery, who had been in the OR all day and through the evening. Request was made that the patient be transferred if at all possible. We contacted [facility], [facility], [facility], and [facility]. None were available for transfer secondary to capacity issues. We did contact [place] and I discussed the case with Dr. Velazquez. He stated that he would request that the patient be surgically managed at [facility] and then if there was still no bed available they could transfer down to [place]. I did contact Dr. Nobles from [facility]. And he recommended that the patient have surgery here at [facility] and be placed in the [facility] PACU unit until beds could be available. [facility] does currently have beds available. Case was di scussed with Dr. Mathis, nursing billing department supervisor octaviano, and asset administrator on-call Paula Weber. Weighing risks and benefits and alternatives and lack of alternatives, decision was made to take the patient to the OR here pending potential bed availability. Patient will be taken to the OR for definitive surgical management. I have extensively reviewed the treatment plan with the patient. I have addressed all patient concerns at this time. I have also discussed the plan with the admitting physician and they agree with the current assessment and plan and have agreed to assume responsibility for the patient. All parties demonstrate verbal understanding and agreement with our assessment and plan at this time. The documentation in this chart was dictated using [employer] dictation software. Please excuse any dictation errors. FINDINGS: Esophagus: The visualized distal esophagus is largely contracted without gross abnormality. Liver: Normal contour. No mass lesions. No intrahepatic biliary ductal dilatation. Gallbladder and biliary ducts: Calcific sludge or small stones layering dependently in the gallbladder with no evidence of cholecystitis. Nondilated bile ducts. No duct stones. Pancreas: Normal. No inflammatory changes or ductal dilation. Spleen: Normal. No splenomegaly. Adrenal glands: Normal. No adrenal mass. Kidneys and ureters: Small bilateral renal cortical cysts which do not require further assessment. No hydronephrosis or hydroureter. No urinary tract stones are identified although excreted contrast from the recent CT angiogram limits sensitivity for small stones. Scattered small foci of renal cortical enhancement are present bilaterally, with slight bilateral perinephric stranding, cannot exclude mild nephritis, correlate clinically for medical renal disease Stomach and bowel: The stomach is partially distended with food and fluid content, with no oral contrast. The previously questioned possible ulcer in the antropyloric distribution on the chest CT angiogram is not confirmed. There is however a fluid-filled 1.5 x 1.8 cm full- thickness penetrating ulcer in the posterior gastric fundus on series 5, images 83-108, with adjacent intraperitoneal free air consistent with perforation. No abscess. The small bowel is nondilated with no gross abnormality. No acute colonic abnormalities. Mild distal colonic diverticulosis without diverticulitis. Appendix: The appendix is not identified. No secondary signs of appendicitis. Intraperitoneal space: Moderate volume intraperitoneal free air in the upper abdomen consistent with bowel perforation. No peritoneal free fluid or peritoneal abscess. Vasculature: No acute process. No abdominal aortic aneurysm. Moderate calcific atherosclerosis Circumaortic left renal vein configuration noted. Lymph nodes: No adenopathy. Urinary bladder: Bladder is distended with excreted contrast but otherwise unremarkable. Reproductive: Moderately enlarged prostate. Bones/joints: No acute osseous abnormalities. Moderate-severe disc degenerative changes L2-L3 and L3-L4. Mild thoracolumbar spondylosis. Soft tissues: No acute soft tissue abnormalities. Very small fatty umbilical hernia and small fatty left inguinal hernia. No evidence of associated bowel herniation or strangulation. IMPRESSION: 1. There is a 1.8 x 1.5 cm penetrating ulcer in the posterior gastric fundus with moderate intraperitoneal free air in the upper abdomen consistent with perforated gastric ulcer. 2. Small volume calcific sludge or stones in the gallbladder with no evidence of cholecystitis or biliary obstruction. 3. Nonspecific mild multifocal bilateral renal cortical enhancement, possibly mild nephritis. Correlate clinically for medical renal disease. 4. THIS REPORT CONTAINS FINDINGS THAT MAY BE CRITICAL TO PATIENT CARE. The findings were verbally communicated via telephone conference with Dr Meyers at 1:46 AM EDT on 03/29/2024. The findings were acknowledged and understood. Thank you for allowing us to participate in the care of your patient. Dictated and Authenticated by: Miguel Barnes MD 03/29/2024 1:46 AM Eastern Time ([place] & [place]) Quality:SDOH Health Related Social Needs: Health related social needs risk of homeless Critical Care Time Critical Care Time Critical Care Time: Yes Total Critical Care Time: 45 Attestation: Upon my evaluation, this patient had a high probability of imminent or life-threatening deterioration, which required my direct attention, intervention, and personal management. I have personally provided 45 minutes of critical care time exclusive of time spent on separately billable procedures. Time includes review of laboratory data, radiology results, discussion with consultants, and monitoring for potential decompensation. Interventions were performed as documented. Sign Out Sign Out Data: Sign Out Comment: 73-year-old male presented initially with chest pain, now after CT chest with evidence of a perforated gastric ulcer with free air in the peritoneal area. P[place] CT abdomen pelvis, [facility] [place] possible [place] request and if not possible for transfer, surgery to see in a.m. Dr. Mathis is aware. Zosyn ordered patient n.p.o. Last updated by Meghan Blanco, DRUGLESS PHYSICIAN at 03/28/24 23:33 Discharge Plan Disposition Patient Disposition: Admit to [facility] Condition: Serious Discharge Details Clinical Impression: Perforated gastric ulcer Attending Provider: Marissa Mathis Primary Care Provider: Asher Zambrano ED Provider: Efrain Meyers Discharge Data Discharge Date/Time-TO BE ENTERED AT DEPARTURE: 03/29/24 06:27
--- NOTE | 2024-03-29 05:38 | W.PM.HP.N ---
Date of service: 03/29/24 Time of Service: 05:38 Assessment and Plan Assessment and plan (1) Perforated gastric ulcer: Status: Acute Assessment and plan: Patient received Zosyn and Diflucan in the ER He has been typed and crossed He has 2 large-bore IVs. We need may need to place a central line and or an arterial line. Postop he will be admitted to the ICU Patient be taken for an exploratory laparotomy. Informed consent is obtained explaining risks and benefits of procedure including but not limited to: Bleeding, infection, pneumonia, blood clots, complications from anesthesia including not limited to [place] CVA and . Risks of hernias, wound infections, abscess, stricture and stenosis requiring further surgery. And other unfruitful complications. I did personally review his CT and all his labs This document was created with voice activated software and may contain errors. 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 He been having stomach pain since Wednesday. On the he started having nausea and vomiting. He does not vomit up any blood. He has not noticed any blood in his stools. He has no history of stomach problems. He is not on any stomach medication. He does take aspirin and Mobic daily. He does drink alcohol with daily to every other day. He is on Ozempic for weight loss and prediabetes. He has a history of elevated cholesterol. He has a remote history of tobacco use. He has had his left carotid endarterectomy 1.5 years ago. He denies any history of heart attack or stroke. Past surgical history significant for left carotid endarterectomy/open appendectomy/right hand surgery. He denied any problems with anesthesia when he had the endarterectomy done. He has received Zosyn and Diflucan in the ER. He has to have [address] He is hemodynamically stable at this time. Review of Systems All systems reviewed & are unremarkable except as noted in HPI and below PFSH All Active Problems (Updated 03/29/24 @ 06:18 by Marissa Mathis DO) History of Mohs surgery for squamous cell carcinoma of skin (Acute) Skin cancer (Acute) [place] (hard of hearing) (Acute) Aortic ectasia (Acute) Cardiomegaly (Acute) CAD (coronary artery disease) (Chronic) Prediabetes (Acute) Former smoker (Acute) Elevated cholesterol (Chronic) Atherosclerosis (Acute) HTN (hypertension) (Chronic) Perforated gastric ulcer (Acute) Surgical History (Updated 03/29/24 @ 06:18 by Marissa Mathis DO) S/P appendectomy History of left-sided carotid endarterectomy Social History Smoking/Tobacco Use Status: Former Tobacco Use Smoking risk assessment performed?: Yes Alcohol Intake: current Alcohol Intake frequency: 0-2 drinks per day Drug use: Never Housing: house Do you feel safe at home: Yes Do you feel safe in your relationship?: Yes Meds Allergies and Home Medications Allergies Allergy/AdvReac Type Severity Reaction Status Date / Time bee venom protein (honey bee) Allergy Severe Anaphylaxis Verified 03/28/24 19:19 shellfish derived Allergy Anaphylaxis Verified 03/28/24 19:19 Home Medications ?Medication ?Instructions ?Recorded ?Confirmed ?Type epinephrine 0.3 mg/0.3 mL 0.3 ml IM ONCE 03/28/24 03/28/24 History injection, auto-injector ezetimibe 10 mg tablet 10 mg PO DAILY 03/28/24 03/28/24 History meloxicam 15 mg tablet 15 mg PO DAILY 03/28/24 03/28/24 History rosuvastatin 40 mg tablet 40 mg PO DAILY 03/28/24 03/28/24 History semaglutide 2 mg/dose (8 mg/3 mL) 2 mg subcut .COMPLEX 09/17/24 09/17/24 History subcutaneous pen injector (Ozempic) Exam Const Other: PHYSICAL EXAM GENERAL APPEARANCE: Alert, healthy appearance, oriented, x 3,? in no acute distress HYDRATION: Well hydrated HEAD, EYES, EARS, NECK, THROAT: Head is normocephalic, pupils equal, round, reactive to light and accommodation, ocular movement intact, sclera clear and no jaundice. ?Dentition intact. LUNGS: normal respiration/normal chest excursion. ?Clear to auscultation bilaterally. ?No wheeze. ?HEART: Regular rate and rhythm. no murmurs EXTREMITY: No edema or cyanosis.? no leg pain, redness, swelling.? ABDOMEN: Mild distention and peritonitis. Normal bowel sounds.? Vitals have been stable Results Labs 03/28/24 20:32 03/28/24 20:32 Labs: Laboratory Results - last 24 hr 03/28/24 03/28/24 03/28/24 19:07 20:21 20:32 WBC 17.08 H RBC 4.83 Hgb 14.3 Hct 42.2 MCV 87 MCH 29.6 MCHC 33.9 RDW 13.8 Plt Count 255 MPV 9.0 Immature Gran % 0.5 Neutrophils % 82.1 Lymphocytes % 10.2 Monocytes % 6.9 Eosinophils % 0.1 Basophils % 0.2 Nucleated RBC % 0.0 Absolute Neutrophils 14.02 H Absolute Lymphocytes 1.74 Absolute Monocytes 1.18 H Absolute Eosinophils 0.02 Absolute Basophils 0.03 PT 11.0 INR 1.1 APTT 22.3 L D-Dimer 742 H Sodium 141 Potassium 3.5 Chloride 105 Carbon Dioxide 26.8 Anion Gap 9.2 BUN 33 H Creatinine 1.1 Est GFR (CKD-EPI 2020) 71.32 Glucose 87 Calcium 9.6 Magnesium 2.0 Total Bilirubin 0.70 AST 23 ALT 70 H Alkaline Phosphatase 91 Troponin I Cancelled 6 NT-Pro-B Natriuret Pep 26 Total Protein 6.7 Albumin 3.7 03/28/24 21:41 WBC RBC Hgb Hct MCV MCH MCHC RDW Plt Count MPV Immature Gran % Neutrophils % Lymphocytes % Monocytes % Eosinophils % Basophils % Nucleated RBC % Absolute Neutrophils Absolute Lymphocytes Absolute Monocytes Absolute Eosinophils Absolute Basophils PT INR APTT D-Dimer Sodium Potassium Chloride Carbon Dioxide Anion Gap BUN Creatinine Est GFR (CKD-EPI 2020) Glucose Calcium Magnesium Total Bilirubin AST ALT Alkaline Phosphatase Troponin I 6 NT-Pro-B Natriuret Pep Total Protein Albumin Last Vital Signs Temp 37.0 C 03/28/24 19:07 Pulse 85 03/29/24 01:16 Resp 13 03/29/24 02:40 BP 121/67 03/29/24 01:16 Pulse Ox 97 03/28/24 19:07 Time Spent Time spent with Patient: >75 minutes Time was spent: preparing to see the patient(eg.review tests), obtaining and/or reviewing separately otained hiistory, ordering medications,tests, procedures, referring, communicating with other health healthcare financial analyst, indepentently interpreting results, counseling the patient, care coordination and other
[2024-03-29] MEDS: FLUCONAZOLE 200 MG/100 ML BAG 100 MG IVPB (05:48)
[2024-03-29] MEDS: Lactated Ringers 1,000 ML 30 ML IV (06:39)
--- NOTE | 2024-03-29 06:48 | ANES.PREOP_ITS ---
General Info Date of Service Date Performed: 03/29/24 Height: 5 ft 8 in Weight: 77.7 kg Body Mass Index (BMI): 26.0 Surgical Procedure: Operation Date: 03/29/24 06:40 Proposed Procedure Side Surgeon p Exploratory Laparotomy Marissa Mathis, Meds Allergies and Home Medications Allergies Allergy/AdvReac Type Severity Reaction Status Date / Time bee venom protein (honey bee) Allergy Severe Anaphylaxis Verified 03/28/24 19:19 shellfish derived Allergy Anaphylaxis Verified 03/28/24 19:19 Home Medication ?Medication ?Instructions ?Recorded epinephrine 0.3 mg/0.3 mL 0.3 ml IM ONCE 03/28/24 injection, auto-injector ezetimibe 10 mg tablet 10 mg PO DAILY 03/28/24 meloxicam 15 mg tablet 15 mg PO DAILY 03/28/24 rosuvastatin 40 mg tablet 40 mg PO DAILY 03/28/24 semaglutide 2 mg/dose (8 mg/3 mL) 2 mg subcut .COMPLEX 03/28/24 subcutaneous pen injector (Ozempic) Current Visit Medications: Current Medications Generic Name Dose Route Start Last Admin Trade Name Freq PRN Reason Stop Dose Admin Piperacillin Sod/Tazobactam 50 mls @ 100 mls/hr 03/29/24 12:00 Sod 3.375 gm/ Sodium Chloride IVPB 04/28/24 11:59 Q6H STEVE Ringer's Solution 1,000 mls @ 30 mls/hr 03/29/24 06:30 IV INFUSION STEVE IV Miscellaneous Supplies 1 each 03/28/24 19:15 Iv Access-Emergency Dept IV DIRECTED STEVE Iohexol 100 ml 03/28/24 22:00 03/29/24 00:56 Omnipaque 350 Mg/Ml 100 Ml Btl IJ 04/27/24 23:59 100 ml DIRECTED STEVE Administration Sodium Chloride 0 ml 03/28/24 19:07 03/29/24 00:57 Normal Saline Flush 10 Ml Syr IVP 10 ml PRN PRN Administration Sodium Chloride 0 ml 03/28/24 20:00 03/28/24 23:37 Normal Saline Flush 10 Ml Syr IVP 10 ml BID STEVE Administration Sodium Chloride 0 ml 03/28/24 19:07 Normal Saline 10 Ml Vial IJ DIRECTED PRN Sodium Chloride 50 ml 03/28/24 22:15 03/29/24 00:57 Normal Saline - Diluent 50 Ml Vial IJ 50 ml .FOR DI USE STEVE Administration PFSH Active Problems Active Problems: Problem Status Onset Code History of Mohs surgery for squamous cell carcinoma of skin Acute Z98.890, Z85.828 Skin cancer Acute C44.90 [place] (hard of hearing) Acute H91.90 Aortic ectasia Acute I77.819 Cardiomegaly Acute I51.7 CAD (coronary artery disease) Chronic I25.10 Prediabetes Acute R73.03 Former smoker Acute Z87.891 Elevated cholesterol Chronic E78.00 Atherosclerosis Acute I70.90 HTN (hypertension) Chronic I10 Perforated gastric ulcer Acute K25.5 Surgical History Surgical History (Updated 03/29/24 @ 06:18 by Marissa Mathis DO) S/P appendectomy History of left-sided carotid endarterectomy Tobacco Smoking/Tobacco Use Status: Former Tobacco Use Alcohol Alcohol Intake: current Alcohol intake frequency: 0-2 drinks per day Substance Use Substance use: Never Vital Signs and Lab Results Vital Signs Most Recent Vital Signs in EMR: Most Recent Vital Signs Temp Pulse Resp BP Pulse Ox 37.0 C 85 13 121/67 97 03/28/24 19:07 03/29/24 01:16 03/29/24 02:40 03/29/24 01:16 03/28/24 19:07 Lab Results 03/28/24 20:32 03/28/24 20:32 Blood Type / Crossmatch: 2 Antibody Screen NEGATIVE 03/29/24 Complete Blood Count: 2 White Blood Count 17.08 10^3/uL (4.4-10.8) H 03/28/24 20:32 Red Blood Count 4.83 10^6/uL (4.36-5.78) 03/28/24 20:32 Hemoglobin 14.3 g/dL (13.5-17.5) 03/28/24 20:32 Hematocrit 42.2 % (40.0-50.0) 03/28/24 20:32 Platelet Count 255 10^3/uL (130-400) 03/28/24 20:32 Complete Metabolic Panel: 2 Sodium 141 mmol/L (136-145) 03/28/24 20:32 Potassium 3.5 mmol/L (3.5-5.1) 03/28/24 20:32 Chloride 105 mmol/L (98-107) 03/28/24 20:32 Carbon Dioxide 26.8 mmol/L (21.0-32.0) 03/28/24 20:32 BUN 33 mg/dL (7-18) H 03/28/24 20:32 Creatinine 1.1 mg/dL (0.70-1.30) 03/28/24 20:32 Est GFR (CKD-EPI 2020) 71.32 (mL/min/1.73m2) 03/28/24 20:32 Magnesium 2.0 mg/dL (1.8-2.4) 03/28/24 20:32 Calcium 9.6 mg/dL (8.5-10.1) 03/28/24 20:32 Albumin 3.7 g/dL (3.4-5.0) 03/28/24 20:32 Glucose 87 mg/dL (74-106) 03/28/24 20:32 Liver Function Panel: 2 Alanine Aminotransferase (ALT/SGPT) 70 U/L (16-63) H 03/28/24 2 0:32 Aspartate Amino Transf (AST/SGOT) 23 U/L (15-37) 03/28/24 20:32 Coagulation Panel: 2 INR International Normalized Ratio 1.1 (0.9-1.1) 03/28/24 20:3 2 Prothrombin Time 11.0 sec (9.1-11.1) 03/28/24 20:32 Activated Partial Thromboplast Time 22.3 sec (23.6-32.8) L 03/28/24 20:32 D-Dimer 742 ng/mlFEU (<500) H 03/28/24 20:32 Cardiac Panel: 2 Troponin I 6 ng/L (<or=76) 03/28/24 NT-Pro-B Natriuret Pep 26 pg/mL (<300) 03/28/24 Arterial Blood Gas: 2 No Data to Display Venous Blood Gas: 2 No Data to Display Pancreas Panel: 2 No Data to Display Thyroid Panel: 2 No Data to Display Infectious Disease: 2 No Data to Display Blood Cultures: 2 No Data to Display Toxicology Panel: 2 No Data to Display Imaging and Studies Imaging and Studies Study information below may be from another EMR and interpreted by another provider. Please see original notes in EMR for more complete details. EKG Summary: reviewed Anesthesia Assessment and Plan Anesthesia History Personal History: No History of Anesthesia Complications Family History: No Family History of Anesthesia Complications Exercise Tolerance Exercise Tolerance: Metabolic Equivalents>4 Pertinent Negatives Pertinent Negatives: No Symptoms of GERD, No Major Cardiovascular Symptoms or Complaints (Aortic ectasia, CAD, HTN, Hx of carotid procedure ), No Major Pulmonary Symptoms or Complaints and No History of CVA/TIA Cardiac & Pulmonary Exam Cardiac Exam: Normal S1/S2 Heart Sounds Pulmonary Exam: Clear Bilateral Breath Sounds Implantable Cardiac Device Does patient have a Pacemaker or an ICD?: No Airway Exam Known Difficult Airway: No Mallampati Class: 3 Mouth Opening: Normal (> 3cm) Thyromental Distance: Greater than 3 cm Neck Range of Motion: Limited ROM Neck Circumference: Normal Teeth Condition: Normal Dentition ASA Classification ASA Score: ASA 3 Emergency Case?: Yes NPO Status NPO Status: Full Stomach Anesthesia Plan Resuscitation Status: Full Code Anesthesia Technique: General Anesthesia Airway Planned: Endotracheal Tube Pain Management: Surgeon and patient request nerve block Monitors Used: Standard Monitors and SedLine
[2024-03-29] MEDS: PIPERACILLIN/TAZO 3.375 GM in Normal Saline 50 ML IVPB ×3 (07:09→18:20)
[2024-03-29] MEDS: Bupivacaine 0.25% Pres-Free 30 ML VIAL (07:23)
[2024-03-29] MEDS: Heparin 5,000 UNITS/ML VIAL 5000 UNITS SC ×2 (07:24→18:21)
--- NOTE | 2024-03-29 07:25 | W.ANESVAS ---
Midline Placement Date Performed: 03/29/24 Procedure Time: 06:45 Requesting Provider: Marissa Mathis Procedure Location: Operating Room Sedation Given (Indicate Dose Given): No Sedation given Patient Mental Status: Performed under general anesthesia Sterility: Hand Hygiene, Surgical Cap, Surgical Mask, Sterile Gloves, Sterile Drape/Sheet and Chlorhexidine Laterality: Left Insertion Site: Basilic Midline Device: PowerGlide Pro 18G Catheter Length: 10 cm Midline Procedure Procedure: Catheter placed without resistance Dressing: Tegaderm Applied and Statlock Applied Blood Return: Present Flushes: Easily Ultrasound: Sterile probe cover and gel used Ultrasound Image Saved?: Yes Number of Attempts (See previous attempts in note section): 1 Procedure Tolerated: No Complications Procedure Outcome: Successful Performed By: Roberto Crow Supervised By: Sukhjinder Haas
--- NOTE | 2024-03-29 09:01 | BRIEFOP_ITS ---
Date of service: 03/29/24 Time of Service: 09:01 Brief Operative Note Procedure/Pre & Post Op Diagnoses/Capture Manager: Operation Date: 03/29/24 06:40 Actual Procedures p Exploratory Laparotomy(Not Applicable) - Marissa Mathis DO Pre-Op Diagnosis: Perfortated Gastric Ulcer Post-Op Diagnosis: Perfortated Gastric Ulcer Case Staff Physician Capture Manager: Tiffanie Vázquez Anesthesia Anesthesia Type: Local By Surgeon, General LMA/ETT and Primary Nerve Block Estimated Blood Loss Output, Estimated Blood Loss 20 Amount Specimen/Culture Culture(s): PERITENIAL Complications Complications: None Additional Procedure Notes Note: EBL 20 Urine- 450 Fluids 450 ngt- neg
--- NOTE | 2024-03-29 09:03 | ROE_ITS ---
Date of service: 03/29/24 Time of Service: 09:03 Operative Note Operative Note DATE OF PROCEDURE: 03/29/24 PRE-OP DIAGNOSIS: perforated duodenal ulcer- POST-OP DIAGNOSIS: same (posterior ) PROCEDURE: ex lap SURGEON: Marissa Mathis ASSISTANT STORE MANAGER TRAINEE: Tiffanie Vázquez ANESTHESIA TYPE: Local By Surgeon, General LMA/ETT and Primary Nerve Block Refer to Anesthesia Record ESTIMATED BLOOD LOSS: 20 PATHOLOGY: other COMPLICATIONS: None Patient was transported to: PACU Patient's condition: stable Procedure Description: Patient is a 73-year-old male who presented to the ER complaining of acute abdominal pain. He had a CT that did showed free air and a possible posterior Gastric versus duodenal ulcer perforation. Patient will be taken for exploratory laparotomy. Informed consent is obtained for the procedural (explained in simple layman's terms that the pt and/or family could understand) explaining risks vs benefits and alternatives to the procedure and consequences if we do not do the procedure. Risks include but are not limited to: bleeding, infections, pneumonia, blood clots/DVT/PE, anesthesia (aspiration, damage to teeth/airway/UT/CVA//prolonged mechanical ventilation/PTX/IV infections), damage to bowel, bladder, blood vessels, ureters, bile ducts. Damage to solid organs requiring removal. I Leakage from anastomosis requiring colostomy/ Wound infections requiring further surgery. ?Scarring and disfigurement. Subsequent bowel obstructions from scar tissue.? Chronic pain or numbness from the in cision, or hernia. Patient is brought to the OR and placed in the supine position. Anesthesia is administered per the department of anesthesia. Araujo catheter is placed. Patient did receive Zosyn and Diflucan preop. A midline is placed for long-term IV access by anesthesia. He has been hemodynamically stable and we do not feel arterial line is warranted at this time. Patient is prepped and draped in the usual sterile fashion using a ChloraPrep scrub solution. Timeout is performed in the standard fashion. Vertical midline incision approximately 5 inches in length is made from the xiph oid down. Electrocautery described hemostasis and dissect down through the deeper tissues. The fascia was encountered and excised midline. The muscle split along the linea alba. Peritoneum is elevated and entered sharply. Upon entering the abdomen free air is noted. Reynolds's are used for retraction. Liver is palpated and there appears to be no masses. The small bowel is run and is normal along its entirety. The anterior surface of the stomach is pink and healthy. There is no blood in within the abdomen. There is no succus or any abscesses or any drainage in the abdomen. The colon is palpated and is normal in appearance. There is no fluid or blood or soilage in the pelvis. There are a few small diverticula within the sigmoid colon. But otherwise the colon is pink and healthy, and no sign of infection or perforation. The gastrocolic ligament is then entered using the LigaSure for hemostasis. The stomach is reflected superior to visualize the posterior wall of the stomach. There is no blood. There is no drainage. There is no abscess. There is no fluid. The mucosa is pink and healthy and appears pristine. The antrum and duodenum are visualized and palpated.. There are some mild thickening in the pylorus and the first part of the duodenum. There was some free air upon entering the lesser sac. But again there is no bleeding and there is no drainage or any type of fluid. There is minimal edema along the posterior duodenum. I did open up the lesser omentum and visualized the posterior surface of the stomach/antrum and duodenum from this angle as well. Again there was a small amount of free air but there is no blood or fluid, and the tissues otherwise appear normal. Cultures were taken in this area as well for completeness. The pancreas is intimately adhered to the duodenum more so than I would normally suspect. There is some mild amount of edema and swelling in the pancreas. So I believe he did have a small duodenal ulcer that perforated posteriorly, but has been sealed off by the pancreas. Again the duodenum is fairly normal with with only some mild thickening posteriorly. There is no enteric contents in the abdomen or the lesser sac. There is no signs of bleeding or abscess. I do not think it is worth the morbidity to open the duodenum and this is left intact. At this point an NG tube was Guided into the stomach And was placed to suction. There is no gastric contents and no blood. At this point drain is placed posterior to the duodenum. The abdomen is irrigated with 2 L of saline. All irrigation is removed. The drain is brought out through a separate stab incision in the right upper quadrant and sewn in with 2-0 Prolene. All sponge and needle counts are correct. Interceed is placed directly under the incision. The peritoneum was closed with 0 Vicryl in a running fashion. Fascia is closed with figure 8 interrupted sutures with PDS. This fat pad is irrigated. Skin is approximated with bernabe. A cecilia dressing is applied. Patient Tollered procedure well without complication and transferred to ICU for continued monitoring and postoperative care.
[2024-03-29] MEDS: ACETAMINOPHEN 1,000 MG/100 ML BTL 400 MG IVPB ×2 (10:00→18:20)
[2024-03-29] MEDS: Lactated Ringers 1,000 ML 82 ML IV ×2 (10:01→21:52)
[2024-03-29] MEDS: Pantoprazole 40 MG VIAL IVP ×2 (10:03→21:18)
--- NOTE | 2024-03-29 10:17 | W.ANESPOSTOP ---
Postoperative Evaluation Date, Time and Location Date Performed: 03/29/24 Time Performed: 09:10 Patient Location: Intensive Care Unit Vital Signs Most Recent Imported Vital Signs: Most Recent Vital Signs Temp Pulse Resp BP Pulse Ox 36.5 C 85 16 117/53 L 96 03/29/24 09:08 03/29/24 01:16 03/29/24 09:08 03/29/24 09:08 03/29/24 09:08 Pain Score Most Recent Pain Score: Most Recent Pain Score Pain Level 8 03/29/24 09:08 Assessment Mental Status: Awake (Alert & Oriented to Patient Baseline) Airway and Respiratory Function: Patent airway with normal (patient baseline) respiratory exam Cardiovascular Function: Hemodynamically Stable Hydration Status: Adequately Hydrated Nausea & Vomiting: No Nausea or Vomiting Pain: Pain is tolerable per patient Peripheral Nerve Block: Regional nerve block not resolved at time of post operative discharge
--- NOTE | 2024-03-29 11:32 | W.PC.ACHO ---
Registration Status: Primary Language: Preferred Language: ED Information & Data Chief Complaint Chest Pain 03/28/24 19:34 Chief Complaint Chest Pain 03/28/24 19:07 Other Complaint SOB/SuddenOnset 03/28/24 19:07 Triage Note was on the riding mower and 03/28/24 19:07 had sudden onset chest pressure radiating to the L arm and shoulder. pt became diaphoretic had nausea and vomited x 1. pain went away for about 15 min then came back stronger (Last Updated 03/29/24 @ 06:18 by Marissa Mathis DO) S/P appendectomy History of left-sided carotid endarterectomy Most Recent Vital Signs Temperature 36.5 C 03/29/24 09:08 Temperature Source Temporal Artery Scan 03/29/24 09:08 Pulse 85 03/29/24 01:16 Pulse 75 03/29/24 02:40 Respiratory Rate 16 03/29/24 09:08 Respiratory Effort Non-Labored 03/29/24 09:08 Respiratory Depth Normal 03/29/24 09:08 Respiratory Pattern Normal 03/29/24 09:08 Blood Pressure 117/53 L 03/29/24 09:08 Blood Pressure Mean 74 03/29/24 09:08 Blood Pressure Position Supine 03/29/24 09:08 Pulse Oximetry 96 03/29/24 09:08 Oxygen Delivery Method Room Air 03/29/24 09:08 Oxygen Flow Rate 0 03/29/24 09:08 Pain Level 8 03/29/24 09:08 Comment chest to shoulder pain 03/28/24 19:07 Allergies bee venom protein (honey bee) Allergy (Severe, Verified 03/28/24 19:19) Anaphylaxis shellfish derived Allergy (Verified 03/28/24 19:19) Anaphylaxis has had contrast dye with no problems in past Active Medications Generic Name Dose Route Start Last Admin Trade Name Freq PRN Reason Stop Dose Admin Heparin Sodium (Porcine) 5,000 units 03/29/24 10:00 03/29/24 10:03 Heparin 5,000 Units/Ml Vial SC 04/28/24 09:59 Not Given Q8H STEVE Ringer's Solution 1,000 mls @ 82 mls/hr 03/29/24 09:00 03/29/24 10:01 IV 04/28/24 08:59 82 mls/hr INFUSION STEVE Administration Acetaminophen 1,000 mg in 100 mls @ 400 mls/hr 03/29/24 10:00 03/29/24 10:00 Ofirmev IVPB 400 mls/hr Q8H STEVE Administration Pantoprazole Sodium 40 mg 03/29/24 10:00 03/29/24 10:03 Pantoprazole 40 Mg Vial IVP 40 mg Q12H STEVE Administration Sodium Chloride 0 ml 03/28/24 19:07 03/29/24 00:57 Normal Saline Flush 10 Ml Syr IVP 10 ml PRN PRN Administration Sodium Chloride 0 ml 03/28/24 20:00 03/29/24 09:42 Normal Saline Flush 10 Ml Syr IVP Not Given BID STEVE IV IV Catheter Type [Left Peripheral IV Antecubital] IV Catheter Type [Right Peripheral IV Antecubital] IV Catheter Gauge [Left Upper 18 arm] IV Catheter Gauge [Left 18 Antecubital] IV Catheter Gauge [Right 18 Antecubital] Diet Orders Category Date Time Status Nothing Per Oral [DIET] Nutrition 03/29/24 Lunch Active npo [Nothing Per Oral] [DIET] Nutrition 03/29/24 Breakfast Active Diagnostics 03/29/24 03/28/24 03/28/24 Range/Units 06:02 21:41 20:32 WBC 17.08 H (4.4-10.8) 10^3/uL RBC 4.83 (4.36-5.78) 10^6/uL Hgb 14.3 (13.5-17.5) g/dL Hct 42.2 (40.0-50.0) % MCV 87 (80-95) fL MCH 29.6 (27.0-33.0) pg MCHC 33.9 (32.0-36.0) % RDW 13.8 (11.8-14.1) % Plt Count 255 (130-400) 10^3/uL MPV 9.0 (8.0-11.0) fL Immature Gran % 0.5 % Neutrophils % 82.1 % Lymphocytes % 10.2 % Monocytes % 6.9 % Eosinophils % 0.1 % Basophils % 0.2 % Nucleated RBC % 0.0 (0.0-0.3) % Absolute Neutrophils 14.02 H (1.2-6.7) 10^3/uL Absolute Lymphocytes 1.74 (1.2-3.4) 10^3/uL Absolute Monocytes 1.18 H (0.1-0.8) 10^3/uL Absolute Eosinophils 0.02 (0.0-0.7) 10^3/uL Absolute Basophils 0.03 (0.0-0.2) 10^3/uL PT 11.0 (9.1-11.1) sec INR 1.1 (0.9-1.1) APTT 22.3 L (23.6-32.8) sec D-Dimer 742 H (<500) ng/mlFEU Sodium 141 (136-145) mmol/L Potassium 3.5 (3.5-5.1) mmol/L Chloride 105 (98-107) mmol/L Carbon Dioxide 26.8 (21.0-32.0) mmol/L Anion Gap 9.2 (3-11) mmol/L BUN 33 H (7-18) mg/dL Creatinine 1.1 (0.70-1.30) mg/dL Est GFR (CKD-EPI 2020) 71.32 (mL/min/1.73m2) Glucose 87 (74-106) mg/dL Calcium 9.6 (8.5-10.1) mg/dL Magnesium 2.0 (1.8-2.4) mg/dL Total Bilirubin 0.70 (0.2-1.0) mg/dL AST 23 (15-37) U/L ALT 70 H (16-63) U/L Alkaline Phosphatase 91 (46-116) U/L Troponin I 6 NT-Pro-B Natriuret Pep 26 (<300) pg/mL Total Protein 6.7 (6.4-8.2) g/dL Albumin 3.7 (3.4-5.0) g/dL ABO/Rh O Positive Antibody Screen NEGATIVE 03/28/24 03/28/24 Range/Units 20:21 19:07 WBC (4.4-10.8) 10^3/uL RBC (4.36-5.78) 10^6/uL Hgb (13.5-17.5) g/dL Hct (40.0-50.0) % MCV (80-95) fL MCH (27.0-33.0) pg MCHC (32.0-36.0) % RDW (11.8-14.1) % Plt Count (130-400) 10^3/uL MPV (8.0-11.0) fL Immature Gran % % Neutrophils % % Lymphocytes % % Monocytes % % Eosinophils % % Basophils % % Nucleated RBC % (0.0-0.3) % Absolute Neutrophils (1.2-6.7) 10^3/uL Absolute Lymphocytes (1.2-3.4) 10^3/uL Absolute Monocytes (0.1-0.8) 10^3/uL Absolute Eosinophils (0.0-0.7) 10^3/uL Absolute Basophils (0.0-0.2) 10^3/uL PT (9.1-11.1) sec INR (0.9-1.1) APTT (23.6-32.8) sec D-Dimer (<500) ng/mlFEU Sodium (136-145) mmol/L Potassium (3.5-5.1) mmol/L Chloride (98-107) mmol/L Carbon Dioxide (21.0-32.0) mmol/L Anion Gap (3-11) mmol/L BUN (7-18) mg/dL Creatinine (0.70-1.30) mg/dL Est GFR (CKD-EPI 2020) (mL/min/1.73m2) Glucose (74-106) mg/dL Calcium (8.5-10.1) mg/dL Magnesium (1.8-2.4) mg/dL Total Bilirubin (0.2-1.0) mg/dL AST (15-37) U/L ALT (16-63) U/L Alkaline Phosphatase (46-116) U/L Troponin I 6 Cancelled NT-Pro-B Natriuret Pep (<300) pg/mL Total Protein (6.4-8.2) g/dL Albumin (3.4-5.0) g/dL ABO/Rh Antibody Screen 03/29/24 07:45 Surgical Culture - Pending Peritoneal Gram Stain - Final 03/29/24 07:45 Anaerobic Culture - Pending Peritoneal Intake and Output - 24 Hour Total 03/28/24 19:04 thru 03/29/24 11:30 Intake Total 1752.1 Output Total 770 Balance 982.1 Weight 75.8 kg Intake: IV 1752.1 Output: Urine 750 Estimated Blood Loss 20 Other: Urine Color Yellow Urine Appearance Clear # Voids 1 Urinary Catheter Urinary Catheter Date of 03/29/24 Insertion [Urethral (Araujo)] Time of insertion [Urethral ( 06:55 Araujo)] Falls Risk Assessment History of Falls No History 03/29/24 09:08 Contributing Factors Impairments 03/29/24 09:08 Ambulatory Aids Independent 03/29/24 09:08 Tubes/Lines With any additional score 03/29/24 09:08 Gait Evaluation W/any additional score 03/29/24 09:08 Cognition Cognitive impairment 03/29/24 09:08 Fall Total Score 58 03/29/24 09:08 Level of Risk High Risk 03/29/24 09:08 Problems (Last Reviewed 03/29/24 @ 06:08 by Marissa Mathis DO) History of Mohs surgery for squamous cell carcinoma of skin (Acute) Skin cancer (Acute) [place] (hard of hearing) (Acute) Aortic ectasia (Acute) Cardiomegaly (Acute) CAD (coronary artery disease) (Chronic) Prediabetes (Acute) Former smoker (Acute) Elevated cholesterol (Chronic) Atherosclerosis (Acute) HTN (hypertension) (Chronic) Perforated gastric ulcer (Acute) v v v v v v v v v Sending and/or Receiving Nurses: Please use comment section below to note any information pertinent to the patient hand-off not included above. Information / Comments: Report received from: Tomasa Kaur RN
--- NOTE | 2024-03-29 11:47 | PHA.REVIEW2 ---
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 (Acute) Skin cancer (Acute) [place] (hard of hearing) (Acute) Aortic ectasia (Acute) Cardiomegaly (Acute) Prediabetes (Acute) Former smoker (Acute) Atherosclerosis (Acute) Perforated gastric ulcer (Acute) bee venom protein (honey bee) Allergy (Severe, Verified 03/28/24 19:19) Anaphylaxis shellfish derived Allergy (Verified 03/28/24 19:19) Anaphylaxis Height 5 ft 10 in Weight 75.8 kg Comments Comments/Follow Ups: Follow up with provider on patients home meds when able to take PO meds Pharmacy Admission Review Renal Dosing Renal Dosing: BUN 33 mg/dL (7-18) H 03/28/24 20:32 Creatinine 1.1 mg/dL (0.70-1.30) 03/28/24 20:32 Medications needing adjustments: Reviewed (CrCl 65 mL/min) List of meds needing interventions: Current medications are okay Anticoagulation Anticoagulation: Hgb 14.3 g/dL (13.5-17.5) 03/28/24 20:32 Hct 42.2 % (40.0-50.0) 03/28/24 20:32 Plt Count 255 10^3/uL (130-400) 03/28/24 20:32 INR 1.1 (0.9-1.1) 03/28/24 20:32 Creatinine 1.1 mg/dL (0.70-1.30) 03/28/24 20:32 DVT Prophylaxis: Reviewed Medications: Heparin (q8h) Opiate Usage Evaluate Pain Scale/Pains Meds: Reviewed (PRN hydromorphone - no doses given) Scheduled Bowel Reg ordered if on Opiates?: No Relevant Labs Relevant Labs: Sodium 141 mmol/L (136-145) 03/28/24 20:32 Potassium 3.5 mmol/L (3.5-5.1) 03/28/24 20:32 Chloride 105 mmol/L (98-107) 03/28/24 20:32 Magnesium 2.0 mg/dL (1.8-2.4) 03/28/24 20:32 Electrolytes, C-Reactive P, ESR: Reviewed (No new labs for today) DM Control DM Control: Glucose 87 mg/dL (74-106) 03/28/24 20:32 DM Control: Reviewed (prediabetic) Insulin Dosing, Diabetic Medication: No orders - uses Ozempic at home Cardiac Review Cardiac Review: Troponin I 6 ng/L (<or=76) 03/28/24 21:41 NT-Pro-B Natriuret Pep 26 pg/mL (<300) 03/28/24 20:32 BP, HR, EF%: Reviewed (HR and BP WNL) QTc Review QTc: Reviewed (EKG report pending) IV to PO Switch IV Medications: Reviewed (acetaminophen, hydromorphone, ondansetron, pantoprazole and Zosyn - POD #0 currently NPO) Home Meds Home Med List reviewed: Reviewed Relevent Home Meds Not ordered & why?: Epipen (PRN), ezetimibe, meloxicam, rosuvastatin and Ozempic (weekly) Will reach out to provider once patient is able to tolerate PO meds Current Meds Current Medication Order Review: Reviewed Pharmacy Antibiotic Review Relevant Labs: WBC 17.08 10^3/uL (4.4-10.8) H 03/28/24 20:32 Temperature 36.5 C Pharmacy Antibiotic Activity: C/S review and Reviewed, no change Comments: Patient is on Zosyn, day 1 and POD #0 for ulcer. Peritoneal culture pending. Comments Comments/Follow Ups: Follow up with provider on patients home meds when able to take PO meds
[2024-03-29] MEDS: Ondansetron 4 MG/2 ML VIAL IVP (12:21)
[2024-03-29] MEDS: HYDROmorphone 2 MG/ML SYR 0.5 MG IVP ×3 (12:21→21:27)
--- NOTE | 2024-03-29 13:48 | W.ANESNERVE ---
Nerve Block Single Injection Procedure Date and Time Date Performed: 03/29/24 Procedure Start: 08:18 Location Where Procedure Performed Procedure Location: Operating Room Procedure Stop: 08:25 Reason Performed: Acute Pain Management Pain Diagnosis: Abdominal Pain Requesting Provider: Marissa Mathis Timeout Performed Timeout Performed: Yes Monitoring Used ECG, Blood Pressure, SpO2, ETCO2 and See EMR for corresponding vital signs Sterility Sterility: Hand Hygiene, Surgical Cap, Surgical Mask, Sterile Gloves, Sterile Drape/Sheet and Chlorhexidine Sedation Given During Procedure Sedation Given (Indicate Dose Given): No Sedation given Patient Mental Status Patient Mental Status: Performed under general anesthesia Nerve Block 1st Nerve Block: Laterality: Bilateral Block Type: Rectus Sheath (Bilateral) Ultrasound Image Saved?: Yes Needle / Catheter Used: 100mm SonoPlex II Local Anesthetic Bolus (Indicate Dose Given): Exparel Dose:: 20ml and Other (0.3% bupivacaine ) Medication/Route/Dose:: 20ml Additives (Indicate Dose Given): Normal Saline Ultrasound: Sterile probe cover and gel used Nerve Stimulator: Not Used Paresthesia: None Procedure Tolerated: No Complications and Patient tolerated well Procedure Outcome: Successful Performed By: Roberto Crow Supervised By: Sukhjinder Haas
--- NOTE | 2024-03-29 16:20 | CHAPLAIN ---
Nirmal was resting in bed when I visited. He had two people visiting with him. He joked about trying to make a kendal off time tomorrow. Nirmal is a member of the [employer], and declined my offer to contact his kiln firer. He said she'll find out on Wednesday. Nirmal was pleasant and easily engaged in a conversation. He seems to be comfortable being here and with good supports.
--- NOTE | 2024-03-29 18:45 | RT.EKG_ITS ---
APPROVED REPORT Exam: Resting ECG Reason for Exam: chest pain Patient Location: I HR:75 bpm ECG Measurements Heart Rate 75 AXIS NM 192 P 67 QRSd 99 QRS 35 QT 402 T 60 QTc 449 Conclusion Sinus rhythm...normal P axis, V-rate 50- 99 Normal Electrocardiogram
--- NOTE | 2024-03-29 20:11 | W.PM.PROGNOT ---
Date of Service Date of service: 03/29/24 Time of Service: 09:30 Assessment and Plan Assessment and plan (1) S/P exploratory laparotomy: Status: Acute Assessment and plan: The patient is doing well post-op. Their pain is well controlled. They are having no nausea or vomiting. The pt is not having any chest pain or SOB, productive cough; no calf pain or swelling. The pt is making good urine. The pt pain is adequately controlled. The case was discussed with nursing and patient?s progress reviewed. All of the pt's home medications were addressed and adjusted accordingly for their oral intact status. HEENT: no jaundice. no eye pain/drainage/redness/swelling. Mild sore throat Cardio- NSR no chest pain, BP stable. Pulm: no sob or productive cough. no hemoptysis Incision- clean/dry. Dressing intact no excessive bleeding or drainage I discussed with the patient and/or there family about the findings in surgery and the pt's progress. We reviewed expectations for progress in the hospital; what the pt could expect for recovery time and length of stay. We discussed the importance of walking and pulmonary toilet to avoid blood clots and pneumonia. Continue current plans for pulmonary toilet, GI and DVT prophylaxis. We shall continue the current plan for pain management as it is at an appropriate level, and working well for the pt. Appropriate measures will be taken for constipation prevention, and this was also reviewed with the pt. The wound care plan was reviewed with nursing as well. see orders (2) HTN (hypertension): Status: Chronic (3) Cardiomegaly: Status: Acute (4) CAD (coronary artery disease): Status: Chronic (5) Atherosclerosis: Status: Acute (6) Aortic ectasia: Status: Acute (7) Elevated cholesterol: Status: Chronic (8) Prediabetes: Status: Acute (9) [place] (hard of [place]): Status: Acute (10) Perforated gastric ulcer: Status: Acute (11) Former smoker: Status: Acute (12) S/P appendectomy: Objective Last Vital Signs Temp 36.5 C 03/29/24 09:08 Pulse 74 03/29/24 16:02 Resp 18 03/29/24 16:02 BP 135/70 03/29/24 16:02 Pulse Ox 96 03/29/24 16:02 Laboratory Results - last 24 hr 03/28/24 03/28/24 03/28/24 19:07 20:21 20:32 WBC 17.08 H RBC 4.83 Hgb 14.3 Hct 42.2 MCV 87 MCH 29.6 MCHC 33.9 RDW 13.8 Plt Count 255 MPV 9.0 Immature Gran % 0.5 Neutrophils % 82.1 Lymphocytes % 10.2 Monocytes % 6.9 Eosinophils % 0.1 Basophils % 0.2 Nucleated RBC % 0.0 Absolute Neutrophils 14.02 H Absolute Lymphocytes 1.74 Absolute Monocytes 1.18 H Absolute Eosinophils 0.02 Absolute Basophils 0.03 PT 11.0 INR 1.1 APTT 22.3 L D-Dimer 742 H Sodium 141 Potassium 3.5 Chloride 105 Carbon Dioxide 26.8 Anion Gap 9.2 BUN 33 H Creatinine 1.1 Est GFR (CKD-EPI 2020) 71.32 Glucose 87 Calcium 9.6 Magnesium 2.0 Total Bilirubin 0.70 AST 23 ALT 70 H Alkaline Phosphatase 91 Troponin I Cancelled 6 NT-Pro-B Natriuret Pep 26 Total Protein 6.7 Albumin 3.7 ABO/Rh Antibody Screen 03/28/24 03/29/24 21:41 06:02 WBC RBC Hgb Hct MCV MCH MCHC RDW Plt Count MPV Immature Gran % Neutrophils % Lymphocytes % Monocytes % Eosinophils % Basophils % Nucleated RBC % Absolute Neutrophils Absolute Lymphocytes Absolute Monocytes Absolute Eosinophils Absolute Basophils PT INR APTT D-Dimer Sodium Potassium Chloride Carbon Dioxide Anion Gap BUN Creatinine Est GFR (CKD-EPI 2020) Glucose Calcium Magnesium Total Bilirubin AST ALT Alkaline Phosphatase Troponin I 6 NT-Pro-B Natriuret Pep Total Protein Albumin ABO/Rh O Positive Antibody Screen NEGATIVE Time Spent with Patient Time Spent with Patient: <25 minutes Time was spent: preparing to see the patient(eg.review tests), obtaining and/or reviewing separately otained hiistory, ordering medications,tests, procedures, referring, communicating with other health transitional care manager, indepentently interpreting results, counseling the patient, care coordination and other
[2024-03-29] MEDS: Benzocaine/Menthol LOZG 15/BOX 1 EACH SUC (21:19)
--- NOTE | 2024-03-29 22:45 | DI.CT_ITS ---
Exam(s) CT ABDOMEN PELVIS W EXAM: CT ABDOMEN PELVIS W CLINICAL HISTORY: Free Air, Abd Pain. TECHNIQUE: Imaging Protocol: Axial computed tomography images with coronal and sagittal reformatted images were created and reviewed CONTRAST MATERIAL: Intravenous: Omnipaque 350 Contrast volume:100 ml Oral: no COMPARISON: CR,XR XR PORTABLE CHEST AP from 03/28/[address] CHEST PE CTA from 03/28/2024 FINDINGS: ABDOMEN and PELVIS: Lung Bases: No acute findings. Liver: Normal density. No suspicious mass. Gallbladder and biliary tract: A small amount of layering tiny stones versus sludge. No biliary dila tion. No gallbladder wall thickening. Pancreas: Normal density. No abnormal calcifications or inflammatory process. No evidence of mass. Spleen: Normal. Kidneys: Contrast with in renal collecting systems from prior chest CT. Normal size, contour and axi s. No radiodense stones. No obstructive uropathy. No suspicious masses seen. Circumaortic left renal vein. Adrenal glands: No masses seen. Vasculature: Abdominal aorta non-dilated. Moderate atherosclerotic changes. Soft tissues: Unremarkable. Bladder: Dense contrast within bladder related to prior chest CT. No gross wall thickening. No calcu li.No focal mass. Bowel: Ulcer seen at the fundus of the stomach at the level of the spleen. No obstruction. No jaime l wall thickening. Appendix is not seen. Mild diverticulosis. No evidence of diverticulitis. Peritoneal cavity: Moderate amount of free air in the upper abdomen consistent with bowel perforation . Multiple air bubbles noted around the stomach. No ascites. No focal collection. No mesenteric in flammatory response. Bones: Unremarkable for age. Reproductive organs: Mildly enlarged prostate. TURP defect. Lymph nodes: No pathologically enlarged lymph nodes. IMPRESSION:: Moderate quantity of free air. Probable area of perforated ulcer at the posterior gastric fundus with surrounding air bubbles. No a bscess. No free fluid. RADIATION DOSE DELIVERED: Total DLP DATA REPOSITORY: All CT scans at this facility are submitted to the National Radiology Data Registry (NRDR) Dose Index Registry (DIR) with the [employer] (ACR). RADIATION OPTIMIZATION: All CT scans at this facility use at least one of these dose optimization te chniques: automated exposure control; mA and/or kV adjustment per patient size (includes targeted exa ms where dose is matched to clinical indication); or iterative reconstruction.
[2024-03-30] VITALS (36 sets, daily range): BP systolic 123–173; BP diastolic 63–103; PULSE 61–80; RESP 11–24; TEMP 36.7–37.2; O2SAT 94–97
[2024-03-30] MEDS: HYDROmorphone 2 MG/ML SYR 0.5 MG IVP ×2 (00:03→05:48)
[2024-03-30] MEDS: PIPERACILLIN/TAZO 3.375 GM in Normal Saline 50 ML IVPB ×4 (00:12→17:57)
[2024-03-30] MEDS: Normal Saline Flush 10 ML SYR IVP ×5 (00:13→20:22)
[2024-03-30] MEDS: Benzocaine/Menthol LOZG 15/BOX 1 EACH SUC ×2 (00:51→20:21)
[2024-03-30] MEDS: ACETAMINOPHEN 1,000 MG/100 ML BTL 400 MG IVPB ×3 (02:43→17:30)
[2024-03-30] MEDS: LORazepam 2 MG/ML VIAL 0.5 MG IVP (03:23)
[2024-03-30 07:02] LABS: Abs Immature Grans 0.04 10^3/uL (0.0-0.06); Absolute Basophil Count 0.01 10^3/uL (0.0-0.2); Absolute Monocyte Count 0.76 10^3/uL (0.1-0.8); Absolute Neutrophil Count 7.75 10^3/uL (1.2-6.7); Basophils % 0.1 %; HCT 37.3 % (40.0-50.0); HGB 12.4 g/dL (13.5-17.5); Immature Grans % 0.4 %; Lymphocytes % 11.4 %; MCH 29.9 pg (27.0-33.0); MCHC 33.2 % (32.0-36.0); MCV 90 fL (80-95); MPV 9.3 fL (8.0-11.0); Monocytes % 7.9 %; Neutrophils % 80.2 %; Platelet Count 176 10^3/uL (130-400); RBC 4.15 10^6/uL (4.36-5.78); RDW 14.2 % (11.8-14.1); RDW-SD 46.7 fL; WBC 9.66 10^3/uL (4.4-10.8)
[2024-03-30 07:16] LABS: Anion Gap 9.3 mmol/L (3-11); BUN 21 mg/dL (7-18); CO2 25.7 mmol/L (21.0-32.0); CREATININE 0.8 mg/dL (0.70-1.30); Calcium 8.4 mg/dL (8.5-10.1); Chloride 103 mmol/L (98-107); Estimated GFR 94.03 (mL/min/1.73m2); Glucose 104 mg/dL (74-106); Potassium 4.2 mmol/L (3.5-5.1); Sodium 138 mmol/L (136-145)
--- NOTE | 2024-03-30 08:42 | INITIAL_ITS ---
Date of service: 03/30/24 Time of Service: 08:42 Care Management Initial Assmt Initial Assessment Reason for Hospitalization: Perforated Posterior Duodenal Ulcer Functional Status/Living Situation Patient Presentation: Nirmal was sitting up in his chair, reporting some indigestion and stated he may want to return to lying down. NG tube in place, at bedside-both were pleasant in interaction and shared positive remarks about his care. Town of Residence: [place], [place] Resides with: Spouse (Moira) Significant Other/Family: Out of area Employment Status: Retired Instrumental Activities of Daily Living (ADLs): Independent Activities/Hobbies/SocialSupport: Visiting [place] to [employer]. Medications Medication Management: No Issues/Barriers identified Advance Directives Advance Directives: Do you have an Advance Directive: N 04/30/23 09:06 AD On File at [facility]: N 04/30/23 09:06 Date Asked 03/29/24 03/29/24 09:03 AD Date Reviewed COLST On File at [facility] COLST Date Scanned Insurance Coverage/Financial Issues Insurance: [facility] Adv Care Team Visit Care Team Role Provider Type Bailee Gustafson Referring Provider NON-[facility] STAFF PHYSICIAN Asher Zambrano Primary Care Provider OSTEOPATHIC DOCTOR Efrain Meyers, Emergency Provider [facility] STAFF PHYSICIAN Marissa Mathis, DO Admit Provider OSTEOPATHIC DOCTOR Attending Provider Discharge Potential Discharge Needs: PCP F/U Appt Anticipated Barriers to Discharge: None Identified Patient/Family Education Needs: Review discharge instructions, discuss Ask Me Three Transportation: Private vehicle Plan: Anticipate Nirmal will return home with no additional services when ready per MD, he is hoping to return home tomorrow, though NG tube remained in place during CM consult-and additional testing was planned for this afternoon. The couple will return home to [place] via private vehicle and Nirmal will follow up with his community providers back home. CM following. PFSH All Active Problems (Updated 03/30/24 @ 15:42 by [facility] S/P exploratory laparotomy (Acute) History of Mohs surgery for squamous cell carcinoma of skin (Acute) Skin cancer (Acute) [place] (hard of hearing) (Acute) Aortic ectasia (Acute) Cardiomegaly (Acute) CAD (coronary artery disease) (Chronic) Prediabetes (Acute) Former smoker (Acute) Elevated cholesterol (Chronic) Atherosclerosis (Acute) HTN (hypertension) (Chronic) Perforated gastric ulcer (Acute) Surgical History (Updated 03/29/24 @ 20:12 by Marissa Mathis DO) S/P appendectomy History of left-sided carotid endarterectomy Social History Smoking/Tobacco Use Status: Former Tobacco Use Smoking risk assessment performed?: Yes Alcohol Intake: current Alcohol Intake frequency: 0-2 drinks per day Drug use: Never Housing: apartment Do you feel safe at home: Yes Do you feel safe in your relationship?: Yes SDOH(Care Management) Screening Will the Patient Participate in the Screening?: Yes Do you worry about having a steady place to live?: no In the past 12 months, have you had to go without electric, gas, oil or water in your home?: no Have you or anyone in your house had to go without enough food to eat?: no Has lack of transportation kept you from medical appointments or from doing things needed for daily living?: no Has anyone in your support network made you feel unsafe for any reason?: no
[2024-03-30] MEDS: Pantoprazole 40 MG VIAL IVP ×2 (10:14→21:17)
[2024-03-30] MEDS: Heparin 5,000 UNITS/ML VIAL 5000 UNITS SC (10:14)
[2024-03-30] MEDS: Lactated Ringers 1,000 ML 82 ML IV (10:22)
--- NOTE | 2024-03-30 12:44 | W.PM.PROGNOT ---
Date of Service Date of service: 03/30/24 Time of Service: 09:00 Assessment and Plan Assessment and plan (1) Perforated gastric ulcer: Status: Acute Assessment and plan: 73-year-old male status post exploratory laparotomy for free air. No perforation found except for inflammation and posterior stomach adjacent to pancreas and presumed walling off of the perforation. Drains were placed. See op note for details. Patient doing well today. No acute events overnight. I did have a long talk with him about expectations. I do not foresee that he will get to go home in the next day or 2. We talked about the nature of the perforation which is most likely a gastric ulcer and some of the causes. He is not a daily alcohol drinker. He does take meloxicam on a regular basis for some chronic pain in his neck. Plan for today is as folloms: ? DC Araujo catheter ? Out of bed and ambulating ? Incentive spirometer ? SCDs ? Twice daily IV PPI ? Will order Gastrografin study through NG tube to rule out leak from the stomach. If this looks good, can consider clamping NG tube later today. ? Transfer to [facility] Qualifiers: Gastric ulcer chronicity: acute Qualified Code(s): K25.1 - Acute gastric ulcer with perforation Subjective Subjective Interval history since last seen: Patient reports feeling well this morning. No nausea or vomiting. His main complaint is the NG tube. He is asking about getting out of bed. Abdominal pain does not seem to be a primary issue. He is also asking about being able to eat and when he can go home. He currently has an NG tube in place, Araujo catheter in place, MIGDALIA drain to the right abdomen, and a suction dressing to his wound. Labs this morning were unremarkable, white blood cell count has normalized. Vital signs are stable. Afebrile. Exam Narrative Exam Narrative: General?lying in bed, head of bed elevated, no apparent distress. NG tube in place. HEENT sclera anicteric. Mucous membranes a bit dry. Normocephalic, atraumatic. Respiratory?unlabored, no use of accessory muscles Abdomen?soft, mild to moderately tender to palpation around the incision, nondistended. MIGDALIA drain with serosanguineous fluid. Abdominal dressing in place and dry intact. Extremities?moves all extremities, SCDs in place, no edema Objective Last Vital Signs Temp 36.7 C 03/30/24 07:56 Pulse 63 03/30/24 07:00 Resp 12 03/30/24 07:01 BP 136/71 03/30/24 07:00 Pulse Ox 96 03/30/24 07:01 Laboratory Results - last 24 hr 03/30/24 06:40 WBC 9.66 RBC 4.15 L Hgb 12.4 L Hct 37.3 L MCV 90 MCH 29.9 MCHC 33.2 RDW 14.2 H Plt Count 176 MPV 9.3 Immature Gran % 0.4 Neutrophils % 80.2 Lymphocytes % 11.4 Monocytes % 7.9 Eosinophils % 0.0 Basophils % 0.1 Nucleated RBC % 0.0 Absolute Neutrophils 7.75 H Absolute Lymphocytes 1.10 L Absolute Monocytes 0.76 Absolute Eosinophils 0.00 Absolute Basophils 0.01 Sodium 138 Potassium 4.2 Chloride 103 Carbon Dioxide 25.7 Anion Gap 9.3 BUN 21 H Creatinine 0.8 Est GFR (CKD-EPI 2020) 94.03 Glucose 104 Calcium 8.4 L Magnesium 2.0 Time Spent with Patient Time Spent with Patient: <25 minutes Time was spent: preparing to see the patient(eg.review tests), obtaining and/or reviewing separately otained hiistory, ordering medications,tests, procedures and counseling the patient
--- NOTE | 2024-03-30 14:35 | DI.RAD_ITS ---
Exam(s) RF BARIUM SWALLOW UGI EXAM: RF BARIUM SWALLOW UGI CLINICAL HISTORY: rule out gastric leak TECHNIQUE: 2D and real-time digital imaging was performed. CONTRAST MATERIAL: Oral barium Oral water soluble contrast was administered. COMPARISON: CT CT ABDOMEN PELVIS W from 03/29/2024 FINDINGS: This Gastrografin via NG tube study was performed at the request of the on-call surgeon. Patient rec ently underwent exploratory laparotomy within the last 48 hours for perforated viscus. There is free intraperitoneal air. Gastrografin was introduced into the stomach via the indwelling NG tube, injected by myself with the patient in the sitting position. Thereafter the patient was rotated into numerous different position s to determine if extravasation is present. The NG tube distal tip is in the distal stomach. Stomach is not distended. There is a finding at the level of the gastric fundus which has the appearance of an ulcer crater and most probably corresponds to the finding seen as the culprit area on the CT scan of 03/29/2024. Thi s, however, did not reveal obvious extravasation on this study. There is also no extravasation from the distal stomach nor from the nondilated duodenal C-loop. The opacified left-sided jejunal loops appear unremarkable. No evidence of bowel obstruction. IMPRESSION: Ulcer crater demonstrated in the gastric fundus but no obvious extravasation. No bowel obstruction evident. RADIATION DOSE DELIVERED: kayla Blanco= 33.2 mGy
[2024-03-30] MEDS: Gastrografin 120 ML BTL IVP ×2 (14:58→15:01)
[2024-03-30] MEDS: Mylanta Suspension 30 ML CUP PO (16:02)
--- NOTE | 2024-03-30 17:14 | W.PC.ACHO ---
Registration Status: Primary Language: Preferred Language: ED Information & Data Chief Complaint Chest Pain 03/28/24 19:34 Chief Complaint Chest Pain 03/28/24 19:07 Other Complaint SOB/SuddenOnset 03/28/24 19:07 Triage Note was on the riding mower and 03/28/24 19:07 had sudden onset chest pressure radiating to the L arm and shoulder. pt became diaphoretic had nausea and vomited x 1. pain went away for about 15 min then came back stronger (Last Updated 03/29/24 @ 06:18 by Marissa Mathis DO) S/P appendectomy History of left-sided carotid endarterectomy Most Recent Vital Signs Temperature 36.8 C 03/30/24 16:27 Temperature Source Temporal Artery Scan 03/30/24 07:56 Pulse 67 03/30/24 16:01 Pulse 69 03/30/24 16:01 Respiratory Rate 15 03/30/24 16:01 Respiratory Effort Non-Labored 03/29/24 09:08 Respiratory Depth Normal 03/29/24 09:08 Respiratory Pattern Normal 03/29/24 09:08 Blood Pressure 147/71 H 03/30/24 16:01 Blood Pressure Mean 93 03/30/24 16:01 Blood Pressure Position Supine 03/29/24 09:08 Pulse Oximetry 95 03/30/24 16:01 Oxygen Delivery Method Room Air 03/30/24 07:56 Oxygen Flow Rate 0 03/30/24 07:56 Pain Level 5 03/30/24 10:12 Comment chest to shoulder pain 03/28/24 19:07 Allergies bee venom protein (honey bee) Allergy (Severe, Verified 03/28/24 19:19) Anaphylaxis shellfish derived Allergy (Verified 03/28/24 19:19) Anaphylaxis has had contrast dye with no problems in past Active Medications Generic Name Dose Route Start Last Admin Trade Name Freq PRN Reason Stop Dose Admin Al Hydrox/Mg Hydrox/Simethicone 30 ml 03/30/24 15:33 03/30/24 16:02 Mylanta Suspension 30 Ml Cup PO 30 ml Q3H PRN PRN Administration Benzocaine/Menthol 1 each 03/29/24 21:11 03/30/24 00:51 Benzocaine/Menthol Lozg 15/Box SUC 1 fabiano Q4H PRN PRN Administration Diatrizoate Meglum/Diatrizoate Sod 120 ml 03/30/24 15:00 03/30/24 15:01 Gastrografin 120 Ml Btl IVP 120 ml DIRECTED STEVE Administration Heparin Sodium (Porcine) 5,000 units 03/29/24 10:00 03/30/24 10:14 Heparin 5,000 Units/Ml Vial SC 04/28/24 09:59 5,000 units Q8H STEVE Administration Hydromorphone HCl 0.5 mg 03/29/24 09:15 03/30/24 05:48 Hydromorphone 2 Mg/Ml Syr IVP 0.5 mg Q2H PRN PRN Administration Piperacillin Sod/Tazobactam 50 mls @ 100 mls/hr 03/29/24 12:00 03/30/24 13:04 Sod 3.375 gm/ Sodium Chloride IVPB 04/28/24 11:59 Infused Q6H STEVE Infusion Ringer's Solution 1,000 mls @ 82 mls/hr 03/29/24 09:00 03/30/24 10:22 IV 04/28/24 08:59 82 mls/hr INFUSION STEVE Administration Acetaminophen 1,000 mg in 100 mls @ 400 mls/hr 03/29/24 10:00 03/30/24 13:03 Ofirmev IVPB Infused Q8H STEVE Infusion Ondansetron HCl 4 mg 03/29/24 09:16 03/29/24 12:21 Ondansetron 4 Mg/2 Ml Vial IVP 4 mg Q4H PRN PRN Administration Pantoprazole Sodium 40 mg 03/29/24 10:00 03/30/24 10:14 Pantoprazole 40 Mg Vial IVP 40 mg Q12H STEVE Administration Sodium Chloride 0 ml 03/28/24 19:07 03/30/24 05:49 Normal Saline Flush 10 Ml Syr IVP 30 ml PRN PRN Administration Sodium Chloride 0 ml 03/28/24 20:00 03/30/24 10:14 Normal Saline Flush 10 Ml Syr IVP 10 ml BID STEVE Administration Sterile Water 500 ml 03/30/24 15:15 03/30/24 15:02 Water,Irrigation,Sterile 1000 Ml Btl PO 500 ml TODAY STEVE Administration IV IV Catheter Type [Left Upper Peripheral IV arm] IV Catheter Type [Left Saline Lock Antecubital] IV Catheter Type [Right Saline Lock Antecubital] IV Catheter Gauge [Left Upper 18 arm] IV Catheter Gauge [Left 18 Antecubital] IV Catheter Gauge [Right 18 Antecubital] Diagnostics 03/30/24 Range/Units 06:40 WBC 9.66 (4.4-10.8) 10^3/uL RBC 4.15 L (4.36-5.78) 10^6/uL Hgb 12.4 L (13.5-17.5) g/dL Hct 37.3 L (40.0-50.0) % MCV 90 (80-95) fL MCH 29.9 (27.0-33.0) pg MCHC 33.2 (32.0-36.0) % RDW 14.2 H (11.8-14.1) % Plt Count 176 (130-400) 10^3/uL MPV 9.3 (8.0-11.0) fL Immature Gran % 0.4 % Neutrophils % 80.2 % Lymphocytes % 11.4 % Monocytes % 7.9 % Eosinophils % 0.0 % Basophils % 0.1 % Nucleated RBC % 0.0 (0.0-0.3) % Absolute Neutrophils 7.75 H (1.2-6.7) 10^3/uL Absolute Lymphocytes 1.10 L (1.2-3.4) 10^3/uL Absolute Monocytes 0.76 (0.1-0.8) 10^3/uL Absolute Eosinophils 0.00 (0.0-0.7) 10^3/uL Absolute Basophils 0.01 (0.0-0.2) 10^3/uL Sodium 138 (136-145) mmol/L Potassium 4.2 (3.5-5.1) mmol/L Chloride 103 (98-107) mmol/L Carbon Dioxide 25.7 (21.0-32.0) mmol/L Anion Gap 9.3 (3-11) mmol/L BUN 21 H (7-18) mg/dL Creatinine 0.8 (0.70-1.30) mg/dL Est GFR (CKD-EPI 2020) 94.03 (mL/min/1.73m2) Glucose 104 (74-106) mg/dL Calcium 8.4 L (8.5-10.1) mg/dL Magnesium 2.0 (1.8-2.4) mg/dL 03/29/24 07:45 Surgical Culture - Preliminary Peritoneal Gram Stain - Final Intake and Output - 24 Hour Total 03/28/24 19:04 thru 03/30/24 16:24 Intake Total 4563.8 Output Total 4190 Balance 373.8 Weight 75.1 kg Intake: IV 4443.8 Oral 120 Output: Gastric Drainage 850 Right Nare 850 Drainage 20 Abdomen 20 Urine 3300 Estimated Blood Loss 20 Other: Urine Color Yellow Urine Appearance Clear Urine Odor None Voiding Methods Bedside Commode # Voids 1 Urinary Catheter Urinary Catheter Date of 03/29/24 Insertion [Urethral (Araujo)] Time of insertion [Urethral ( 06:55 Araujo)] Falls Risk Assessment History of Falls No History 03/29/24 09:08 Contributing Factors Impairments 03/29/24 09:08 Ambulatory Aids Independent 03/29/24 09:08 Tubes/Lines With any additional score 03/29/24 09:08 Gait Evaluation W/any additional score 03/29/24 09:08 Cognition Cognitive impairment 03/29/24 09:08 Fall Total Score 58 03/29/24 09:08 Level of Risk High Risk 03/29/24 09:08 Problems (Last Reviewed 03/29/24 @ 06:08 by Marissa Mathis DO) S/P exploratory laparotomy (Acute) History of Mohs surgery for squamous cell carcinoma of skin (Acute) Skin cancer (Acute) [place] (hard of hearing) (Acute) Aortic ectasia (Acute) Cardiomegaly (Acute) CAD (coronary artery disease) (Chronic) Prediabetes (Acute) Former smoker (Acute) Elevated cholesterol (Chronic) Atherosclerosis (Acute) HTN (hypertension) (Chronic) Perforated gastric ulcer (Acute) v v v v v v v v v Sending and/or Receiving Nurses: Please use comment section below to note any information pertinent to the patient hand-off not included above. Information / Comments: Patient ambulates with assistance to med/surg unit. Report received from: JUAN R Mckeon
[2024-03-30] MEDS: Melatonin 3 MG TAB PO (20:21)
[2024-03-30] MEDS: Chloraseptic Spray 117 ML BTL MM (22:39)
[2024-03-31] MEDS: PIPERACILLIN/TAZO 3.375 GM in Normal Saline 50 ML IVPB ×5 (00:30→23:16)
[2024-03-31] MEDS: HYDROmorphone 2 MG/ML SYR 0.5 MG IVP ×2 (00:30→19:41)
[2024-03-31] MEDS: Chloraseptic Spray 117 ML BTL MM ×4 (00:34→12:38)
[2024-03-31] MEDS: Benzocaine/Menthol LOZG 15/BOX 1 EACH SUC ×4 (00:34→12:37)
[2024-03-31] MEDS: Mylanta Suspension 30 ML CUP PO (01:16)
[2024-03-31] MEDS: ACETAMINOPHEN 1,000 MG/100 ML BTL 400 MG IVPB ×3 (01:17→17:16)
[2024-03-31] MEDS: Heparin 5,000 UNITS/ML VIAL 5000 UNITS SC (01:17)
[2024-03-31] MEDS: Lactated Ringers 1,000 ML 82 ML IV ×2 (03:37→15:55)
[2024-03-31 05:56] VITALS: BP 146/66; PULSE 66; RESP 18; TEMP 36.6; O2SAT 96
[2024-03-31 07:44] VITALS: BP 152/76; PULSE 72; RESP 17; TEMP 36.2; O2SAT 98
[2024-03-31] MEDS: Normal Saline Flush 10 ML SYR IVP ×4 (07:48→23:15)
[2024-03-31] MEDS: Pantoprazole 40 MG VIAL IVP ×2 (09:47→23:15)
[2024-03-31 13:11] VITALS: BP 157/60; PULSE 78; RESP 12; TEMP 36.5; O2SAT 97
[2024-03-31 14:44] VITALS: BP 157/60; PULSE 78; RESP 15; TEMP 36.5; O2SAT 97
--- NOTE | 2024-03-31 15:42 | CHAPLAIN ---
Nirmal was up in the chair when I visited. His left a bit earlier to attend the of a friend of there's. Nirmal said he's hoping to go home tomorrow. He would really like to have the NG tube out. He said he's not been able to sleep while he's been here, especially with the NG tube. Nirmal spoke his friend who recently. He is a member of the 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
--- NOTE | 2024-03-31 16:23 | PDOC.CMPRO ---
Date of service: 03/31/24 Time of Service: 16:23 Care Management Progress Note Progress Note Text Progress Note Text: Nirmal was sleeping when CM attempted to meet with him. Per report, Nirmal has been anticipating discharge, and MD had a long discussion about expectations yesterday, as he will likely remain inpatient for another day or two, due to the nature and scope of his medical need at this time. CM will continue to follow. Discharge Potential Discharge Needs: PCP F/U Appt Anticipated Barriers to Discharge: None Identified Patient/Family Education Needs: Review discharge instructions, discuss Ask Me Three Transportation: Private vehicle Plan: Anticipate Nirmal will return home with no new services, once medically cleared. His will drive him home via private vehicle; they anticipate returning to [place], where he will follow up with his local providers. CM will continue to follow. SDOH(Care Management) Screening Will the Patient Participate in the Screening?: Yes Do you worry about having a steady place to live?: no Problems where you live: no known problems In the past 12 months, have you had to go without electric, gas, oil or water in your home?: no Have you or anyone in your house had to go without enough food to eat?: no Has lack of transportation kept you from medical appointments or from doing things needed for daily living?: no Has anyone in your support network made you feel unsafe for any reason?: no Health Related Social Needs Health related social needs: housing instability, housed, with risk of homelessness(Z59.811)
--- NOTE | 2024-03-31 17:50 | W.PM.PROGNOT ---
Date of Service Date of service: 03/31/24 Time of Service: 17:55 Assessment and Plan Assessment and plan (1) Perforated gastric ulcer: Status: Acute Assessment and plan: 73-year-old male doing well status post exploratory laparotomy for partial perforated gastric ulcer, postop day 2. ? Decrease IV fluids ? Clear liquid diet ? Encourage out of bed and ambulation ? Likely advance to a soft diet tomorrow, remove MIGDALIA and abdominal dressing, and discharge home ? Dr. Nobles taking over care Qualifiers: Gastric ulcer chronicity: acute Qualified Code(s): K25.1 - Acute gastric ulcer with perforation Subjective Subjective Interval history since last seen: Patient is a 73-year-old male who is postop day 2 from exploratory laparotomy for perforated gastric ulcer. Doing well. No acute events overnight. The Gastrografin study yesterday did not show any leakage from the stomach and it did show the crater from the ulcer in the gastric antrum. Patient denies any severe abdominal pain. He denies any nausea vomiting. He has been out of bed and walking. He is having some left groin pain which is new for him. It is constant but minor and a bit aggravating. We clamped his NG tube this morning and pulled it this afternoon. He is tolerating clear liquids. Exam Narrative Exam Narrative: General?awake, alert, sitting in the recliner, no apparent distress HEENT?sclera anicteric. Mucous membranes moist. Respiratory?unlabored, no use of accessory muscles Abdomen?soft, nondistended, mildly tender to palpation around the incision, some tenderness with palpation of the left inguinal canal without visible or palpable bulge. Colton wound VAC dressing in place with good seal, MIGDALIA to right abdomen with serosanguineous fluid. Extremities?moves all extremities, ambulates independently, no gross edema Objective Last Vital Signs Temp 36.5 C 03/31/24 14:44 Pulse 78 03/31/24 14:44 Resp 15 03/31/24 14:44 BP 157/60 H 03/31/24 14:44 Pulse Ox 97 03/31/24 14:44 Time Spent with Patient Time Spent with Patient: 25-34 minutes Time was spent: preparing to see the patient(eg.review tests), ordering medications,tests, procedures, indepentently interpreting results, counseling the patient and care coordination
[2024-03-31] MEDS: Melatonin 3 MG TAB PO (19:41)
[2024-03-31 19:48] VITALS: BP 154/57; PULSE 67; RESP 18; TEMP 36.2; O2SAT 96
[2024-03-31 23:35] VITALS: BP 140/68; PULSE 67; RESP 17; TEMP 36.3; O2SAT 97
[2024-04-01] MEDS: HYDROmorphone 2 MG/ML SYR 0.5 MG IVP (00:27)
[2024-04-01] MEDS: Normal Saline Flush 10 ML SYR IVP ×3 (00:28→10:45)
[2024-04-01] MEDS: ACETAMINOPHEN 1,000 MG/100 ML BTL 400 MG IVPB ×2 (02:03→10:45)
[2024-04-01 03:14] VITALS: BP 153/66; PULSE 70; RESP 17; TEMP 36.4; O2SAT 97
[2024-04-01] MEDS: PIPERACILLIN/TAZO 3.375 GM in Normal Saline 50 ML IVPB ×2 (06:00→11:35)
[2024-04-01 07:48] LABS: Abs Immature Grans 0.03 10^3/uL (0.0-0.06); Absolute Basophil Count 0.04 10^3/uL (0.0-0.2); Absolute Eosinophil Count 0.59 10^3/uL (0.0-0.7); Absolute Lymphocyte Count 1.18 10^3/uL (1.2-3.4); Absolute Monocyte Count 0.55 10^3/uL (0.1-0.8); Absolute Neutrophil Count 4.79 10^3/uL (1.2-6.7); Basophils % 0.6 %; Eosinophils % 8.2 %; HCT 39.9 % (40.0-50.0); HGB 13.1 g/dL (13.5-17.5); Immature Grans % 0.4 %; Lymphocytes % 16.4 %; MCH 29.7 pg (27.0-33.0); MCHC 32.8 % (32.0-36.0); MCV 91 fL (80-95); MPV 8.5 fL (8.0-11.0); Monocytes % 7.7 %; Neutrophils % 66.7 %; Platelet Count 193 10^3/uL (130-400); RBC 4.41 10^6/uL (4.36-5.78); RDW 14.1 % (11.8-14.1); RDW-SD 47.1 fL; WBC 7.18 10^3/uL (4.4-10.8)
[2024-04-01 08:12] VITALS: BP 149/68; PULSE 72; RESP 17; TEMP 36.3; O2SAT 97
[2024-04-01] MEDS: Pantoprazole 40 MG VIAL IVP (10:45)
--- NOTE | 2024-04-01 10:48 | DSE_ITS ---
Date of service: 04/01/24 Time of Service: 10:50 DS: Diagnosis Discharge Diagnosis (1) Perforated gastric ulcer: Status: Acute Asessment and Plan: Patient is tolerating a diet. Radiographic leak study normal. No leak. Drain has no output. Ready for discharge home. Discharge Plan Disposition Patient Disposition: Home Condition: Good Discharge Details Reason For Visit: Perforated Posterior Duodenal Ulcer Admit Date/Time: 03/29/24 08:48 Admit Provider: Marissa Mathis Attending Provider: Marissa Mathis Primary Care Provider: Asher Zambrano [facility] Course Hospital Course: 73-year-old man presented with acute abdominal pain and a perforated gastric ulcer. He has recently been taking Ozempic. He was taken operating room and exploratory laparotomy was performed. A drain was left in place. Over the next few days he was monitored and did well. A Gastrografin challenge was performed and no leak was identified. The NG tube was removed. He was then tolerating a liquid diet and his drain remained with minimal output and serosa nguineous output. His drain was removed and he was discharged home. It was recommended that he NOT continue taking Ozempic or meloxicam. Home Meds and New Rx's Prescriptions: New pantoprazole 40 mg tablet,delayed release (DR/EC) 40 mg PO BID 30 Days Qty: 60 1RF Continued rosuvastatin 40 mg tablet 40 mg PO DAILY ezetimibe 10 mg tablet 10 mg PO DAILY epinephrine 0.3 mg/0.3 mL auto-injector 0.3 ml IM ONCE Rx Instructions: as a single dose; may repeat once Discontinued meloxicam 15 mg tablet 15 mg PO DAILY Ozempic 2 mg/dose (8 mg/3 mL) pen injector 2 mg SUBCUT .COMPLEX Rx Instructions: 2 mg subcutaneously every 2 weeks; Discharge Instructions Additional Instructions: INSTRUCTIONS: Incision: Keep clean and dry but they do not need to be covered. It is okay to shower but no tub bathing for 1 week. Activity: As tolerated. Light duty without any heavy lifting/pulling or pushing for 6-8 weeks. Diet: Regular diet as tolerated. Avoid acidic or spicy foods. Avoid things like tomato, lemon, coffee, alcohol, etc. Medications: DO NOT TAKE meloxicam or Ozempic any longer. Resume all of your other usual/regular home medications. Start taking your antacid medication twice a day for the next couple of months. Follow-up: You need to see Dr. Mathis in 9-10 days for staple removal. You need to have an upper endoscopy done in the next 4 to 6 weeks. You can have your colonoscopy done at the same time. Pain control: Take Tylenol, 1000 mg, every 6 hours on a schedule for the next 3 days. You can use ice and heat as needed. Do not take ibuprofen. Groin pain: You can use ice on the area as needed. If the pain worsens over the next few days, you can come see us on Wednesday to re-evaluate. I suspect it will slowly go away on its own. It may simply be a reactive lymph node and not necessarily at hernia. I do not see a hernia on your CT scan that is obvious in the radiology reader did not report 1. It is unlikely that this represents a hernia though it could. Overall: Symptoms should not be worsening. If you have any difficulty breathing or you have return of symptoms of brought you to the hospital or your pain is otherwise worsening each day and you should call the doctor's office or come into the hospital to be checked out. Activity:: No heavy lifting or stren Equipment/Supplies:: No Equipment Needed Diet:: Avoid spicy/acidic Discharge Orders Discharge Orders: Discharge Order (Routine); Ordered 04/01/24 Ordered By: Chapo Nboles DS: Summary Time Spent with Patient providing and/or coordinating discharge services: Greater than 30 minutes Status at Discharge Functional status at discharge: independent ambulation Overall status at discharge: patient is back to baseline Mental Status: mental status grossly normal Speech and Movement: speech and movement normal Mood: congruent mood Affect: normal affect Quality:SDOH Health Related Social Needs: Health related social needs risk of homeless Exam Narrative Exam Narrative: Gen: Non-toxic, comfortable and interactive Neuro: Alert and oriented x3 Psych: Good mood and affect. Good insight and understanding into condition. Chest: Non-labored breathing, no wheezing, no visible shortness of breath. Heart: Regular Abdomen: Soft, nondistended, appropriately tender around incision only. [place] are intact. No erythema. Wound looks perfect. MIGDALIA drain has scant serosanguineous output. I removed it at the bedside. Psych Mental Status: mental status grossly normal Speech and Movement: speech and movement normal Mood: congruent mood Affect: normal affect DS: Data Vitals/I&O Vitals and I&O: Vital Signs Temperature 97.3 F L 04/01/24 08:12 Temperature Source Temporal Artery Scan 04/01/24 08:12 Pulse 72 04/01/24 08:12 Pulse 72 03/30/24 17:00 Respiratory Rate 17 04/01/24 08:12 Respiratory Effort Non-Labored 03/29/24 09:08 Respiratory Depth Normal 03/29/24 09:08 Respiratory Pattern Normal 03/29/24 09:08 Blood Pressure 149/68 H 04/01/24 08:12 Blood Pressure Mean 93 03/30/24 16:01 Blood Pressure Position Supine 03/29/24 09:08 Pulse Oximetry 97 04/01/24 08:12 Oxygen Delivery Method Room Air 04/01/24 08:12 Oxygen Flow Rate 0 04/01/24 08:12 Pain Level 4 04/01/24 08:12 Comment Map of 90 03/30/24 17:35 Intake & Output 03/31/24 03/31/24 04/01/24 11:59 23:59 11:59 Intake Total 760 / 2400.333 1640.333 / 2400.333 273 / 273 Output Total 877 / 2037 1160 / 2037 500 / 500 Balance -117 / 363.333 480.333 / 363.333 -227 / -227 Weight 164 lb 8 oz Intake: IV 300 / 5778.874 8450.333 / 1700.333 250 / 250 Oral 460 / 700 240 / 700 Injectate Abdomen Output: Gastric Drainage 620 / 620 Right Nare 620 / 620 Drainage Abdomen Urine 250 / 1400 1150 / 1400 500 / 500 Other: Urine Color Yellow Yellow Yellow Urine Appearance Clear Clear Urine Odor Normal None Comment *Patient stated he voided urine. PATIENT SUPPORT SPECIALIST did not measure or monitor. Stool Size Smear Stool Characteristics Soft Voiding Methods Toilet Toilet Data Completed and Pending Labs on day of discharge: Labs from last 24 hours 04/01/24 07:35 WBC 7.18 RBC 4.41 Hgb 13.1 L Hct 39.9 L MCV 91 MCH 29.7 MCHC 32.8 RDW 14.1 Plt Count 193 MPV 8.5 Immature Gran % 0.4 Neutrophils % 66.7 Lymphocytes % 16.4 Monocytes % 7.7 Eosinophils % 8.2 Basophils % 0.6 Nucleated RBC % 0.0 Absolute Neutrophils 4.79 Absolute Lymphocytes 1.18 L Absolute Monocytes 0.55 Absolute Eosinophils 0.59 Absolute Basophils 0.04 03/29/24 07:45 Peritoneal Anaerobic Culture - Pending Preliminary micro results at discharge 03/29/24 07:45 Surgical Culture - Preliminary Peritoneal 03/29/24 07:45 Anaerobic Culture - Pending Peritoneal PFSH All Active Problems (Updated 03/30/24 @ 15:42 by Ralf NICHOLAS MD) S/P exploratory laparotomy (Acute) History of Mohs surgery for squamous cell carcinoma of skin (Acute) Skin cancer (Acute) [place] (hard of hearing) (Acute) Aortic ectasia (Acute) Cardiomegaly (Acute) CAD (coronary artery disease) (Chronic) Prediabetes (Acute) Former smoker (Acute) Elevated cholesterol (Chronic) Atherosclerosis (Acute) HTN (hypertension) (Chronic) Perforated gastric ulcer (Acute) Surgical History (Updated 03/29/24 @ 20:12 by Marissa Mathis DO) S/P appendectomy History of left-sided carotid endarterectomy Social History Smoking/Tobacco Use Status: Former Tobacco Use Smoking risk assessment performed?: Yes Alcohol Intake: current Alcohol Intake frequency: 0-2 drinks per day Drug use: Never Housing: apartment Do you feel safe at home: Yes Do you feel safe in your relationship?: Yes Time Spent with Patient Time Spent with Patient: 45-69 minutes Time was spent: preparing to see the patient(eg.review tests), obtaining and/or reviewing separately otained hiistory, ordering medications,tests, procedures, referring, communicating with other health foster care therapist, indepentently interpreting results, counseling the patient and care coordination
--- NOTE | 2024-04-01 18:42 | PDOC.CMDIS ---
Date of service: 04/01/24 Time of Service: 18:42 LACE Index Scoring Tool Questions: Length of Stay (in days): 3 Was the patient admitted via the E.D.?: Yes Comorbidities: Any Tumor E.D. Visits: 0 Answers: Total Score: 8 Risk of Readmission: Low Risk Care Management Discharge Plan Reason for Hospitalization: perforated posterior duodenal ulcer Discharge Plan: Nirmal returned home today with no new services. His drove him home via private vehicle. He will follow up with his local community providers in [place], as well as his discharge plan of care. He was happy to be going home. Patient/Family Education Needs: Review discharge instructions and limitations, discussion of self care needs including ask me three SDOH Health Related Social Needs: Health related social needs risk of homeless Health related social needs: housing instability, housed, with risk of homelessness(Z59.951)
== END 2024-04-01 12:23 | disposition home or self-care (01) | DRG 358 ==
LOC: ER 03-29 05:11 → SUR 03-29 06:24 → ICU 03-29 09:03 → MS 03-30 17:17
PROVIDERS: Registered Nurse Emergency; Surgery; Admitting Provider Surgery; Emergency Provider Student in an Organized Health Care Education/Training Program; PCP Internal Medicine Geriatric Medicine; Referring Provider Family Medicine; Visit Provider Surgery
PROC: 0DJ00ZZ Inspection of Upper Intestinal Tract, Open Approach (ICD-10-PCS; CPT 49000; principal; 2024-03-29 06:40)
DX: K25.1 Acute gastric ulcer with perforation (principal); I10 Essential (primary) hypertension; E78.00 Pure hypercholesterolemia, unspecified; I70.90 Unspecified atherosclerosis; R73.03 Prediabetes; I25.10 Atherosclerotic heart disease of native coronary artery without angina pectoris; I51.7 Cardiomegaly; Z87.891 Personal history of nicotine dependence; H91.90 Unspecified hearing loss, unspecified ear
CPT/HCPCS: 49000; 00123; 36415; 71275; 76942; 80048; 80053; 86850; 86900; 86901; 93005; 96361; 96365; 96366; 96367; 96375; 99223; 99291; 71045; 74177; 74221; 74246; 83735; 83880; 84484; 85025; 85379; 85610; 85730; 87070; 87075; 87205; 93010; C9290; J0131; J0665; J1100; J1170; J1450; J1644; J2001; J2060; J2305; J2405; J2470; J2543; J2704; J3010; J3475; J3490

== ENCOUNTER → 2024-04-10 14:33 | Outpatient (BNVA) | payer MEDICARE, SELFPAY | PROVIDERS: PCP Internal Medicine Geriatric Medicine; Referring Provider Internal Medicine Geriatric Medicine; Visit Provider Surgery | DX: Z48.815 Encounter for surgical aftercare following surgery on the digestive system (principal); K25.1 Acute gastric ulcer with perforation ==

== ENCOUNTER → 2024-04-18 09:25 | Outpatient (BNVA) | payer MEDICARE, SELFPAY | PROVIDERS: PCP Internal Medicine Geriatric Medicine; Referring Provider Internal Medicine Geriatric Medicine; Visit Provider Physical Therapy Assistant | DX: Z48.02 Encounter for removal of sutures (principal) ==

== ENCOUNTER → 2024-05-04 10:58 | Outpatient (BNVA) | payer MEDICARE, SELFPAY | PROVIDERS: PCP Internal Medicine Geriatric Medicine; Referring Provider Internal Medicine Geriatric Medicine; Visit Provider Surgery | DX: K26.5 Chronic or unspecified duodenal ulcer with perforation (principal) ==

== ENCOUNTER 2024-05-16 07:10 | Day surgery (SDC) | payer MEDICARE, SELFPAY ==
--- NOTE | 2024-05-15 15:14 | PDOC.DSDIS_ITS ---
Date of service: 05/16/24 Time of Service: 09:43 Discharge Plan Disposition Patient Disposition: Home Condition: Good Discharge Details Reason For Visit: EGD and colonoscopy Attending Provider: Marissa Mathis Primary Care Provider: Asher Zambrano Home Meds and New Rx's Prescriptions: Continued multivitamin Tablet 1 tab PO DAILY pantoprazole 40 mg tablet,delayed release (DR/EC) See Rx Instructions .ROUTE .COMPLEX Qty: 180 3RF Dose Instruction: TAKE 1 TABLET BY MOUTH TWICE DAILY Rx Instructions: TAKE 1 TABLET BY MOUTH TWICE DAILY rosuvastatin 40 mg tablet 40 mg PO DAILY ezetimibe 10 mg tablet 10 mg PO DAILY epinephrine 0.3 mg/0.3 mL auto-injector 0.3 ml IM ONCE Rx Instructions: as a single dose; may repeat once Discontinued polyethylene glycol 3350 17 gram/dose powder 238 g PO ONCE Qty: 238 0RF Rx Instructions: take per colonoscopy instructions bisacodyl [Dulcolax (bisacodyl)] 5 mg tablet,delayed release (DR/EC) 5 mg PO ONCE Qty: 4 0RF Rx Instructions: take per colonoscopy instructions Discharge Instructions Additional Instructions: DSU Colonoscopy Post- Op Instructions Instructions for Everyone who is given Anesthesia: For your safety, please do the following for the next twenty-four (24) hours: *Do Not operate a motor vehicle (car, truck, motorcycle, etc.) *Do Not drink alcoholic beverages or use any recreational drugs for the first 24 hours or while taking pain medications. The medications in your body may have a reaction that can be dangerous. *Do Not make any important decisions or sign any important papers. Findings: mild gastritis scar from gastric ulcer Pandiverticulosis Follow up: My office will send you a letter in 2 to 3 weeks time with the results of the biopsies. 1. No lifting over 20 pounds or strenuous activity for the first 24 hours after your procedure. After 24 hours there are no restrictions on your activity but you may feel fatigued for a few days. 2. After you arrive home you may have a light meal and return to your normal diet as you can tolerate it without feeling sick to your stomach. 3. You may have a bloated, gaseous feeling in your belly (abdomen) after a colonoscopy. Passing gas and belching will help. Walking or lying down on your left side with your knees flexed may relieve the discomfort. Call the office at [phone] (Office) or [phone] (Hospital) right away if you notice any of the following: a.Vomiting of blood or ?coffee ground stools?. b.Rectal bleeding 1Tbsp, blood clots or continuous bleeding. c.Severe belly (abdominal) pain. d.A hard distended belly (abdomen) and an inability to pass gas. 4. Please don?t expect to have a normal BM (bowel movement) for 2-3 days after your procedure. 5. If there are questions regarding the findings of your procedure, please contact your doctor 6. If you are unable to contact your doctor with a problem, contact the hospital at [phone]. 7. Continue all your regular medications unless directed otherwise. I understand the above instructions and have no questions. Signature of Patient or Adult Escort Name of Responsible Adult Escort Signature of Nurse Date/Time Activity:: see above Diet:: see above Discharge Orders Discharge Orders: Discharge Order (Routine); Ordered 05/16/24 Ordered By: Marissa Mathis DS: Diagnosis Discharge Diagnosis (1) Perforated duodenal ulcer: Status: Acute Asessment and Plan: Patient is seen and examined after they are endoscopy.? Patient has minimal sore throat.? They have been able to tolerate liquids.? They do not have any nausea vomiting.? They are not having any chest pain or shortness of breath.? They have been able to pass gas and are not having any abdominal pain or distention.? They have not vomited any blood.? The vital signs have been stable-see nursing notes. We discussed findings on their endoscopy. We reviewed the importance of lifestyle modification-see discharge instructions We reviewed any new medications that the patient may be prescribed-see discharge instructions Patient will either be sent a letter with the biopsy results or follow-up in the office-see discharge instructions. Patient was given explicit instructions to follow-up regarding post endoscopy- refer to discharge Patient verbalized understanding and discharged in stable and satisfactory condition.? See nursing notes. (2) CAD (coronary artery disease): (3) Atherosclerosis: (4) HTN (hypertension): (5) [place] (hard of hearing): (6) Former smoker:
--- NOTE | 2024-05-15 20:27 | COLE_ITS ---
Date of service: 05/16/24 Time of Service: 15:30 Colonoscopy Report Date of procedure: 05/16/24 Pre-op diagnosis general: History of adenomatous polyps Post-op diagnosis procedure note: other (Francois diverticula) Surgeon: Marissa Mathis Anesthesia Type: General:No Airway Estimated blood loss (mL): 1 Pathology: other Complications: None Disposition: same day Prep: Miralax/Dulcolax Retraction Time: 12 Procedure Description: After informed consent was obtained, explaining risks of the procedure, including but not limits to: bleeding, infections, complications of anesthesia, perforations (which may require antibiotics and /or surgery and stay in the hospital), and abdominal pain/cramping. The patient was taken to the procedure room and placed in a left decubitous position. Monitors were applied and a time out was done. The patients name, date of , procedure, allergies to medications and metal in their body was reviewed. The patient was then sedated. Once sedated and comfortable a rectal exam was done. External exam was normal. Internal exam revealed a normal sphincter tone and no palpable masses. The prostate -no palpable masses The previously lubricated Olympus scope was then introduced (see RN notes for scope number) and retrofelexed. No internal hemorrhoids were identified. The scope was then advanced to the cecum without difficulty. The TI and appendiceal orifice were identified. The scope was then slowly retracted over 12 minutes back into the rectum. Polyps: None diverticula: pt had a moderate amount of small mouthed diverticula that do carry all the way over to the cecum.. There were no signs of active bleeding or infection. The mucosa is pink and healthy w/ a normal vascular pattern. The scope was removed, and the patient was woken up and taken back to Same day surgery in stable condition. The patient tolerated the procedure well and there were no immediate complications. Follow up: The patient should follow up in 7 years, unless they develop changes in bowel habits or other new gastrointestinal complaints. [place] Bowel Prep [place] Bowel Prep Right Colon: 3 Left Colon: 3 Transverse Colon: 3 Total Score: 9
--- NOTE | 2024-05-15 20:28 | W.PM.ENDDOP ---
Date of service: 05/16/24 Time of Service: 15:09 Endoscopy Report DATE OF PROCEDURE: 05/16/24 PRE-OP DIAGNOSIS: duodenal ulcer POST-OP DIAGNOSIS: other (mild gastritis/ulcer scar) SURGEON: Marissa Mathis ANESTHESIA TYPE: General:No Airway PATHOLOGY: other COMPLICATIONS: None DISPOSITION: same day PROCEDURE DESCRIPTION: Informed consent was obtained from the pt; explaining the benefits and Risks: bleeding, infections, perforations {which could require surgery or antibiotics and prolonged hospital stay}, or ostomy, and complications of anaesthesia, edwardo aspiration). The patient was take to the procedure room and placed in a supine position. Monitors were applied and a time out was done. The patients name, date of , procedure type, allergies to medications and metal in their body was reviewed. A bite block was placed and the patient was sedated. Once sedated and comfortable an Olympus gastroscope (see RN notes for scope #) was advanced through the oropharynx which was grossly normal, and passed into the esophagus. The proximal and mid-esophagus were normal. The distal esophagus does not show any: dilation/strictures/varices/erosions or ulcers/bleeding noted. The scope was advanced into the stomach and through the pylorus into the proximal jejunum. A bx is taken for celiac Dx . The duodenum was noted to be normal. Biopsies were done of the duodenal bulb.. The scope was retracted back into the stomach and biopsies were taken of the antrum. There is mild gastritis radiating from the antrum in a straight fashion. Biopsies taken. There were no gastropathy/ ulcers/masses noted. The scar from the previous ulcer site is noted. It is well-healed over at this time. The scope was retroflexed. The cardia and fundus were noted to be normal. There a hiatal hernia noted. The scope was retracted back into the esophagus and biopsies were done of the GE junction (in all 4 quadrants) and distal esophagus (2cm above the GE junction) to rule out Cisneros's. All specimens are retrieved and no bleeding was noted. The Z line was regular. The GE junction was at 38 cm. The scope was removed and the patient was woken up and taken back to [facility] in stable condition.
[2024-05-16 07:22] VITALS: BP 156/71; PULSE 76; RESP 16; TEMP 36.5; O2SAT 99
[2024-05-16] MEDS: Normal Saline Flush 10 ML SYR IV ×2 (07:41→09:05)
--- NOTE | 2024-05-16 08:39 | ANES.PREOP_ITS ---
General Info Date of Service Date Performed: 05/16/24 Height: 5 ft 9 in Weight: 73 kg Body Mass Index (BMI): 23.8 Surgical Procedure: Operation Date: 05/16/24 08:50 Proposed Procedure Side Surgeon p Colonoscopy/Gastroscopy Marissa Mathis DO Pre-Op Diagnosis Post-Op Diagnosis post perforated gastric ulcer & lower abdominal pain Meds Allergies and Home Medications Allergies Allergy/AdvReac Type Severity Reaction Status Date / Time bee venom protein (honey bee) Allergy Severe Anaphylaxis Verified 05/16/24 07:30 shellfish derived Allergy Anaphylaxis Verified 05/16/24 07:30 bacitracin (From Neosporin AdvReac Intermediate rash Verified 05/16/24 07:30 ([id number])) neomycin (From Neosporin AdvReac Intermediate rash Verified 05/16/24 07:30 ([id number])) polymyxin B (From Neosporin AdvReac Intermediate rash Verified 05/16/24 07:30 ([id number])) Home Medication ?Medication ?Instructions ?Recorded epinephrine 0.3 mg/0.3 mL 0.3 ml IM ONCE 03/28/24 injection, auto-injector ezetimibe 10 mg tablet 10 mg PO DAILY 03/28/24 rosuvastatin 40 mg tablet 40 mg PO DAILY 03/28/24 multivitamin 1 tab PO DAILY 05/04/24 pantoprazole 40 mg tablet,delayed See Rx Instructions .Route 05/04/24 release .COMPLEX #180 tabs Current Visit Medications: Current Medications Generic Name Dose Route Start Last Admin Trade Name Freq PRN Reason Stop Dose Admin Hyoscyamine Sulfate 0.125 mg 05/16/24 09:18 Hyoscyamine 0.125 Mg Sl/Oral/Chew SL 06/15/24 09:17 DIRECTED PRN Ringer's Solution 1,000 mls @ 80 mls/hr 05/16/24 06:00 IV 05/16/24 23:59 INFUSION [facility] IV Miscellaneous Supplies 1 each 05/16/24 06:00 Iv Access IV 05/16/24 23:59 DIRECTED [facility] Ondansetron HCl 4 mg 05/16/24 09:18 Ondansetron 4 Mg/2 Ml Vial IVP 06/15/24 09:17 Q4H PRN PRN Nausea / Vomiting Sodium Chloride 0 ml 05/16/24 06:00 05/16/24 07:41 Normal Saline Flush 10 Ml Syr IV 05/16/24 23:59 10 ml PRN PRN Administration Sodium Chloride 0 ml 05/16/24 06:00 Normal Saline 10 Ml Vial IJ 05/16/24 23:59 DIRECTED PRN Sterile Water 0 ml 05/16/24 06:00 Water,Injection,Sterile 10 Ml Vial IJ 05/16/24 23:59 DIRECTED PRN PFSH Active Problems Active Problems: Problem Status Onset Code Perforated duodenal ulcer Acute K26.5 Medical History Medical History Skin cancer [place] (hard of hearing) Aortic ectasia Cardiomegaly Pt. denies CAD (coronary artery disease) Prediabetes Former smoker Elevated cholesterol Atherosclerosis HTN (hypertension) Surgical History Surgical History S/P exploratory laparotomy History of Mohs surgery for squamous cell carcinoma of skin S/P appendectomy History of left-sided carotid endarterectomy Tobacco Smoking/Tobacco Use Status: Former Tobacco Use Alcohol Alcohol Intake: current Alcohol intake frequency: a few times a week Substance Use Substance use: Never Substance use type: does not use Vital Signs and Lab Results Vital Signs Most Recent Vital Signs in EMR: Most Recent Vital Signs Temp Pulse Resp BP Pulse Ox 36.5 C 76 16 156/71 H 99 05/16/24 07:22 05/16/24 07:22 05/16/24 07:22 05/16/24 07:22 05/16/24 07:22 Lab Results Blood Type / Crossmatch: No Data to Display Complete Blood Count: No Data to Display Complete Metabolic Panel: No Data to Display Liver Function Panel: No Data to Display Coagulation Panel: No Data to Display Cardiac Panel: No Data to Display Arterial Blood Gas: No Data to Display Venous Blood Gas: No Data to Display Pancreas Panel: No Data to Display Thyroid Panel: No Data to Display Infectious Disease: No Data to Display Blood Cultures: No Data to Display Toxicology Panel: No Data to Display Imaging and Studies Imaging and Studies Study information below may be from another EMR and interpreted by another provider. Please see original notes in EMR for more complete details. EKG Summary: EKG PATIENT NAME: Nirmal Puri UNIT #: [id number] ORDERING PROVIDER: Saad Arnett M.D. PRIMARY CARE PROVIDER: HAZEL ALANIZ DO DATE/TIME OF SERVICE: 03/29/241903 : 1950 PERFORMING LOCATION: ICU APPROVED REPORT Exam: Resting ECG Reason for Exam: chest pain Patient Location: I HR:75 bpm ECG Measurements Heart Rate 75 AXIS MT 192 P 67 QRSd 99 QRS 35 QT 402 T60 QTc 449 Conclusion Sinus rhythm...normal P axis, V-rate 50- 99 Normal Electrocardiogram <Electronically signed by KARYNA HAMLIN MD in OV> E-Sign Date: 03/30/24 E-Sign Time: 0808 Anesthesia Assessment and Plan Anesthesia History Personal History: No History of Anesthesia Complications Family History: No Family History of Anesthesia Complications Exercise Tolerance Exercise Tolerance: Metabolic Equivalents>4 Pertinent Negatives Pertinent Negatives: No Symptoms of GERD, No Major Pulmonary Symptoms or Complaints and No History of CVA/TIA Cardiac & Pulmonary Exam Cardiac Exam: Normal S1/S2 Heart Sounds Pulmonary Exam: Clear Bilateral Breath Sounds Implantable Cardiac Device Does patient have a Pacemaker or an ICD?: No Airway Exam Known Difficult Airway: No Mallampati Class: 3 Mouth Opening: Normal (> 3cm) Thyromental Distance: Greater than 3 cm Neck Range of Motion: Limited ROM Neck Circumference: Normal Teeth Condition: Normal Dentition ASA Classification ASA Score: ASA 2 Emergency Case?: No NPO Status NPO Status: NPO Clears >2 hours, Solids >8 hours Anesthesia Plan Resuscitation Status: Full Code Anesthesia Technique: General Anesthesia Airway Planned: Natural Airway Monitors Used: Standard Monitors
[2024-05-16 08:40] VITALS: BMI 23.8
--- NOTE | 2024-05-16 08:55 | STOM_PTH ---
PATIENT: Nirmal Puri LOC: [facility] U#:[id number] AGE/SX: 73/M ROOM: RE05/16/[address]: Marissa Mathis : 1950 BED: DIS: 05/16/2024 SPEC #: [id number] RECD: 05/16/24 12:54 STATUS: TAMEKA RE #: [id number] SILVINO: 05/16/24 08:[address]: Marissa Mathis DEPT: Surgical Specimen RECD BY: Pamela Osorio ENTERED: 05/16/24 12:59 SP TYPE: STOMACH OTHR DR: Asher Zambrano Tissues: 1 - BIOPSY BOWEL 2 - BIOPSY BOWEL 3 - STOMACH BIOPSY 4 - STOMACH BIOPSY 5 - ESOPHAGUS BIOPSY 6 - ESOPHAGUS BIOPSY Procedures: GROSS AND MICRO LEVEL 4 Comments: [id number]
[2024-05-16 09:32] VITALS: BP 147/70; PULSE 67; RESP 16; TEMP 36.5; O2SAT 96
[2024-05-16 10:02] VITALS: BP 146/66; PULSE 67; RESP 20; TEMP 36.7; O2SAT 97
--- NOTE | 2024-05-16 10:09 | W.ANESPOSTOP ---
Postoperative Evaluation Date, Time and Location Date Performed: 05/16/24 Time Performed: 09:29 Patient Location: Day Surgery Unit Vital Signs Most Recent Imported Vital Signs: Most Recent Vital Signs Temp Pulse Resp BP Pulse Ox 36.7 C 67 20 146/66 H 97 05/16/24 10:02 05/16/24 10:02 05/16/24 10:02 05/16/24 10:02 05/16/24 10:02 Pain Score Most Recent Pain Score: Most Recent Pain Score Pain Level 5 05/16/24 07:22 Assessment Mental Status: Arousable with meaningful communication Airway and Respiratory Function: Patent airway with normal (patient baseline) respiratory exam Cardiovascular Function: Hemodynamically Stable Hydration Status: Adequately Hydrated Nausea & Vomiting: No Nausea or Vomiting Pain: Pain is tolerable per patient Peripheral Nerve Block: Patient did not receive a nerve block
== END 2024-05-16 10:30 | disposition home or self-care (01) ==
LOC: SUR 07:11
PROVIDERS: PCP Internal Medicine Geriatric Medicine; Visit Provider Surgery
PROC: (CPT 43239; principal; 2024-05-16 08:45)
DX: K26.5 Chronic or unspecified duodenal ulcer with perforation (principal); I10 Essential (primary) hypertension; Z12.11 Encounter for screening for malignant neoplasm of colon; K57.30 Diverticulosis of large intestine without perforation or abscess without bleeding; K29.00 Acute gastritis without bleeding; K29.70 Gastritis, unspecified, without bleeding; K22.89 Other specified disease of esophagus
CPT/HCPCS: 43239; G0121; 88305; J2704

== ENCOUNTER 2024-12-15 15:19 | Outpatient (REF) | payer MEDICARE, SELFPAY ==
[2024-12-15 14:56] LABS: Anion Gap 5.7 mmol/L (3-11); BUN 16 mg/dL (7-18); CO2 30.3 mmol/L (21.0-32.0); Calcium 8.6 mg/dL (8.5-10.1); Chloride 107 mmol/L (98-107); Estimated GFR 79.47 (mL/min/1.73m2); Glucose 86 mg/dL (74-106); Potassium 4.2 mmol/L (3.5-5.1); Sodium 143 mmol/L (136-145)
== END 2024-12-15 15:20 | disposition home or self-care (01) ==
LOC: NCHCN 15:19
PROVIDERS: PCP Internal Medicine Geriatric Medicine; Visit Provider Family Medicine
DX: I10 Essential (primary) hypertension (principal)
CPT/HCPCS: 80048